=== PATIENT | female | born 1940 | race Caucasian/White ===

== ENCOUNTER 2017-06-09 13:29 | Emergency (ER) | payer MEDICARE, OTHER, SELFPAY ==
[2017-06-09 13:31] VITALS: BP 153/68; PULSE 96; RESP 22; TEMP 36.5; O2SAT 100; BMI 34.5
--- NOTE | 2017-06-09 13:45 | CT_ITS ---
STUDY: CT BRAIN WITHOUT CONTRAST REASON FOR EXAM: Female, 76 years old. Dizziness for 2 weeks RADIATION DOSAGE (If Supplied By Facility): CTDIvol = ( 44.99 ) mGy, DLP = ( 745.49 ) mGycm TECHNIQUE: Transaxial CT imaging of the brain was performed without administration of intravenous contrast material. Individualized dose optimization techniques were used for this CT. COMPARISON: None. FINDINGS: No evidence for shift of midline structures, mass effect or compression of ventricles noted. No acute intra-articular extra-axial hemorrhage is seen. No abnormal intracranial fluid collections identified The basal cisterns are patent. No discrete mass in the posterior fossa. Scattered foci of low-attenuation in the periventricular and subcortical white matter which are nonspecific in imaging appearance however likely related with chronic small vessel disease. Low-attenuation in the olivia also seen may relate to subacute infarct or beam hardening from adjacent dense petrous bones. Vascular calcifications. The calvarium is intact. 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 IMPRESSION: No evidence for acute intracranial hemorrhage, mass effect or acute large territory infarcts. Chronic small vessel disease.Low-attenuation in the olivia also seen may relate to subacute infarct or beam hardening from adjacent dense petrous bones. MRI exam provides better sensitivity for posterior fossa ischemia Electronically Signed: Viet Cheema, at 15:20 EDT Tel , Service support , CT/Brain/Head without Contrast
--- NOTE | 2017-06-09 13:46 | EKG12_ITS ---
Test Reason : DIZZINESS Blood Pressure : / mmHG Vent. Rate : 083 BPM Atrial Rate : 083 BPM P-R Int : 140 ms QRS Dur : 094 ms QT Int : 404 ms P-R-T Axes : 048 -10 058 degrees QTc Int : 474 ms Normal sinus rhythm Voltage criteria for left ventricular hypertrophy Nonspecific T wave abnormality Prolonged QT Abnormal ECG Confirmed by JAYLON SUAREZ, CECIL ([id number]), city editor ALEJANDRO MARTINES ([id number]) on 06/11/2017 2:55:44 PM Referred By: RENETTA Confirmed By:CECIL IYER MD
[2017-06-09 14:00] VITALS: BP 132/65; PULSE 80; RESP 20; O2SAT 98
--- NOTE | 2017-06-09 14:06 | RAD_ITS ---
STUDY: X-RAY CHEST REASON FOR EXAM: Female, 76 years old. Shortness of breath and dizziness TECHNIQUE: Single view of the chest was obtained COMPARISON: April 09, 2017 chest radiograph FINDINGS: Cardiac size is slightly prominent. Osseous structures demonstrate no acute abnormalities. There is likely a hiatal hernia present. No pneumothorax. IMPRESSION: Hiatal hernia suspected. Bibasilar subsegmental atelectasis. No lung consolidation Electronically Signed: Viet Cheema, at 14:31 EDT Tel , Service support , RAD/Chest 1 View (Portable)
[2017-06-09 14:08] LABS: Absolute Lymphocyte Count 0.85 X10^3/ul (0.83-4.51); Absolute Neutrophil Count 11.7 X10^3/uL (2.0-7.7); Basophil# 0.02 X10^3/uL; Basophil% 0.2 % (0-1); Eosinophil# 0.01 X10^3/uL; Eosinophils% 0.1 % (0-5); Hematocrit 34.5 % (37-47); Hemoglobin 11.3 g/dl (12.0-15.0); Lymphocyte # 0.85 X10^3/ul (4.0); Lymphocyte % 6.4 % (19-41); Mean Corp Hgb Conc 32.8 g/gl (32-36); Mean Corpuscular Hgb 31.6 pg (27.0-32.0); Mean Corpuscular Volume 96.4 fL (81-99); Mean Platelet Vol. 10.4 fl (6.2-12.0); Monocyte# 0.68 X10^3/uL; Monocyte% 5.1 % (0-10); Neutrophil # 11.73 X10^3/uL (2.7-7.7); Platelet Count 210 K/mm3 (150-450); RBC Distribution Width SD 43.5 fl (35.1-43.9); Red Blood Count 3.58 M/mm3 (4.2-5.4); White Blood Count 13.3 K/mm3 (4.4-11.0)
[2017-06-09 14:09] LABS: POSITIVE COUNT NO; POSITIVE DIFFERENTIAL NO; POSITIVE MORPHOLOGY NO
[2017-06-09 14:23] LABS: AST(SGOT) 21 U/L (15-37); Alanine Aminotransfer ALT/SGPT 20 U/L (13-56); Albumin, Serum 3.4 g/dL (3.2-5.0); Alkaline Phosphatase 66 U/L (45-117); Anion Gap 8 (5-15); BUN 24 mg/dL (7-18); BUN/Creat Ratio 19.5 RATIO (10-20); Bilirubin, Direct 0.13 mg/dL (0.00-0.30); Calcium,Total 8.5 mg/dL (8.5-10.1); Chloride 108 mmol/L (98-107); Creatinine, Serum 1.23 mg/dL (0.55-1.02); EST Glomerular Filtration Rate 45 mL/min (>60); Est Glom Filt Rate - Afr Amer 55 mL/min (>60); Estimated Creatinine Clearance 30.28 ml/min; Glucose 150 mg/dL (74-106); Lipase 124 U/L (73-393); Protein, Total 6.4 g/dL (6.4-8.2); Sodium Level 143 mmol/L (136-145)
--- NOTE | 2017-06-09 14:28 | ED.VISSUMM ---
- ER Visit Summary Date of Service: 06/09/17 Chief Complaint: [] Dizziness on and off for weeks History of Present Illness: The patient is a 76 F [] her history one year ago for TIA the cause some trouble with speech and mild dizziness she has been doing well at home but for the last few weeks she has had intermittent spells of dizziness that seem to occur when she is up walking about she indicates she spends, she has no trouble with speech no trouble with cognition no trouble with motor activities she had an episode today at restoration and she came in for evaluation. Fever no cough no chest pain no paresthesias no other complaints at this time she has had no symptoms of any kind her speech is easy to understand and clear Physical Examination: [] She is resting cupping the bed her vital signs are within normal range her HEENT exam is unremarkable there is no nystagmus to head movement or eye movement or visual acuity is intact to confrontation testing her neck is very supple her cranial nerves and speech are normal her lungs are clear the heart tones are normal the abdomen soft nontender upper lower extreme is unremarkable she did trip and fall in the shower this morning unrelated to any dizziness complains of mild pain to the right hip when she has full range of motion, she does have a large contusion involving the posterior to lateral right hip region, neurologically she is awake alert no dizziness no findings and nih 0 finger to nose cranial nerves motor negative Test Results: [] Emergency Department Course and Treatment: [] CT labs x-rays other studies are generally unremarkable CT shows nothing acute her labs, she is pending a right hip x-ray but she is up walking around the emergency department she indicates she feels fine she is not dizzy with any type of activity in the department she understands exact etiology of her dizziness is unclear this could certainly be related to lacunar infarct or TIA or some other process we can identify but she feels fine wants to go home she will follow with her family doctors her neurologist and return for change in symptoms, now she does have a contusion as described above to the right hip from the fall she will ice that continue to range of motion and again follow-up with her outpatient physicians for all of her complaints Treatment Plan: [] Disposition: [] Home stable admission Impression: [] Intermittent dizziness 4 weeks, right hip contusion prior TIA This note was generated with [employer] software. It may contain incorrect words, spelling, and punctuation that were not noted in review of the chart prior to signing ED Disposition - Plan for ED Patient: Chief Complaint: Dizziness Referrals: Prosper Christian DO [Primary Care Provider] -
[2017-06-09 14:32] VITALS: BP 122/73; BP 136/74; BP 142/71; PULSE 128; PULSE 80; PULSE 92
--- NOTE | 2017-06-09 15:09 | RAD_ITS ---
STUDY: X-RAY - PELVIS AND RIGHT HIP REASON FOR EXAM: Female, 76 years old. Dizziness and falling the top TECHNIQUE: Radiological exam, hip, unilateral, with pelvis when performed; 2 or 3 views. COMPARISON: None. FINDINGS: No definite evidence for acute femoral neck fracture seen. The bony pelvic ring appears intact. Degenerative changes in the sacroiliac joints. Overlying bowel gas limits assessment the sacrum. Ossific density along the superior aspect of the right greater trochanter noted possibly osteochondroma or myositis ossificans. Degenerative changes in the lower lumbar spine as well as the sacroiliac joints. IMPRESSION: No evidence for acute fracture seen Electronically Signed: Viet Cheema, at 16:22 EDT Tel , Service support , RAD/Hip 2-3 Views with Pelvis
[2017-06-09 15:45] VITALS: BP 147/63; PULSE 75; RESP 16; O2SAT 99
--- NOTE | 2017-06-09 15:50 | ED.RN ---
UP TO BR. DIZZINESS SIGNFICANTLY IMPROVED. WALKED DOWN MELENDREZ AND TOLERATED WELL
--- NOTE | 2017-06-09 15:52 | ED.DEP ---
ED Disposition - Plan for ED Patient: Chief Complaint: Dizziness Instructions: ED Dizziness UKO, ED Vertigo Unspecified Referrals: Prosper Christian DO [Primary Care Provider] -
--- NOTE | 2017-06-09 15:54 | ED.RN ---
UP TO BR. PT HAS LARD DEEP PURPL BRUISING/FIRM KNOT ACROSS RIGHT HIP SLIGH INTO THIGH WRAPS AROUND INTO BUTTOCKS AND LOWER ABD. PT REPORTS FALL IN TUB. STATES I SLIPPED ON RUB. I WAS NOT DIZZY AT THAT TIME. DR MURRAY AND XRAYS ORDERED. PT IN IMAGING AT THIS TIME.
[2017-06-09 15:56] LABS: Bacteria 0 SEEN /hpf (None Seen); Mucous, Urine 0 SEEN /hpf (<or=2+); Red Blood Cells-Urine 0 SEEN /hpf (0-5)
[2017-06-09 16:05] LABS: Color, Urine Yellow (Yellow); Glucose, Dipstick 250 mg/dl (Normal); Ketone-Dipstick Negative (Negative); Leukocyte Esterase-Dipstick 25 /ul (Negative); Nitrite-Dipstick Negative (Negative); Occult Blood-Urine 10 /ul (Negative); Protein-Dipstick Negative (Negative); Urine Bilirubin Dipstick Negative (Negative); Urine Clarity Clear (Clear); Urine Urobilinogen Normal (Normal)
[2017-06-09 16:14] LABS: Squamous Epithelial Cells - UA 0-5 SEEN /hpf (5-10); White Blood Cells 0-5 SEEN /hpf (0-5)
[2017-06-09 16:49] VITALS: BP 114/79; PULSE 72; RESP 20; O2SAT 97
== END 2017-06-09 16:50 | disposition home or self-care (01) ==
PROVIDERS: Emergency Provider Emergency Medicine; Family Provider Family Medicine; PCP Family Medicine
DX: R42 Dizziness and giddiness (principal); S70.01XA Contusion of right hip, initial encounter; W18.09XA Striking against other object with subsequent fall, initial encounter; W18.2XXA Fall in (into) shower or empty bathtub, initial encounter; Y93.E1 Activity, personal bathing and showering; Y92.9 Unspecified place or not applicable; Y99.9 Unspecified external cause status; Z79.899 Other long term (current) drug therapy; Z86.73 Personal history of transient ischemic attack (TIA), and cerebral infarction without residual deficits
CPT/HCPCS: 70450; 71045; 73502; 80048; 80076; 81001; 83690; 84484; 85025; 93005; 96360; 99284; J7030; J7040; A4216

== ENCOUNTER → 2017-06-25 11:04 | Outpatient (CLI) | payer MEDICARE, OTHER, SELFPAY ==
--- NOTE | 2017-06-25 11:30 | MRI_ITS ---
STUDY: MRI BRAIN WITHOUT CONTRAST REASON FOR EXAM: Female, 76 years old. Dizziness, IMBALANCE,prior stroke TECHNIQUE: Standardized multiplanar fat and water weighted pulse sequences were obtained. COMPARISON: None. FINDINGS: There is mild cerebral atrophy with widening of the extra-axial spaces and ventricular dilatation. There are a limited number of small white matter hyperintensities, distributed throughout the deep white matter tracts of the cerebral hemispheres, consistent with mild chronic white matter ischemic changes. Normal bilateral basal ganglia. Normal thalami. There is no extra-axial fluid accumulation. Normal flow voids within the major intracranial circulation suggesting patency by spin echo criteria. Normal sella turcica, pituitary gland, infundibular stalk, optic chiasm and hypothalamus. Normal tectal plate and pineal gland. There is a small old ischemic lesion on the left side of the olivia. The midbrain and medulla are otherwise normal. Multiple small old ischemic lesions are seen in the right and left cerebellar hemispheres. Normal basal cisterns. Normal bilateral temporal bones. Normal bilateral internal auditory canals. No demonstrated orbital abnormality, within the constraints of a routine brain study. Normal visualized paranasal sinuses. Normal calvarium and skull base. Normal visualized soft tissue structures. Normal visualized upper cervical spine. MRI/Brain without Contrast IMPRESSION: Involutional changes of the brain, as described above. There is a small old ischemic lesion on the left side of the olivia. Multiple small old ischemic lesions are seen in the right and left cerebellar hemispheres. Electronically Signed: Haja Bhardwaj MD at 15:44 EDT Tel , Service support ,
== END ==
PROVIDERS: Family Provider Family Medicine; PCP Family Medicine; Visit Provider Family Medicine
DX: R42 Dizziness and giddiness (principal); I67.9 Cerebrovascular disease, unspecified
CPT/HCPCS: 70551

== ENCOUNTER → 2017-10-30 08:27 | Outpatient (CLI) | payer MEDICARE, OTHER, SELFPAY ==
[2017-10-30 08:54] LABS: Absolute Lymphocyte Count 1.23 X10^3/ul (0.83-4.51); Absolute Neutrophil Count 4.8 X10^3/uL (2.0-7.7); Basophil# 0.06 X10^3/uL; Basophil% 0.9 % (0-1); Eosinophil# 0.19 X10^3/uL; Eosinophils% 2.7 % (0-5); Hematocrit 37.5 % (37-47); Hemoglobin 11.7 g/dl (12.0-15.0); Lymphocyte # 1.23 X10^3/ul (4.0); Lymphocyte % 17.6 % (19-41); Mean Corp Hgb Conc 31.2 g/gl (32-36); Mean Corpuscular Hgb 27.7 pg (27.0-32.0); Mean Corpuscular Volume 88.9 fL (81-99); Mean Platelet Vol. 10.3 fl (6.2-12.0); Monocyte# 0.72 X10^3/uL; Monocyte% 10.3 % (0-10); Neutrophil # 4.77 X10^3/uL (2.7-7.7); Neutrophil % 68.4 % (47-70); Platelet Count 222 K/mm3 (150-450); RBC Distribution Width CV 15.9 % (11.6-14.6); RBC Distribution Width SD 50.9 fl (35.1-43.9); Red Blood Count 4.22 M/mm3 (4.2-5.4)
[2017-10-30 09:00] LABS: POSITIVE COUNT NO; POSITIVE DIFFERENTIAL NO; POSITIVE MORPHOLOGY NO
[2017-10-30 09:27] LABS: ALB/GLOB Ratio 1.1 RATIO (0.9-2.4); AST(SGOT) 26 U/L (15-37); Alanine Aminotransfer ALT/SGPT 27 U/L (13-56); Albumin, Serum 3.6 g/dL (3.2-5.0); Alkaline Phosphatase 80 U/L (45-117); Anion Gap 10 (5-15); BUN 24 mg/dL (7-18); BUN/Creat Ratio 23.5 RATIO (10-20); Calcium,Total 8.7 mg/dL (8.5-10.1); Chloride 106 mmol/L (98-107); Creatinine, Serum 1.02 mg/dL (0.55-1.02); EST Glomerular Filtration Rate 56 mL/min (>60); Est Glom Filt Rate - Afr Amer 68 mL/min (>60); Ferritin 14 ng/mL (8-252); Globulin 3.4 g/dL (2.2-4.2); Glucose 88 mg/dL (74-106); Iron 79 ug/dL (50-170); Potassium 4.1 mmol/L (3.5-5.1); Sodium Level 143 mmol/L (136-145)
[2017-10-30 09:31] LABS: Vitamin B12 527 pg/mL (211-911); Vitamin D,25 Hydroxy 35.5 ng/mL (29.95-100.01)
== END ==
PROVIDERS: Family Provider Family Medicine; PCP Family Medicine; Visit Provider Family Medicine
DX: I10 Essential (primary) hypertension (principal); E78.5 Hyperlipidemia, unspecified; D64.9 Anemia, unspecified; E55.9 Vitamin D deficiency, unspecified; Z51.81 Encounter for therapeutic drug level monitoring
CPT/HCPCS: 36415; 80053; 82306; 82607; 82728; 83540; 85025

== ENCOUNTER → 2018-03-17 08:31 | Outpatient (CLI) | payer MEDICARE, OTHER, SELFPAY ==
[2018-03-11 10:44] VITALS: BMI 35.1
--- NOTE | 2018-03-17 08:33 | ECHOCS_ITS ---
Reason For Study: Murmur Procedure This was a 2D Doppler, Color Flow transthoracic echocardiogram. Exam performed in department. Left Ventricle Normal LV size. Left ventricular systolic function is normal. The estimated ejection fraction is 65 %. Stage 1 diastolic dysfunction. No regional wall motion abnormalities noted. Right Ventricle Normal RV size. Normal systolic function. Atria The left atrium is severely enlarged. Normal right atrium. Mitral Valve There is moderate to severe mitral annular calcification. Moderate (2+) mitral valve insufficiency. Tricuspid Valve Normal tricuspid valve. Mild to moderate (1-2+) tricuspid valve insufficiency. Pulmonary artery systolic pressure is 38 mmHg. Aortic Valve Trisinus/trileaflet aortic valve. Pulmonic Valve Normal pulmonic valve. Great Vessels Normal aortic root. The pulmonary artery is normal size. Normal inferior vena cava. Pericardium/Pleural No pericardial effusion. Medication 22 gauge I.V. with prn adaptor inserted into right arm. Diluted definity 3ml given slow IV push to enhance endocardial definition. MMode/2D Measurements & Calculations LVIDd: 3.7 cm IVSd: 1.4 cm LAV(MOD-bp): 105.4 ml LVIDs: 2.2 cm LVPWd: 1.6 cm RVDd: 3.2 cm FS: 39.3 % LAV(MOD-bp) Indexed: 58.6 ml/m2 LAV(MOD-sp2): 71.9 ml LAV(MOD-sp4): 119.1 ml LA A4 area: 33.1 cm2 RA A4 area: 15.9 cm2 Time Measurements MV dec time: 0.27 sec Doppler Measurements & Calculations MV E max kendall: 105.2 cm/sec Lat Peak E' Kendall: 7.2 cm/sec Med Peak E' Kendall: 4.8 cm/sec MV A max kendall: 115.4 cm/sec E/E' lat: 14.5 E/E' med: 22.0 MV E/A: 0.91 MV V2 max: 150.7 cm/sec MV P1/2t max kendall: 151.8 cm/sec Ao V2 max: 143.4 cm/sec MV max P.1 mmHg MV P1/2t: 87.1 msec Ao max P.2 mmHg MV V2 mean: 87.0 cm/sec Ao V2 mean: 97.4 cm/sec MV mean P.5 mmHg MV dec slope: 510.5 cm/sec2 Ao mean P.4 mmHg MV V2 VTI: 40.5 cm MVA(P1/2t): 2.5 cm2 Ao V2 VTI: 35.5 cm LV V1 max: 126.7 cm/sec MR max kendall: 584.3 cm/sec PA V2 max: 100.0 cm/sec LV V1 max P.4 mmHg MR max P.6 mmHg LV V1 mean P.5 mmHg MR mean kendall: 458.4 cm/sec LV V1 mean: 87.5 cm/sec MR mean P.6 mmHg LV V1 VTI: 32.5 cm MR VTI: 216.5 cm TR max kendall: 287.6 cm/sec TR max P.1 mmHg Interpretation Summary Normal LV size. Left ventricular systolic function is normal. The estimated ejection fraction is 65 %. Stage 1 diastolic dysfunction. The left atrium is severely enlarged. There is moderate to severe mitral annular calcification. Moderate (2+) mitral valve insufficiency. Contrast injection was performed. Ordering Physician: Julio Stanford Referring Physician: Julio Stanford Performed By: Tera Lacey RCS
--- OUTSIDE RECORDS SUMMARY | 2018-05-19 15:48 | XMS RPT_ITS ---
:1940 Author Organization [place] Support Name Relationship Address Phone ABY AWAD Unavailable [address] + [place] [address] R Unavailable Unavailable Unavailable MADDY BERG Unavailable [address] + [address] [place] [address] ABY AWAD Unavailable [address] + [place] [address] R Unavailable Unavailable Unavailable MADDY BERG Unavailable [address] + [address] [place] [address] ABY AWAD Unavailable [address] + [place] [address] R Unavailable Unavailable Unavailable MADDY BERG Unavailable [address] [place] [address] ABY AWAD Unavailable [address] + [place] [address] R Unavailable Unavailable Unavailable MADDY BERG Unavailable [address] + [address] [place] [address] ABY AWAD Un[address] + [place] [address] R Unavailable Unavailable Unavailable MADDY BERG Unavailable [address] [place] [address] ABY AWAD Un[address] + [place] [address] R Unavailable Unavailable Unavailable MADDY BERG Unavailable [address] + [address] [place] [address] ABY AWAD Un[address] + [place] [address] R Unavailable Unavailable Unavailable MADDY BERG Unavailable [address] [place] [address] PAK[place], ABY Unavailable [address] + [place] [address] R Unavailable Unavailable Unavailable MADDY BERG Unavailable [address] [place] [address] ABY AWAD Unavailable [address] + [place] [address] R Unavailable Unavailable Unavailable MADDY BERG Unavailable [address] [place] [address] ABY AWAD Unavailable [address] + [place] [address] R Unavailable Unavailable Unavailable MADDY BERG Unavailable [address] + [address] [place] [address] ABY AWAD Un[address] + [place] [address] R Unavailable Unavailable Unavailable MADDY BERG Unavailable [address] + [address] [place] [address] ABY AWAD Un[address] + [place] [address] R Unavailable Unavailable Unavailable MADDY BERG Unavailable [address] + [address] [place] [address] ABY AWAD Un[address] + [place] [address] R Unavailable Unavailable Unavailable MADDY BERG Unavailable [address] + [place] [address] ABY AWAD Un[address] + [place] [address] R Unavailable Unavailable Unavailable MADDY BERG Unavailable [address] + [place] [address] Care Team Providers Name Role Phone SISSY CHILDRESS (OCCUPATIONAL REHABILITATION AIDE) Referring Unavailable SISSY CHILDRESS (OCCUPATIONAL REHABILITATION AIDE) Attending Unavailable SISSY CHILDRESS (OCCUPATIONAL REHABILITATION AIDE) Referring Unavailable DR. LYNDON KEARNEY DO Attending Unavailable PHYSICIAN, NONE Primary Care Unavailable Eliane Mackey Attending Unavailable Prosper Christian Referring Unavailable Julio Stanford Attending Unavailable Prosper Christian Referring Unavailable Eliane Mackey Attending Unavailable Prosper Christian Referring Unavailable Anahi, Prosper Primary Care Unavailable Donald Berger Attending Unavailable Prosper Christian Attending Unavailable Anahi, Prosper Referring Unavailable Anahi, Prosper Primary Care Unavailable Hien, [place] Attending Unavailable Hien, Julio Referring Unavailable Anahi, Prosper Primary Care Unavailable Annalee Davis Attending Unavailable Annalee Davis Attending Unavailable Montse Mckeon Attending Unavailable Mary Kate Zavaleta Attending Unavailable Maycol Raghavendra Vo Attending Unavailable Anahi, Prosper Referring Unavailable Anahi, Prosper Primary Care Unavailable Eliane Mackey Attending Unavailable Anahi, Prosper Referring Unavailable Anahi, Prosper Primary Care Unavailable Anahi, Prosper Attending Unavailable Anahi, Prosper Referring Unavailable Anahi, Prosper Primary Care Unavailable Eliane Mackey Attending Unavailable Anahi, Prosper Referring Unavailable Anahi, Prosper Primary Care Unavailable PROBLEMS PROBLEMS DATE TYPE CONDITION / CODE ATTENDING STATUS SOURCE 03/11/2018 Unknown I36.1 - Nonrheumatic Hien, Julio Active [facility] tricuspid (valve) Community insufficiency / Hospital I36.1(ICD-10) Repository 03/11/2018 Unknown I10 - Essential Hien, [place] Active [facility] (primary) Community hypertension / Hospital I10(ICD-10) Repository 03/11/2018 Unknown I05.9 - Rheumatic Hien, [place] Active [facility] mitral valve disease, Community unspecified / Hospital I05.9(ICD-10) Repository 03/11/2018 Unknown Z95.818 - Presence of Hien, [place] Active [facility] other cardiac Community implants and grafts / Hospital Z95.818(ICD-10) Repository 03/11/2018 Unknown E78.00 - Pure Hien, Julio Active [facility] hypercholesterolemia, Community unspecified / Hospital E78.00(ICD-10) Repository 10/30/2017 Unknown E78.5 - AnahiProsper de los [place]antos Active [facility] Hyperlipidemia, Community unspecified / Hospital E78.5(ICD-10) Repository 10/30/2017 Unknown D64.9 - Anemia, AnahiProsper de los [place]ant[place] Active [facility] unspecified / Community D64.9(ICD-10) Hospital Repository 10/30/2017 Unknown E55.9 - Vitamin D AnahiProsper de los [place] Active [facility] deficiency, Community unspecified / Hospital E55.9(ICD-10) Repository 10/30/2017 Unknown Z51.81 - Encounter Prosper Christian Active [facility] for therapeutic drug Community level monitoring / Hospital Z51.81(ICD-10) Repository 06/25/2017 Unknown R42 - Dizziness and Prosper Christian Active [facility] giddiness / Community R42(ICD-10) Hospital Repository 06/25/2017 Unknown I67.9 - Prosper Christian Active [facility] Cerebrovascular Community disease, unspecified Hospital / I67.9(ICD-10) Repository 06/12/2017 Active Unknown / SISSY CHILDRESS Active [facility] UNK(Unknown) (OCCUPATIONAL REHABILITATION AIDE) [facility] [place] Repository 06/12/2017 Active Encounter for NA Active [facility] screening mammogram [facility] for malignant [place] neoplasm of breast / Repository Z12.31(ICD-10) 06/03/2017 Unknown I63.9 - Cerebral KeyEliane Active [facility] infarction, Community unspecified / Hospital I63.9(ICD-10) Repository PROCEDURES PROCEDURES No Procedure Records FoundRESULTS RESULTS ECHO, COMPLETE W/ Observed: 03/17/2018 Status: F Source: [place] CONTRAST 10:13 AM [facility] REPOSITORY [facility] Cardiovascular Services [address] [place] [address] Echo Complete W/ Contrast 03/17/18 0835 MR#: [id number] Acct: [id number] Name: GABRIELA BERG Rep #: [id number] : 1940 77 From: Julio Stanford MD Attending Dr: Julio Stanford MD Status: REG CLI Ordering Dr: Julio Stanford MD Date: 03/17/18 Location: [facility] Sex: F C Admitted: Reason For Study: Murmur Procedure This was a 2D Doppler, Color Flow transthoracic echocardiogram. Exam performed in department. Left Ventricle Normal LV size. Left ventricular systolic function is normal. The estimated ejection fraction is 65 %. Stage 1 diastolic dysfunction. No regional wall motion abnormalities noted. Right Ventricle Normal RV size. Normal systolic function. Atria The left atrium is severely enlarged. Normal right atrium. Mitral Valve There is moderate to severe mitral annular calcification. Moderate (2+) mitral valve insufficiency. Tricuspid Valve Normal tricuspid valve. Mild to moderate (1-2+) tricuspid valve insufficiency. Pulmonary artery systolic pressure is 38 mmHg. Aortic Valve Trisinus/trileaflet aortic valve. Pulmonic Valve Normal pulmonic valve. Great Vessels Normal aortic root. The pulmonary artery is normal size. Normal inferior vena cava. Pericardium/Pleural No pericardial effusion. Medication 22 gauge I.V. with prn adaptor inserted into right arm. Diluted definity 3ml given slow IV push to enhance endocardial definition. MMode/2D Measurements AND Calculations LVIDd: 3.7 cm IVSd: 1.4 cm LAV(MOD- bp): 105.4 ml LVIDs: 2.2 cm LVPWd: 1.6 cm RVDd: 3.2 cm FS: 39.3 % LAV(MOD- bp) Indexed: 58.6 ml/m2 LAV(MOD-sp2): 71.9 ml LAV(MOD-sp4): 119.1 ml LA A4 area: 33.1 cm2 RA A4 area: 15.9 cm2 Time Measurements MV dec time: 0.27 sec Doppler Measurements AND Calculations MV E max kendall: 105.2 cm/sec Lat Peak E' Kendall: 7.2 cm/sec Med Peak E' Kendall: 4.8 cm/sec MV A max kendall: 115.4 cm/sec E/E' lat: 14.5 E/E' med: 22.0 MV E/A: 0.91 MV V2 max: 150.7 cm/sec MV P1/2t max kendall: 151.8 cm/sec Ao V2 max: 143.4 cm/sec MV max P.1 mmHg MV P1/2t: 87.1 msec Ao max P.2 mmHg MV V2 mean: 87.0 cm/sec Ao V2 mean: 97.4 cm/sec MV mean P.5 mmHg MV dec slope: 510.5 cm/sec2 Ao mean P.4 mmHg MV V2 VTI: 40.5 cm MVA(P1/2t): 2.5 cm2 Ao V2 VTI: 35.5 cm LV V1 max: 126.7 cm/sec MR max kendall: 584.3 cm/sec PA V2 max: 100.0 cm/sec LV V1 max P.4 mmHg MR max P.6 mmHg LV V1 mean P.5 mmHg MR mean kendall: 458.4 cm/sec LV V1 mean: 87.5 cm/sec MR mean P.6 mmHg LV V1 VTI: 32.5 cm MR VTI: 216.5 cm TR max kendall: 287.6 cm/sec TR max P.1 mmHg Interpretation Summary Normal LV size. Left ventricular systolic function is normal. The estimated ejection fraction is 65 %. Stage 1 diastolic dysfunction. The left atrium is severely enlarged. There is moderate to severe mitral annular calcification. Moderate (2+) mitral valve insufficiency. Contrast injection was performed. Ordering Physician: Julio Stanford Referring Physician: Julio Stanford Performed By: Tera Lacey RCS 03/17/18 1012 Date Julio Stanford MD CC: Julio Stanford MD; Prosper Christian DO Date Dictated: 03/17/1835 Date Transcribed: 03/17/18 1012 Ground Source Heat Pump Technician: Signed CARDIOLOGY VISIT Observed: 03/11/2018 Status: F Source: [place] REPORT 11:08 AM [facility] REPOSITORY [facility] [address] [place] [address]. [address] [place] [address] OFFICE VISIT Date of Service: 03/11/18 MR#: [id number] Acct: [id number] Name: GABRIELA BERG Rep #: [id number] : 1940 Provider: Julio Stanford MD Age/Sex: 77/F Location: [facility] [place] Status: Signed HPI HPI Chief Complaint: Follow up Details: GABRIELA BERG, is a 77 F who presents to the office today for a cardiovascular outpatient follow-up. She has a history of hypertension, mitral annular calcification, hyperlipidemia, and CVA. Patient presents to [facility] emergency department in May 2017 with dizziness. She underwent a brain CT scan which was negative for any acute process. Her troponin was negative. Her EKG showed sinus rhythm. She was subsequently discharged home to follow-up with primary care physician and neurologist. She had follow-up with primary care physician who then ordered a brain MRI that too was negative for any acute process. As you know she has a loop recorder implanted as well. She also complains of some aches which she relates to the current dose of her statin. Pt. denies chest, arm, jaw, or neck discomfort. Her exercise tolerance is stable. Pt. denies symptoms of CHF, palpitations, lightheadedness, dizziness, near syncope, or syncopal episodes. Pt. denies edema or claudication issues. Pt. denies orthopnea, or PND. Her physical exam today demonstrates clear lung messina regular rate and rhythm is soft 2/6 systolic murmur noted left sternal border. Intake Vital Signs03/11/18 Height 5 ft 1 in 03/11/18 Weight: 186 lb 03/11/18 Body Mass Index (BMI) 35.1 03/11/18 Blood Pressure 158/84 H 03/11/18 Blood Pressure Location Lt brachial Intake Visit Reasons: 7 mo f/u Bale Coverer Required: No Accompanied by: none Is patient in pain?: No Allergies oxycodone Adverse Reaction (Verified 03/11/18 10:44) Nausea tetanus and diphtheria toxoids Adverse Reaction (Verified 03/11/18 10:44) dizziness, weakness, difficulty breathing, fast heart beat Medications Acetaminophen [Tylenol] 500 mg PO Q4H PRN PRN 04/22/14 [History Confirmed 03/11/18] Cholecalciferol (VIT D3) [Vitamin D3] 1,000 unit PO DAILY 04/22/14 [History Confirmed 03/11/18] Cyanocobalamin [Vitamin B12] 500 mcg PO DAILY@0800 04/22/14 [History Confirmed 03/11/18] Hydrochlorothiazide 1 tab PO DAILY 04/22/14 [History Confirmed 03/11/18] Loperamide [Imodium] 2 mg PO Q6H PRN PRN 04/22/14 [History Confirmed 03/11/18] Meloxicam 15 mg PO DAILY 04/22/14 [History Confirmed 03/11/18] Vitamin E 400 units PO DAILY 04/22/14 [History Confirmed 03/11/18] Clopidogrel Bisulfate [Plavix] 75 mg PO DAILY #0 tab 05/05/14 [Rx Confirmed 03/11/18] Aspirin [Aspirin, Baby] 81 mg PO DAILY@0800 #30 tab.chew 04/10/16 [Rx Confirmed 03/11/18] omega-3 fatty acids 1,000 mg capsule 1,000 mg PO QDAY 07/17/17 [History Confirmed 03/11/18] lisinopril 20 mg tablet 20 mg PO DAILY #90 tab 03/11/18 [Rx Confirmed 03/11/18] PFSH Medical History Non-rheumatic tricuspid valve insufficiency (Chronic) Hypertension (Chronic) Mitral valve disorder (Chronic) Cardiomegaly (Chronic) Encounter for long-term current use of high risk medication (Chronic) Cryptogenic stroke (Acute) CVA (cerebral vascular accident) (Acute) Essential hypertension (Chronic) Uterine carcinoma (Resolved) Hyperlipidemia (Chronic) Knee osteoarthritis (Chronic) TIA (transient ischemic attack) (Chronic) Fatigue (Acute) Hx of hysterectomy (Chronic 08/24/11) Surgical History Status post placement of implantable loop recorder (Chronic) History of esophagogastroduodenoscopy (EGD) (Chronic) History of total right knee replacement (TKR) (Chronic 05/2014) Hx of bilateral cataract extraction (Chronic) Hx of bladder repair surgery (Chronic) Hx of colonoscopy (Chronic 02/06/05) Family History Father CAD (coronary artery disease) CVA (cerebral vascular accident) Mother Colon cancer CVA (cerebral vascular accident) Brother Cancer Social History Smoking Status: Never smoker alcohol intake: current substance use type: does not use ROS Const Const: Negative for fatigue, weakness, night sweats, excessive sweating, frequent falls, headache(s) or daytime sleepiness Eyes Eyes: Negative for loss of peripheral vision, transient loss of vision, blind spots, double vision or blurry vision ENT ENT: Negative for headache(s), dizziness, balance problems, Nosebleed/epistaxis, tongue swelling or lip swelling Cardio Chest Pain: No Palpitations: No Edema: None Muscle aches with walking: None Resp Respiratory: Negative for SOB at rest, SOB orthopnea\SOB lying down, Cough, paroxysmal nocturnal dyspnea or SOB with activity GI GI: Negative nausea, vomiting, heartburn, black,tarry stools or bright, red blood in stools : Negative for hematuria Musc Musc: Negative for balance problems, muscle aches/ myalgia, muscle weakness or joint pain Skin Skin: Negative non-healing lesions, unusual bruising or rash Neuro Neuro: Negative for weakness, frequent falls, headache(s), double vision, dizziness, lightheadedness, orthostatic symptoms, blurry vision or lack of coordination Tawanda Hematologic/Lymphatic: Negative for easy bruising or easy bleeding Endo Endo: Negative for fatigue, excessive sweating, cold intolerance, heat intolerance, increased thirst/drinking or hair loss Psych Psych: Negative for anxiety or depression Allergy Allergy/Immunology: Negative for throat swelling, Negative for tongue swelling, Negative for hives, Negative for rash, Negative for lip swelling Cardiology Exam Const Appearance: cooperative, healthy appearing, well developed, well groomed and no acute distress Nutritional Appearance: well nourished and average body habitus Orientation: alert, awake and oriented x3 Head Head: normal to inspection, normocephalic and atraumatic Ears: hearing grossly normal bilaterally and external ears normal Nose: external nose normal, nasal mucous membranes and turbinates normal, nares normal, septum normal, no nasal discharge Face and Sinus: face symmetric Mouth: oral mucosae normal, tongue normal, oropharynx normal and moist mucous membranes Teeth and gingiva: dentition normal Throat: posterior oropharynx normal, tonsils normal and uvula midline Eyes General: appearance normal, both eyes and all related structures Eyelids: eyelids normal Conjunctivae: conjunctivae normal Pupils: PERRL, normal by confrontation and accommodation normal EOM: EOM intact bilaterally Neck Neck: normal visual inspection, trachea midline and no JVD JVD: +5 Carotids: normal carotid upstroke and bounding pulses Chest Chest inspection: normal inspection of the chest, symmetric chest movement and normal respiratory effort Auscultation: Bilateral: Clear to Auscultation Cardio Palpation: normal PMI Rate: regular rate Rhythm: regular rhythm Heart sounds: S1 normal and S2 normal Murmur: Grade 2/6, soft and LLSB GI GI: normal to inspection, soft, no hepatosplenomegaly and bowel sounds present Neuro General: alert, awake, oriented x3, no focal sensory deficit, gait normal and moves all extremities Skin Skin: no rashes or lesions noted Extremities Pulses: Normal: Right Femoral Pulse, Left Femoral Pulse, Right Dorsalis Pedis Pulse, Left Dorsalis Pedis Pulse, Right Posterior Tibial Pulse, Left Posterior Tibial Pulse, Right Radial Pulse, Left Radial Pulse Lower Extremity Edema: None: Bilateral Musculoskel Musculoskeletal: No joint tenderness Psych Psychological: normal affect Assessment AND Plan 1. Essential hypertension I10 Plan She does have a history of hypertension. Her blood pressure is still higher than the expected range. I will have it checked after the office visit. If it is still noted to be elevated then I may recommend that we increase her lisinopril to 20 mg a day. 2. Mitral valve disorder I05.9 Plan She does have a history of mitral valve disease. I would recommend that we repeat her echocardiogram she did have moderate mitral regurgitation at her last echocardiogram 2 years ago with an estimated ejection fraction of 70%. 3. Status post placement of implantable loop recorder Z95.818 Loop Recorder implant 04/10/[address] Stanford for cryptogenic CVA; Plan She is status post implantable loop recorder for cryptogenic CVA she is not had any recent recurrences of the above. 4. Pure hypercholesterolemia E78.00 Plan She does have a history of hyperlipidemia but on low dose statin. I recommend at this time that we discontinue the statin and repeat her lipid profile again in approximately 6 months. Plan Detail Other Orders Orders: Other Medications New: Discontinued: Follow Up 6 Months (jhr) Coding Level of Care Code Off vis,est,level 3 Diagnoses Essential hypertension I10 Mitral valve disorder I05.9 Status post placement of implantable loop recorder Z95.818 Pure hypercholesterolemia E78.00 Hyperlipidemia type: pure hypercholesterolemia Coding Level of Care Code Off vis,est,level 3 Diagnoses Essential hypertension I10 Mitral valve disorder I05.9 Status post placement of implantable loop recorder Z95.818 Pure hypercholesterolemia E78.00 Hyperlipidemia type: pure hypercholesterolemia Supplemental Info Supplemental Information Labs LDL Cholesterol 1 mg/dL (0-130) 01/08/17 HDL Cholesterol 76 mg/dL (40-) 01/08/17 Triglycerides 57 mg/dL (-199) 01/08/17 VLDL Cholesterol 11 mg/dL (5-40) 01/08/17 Diagnostics Electrocardiogram 06/09/17 Pacemaker Check 02/27/18 Chest X-Ray 06/09/17 03/11/18 1108 <Electronically signed by Julio Stanford MD> Date Julio Stanford MD Cosigner Signature: Date (if applicable) CC: Prosper Christian DO PACEMAKER CHECK Observed: 03/03/2018 Status: F Source: [place] 6:44 AM [facility] REPOSITORY [facility] [address] [place] [address]. [address] [place] [address] Pacemaker Check Date of Service: 02/27/18 0933 MR#: [id number] Acct: [id number] Name: GABRIELA BERG Rep #: [id number] : 1940 From: Eliane Mackey Age/Sex: 77/F Location: [facility] [place] Status: Signed Billing Codes ILR Device Interrogate: Yes 02/27/18 0934 <Electronically signed by Eliane Mackey > Date Eliane Mackey 03/03/18 0644<Electronically signed by Julio Stanford MD> Cosignalicia Signature: Date (if applicable) Julio Stanford MD CC: PACEMAKER CHECK Observed: 11/14/2017 Status: F Source: [place] 5:09 PM [facility] REPOSITORY [facility] [address] [place] [address]. [address] [place] [address] Pacemaker Check Date of Service: 11/13/17 1659 MR#: [id number] Acct: [id number] Name: GABRIELA BERG Rep #: [id number] : 1940 From: Eliane Mackey Age/Sex: 77/F Location: [facility] [place] Status: Signed Billing Codes ILR Device Interrogate: Yes 11/13/17 1702 <Electronically signed by Eliane Mackey > Date Eliane Mackey 11/14/17 1709<Electronically signed by Julio Stanford MD> Cosigner Signature: Date (if applicable) Julio Stanford MD CC: CBC W/DIFF, AUTOMATED Collected: 10/30/2017 Status: F Source: [place] 8:31 AM [facility] REPOSITORY TYPE CODE TESTS RESULT OUT OF RANGE REFERENCE UNITS LAB L100.1000 4.4-11.0 K/mm3 Normal WBC 7.0 LAB L100.1200 4.2-5.4 M/mm3 Normal RBC 4.22 LAB L100.1300 12.0-15.0 g/dl Low HGB 11.7 LAB L100.1400 37-47 % Normal HCT 37.5 LAB L100.1500 81-99 fL Normal MCV 88.9 LAB L100.1600 27.0-32.0 pg Normal MCH 27.7 LAB L100.1700 32-36 g/gl Low MCHC 31.2 LAB L100.1810 11.6-14.6 % High RDW CV 15.9 LAB L100.1820 35.1-43.9 fl High RDW SD 50.9 LAB L100.1900 150-450 K/mm3 Normal PLT 222 LAB L100.2000 6.2-12.0 fl Normal MPV 10.3 LAB L100.2100 47-70 % Normal NEUT% 68.4 LAB L100.2200 19-41 % Low LY% 17.6 LAB L100.2300 0-10 % High MONO% 10.3 LAB L100.2400 0-5 % Normal EO% 2.7 LAB L100.2500 0-1 % Normal BASO% 0.9 LAB L100.2550 0.0-0.9 % Normal IM GRAN % 0.100 Result Comment: IG% - Immature Granulocytes (promyelocytes, myelocytes and metamyelocytes) > 1% indicates that a LEFT SHIFT is Present. LAB L100.2620 2.0-7.7 X10 3/uL Normal Absolute Neut 4.8 LAB L100.2720 0.83-4.51 X10 3/ul Normal Absolute Lymph 1.23 Performed By: #### L100.0100 #### [facility] [address] [place], [address] COMPREHENSIVE METABOLIC Collected: 10/30/2017 Status: F Source: [place] 8:31 AM [facility] REPOSITORY Order Comment: Comments: Y TYPE CODE TESTS RESULT OUT OF RANGE REFERENCE UNITS LAB L501.0100 74-106 mg/dL Normal GLU 88 Result Comment: Please note revised GLUCOSE reference range effective 2017. LAB L501.1000 7-18 mg/dL High BUN 24 LAB L501.1100 0.55-1.02 mg/dL Normal CREAT,SERUM 1.02 Result Comment: The validity of the calculated GFR AND GFRAA in patients over 70 years has not been determined. Clinical correlation is essential. LAB L501.1110 >60 mL/min Low EST GFR 56 Result Comment: Non- GFR Calc LAB L501.1115 >60 mL/min Normal EST GFR - AA 68 Result Comment: GFR Calc LAB L501.1300 10-20 RATIO High BUN/CRE 23.5 LAB L501.1500 6.4-8.2 g/dL T Normal PROT 7.0 LAB L501.1800 3.2-5.0 g/dL Normal ALB 3.6 LAB L501.1950 2.2-4.2 g/dL Normal GLOB 3.4 LAB L501.2000 0.9-2.4 RATIO Normal A/G 1.1 LAB L501.2200 8.5-10.1 mg/dL CA Normal 8.7 LAB L501.4100 15-37 U/L Normal AST 26 LAB L501.4305 45-117 U/L Normal ALK P 80 LAB L501.4405 13-56 U/L Normal ALT 27 LAB L501.4600 0.20-1.00 mg/dL T Normal BILI 0.60 LAB L501.5300 136-145 mmol/L NA Normal 143 LAB L501.5600 3.5-5.1 mmol/L K Normal 4.1 LAB L501.5900 98-107 mmol/L CL Normal 106 LAB L501.6100 21.0-32.0 mmol/L Normal CO2 27.0 LAB L501.6200 5-15 Normal GAP 10 Performed By: #### L500.4050, L503.6150, L503.6550 #### [facility] [address], [address] IRON Collected: 10/30/2017 Status: F Source: [place] 8:31 AM [facility] REPOSITORY Order Comment: Comments: Y TYPE CODE TESTS RESULT OUT OF RANGE REFERENCE UNITS LAB L503.6150 50-170 ug/dL Normal IRON 79 Performed By: #### L500.4050, L503.6150, L503.6550 #### [facility] [address] [place], [address] FERRITIN Collected: 10/30/2017 Status: F Source: [place] 8:31 AM [facility] REPOSITORY Order Comment: Comments: Y TYPE CODE TESTS RESULT OUT OF RANGE REFERENCE UNITS LAB L503.6550 8-252 ng/mL Normal FERRITIN 14 Performed By: #### L500.4050, L503.6150, L503.6550 #### [facility] [address] [place], [address] VITAMIN B12 Collected: 10/30/2017 Status: F Source: [place] 8:31 AM [facility] REPOSITORY TYPE CODE TESTS RESULT OUT OF RANGE REFERENCE UNITS LAB L503.0105 211-911 pg/mL Normal Vitamin B12 527 Performed By: #### L503.0105, L506.1000 #### [facility] [address] [place], [address] VITAMIN D,25 HYDROXY Collected: 10/30/2017 Status: F Source: [place] 8:31 AM [facility] REPOSITORY TYPE CODE TESTS RESULT OUT OF RANGE REFERENCE UNITS LAB L506.1000 29.95-100.01 ng/mL Normal Vitamin D 35.5 25-OH Result Comment: Vitamin D 25(OH) Status Range Deficiency <20 ng/mL (50nmol/L) Insuffciency 20 - 30 ng/mL (50 - 75 nmol/L) Sufficiency 30 - 100 ng/mL (75 - 250 nmol/L) Toxicity >100 ng/mL (>250 nmol/L) Performed By: #### L503.0105, L506.1000 #### [facility] [address] [place], [address] CARDIOLOGY VISIT Observed: 08/07/2017 Status: F Source: [place] REPORT 8:20 AM [facility] REPOSITORY [facility] [facility] [address] [place] [address] OFFICE VISIT Date of Service: 07/17/17 MR#: [id number] Acct: [id number] Name: GABRIELA BERG Rep #: [id number] : 1940 Provider: BRIANDA Severino Age/Sex: 76/F Location: [facility] [place] Status: Signed HPI HPI Details: GABRIELA BERG, is a 76 F who presents to the office today for a cardiovascular outpatient follow-up. She has a history of hypertension, mitral annular calcification, hyperlipidemia, and CVA. Patient presents to [facility] emergency department in May 2017 with dizziness. She underwent a brain CT scan which was negative for any acute process. Her troponin was negative. Her EKG showed sinus rhythm. She was subsequently discharged home to follow-up with primary care physician and neurologist. She had follow-up with primary care physician who then ordered a brain MRI that too was negative for any acute process. She believes that her symptoms were related to her recent tetanus shot. Pt. denies chest, arm, jaw, or neck discomfort. Her exercise tolerance is stable. Pt. denies symptoms of CHF, palpitations, lightheadedness, dizziness, near syncope, or syncopal episodes. Pt. denies edema or claudication issues. Pt. denies orthopnea, PND, fever, chills, blood in urine, blood in stool, myalgia, or unexplainable fatigue. She states unchanged SOB when walking fast or for long distances. Intake Vital Signs07/17/17 Height 5 ft 1 in 07/17/17 Weight: 187 lb 07/17/17 Body Mass Index (BMI) 35.3 07/17/17 Blood Pressure 142/72 07/17/17 Blood Pressure Location Lt brachial Intake Visit Reasons: 6 M FU Bale Coverer Required: No Accompanied by: None Is patient in pain?: No Allergies oxycodone Adverse Reaction (Verified 07/17/17 09:15) Nausea tetanus and diphtheria toxoids Adverse Reaction (Verified 07/17/17 10:44) dizziness, weakness, difficulty breathing, fast heart beat Medications Acetaminophen [Tylenol] 500 mg PO Q4H PRN PRN 04/22/14 [History Confirmed 07/17/17] Cholecalciferol (VIT D3) [Vitamin D3] 1,000 unit PO DAILY 04/22/14 [History Confirmed 07/17/17] Cyanocobalamin [Vitamin B12] 500 mcg PO DAILY@0800 04/22/14 [History Confirmed 07/17/17] Hydrochlorothiazide 1 tab PO DAILY 04/22/14 [History Confirmed 07/17/17] Lisinopril 10 mg PO DAILY 04/22/14 [History Confirmed 07/17/17] Loperamide [Imodium] 2 mg PO Q6H PRN PRN 04/22/14 [History Confirmed 07/17/17] Meloxicam 15 mg PO DAILY 04/22/14 [History Confirmed 07/17/17] Vitamin E 400 units PO DAILY 04/22/14 [History Confirmed 07/17/17] Clopidogrel Bisulfate [Plavix] 75 mg PO DAILY #0 tab 05/05/14 [Rx Confirmed 07/17/17] Aspirin [Aspirin, Baby] 81 mg PO DAILY@0800 #30 tab.chew 04/10/16 [Rx Confirmed 07/17/17] atorvastatin 40 mg tablet 40 mg PO QDAY 07/15/17 [History Confirmed 07/17/17] omega-3 fatty acids 1,000 mg capsule 1,000 mg PO QDAY 07/17/17 [History Confirmed 07/17/17] Ejection fraction %: 65 to 70 (70% per echo 04/09/2016 at [facility]) [facility] Medical History Non-rheumatic tricuspid valve insufficiency (Chronic) Hypertension (Chronic) Mitral valve disorder (Chronic) Cardiomegaly (Chronic) Encounter for long-term current use of high risk medication (Chronic) Cryptogenic stroke (Acute) CVA (cerebral vascular accident) (Acute) Essential hypertension (Chronic) Uterine carcinoma (Resolved) Hyperlipidemia (Chronic) Knee osteoarthritis (Chronic) TIA (transient ischemic attack) (Chronic) Fatigue (Acute) Surgical History Status post placement of implantable loop recorder (Chronic) History of esophagogastroduodenoscopy (EGD) (Chronic) History of total right knee replacement (TKR) (Chronic 05/2014) Hx of bilateral cataract extraction (Chronic) Hx of bladder repair surgery (Chronic) Hx of colonoscopy (Chronic 02/06/05) Hx of hysterectomy (Chronic 08/24/11) Family History Father CAD (coronary artery disease) CVA (cerebral vascular accident) Mother Colon cancer CVA (cerebral vascular accident) Brother Cancer Social History Smoking Status: Never smoker alcohol intake: current substance use type: does not use ROS Const Const: Negative for fatigue, weakness, body ache, fever(s) or chills ENT ENT: Negative for dizziness Cardio Chest Pain: No Palpitations: No Edema: None Muscle aches with walking: None Resp Respiratory: Negative for SOB with activity, SOB at rest, SOB orthopnea\SOB lying down or paroxysmal nocturnal dyspnea GI GI: Negative nausea, black,tarry stools, bright, red blood in stools or vomiting blood/hematemesis : Negative for hematuria or frequent nighttime urination/ nocturia Musc Musc: Negative for muscle aches/ myalgia Skin Skin: Negative non-healing lesions or rash Neuro Neuro: Negative for weakness, dizziness, lightheadedness, near syncope, syncope or orthostatic symptoms Endo Endo: Negative for fatigue Allergy Allergy/Immunology: Negative for rash Cardiology Exam Const Appearance: cooperative, healthy appearing, comfortable and no acute distress Orientation: alert, awake and oriented x3 Head Head: normal to inspection Ears: hearing grossly normal bilaterally Nose: external nose normal Face and Sinus: face symmetric Mouth: oral mucosae normal Eyes General: appearance normal, both eyes and all related structures Eyelids: eyelids normal Neck Neck: no JVD and normal visual inspection Carotids: normal carotid upstroke Chest Chest inspection: normal inspection of the chest and normal respiratory effort; negative cough Auscultation: Bilateral: Clear to Auscultation Cardio Rate: regular rate Rhythm: regular rhythm Heart sounds: S1 normal and S2 normal; negative rub or gallop GI GI: normal to inspection Neuro General: alert, awake, oriented x3 and CN's II-XI intact bilaterally Skin Skin: no rashes or lesions noted Extremities Pulses: Normal: Right Posterior Tibial Pulse, Left Posterior Tibial Pulse, Right Radial Pulse, Left Radial Pulse Lower Extremity Edema: None: Bilateral Psych Psychological: normal affect Supplemental Info Echocardiogram from March 2016 showed an estimated ejection fraction of 70%, normal LV size, mildly enlarged left atrium, moderate mitral annular calcification, moderate mitral valve insufficiency, mild to moderate tricuspid valve insufficiency, RVSP of 51 mmHg, and when compared to previous study no significant changes noted. Stress echocardiogram from October 2008 showed no resting or exercise wall motion abnormalities, EKG suggestive of ischemia unchanged from a year ago, good blood pressure response to exercise, no clinical angina noted, and no evidence of ischemia on stress echo. Loop recorder check from April 2017 showed no patient activated symptoms, no tachy, no pauses, no ángel, and no AT/AF episodes since 04/17/17. Presenting rhythm shows NSR @ 75 bpm. Battery ok. Assessment AND Plan 1. Essential hypertension I10 DREW Bowman Patient's blood pressure remains on the higher end of expected range. She was asked to continue to monitor her blood pressure at home to discern if this is her average. She was instructed to contact our office if her blood pressure increases or remains elevated. At this time we will not make any medication regimen changes. 2. Mitral valve disorder I05.9 DREW Bowman Echocardiogram from March 2016 showed an ejection fraction of 70%, moderate mitral annular calcification, and moderate mitral valve insufficiency. She denies any shortness of breath or activity intolerance. She will continue current medications and we will continue to monitor this. 3. Non-rheumatic tricuspid valve insufficiency I36.1 DREW Bowman Echocardiogram from March 2016 showed mild to moderate tricuspid valve insufficiency and an RVSP of 51 mmHg. This does not appear to be causing any secondary symptoms. We will continue to monitor this through history, exam, and repeat echocardiogram. 4. Status post placement of implantable loop recorder Z95.818 Loop Recorder implant 04/10/[address] Stanford for cryptogenic CVA; DREW Bowman Loop recorder check from April 2017 showed no patient activated symptoms, no tachy, no pauses, no ángel, and no AT/AF episodes since 04/17/17. Presenting rhythm shows NSR @ 75 bpm. Battery ok. Her loop recorder will be evaluated if any dysrhythmia was noted that resulted in her recent trip to the emergency department that may be contributing to her dizziness. 5. Pure hypercholesterolemia E78.00; E78.0 DREW Bowman Patient's most recent lipid panel from December 2016 showed cholesterol: 88, HDL: 76, LDL: 1, and triglycerides: 57. She will continue current statin medication. Plan Detail Other Medications Discontinued: hydrocodone-acetaminophen 5-325 mg Discontinued Reason:1 - 2 tabs PO Q4H PRN PRN PAIN Pt no longer taking Additional Comments - DREW Canela Discussed the above patient with Dr. Stanford, he agrees with the plan of care. Thank you for allowing us to participate in the patients plan of care, if you have any questions please do not hesitate to call. This note was generated using a voice recognition system and there may be incorrect words, spelling or punctuation that were not noted when reviewing the office note prior to saving. Follow Up 7 Months (DIRECTOR OF REHABILITATIVE SERVICES) Coding Level of Care Code Off vis,est,level 3 Diagnoses Essential hypertension I10 Hypertension type: essential hypertension Mitral valve disorder I05.9 Non-rheumatic tricuspid valve insufficiency I36.1 Status post placement of implantable loop recorder Z95.818 Pure hypercholesterolemia E78.00; E78.0 Hyperlipidemia type: pure hypercholesterolemia Coding Level of Care Code Off vis,est,level 3 Diagnoses Essential hypertension I10 Hypertension type: essential hypertension Mitral valve disorder I05.9 Non-rheumatic tricuspid valve insufficiency I36.1 Status post placement of implantable loop recorder Z95.818 Pure hypercholesterolemia E78.00; E78.0 Hyperlipidemia type: pure hypercholesterolemia 07/17/17 1323 <Electronically signed by Raghavendra Severino NP-C> Date Raghavendra Severino SQE-C 08/07/17 0820<Electronically signed by Julio Stanford MD> Cosigner Signature: Date (if applicable) Julio Stanford MD CC: Prosper Christian DO BRAIN WITHOUT Observed: 06/25/2017 Status: F Source: [place] CONTRAST 11:13 AM [facility] REPOSITORY [facility] Imaging Services [address] [place] [address] Brain without Contrast MR#: [id number] Acct: [id number] Name: GABRIELA BERG Rep #: [id number] : 1940 F 76 From: Haja Bhardwaj MD PCP: Prosper Christian DO Status: REG CLI Study: Brain without Contrast Date of Exam: 06/25/17 Exam# [id number] Ordering Dr: Prosper Christian DO STUDY: MRI BRAIN WITHOUT CONTRAST REASON FOR EXAM: Female, 76 years old. Dizziness, IMBALANCE,prior stroke TECHNIQUE: Standardized multiplanar fat and water weighted pulse sequences were obtained. COMPARISON: None. FINDINGS: There is mild cerebral atrophy with widening of the extra- axial spaces and ventricular dilatation. There are a limited number of small white matter hyperintensities, distributed throughout the deep white matter tracts of the cerebral hemispheres, consistent with mild chronic white matter ischemic changes. Normal bilateral basal ganglia. Normal thalami. There is no extra-axial fluid accumulation. Normal flow voids within the major intracranial circulation suggesting patency by spin echo criteria. Normal sella turcica, pituitary gland, infundibular stalk, optic chiasm and hypothalamus. Normal tectal plate and pineal gland. There is a small old ischemic lesion on the left side of the olivia. The midbrain and medulla are otherwise normal. Multiple small old ischemic lesions are seen in the right and left cerebellar hemispheres. Normal basal cisterns. Normal bilateral temporal bones. Normal bilateral internal auditory canals. No demonstrated orbital abnormality, within the constraints of a routine brain study. Normal visualized paranasal sinuses. Normal calvarium and skull base. Normal visualized soft tissue structures. Normal visualized upper cervical spine. MRI/Brain without Contrast IMPRESSION: Involutional changes of the brain, as described above. There is a small old ischemic lesion on the left side of the olivia. Multiple small old ischemic lesions are seen in the right and left cerebellar hemispheres. Electronically Signed: Haja Bhardwaj MD at 15:44 EDT Tel , Service support , CC: Prosper Christian DO Ground Source Heat Pump Technician: Signed CNCO Observed: 06/12/2017 Status: COMPLETED Source: [place] 10:20 AM [facility] REPOSITORY HNO ID: [id number] Author: Mammography Coordinator Service: (none) Author Type: Physician Type: Letter Filed: 06/13/2017 11:32 PM Note Text: June 12, 2017 PID: [id number] Gabriela Berg [address] [place] [id number] Dear Ms. Berg, We are pleased to inform you that the results of your recent breast imaging exam on 06/12/2017 are normal. Early detection of cancer is very important. We also understand recommendations regarding breast cancer screening are controversial. Please discuss with your primary care provider which strategy is best for you and whether a mammogram is right for you. Your imaging studies and report will be kept on file at [facility] as part of your permanent medical record and are available for your continuing care. Thank you for allowing us to help in meeting your health care needs. Sincerely, Dr. Vance Interpreting Radiologist [facility] (Normal over 40[place] CNOV Observed: 06/12/2017 Status: COMPLETED Source: [place] 10:00 AM [facility] REPOSITORY Office Visit (WOOB) GABRIELA BERG ([id number]) 1940 F Date Time Provider Department 06/12/17 10:00 AM [facility] (SHAKIR) WOOUMOU During your visit today, we recorded the following information about you: Blood pressure Weight Height 110/60 85 kg 1.537 m Sissy Childress APRN.CNP 06/12/2017 10:19 AM Signed Gabriela arrived to office and had sudden bout of diarrhea. Would prefer to not have exam today. Had negative Pap 04/2016 and wants to have a Pap every 2 years due to history of endometrial cancer so will make appointment for next year as she did not realize a Pap had been done last year. No charge for visit. Referring Provider: SISSY CHILDRESS (SHAKIR) [[id number]] Allergies As of Date: 06/12/2017 (No Known Allergies) Date Reviewed: 06/12/2017 Reviewed by: Bay Uriarte - Fully Assessed Reason for Visit: Well Woman [[id number]] Primary Visit Diagnosis:Visit for screening mammogram [Z12.31] Other Visit Diagnosis:Encounter for gynecological examination (general) (routine) without abnormal findings [Z01.419] Prescriptions as of 06/12/2017 Sig: VITAMIN D-3 ORAL Take by mouth. VITAMIN E 1,000 UNIT CAPSULE Take 1,000 Units by mouth onc* ASCORBIC ACID (VITAMIN C) 100* Take 100 mg by mouth once paris* OMEGA 2-DSQ-BWQ-FISH OIL 1,00* Take 2 g by mouth twice daily. ACETAMINOPHEN 325 MG CAPSULE Take by mouth. ATORVASTATIN 40 MG TABLET Take 40 mg by mouth once mark* VITAMIN B-12 ORAL Take by mouth. MELOXICAM 15 MG TABLET Take 1 tablet by mouth once d* * PLAVIX 75 MG TABLET Take one(1) tablet daily. * HYDROCHLOROTHIAZIDE 25 MG TAB* Take one(1) tablet daily. * PRINIVIL 10 MG TABLET Take one(1) tablet daily. * ASPIRIN 81 MG TABLET Take one(1) tablet daily. VICODIN ORAL Take by mouth as needed. Tot* SIMVASTATIN 10 MG TABLET Take 10 mg by mouth. Pt takes* * MULTIVITAMIN TABLET Take one(1) tablet daily. Medication notes this encounter VICODIN ORAL >> Bay Uriarte MA 06/12/2017 9:46 AM >> BAY URIARTE MA SatJun 12, 2017 9:46 AM Not taking MULTIVITAMIN TABLET >> Bay Uriarte MA 06/12/2017 9:46 AM >> BAY URIARTE MA SatJun 12, 2017 9:46 AM Not taking Problem List As Of Date 06/12/2017 Noted Resolved History of endometrial cancer [Z85.42] INVALID FOR* Disposition: Return in 1 year (on 06/12/2018) for Annual Exam. Follow-up and Disposition History Recorded Encounter Status:Closed by [facility] CHILDRESS on 06/12/17 PROGRESS Observed: 06/12/2017 Status: COMPLETED Source: [place] 9:48 AM [facility] [place] REPOSITORY HNO ID: [id number] Author: Sissy Childress Service: (none) Author Type: Nurse Practitioner Type: Progress Notes Filed: 06/12/2017 10:19 AM Note Text: Gabriela arrived to office and had sudden bout of diarrhea. Would prefer to not have exam today. Had negative Pap 04/2016 and wants to have a Pap every 2 years due to history of endometrial cancer so will make appointment for next year as she did not realize a Pap had been done last year. No charge for visit. PROCEDURE Observed: 06/12/2017 Status: COMPLETED Source: [place] 9:39 AM [facility] REPOSITORY HNO ID: [id number] Author: Yasmin (Rt) Genesis Russell Service: (none) Author Type: Weigh Machine Operator Type: Procedures Filed: 06/12/2017 9:40 AM Note Text: Radiology Service Progress Note PATIENT NAME: Gabriela Berg DATE OF SERVICE: June 12, 2017 TIME: 9:39 AM PATIENT IDENTITY VERIFICATION COMPLETED USING TWO (2) METHODS: Patient confirmed name verbally and Date of . PATIENT GENDER DATA: Female. status: : No status: NO. PATIENT RELEVANT IMPLANT DATA REVIEWED: Not Applicable RADIOLOGY DEPARTMENT: [facility] DATA: Not applicable SIGNED BY: RT Tyler June 12, 2017 9:39 AM [facility] SCREENING Observed: 06/12/2017 Status: F Source: [place] 9:36 AM [facility] REPOSITORY * * *Final Report* * * DATE OF EXAM: Jun 12 2017 9:36AM [facility] [id number] - [facility] SCREENING / PROCEDURE REASON: Encounter for screening mammogram for malignant neoplasm of breast * * * * Physician Interpretation * * * * RESULT: #[id number] - [facility] SCREENING BILATERAL DIGITAL SCREENING MAMMOGRAM WITH CAD: 06/12/2017 HISTORY: Encounter For Screening Mammogram For Malignant Neoplasm Of Breast /priors available for comparison. RESULT: TECHNIQUE: The study was acquired using full field digital technology and interpreted from soft copy. Current study was also evaluated with a Computer Aided Detection (CAD). Comparison is made to exams dated: 06/25/2013 mammogram, 09/25/2011 mammogram, and 08/23/2008 mammogram. The tissue of both breasts is predominantly fatty. Cardiac device obscures the medial left breast. No significant masses, calcifications, or other findings are seen in either breast. There has been no significant interval change. IMPRESSION: NEGATIVE There is no mammographic evidence of malignancy.A 1 year screening mammogram is recommended. The exam was reviewed by a staff physician. Mark Bower M.D. pt,pc/caleb:06/12/2017 10:20:20 Casino Floor Walker: Yasmin MCGUIRE)(Vinicio), [facility] letter sent: Normal over 40 Mammogram BI-RADS: 1 Negative Ground Source Heat Pump Technician: Caleb Transcribe Date/Time: Jun 12 2017 9:40A Dictated by: BRYN BOWER MD This examination was interpreted and the report reviewed and electronically signed by: MARK VANCE MD on Jun 12 2017 10:20AM EST [id number] LEAD ELECTROCARDIOGRAM Observed: 06/11/2017 Status: F Source: [place] 2:56 PM [facility] REPOSITORY [facility] Cardiovascular Services [address] [place] [id number] 12 Lead EKG 06/09/17 1356 MR#: [id number] Acct: [id number] Name: GABRIELA BERG Rep #: [id number] : 1940 76 From: Rodger Iyer MD Attending Dr: Status: DEP ER Ordering Dr: Donald Berger MD Date: 06/09/17 Location: ED Sex: F C Admitted: Test Reason : DIZZINESS Blood Pressure : / mmHG Vent. Rate : 083 BPM Atrial Rate : 083 BPM P-R Int : 140 ms QRS Dur : 094 ms QT Int : 404 ms P-R-T Axes : 048 -10 058 degrees QTc Int : 474 ms Normal sinus rhythm Voltage criteria for left ventricular hypertrophy Nonspecific T wave abnormality Prolonged QT Abnormal ECG Confirmed by JAYLON SUAREZ, RODGER ([id number]), digital editor ALEJANDRO MARTINES ([id number]) on 06/11/2017 2:55:44 PM Referred By: RENETTA Confirmed By:RODGER IYER MD 06/11/17 1455 Date Rodger Iyer MD CC: MD Ian Berger; Prosper Lazaro EMERGENCY DEPARTMENT Observed: 06/09/2017 Status: F Source: [place] SUMMARY 4:33 PM [facility] Medical Records Department [address] [place] [address] Emergency Department Summary 06/09/17 1428 MR#: [id number] Acct: [id number] Name: GABRIELA BERG Rep #: [id number] : 1940 76 From: Donald Berger MD PCP: Prosper Christian DO Status: REG ER - ER Visit Summary Date of Service: 06/09/17 Chief Complaint: [] Dizziness on and off for weeks History of Present Illness: The patient is a 76 F [] her history one year ago for TIA the cause some trouble with speech and mild dizziness she has been doing well at home but for the last few weeks she has had intermittent spells of dizziness that seem to occur when she is up walking about she indicates she spends, she has no trouble with speech no trouble with cognition no trouble with motor activities she had an episode today at [facility] and she came in for evaluation. Fever no cough no chest pain no paresthesias no other complaints at this time she has had no symptoms of any kind her speech is easy to understand and clear Physical Examination: [] She is resting cupping the bed her vital signs are within normal range her HEENT exam is unremarkable there is no nystagmus to head movement or eye movement or visual acuity is intact to confrontation testing her neck is very supple her cranial nerves and speech are normal her lungs are clear the heart tones are normal the abdomen soft nontender upper lower extreme is unremarkable she did trip and fall in the shower this morning unrelated to any dizziness complains of mild pain to the right hip when she has full range of motion, she does have a large contusion involving the posterior to lateral right hip region, neurologically she is awake alert no dizziness no findings and nih 0 finger to nose cranial nerves motor negative Test Results: [] Emergency Department Course and Treatment: [] CT labs x-rays other studies are generally unremarkable CT shows nothing acute her labs, she is pending a right hip x-ray but she is up walking around the emergency department she indicates she feels fine she is not dizzy with any type of activity in the department she understands exact etiology of her dizziness is unclear this could certainly be related to lacunar infarct or TIA or some other process we can identify but she feels fine wants to go home she will follow with her family doctors her neurologist and return for change in symptoms, now she does have a contusion as described above to the right hip from the fall she will ice that continue to range of motion and again follow-up with her outpatient physicians for all of her complaints Treatment Plan: [] Disposition: [] Home stable admission Impression: [] Intermittent dizziness 4 weeks, right hip contusion prior TIA This note was generated with [employer] dictation software. It may contain incorrect words, spelling, and punctuation that were not noted in review of the chart prior to signing ED Disposition - Plan for ED Patient: Chief Complaint: Dizziness Referrals: Prosper Christian DO [Primary Care Provider] - What to do if you have Problems For any increased pain, shortness of breath, bleeding, nausea or vomiting, chest pain, or any unexpected problems, contact your Primary Care Provider. Call [facility] ([phone]) or report to the closest Emergency Room. Call 911 if necessary. 06/09/17 1633 <Electronically signed by Donald Berger MD> Date Donald Berger MD Cosigner Signature (If Indicated): Date CC: Prosper Christian DO DISCHARGE INSTRUCTION Observed: 06/09/2017 Status: F Source: [place] 3:53 PM [facility] REPOSITORY [facility] Medical Records Department [address] [place] [address] Discharge Instruction 06/09/17 1552 MR#: [id number] Acct: [id number] Name: GABRIELA BERG Alia Rep #: [id number] : 1940 76 From: Donald Berger MD PCP: Prosper Christian DO Status: REG ER ED Disposition - Plan for ED Patient: Chief Complaint: Dizziness Instructions: ED Dizziness UKO, ED Vertigo Unspecified Referrals: Anahi,Rposper, DO [Primary Care Provider] - What to do if you have Problems For any increased pain, shortness of breath, bleeding, nausea or vomiting, chest pain, or any unexpected problems, contact your Primary Care Provider. Call [facility] ([phone]) or report to the closest Emergency Room. Call 911 if necessary. 06/09/17 9261 <Electronically signed by Donald Berger MD> Date Donald Berger MD Cosigner Signature (If Indicated): Date CC: Prosper Christian DO URINALYSIS, COMPLETE Collected: 06/09/2017 Status: F Source: [place] 3:45 PM [facility] REPOSITORY Order Comment: Order Date: 06/09/17 How was Urine Obtained? CLEAN CATCH TYPE CODE TESTS RESULT OUT OF RANGE REFERENCE UNITS LAB L400.3000 Yellow COLOR Normal Yellow LAB L400.3050 Clear Normal CLARITY Clear LAB L400.3200 Normal mg/dl High GLUCOSE, UR 250 LAB L400.3300 Negative mg/dL Normal BILIRUBIN URINE Negative LAB L400.3400 Negative mg/dl Normal KETONE UR Negative LAB L400.3465 1.002-1.030 Normal SP.GR. DIPSTX 1.010 LAB L400.3550 5.0 - 8.0 pH UR Normal 6.0 LAB L400.3600 Negative mg/dl PROT Normal DIPSTX Negative LAB L400.3700 Normal mg/dl Normal UROBILI Normal LAB L400.3750 Negative Normal NITRITE UR Negative LAB L400.3780 Negative /ul High 10 OCCULT BLOOD-UR LAB L400.3800 Negative /ul High LEUK 25 ESTERASE LAB L400.4050 0-5 /hpf WBC Normal 0-5 SEEN LAB L400.4100 0-5 /hpf 0 Normal RBC-UA SEEN LAB L400.4150 5-10 /hpf SQUAM Normal EPI 0-5 SEEN LAB L400.4300 None Seen /hpf 0 Normal BACTERIA SEEN LAB L400.4350 <or=2+ /hpf 0 Normal MUCUS, URINE SEEN Performed By: #### L400.0001 #### [facility] [address] [place], [address] HIP 2-3 VIEWS WITH Observed: 06/09/2017 Status: F Source: [place] PELVIS 3:09 PM [facility] REPOSITORY [facility] Imaging Services [address] [place] [address] Hip 2-3 Views with Pelvis MR#: [id number] Acct: [id number] Name: GABRIELA BEGR Rep #: [id number] : 1940 F 76 From: Viet Cheema MD PCP: Prosper Christian DO Status: REG ER Study: Hip 2-3 Views with Pelvis Date of Exam: 06/09/17 Exam# [id number] Ordering Dr: Donald Berger MD STUDY: X-RAY - PELVIS AND RIGHT HIP REASON FOR EXAM: Female, 76 years old. Dizziness and falling the top TECHNIQUE: Radiological exam, hip, unilateral, with pelvis when performed; 2 or 3 views. COMPARISON: None. FINDINGS: No definite evidence for acute femoral neck fracture seen. The bony pelvic ring appears intact. Degenerative changes in the sacroiliac joints. Overlying bowel gas limits assessment the sacrum. Ossific density along the superior aspect of the right greater trochanter noted possibly osteochondroma or myositis ossificans. Degenerative changes in the lower lumbar spine as well as the sacroiliac joints. IMPRESSION: No evidence for acute fracture seen Electronically Signed: Viet Cheema, at 16:22 EDT Tel , Service support , RAD/Hip 2-3 Views with Pelvis CC: MD Ian Berger; Prosper Christian DO Ground Source Heat Pump Technician: Signed CBC W/DIFF, AUTOMATED Collected: 06/09/2017 Status: F Source: [place] 1:50 PM [facility] REPOSITORY TYPE CODE TESTS RESULT OUT OF RANGE REFERENCE UNITS LAB L100.1000 4.4-11.0 K/mm3 High WBC 13.3 LAB L100.1200 4.2-5.4 M/mm3 Low RBC 3.58 LAB L100.1300 12.0-15.0 g/dl Low HGB 11.3 LAB L100.1400 37-47 % Low HCT 34.5 LAB L100.1500 81-99 fL Normal MCV 96.4 LAB L100.1600 27.0-32.0 pg Normal MCH 31.6 LAB L100.1700 32-36 g/gl Normal MCHC 32.8 LAB L100.1810 11.6-14.6 % Normal RDW CV 13.0 LAB L100.1820 35.1-43.9 fl Normal RDW SD 43.5 LAB L100.1900 150-450 K/mm3 Normal PLT 210 LAB L100.2000 6.2-12.0 fl Normal MPV 10.4 LAB L100.2100 47-70 % High NEUT% 88.0 LAB L100.2200 19-41 % Low LY% 6.4 LAB L100.2300 0-10 % Normal MONO% 5.1 LAB L100.2400 0-5 % Normal EO% 0.1 LAB L100.2500 0-1 % Normal BASO% 0.2 LAB L100.2550 0.0-0.9 % Normal IM GRAN % 0.200 Result Comment: IG% - Immature Granulocytes (promyelocytes, myelocytes and metamyelocytes) > 1% indicates that a LEFT SHIFT is Present. LAB L100.2620 2.0-7.7 X10 3/uL High Absolute Neut 11.7 LAB L100.2720 0.83-4.51 X10 3/ul Normal Absolute Lymph 0.85 Performed By: #### L100.0100 #### [facility] [address] [place], [place], [address] BASIC METABOLIC Collected: 06/09/2017 Status: F Source: [place] PROFILE (BMP) 1:50 PM [facility] REPOSITORY Order Comment: 'TROP' Serial specimen #1, #2, #3, or #4: 1 TYPE CODE TESTS RESULT OUT OF RANGE REFERENCE UNITS LAB L501.0100 74-106 mg/dL High GLU 150 Result Comment: Fasting Glucose result greater than or equal to 126 mg/dL suggests DIABETES MELLITUS per A.D.A. criteria. Please note revised GLUCOSE reference range effective 2017. LAB L501.1000 7-18 mg/dL High BUN 24 LAB L501.1100 0.55-1.02 mg/dL High CREAT,SERUM 1.23 Result Comment: The validity of the calculated GFR AND GFRAA in patients over 70 years has not been determined. Clinical correlation is essential. LAB L501.1110 >60 mL/min Low EST GFR 45 Result Comment: Non- GFR Calc LAB L501.1115 >60 mL/min Low EST GFR - AA 55 Result Comment: GFR Calc LAB L501.1255 ml/min Normal Estimated CRCL 30.28 LAB L501.1300 10-20 RATIO Normal BUN/CRE 19.5 LAB L501.2200 8.5-10 mg/dL Normal .1 CA 8.5 LAB L501.5300 136-14 mmol/L Normal 5 NA 143 LAB L501.5600 3.5-5. mmol/L Normal 1 K 4.0 LAB L501.5900 98-107 mmol/L High CL 108 LAB L501.6100 21.0-3 mmol/L Normal 2.0 CO2 27.0 LAB L501.6200 5-15 Normal GAP 8 Performed By: #### L500.2500, L500.3400, L501.2450, L501.4010 #### [facility] [address] [place], [place], [id number] LIVER PROFILE Collected: 06/09/2017 Status: F Source: [place] 1:50 PM [facility] REPOSITORY Order Comment: 'TROP' Serial specimen #1, #2, #3, or #4: 1 TYPE CODE TESTS RESULT OUT OF RANGE REFERENCE UNITS LAB L501.1500 6.4-8.2 g/dL Normal T PROT 6.4 LAB L501.1800 3.2-5.0 g/dL Normal ALB 3.4 LAB L501.1950 2.2-4.2 g/dL Normal GLOB 3.0 LAB L501.4100 15-37 U/L Normal AST 21 LAB L501.4305 45-117 U/L Normal ALK P 66 LAB L501.4405 13-56 U/L Normal ALT 20 LAB L501.4600 0.20-1.00 mg/dL Normal T BILI 0.40 LAB L501.4700 0.00-0.30 mg/dL Normal D BILI 0.13 Performed By: #### L500.2500, L500.3400, L501.2450, L501.4010 #### [facility] [address] [place], [address] LIPASE Collected: 06/09/2017 Status: F Source: [place] 1:50 PM [facility] REPOSITORY Order Comment: 'TROP' Serial specimen #1, #2, #3, or #4: 1 TYPE CODE TESTS RESULT OUT OF RANGE REFERENCE UNITS LAB L501.2450 73-393 U/L Normal LIPASE 124 Performed By: #### L500.2500, L500.3400, L501.2450, L501.4010 #### [facility] [address] [place], [address] TROPONIN-I Collected: 06/09/2017 Status: F Source: [place] 1:50 PM [facility] REPOSITORY Order Comment: 'TROP' Serial specimen #1, #2, #3, or #4: 1 TYPE CODE TESTS RESULT OUT OF RANGE REFERENCE UNITS LAB L501.4010 <0.06 ng/mL Normal < 0.02 TROPONIN-I Result Comment: TROPONIN-I EXPECTED VALUES <0.05 NEGATIVE 0.06 - 0.59 AT RISK OF DE > OR = 0.60 SUGGEST DE Performed By: #### L500.2500, L500.3400, L501.2450, L501.4010 #### [facility] [address] [place], [place], [id number] CHEST 1 VIEW Observed: 06/09/2017 Status: F Source: [place] (PORTABLE) 1:47 PM [facility] REPOSITORY [facility] Imaging Services [address] [place] [address] Chest 1 View (Portable) MR#: [id number] Acct: [id number] Name: GABRIELA BERG Rep #: [id number] : 1940 F 76 From: Viet Cheema MD PCP: Prosper Christian DO Status: PRE ER Study: Chest 1 View (Portable) Date of Exam: 06/09/17 Exam# [id number] Ordering Dr: Donald Berger MD STUDY: X-RAY CHEST REASON FOR EXAM: Female, 76 years old. Shortness of breath and dizziness TECHNIQUE: Single view of the chest was obtained COMPARISON: April 09, 2017 chest radiograph FINDINGS: Cardiac size is slightly prominent. Osseous structures demonstrate no acute abnormalities. There is likely a hiatal hernia present. No pneumothorax. IMPRESSION: Hiatal hernia suspected. Bibasilar subsegmental atelectasis. No lung consolidation Electronically Signed: Viet Cheema, at 14:31 EDT Tel , Service support , RAD/Chest 1 View (Portable) CC: MD Ian Berger; Prosper Christian DO Ground Source Heat Pump Technician: Signed BRAIN/HEAD WITHOUT Observed: 06/09/2017 Status: F Source: [place] CONTRAST 1:47 PM [facility] REPOSITORY [facility] Imaging Services [address] [place] [address] Brain/Head without Contrast MR#: [id number] Acct: [id number] Name: GABRIELA BERG Rep #: [id number] : 1940 F 76 From: Viet Cheema MD PCP: Prosper Christian DO Status: PRE ER Study: Brain/Head without Contrast Date of Exam: 06/09/17 Exam# [id number] Ordering Dr: Donald Berger MD STUDY: CT BRAIN WITHOUT CONTRAST REASON FOR EXAM: Female, 76 years old. Dizziness for 2 weeks RADIATION DOSAGE (If Supplied By Facility): CTDIvol = ( 44.99 ) mGy, DLP = ( 745.49 ) mGycm TECHNIQUE: Transaxial CT imaging of the brain was performed without administration of intravenous contrast material. Individualized dose optimization techniques were used for this CT. COMPARISON: None. FINDINGS: No evidence for shift of midline structures, mass effect or compression of ventricles noted. No acute intra-articular extra-axial hemorrhage is seen. No abnormal intracranial fluid collections identified The basal cisterns are patent. No discrete mass in the posterior fossa. Scattered foci of low-attenuation in the periventricular and subcortical white matter which are nonspecific in imaging appearance however likely related with chronic small vessel disease. Low-attenuation in the olivia also seen may relate to subacute infarct or beam hardening from adjacent dense petrous bones. Vascular calcifications. The calvarium is intact. 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 IMPRESSION: No evidence for acute intracranial hemorrhage, mass effect or acute large territory infarcts. Chronic small vessel disease.Low-attenuation in the olivia also seen may relate to subacute infarct or beam hardening from adjacent dense petrous bones. MRI exam provides better sensitivity for posterior fossa ischemia Electronically Signed: Viet Anette, at 15:20 EDT Tel , Service support , CT/Brain/Head without Contrast CC: MD Ian Berger; Prosper Christian DO Ground Source Heat Pump Technician: Signed JOSE Observed: 05/30/2017 Status: COMPLETED Source: [place] 12:00 AM [facility] REPOSITORY Telephone (WHQ) GABRIELA BERG ([id number]) 1940 F Date Time Provider Department 05/30/17 SISSY CHILDRESS ([facility]) Q During your visit today, we recorded the following information about you: Sissy Roman Psr 05/30/2017 9:28 AM Signed Pt has been scheduled for Annual and Mammogram. Please enter the order for the Screening Mammogram. Thank you. Ne Hayes RN 05/30/2017 10:12 AM Signed Addended by: NE HAYES RN on: 05/30/2017 10:12 AM Modules accepted: Orders Sissy Childress APRN.OCCUPATIONAL REHABILITATION AIDE 05/30/2017 11:01 AM Signed Addended by: SISSY CHILDRESS on: 05/30/2017 11:01 AM Modules accepted: Orders Allergies As of Date: 05/30/2017 (No Known Allergies) Date Reviewed: 05/03/2016 Reviewed by: Aliyah Houston Ma - Fully Assessed Reason for Visit: Orders [681] Primary Visit Diagnosis:Encounter for screening mammogram for malignant neoplasm of breast [Z12.31] Order(s):[facility] SCREENING [3411495] Order #: [id number] FUTURE Prescriptions as of 05/30/2017 Sig: ATORVASTATIN 40 MG TABLET Take 40 mg by mouth once mark* VICODIN ORAL Take by mouth as needed. Tot* VITAMIN B-12 ORAL Take by mouth. SIMVASTATIN 10 MG TABLET Take 10 mg by mouth. Pt takes* MELOXICAM 15 MG TABLET Take 1 tablet by mouth once d* * PLAVIX 75 MG TABLET Take one(1) tablet daily. * HYDROCHLOROTHIAZIDE 25 MG TAB* Take one(1) tablet daily. * PRINIVIL 10 MG TABLET Take one(1) tablet daily. * ASPIRIN 81 MG TABLET Take one(1) tablet daily. * MULTIVITAMIN TABLET Take one(1) tablet daily. Problem List As Of Date 05/30/2017 Noted Resolved History of endometrial cancer [Z85.42] INVALID FOR* Encounter Status:Closed by SISSY PINEDA on 05/30/17 PACEMAKER CHECK Observed: 05/09/2017 Status: F Source: [place] 5:10 PM [facility] REPOSITORY [facility] [address] [place] [address]. [address] [place] [address] Pacemaker Check Date of Service: 05/09/17 1337 MR#: [id number] Acct: [id number] Name: GABRIELA BERG Rep #: [id number] : 1940 From: Eliane Mackey Age/Sex: 76/F Location: [facility] [place] Status: Signed Comments Summary Comments: Remote Implantable Loop Recorder Evaluation: Remote interrogation shows no patient activated symptoms, no tachy, no pauses, no ángel, and no AT/AF episodes sicne 04/17/17. Presenting rhythm shows NSR @ 75 bpm. Battery ok. Next f/u appt scheduled for in 3 mos. Device Device Date Interviewed: 04/29/17 Follow-up Location: remote wireless Interview Reason: routine follow up Security Professional: [employer] Name: Reveal LinQ Model: LNQ11 Serial #: [id number] Implant Date: 04/10/16 Year(s): 1 Implant Physician: Dr. Julio Stanford/[facility] Patient Characteristics Patient Substrate: Arrhythmia (cryptogenic stroke) Ejection fraction %: 65 to 70 (04/09/2016) By: Echo Device Characteristics Type: Implantable loop recorder Billing Codes ILR Device Interrogate: Yes Assessment AND Plan Problems 1. Status post placement of implantable loop recorder Z95.818 2. Cryptogenic stroke I63.9 05/09/17 1350 <Electronically signed by Eliane Mackey > Date Eliane Mackey 05/09/17 1710<Electronically signed by Julio Stanford MD> Cosigner Signature: Date (if applicable) Julio Stanford MD CC: ALLERGIES ALLERGIES DATE TYPE / CODE NAME / CODE REACTION SEVERITY SOURCE 03/11/2018 Drug oxycodone/H415674 Nausea Unknown [facility] All[facility]/416 558(RXNORM) Community 305499([facility] ED CT) Repository 03/11/2018 Drug tetanus and dizziness, Unknown [facility] Allergy/416 diphtheria weakness, Community 994367([facility] toxoids/[id number] [facility] ED CT) 4(RXNORM) breathing, fast Repository heart beat Drug NO KNOWN [facility] Class/75799 ALLERGIES Main [place] 1003(SNOMED Repository CT) ENCOUNTERS ENCOUNTERS ADMIT/DISCHARGE ACCOUNT NUMBER ADMITTING ENCOUNTER LOCATION SOURCE CLASS 03/17/2018 [id number] Ambulatory [facility] ding:[facility] Repository 03/11/2018/03/11/19 [id number] Ambulatory BMSBuilding: [place] 19 BMS.[facility] Repository 02/26/2018/02/26/19 [id number] Ambulatory BMSBuilding: [place] 19 BMS.[facility] Repository 11/13/2017/11/14/19 [id number] Ambulatory BMSBuilding: [place] 18 BMS.[facility] Repository 10/30/2017 [id number] Ambulatory [facility] ding:LAB Repository 08/05/2017/08/06/19 [id number] Ambulatory BMSBuilding: [facility] 18 BMS.[facility] Repository 07/17/2017/07/18/19 [id number] Ambulatory BMSBuilding: [place] 18 BMS.[facility] Repository 07/17/2017 [id number] Ambulatory BMSBuilding: [place] BMS.[facility] Repository 07/15/2017 [id number] Ambulatory BMS [facility] Repository 07/03/2017 [id number] Ambulatory BMSBuilding: [place] BMS.[facility] Repository 06/26/2017 [id number] Ambulatory BMSBuilding: [place] BMS.[facility] Repository 06/25/2017 [id number] Ambulatory [facility] ding:MRI Repository 06/12/2017/06/13/19 [id number] Ambulatory [address] Repository 06/12/2017/06/13/19 [id number] Ambulatory [address] Repository 06/09/2017/06/10/19 [id number] Emergency [address] ding:ED Repository 06/07/2017/06/08/19 [id number] Emergency BBuilding:ALICIA Salgado [address] [place] [address] Repository 04/30/2017/05/01/19 [id number] Ambulatory BMSBuilding: [facility] 18 BMS.[facility] Repository PAYERS PAYERS ENCOUNTER GUARANTOR PAYER SUBSCRIBER SOURCE 03/17/2018 MADDY D Primary GABRIELA A [place] [id number] Insurance:MEDICARE SHEARERDOB: Community SHELIA DRUNIT PART A [facility] [id number] Number: Repository [address]Wqc: 330 [id number] [phone] (HP) Date:2018-03-11 03/17/2018 Secondary NOT GIVENUNK [place] Insurance:SELF PAY [facility] Number: Effective Repository Date:2018-03-11 03/11/2018 GABRIELA A Primary GABRIELA A [facility] [id number] Insurance:MEDICARE SHEARERDOB: [facility] SHELIA DRLOT PART A [facility] [id number], [place] Number: Repository [address]Qaa: 330 [id number] [phone] (HP) Date:2017-07-17 03/11/2018 Secondary GABRIELA A [place] Insurance:LUBA PANDEY SHEARERDOB: Community SUPPLEMENT [id number] Number: [id number] Date:4250-95-46KUQYPS AN [facility] [address] [address], [place] [address]OA: 03/11/2018 Tertiary NOT GIVENUNK [place] Insurance:SELF PAY [facility] Number: Effective Repository Date:2018-03-10 02/26/2018 MADDY D Primary GABRIELA A [facility] [id number] Insurance:MEDICARE SHEARERDOB: [facility] SHELIA SNYDERUNIT PART A [facility] [id number], [place] Number: Repository [address]Rnh: 330 [id number] [phone] () Date:2017-11-19 02/26/2018 Secondary GABRIELA A [facility] Insurance:SALUDNA KATHERIN SHEARERDOB: [facility] SUPPLEMENT [id number] [facility] Hospital Repository Number: [id number] Date:9483-00-19DJSZXM AN [facility] [address] [address], [place] [address]LA: 02/26/2018 Tertiary NOT GIVENUNK [place] Insurance:SELF PAY [facility] Number: Effective Repository Date:2018-02-26 11/13/2017 Maddy D Primary GABRIELA A [place] [id number] Insurance:MEDICARE SHEARERDOB: Community [place] PART A [facility] [id number] [facility] [place] Number: Repository [address]Zfy: [phone] [id number] [phone] (HP) Date:2017-08-06 11/13/2017 Secondary GABRIELA A [facility] Insurance:[employer] [facility] SHEARERDOB: Community SUPPLEMENT [id number] [facility] Hospital Repository Number: [id number] Date:1270-41-73LCAHFO AN [facility] [address] [address], [place] [address]JM: 11/13/2017 Tertiary NOT GIVENUNK [facility] Insurance:SELF PAY [facility] Number: Effective Repository Date:2017-11-13 10/30/2017 Maddy D Primary GABRIELA A [facility] [id number] Insurance:MEDICARE SHEARERDOB: Community [place] PART A [facility] [id number]. [facility] [place] Number: Repository [address]Jin: 330 [id number] [phone] (HP) Date:2017-10-30 10/30/2017 Secondary GABRIELA A [facility] Insurance:LUBA PANDEY SHEARERDOB: Community SUPPLEMENT [id number] [facility] Hospital Repository Number: [id number] Date:8577-77-15DVUFQBCARTERET HEALTH CARE LIFE [address] [address], [place] [address]BB: 10/30/2017 Tertiary NOT GIVENUNK [place] Insurance:SELF PAY [facility] Number: Effective Repository Date:2017-10-30 08/05/2017 Maddy D Primary GABRIELA A [facility] [id number] Insurance:MEDICARE SHEARERDOB: Community [place] PART A [facility] [id number]. [facility] [place] Number: Repository [address]Txx: [phone] [id number] [phone] (HP) Date:2017-04-30 08/05/2017 Secondary GABRIELA A [facility] Insurance:LUBA SANDRAERDOB: Community SUPPLEMENT [id number] Stanley Hospital Repository Number: [id number] Date:6410-81-39RRIBRE AN [facility] [address] [address], [place] [address]RI: 08/05/2017 Tertiary NOT GIVENUNK [facility] Insurance:SELF PAY [facility] Number: Effective Repository Date:2017-08-14 07/17/2017 Maddy D Primary GABRIELA A [facility] [id number] Insurance:MEDICARE SHEARERDOB: Community [place] PART A [facility] [id number] Number: Repository [address]Rtk: 330 [id number] [phone] (HP) Date:2017-02-14 07/17/2017 Secondary GABRIELA A [facility] Insurance:LUBA SANDRAERDOB: Community SUPPLEMENT [id number] Stanley Hospital Repository Number: [id number] Date:3384-92-39SXFZEL AN [facility] [address] [address], [place] [address]GH: 07/17/2017 Tertiary NOT GIVENUNK [facility] Insurance:SELF PAY [facility] Number: Effective Repository Date:2017-02-14 07/17/2017 Maddy D Primary GABRIELA A [place] [id number] Insurance:MEDICARE SHEARERDOB: Community [place] PART A [facility] [id number] Number: Repository [address]Nwj: 330 [id number] [phone] (HP) Date:2017-07-17 07/17/2017 Secondary GABRIELA A [facility] Insurance:LUBA SANDRAERDOB: Community SUPPLEMENT [id number] Stanley Hospital Repository Number: [id number] Date:6304-24-14YAPFAI AN [facility] [address] [address], [place] [address]WU: 07/17/2017 Tertiary NOT GIVENUNK [facility] Insurance:SELF PAY [facility] Number: Effective Repository Date:2017-07-17 07/15/2017 Maddy D Primary GABRIELA A [facility] [id number] Insurance:MEDICARE SHEARERDOB: Community [place] PART A [facility] [id number] Center of the [place] Number: Repository [address]Vvw: [phone] [id number] [phone] (HP) Date:2017-07-15 07/15/2017 Secondary GABRIELA A [place] Insurance:[facility] SHEARERDOB: Community SUPPLEMENT [id number] Stanley Hospital Repository Number: [id number] Date:9392-03-26ADZFBH AN [facility] [address] [address], [place] [address]ZB: 07/15/2017 Tertiary NOT GIVENUNK [facility] Insurance:SELF PAY [facility] Number: Effective Repository Date:2017-07-15 07/03/2017 Maddy D Primary GABRIELA A [facility] [id number] Insurance:MEDICARE SHEARERDOB: Community [place] PART A [facility] [id number]. Mary[facility] Number: Repository [address]Bmq: 330 [id number] [phone] (HP) Date:2017-07-03 07/03/2017 Secondary GABRIELA A [place] Insurance:LUBA PANDEY SHEARERDOB: Community SUPPLEMENT [id number] Stanley Hospital Repository Number: [id number] Date:0587-96-19BNZPOB AN [facility] [address] [address], [place] [address]OY: 07/03/2017 Tertiary NOT GIVENUNK [place] Insurance:SELF PAY [facility] Number: Effective Repository Date:2017-07-03 06/26/2017 Maddy D Primary GABRIELA A Winston [id number] Insurance:MEDICARE SHEARERDOB: Community [place] PART A [facility] [id number][facility] [place] Number: Repository [address]Nzu: [phone] [id number] [phone] (HP) Date:2017-06-26 06/26/2017 Secondary GABRIELA A Mclean Insurance:LUBA SANDRAERDOB: Community SUPPLEMENT [id number] Number: [id number] Date:[id number] AN [facility] [address], [place] [address]KB: 06/26/2017 Tertiary NOT GIVENUNK Winston Insurance:SELF PAY [facility] Number: Effective Repository Date:2017-06-26 06/25/2017 Maddy D Primary GABRIELA A Mclean [id number] Insurance:MEDICARE SHEARERDOB: Community [place] PART A [facility] [id number] Number: Repository [id number]: [phone] [id number] [phone] (HP) Date:2017-06-17 06/25/2017 Secondary GABRIELA A Winston Insurance:LUBA SANDRAERDOB: Community SUPPLEMENT [id number] Repository Number: [id number] Date:[id number] AN [facility] [address] [address], [place] [address]VR: 06/25/2017 Tertiary NOT GIVENUNK Mclean Insurance:SELF PAY [facility] Number: Effective Repository Date:2017-06-17 06/09/2017 Maddy D Primary GABRIELA A Mclean [id number] Insurance:MEDICARE SHEARERDOB: Community [place] PART A [facility] [id number] Number: Repository [id number]: [phone] [id number] [phone] (HP) Date:2017-06-09 06/09/2017 Secondary GABRIELA A Mclean Insurance:LUBA SANDRAERDOB: Community SUPPLEMENT [id number] Repository Number: [id number] Date:[id number] AN [facility] [address] [address], [place] [address]AY: 06/09/2017 Tertiary NOT GIVENUNK Mclean Insurance:SELF PAY [facility] Number: Effective Repository Date:2017-06-09 06/07/2017 GABRIELA A Primary Insurance: GABRIELA Alia [facility] SHEARERDOB: [facility] SHEARERDOB: [facility] [id number] Repository [address] Number: [address] [place], [place] [id number] [address] [place] [id number]: [phone]) Date:2017-06-07 [id number]: () [id number] Name:ACTUARIAL ASSISTANT BOX ()Tel: (728) [phone], [place] [phone] () 168[address]CP: 04/30/2017 Maddy Harding Primary GABRIELA A Winston [id number] Insurance:MEDICARE SHEARERDOB: Community [place] PART A olic [id number] Number: Repository [id number]: [phone] [id number] [phone] () Date:2017-04-30 04/30/2017 Secondary GABRIELA A Winston Insurance:[employer] [facility] SHEARERDOB: Community SUPPLEMENT [id number] [facility] Hospital Repository Number: [id number] Date:[id number] AN [facility] [id number] [place] [address]QO: 04/30/2017 Tertiary NOT GIVENUNK Mclean Insurance:SELF PAY [facility] Number: Effective Repository Date:2017-04-30
== END ==
PROVIDERS: Family Provider Family Medicine; PCP Family Medicine; Referring Provider Internal Medicine Cardiovascular Disease; Visit Provider Internal Medicine Cardiovascular Disease
DX: I36.1 Nonrheumatic tricuspid (valve) insufficiency (principal)
CPT/HCPCS: 93306; Q9957; A4216; C8929

== ENCOUNTER → 2018-09-26 08:49 | Outpatient (CLI) | payer MEDICARE, OTHER, SELFPAY ==
[2018-03-11 10:44] VITALS: BMI 35.1
[2018-09-26 09:54] LABS: Absolute Lymphocyte Count 1.26 X10^3/uL (0.83-4.51); Absolute Neutrophil Count 4.6 X10^3/uL (2.0-7.7); Basophil# 0.08 X10^3/uL; Basophil% 1.2 % (0-1); Eosinophil# 0.24 X10^3/uL; Eosinophils% 3.5 % (0-5); Hematocrit 42.7 % (37-47); Hemoglobin 14.1 g/dL (12.0-15.0); Lymphocyte # 1.26 X10^3/ul (4.0); Lymphocyte % 18.4 % (19-41); Mean Corpuscular Volume 96.8 fL (81-99); Mean Platelet Vol. 10.4 fl (6.2-12.0); Monocyte# 0.61 X10^3/uL; Monocyte% 8.9 % (0-10); NRBC Flagged by Analyzer 0 % (0-5); Neutrophil # 4.62 X10^3/uL (2.7-7.7); Neutrophil % 67.6 % (47-70); Platelet Count 216 K/mm3 (150-450); RBC Distribution Width CV 12.7 % (11.6-14.6); RBC Distribution Width SD 44.9 fl (35.1-43.9); Red Blood Count 4.41 M/mm3 (4.2-5.4); White Blood Count 6.8 K/mm3 (4.4-11.0)
[2018-09-26 10:23] LABS: AST(SGOT) 20 U/L (15-37); Alanine Aminotransfer ALT/SGPT 20 U/L (13-56); Albumin, Serum 3.6 g/dL (3.2-5.0); Alkaline Phosphatase 66 U/L (45-117); Anion Gap 3 (5-15); BUN 24 mg/dL (7-18); Calcium,Total 8.8 mg/dL (8.5-10.1); Chloride 106 mmol/L (98-107); Cholesterol 109 mg/dL (200); Creatinine, Serum 1.09 mg/dL (0.55-1.02); EST Glomerular Filtration Rate 52 mL/min (>60); Est Glom Filt Rate - Afr Amer 63 mL/min (>60); Ferritin 61 ng/mL (8-252); Globulin 3.5 g/dL (2.2-4.2); Glucose 90 mg/dL (74-106); High Density Lipoprotein 62 mg/dL; Iron 133 ug/dL (50-170); Potassium 4.2 mmol/L (3.5-5.1); Protein, Total 7.1 g/dL (6.4-8.2); Sodium Level 140 mmol/L (136-145); Triglycerides 116 mg/dL; Very Low Density Lipoprotein 23 mg/dL (5-40)
== END ==
PROVIDERS: Family Provider Family Medicine; PCP Family Medicine; Referring Provider Family Medicine; Visit Provider Family Medicine
DX: I12.9 Hypertensive chronic kidney disease with stage 1 through stage 4 chronic kidney disease, or unspecified chronic kidney disease (principal); N18.3 Chronic kidney disease, stage 3 (moderate); D64.9 Anemia, unspecified; I67.9 Cerebrovascular disease, unspecified
CPT/HCPCS: 36415; 80053; 80061; 82728; 83540; 85025

== ENCOUNTER → 2018-10-03 09:31 | Outpatient (CLI) | payer MEDICARE, OTHER, SELFPAY ==
[2018-03-11 10:44] VITALS: BMI 35.1
--- NOTE | 2018-10-03 09:34 | VDLE_ITS ---
Reason For Study: LLE Edema Procedure LEFT Exam performed in department. CFV is compressible, spontaneous, phasic, Patient was scanned in reverse Trendelenburg competent, and demonstrates normal position during reflux assessment. augmentation. FV is compressible, spontaneous, phasic, competent and demonstrates normal augmentation. POP V is compressible, spontaneous, phasic, competent and demonstrates normal augmentation. T/P Trunk is compressible. PTV is compressible. LT PerV is compressible. SFJ is competent and measures 0.51 x 0.49 cm. GSV proximal thigh is INCOMPETENT for greater than 0.5 seconds and measures 0.34 x 0.36 cm. GSV at knee is INCOMPETENT for greater than 0.5 seconds and measures 0.28 x 0.26 cm. SSV proximal calf is competent and measures 0.23 x 0.23 cm. ASV prox calf is INCOMEPTENT for greater than 0.5 seconds and measures 0.24 x 0.22 cm. Interpretation Summary Deep veins of the left lower extremity are patent and compressible segmentally. There is no evidence of left lower extremity deep vein thrombosis. Valvular competence appears intact within the proximal deep venous system on the left . The left greater saphenous vein appears patent and compressible segmentally. The left sapheno-femoral junction is competent . The left great saphenous vein appears segmentally incompetent. The left small saphenous vein is patent and competent. The left accessory saphenous vein in the proximal left calf is patent and incompetent. Ordering Physician: Prosper Chrsitian Referring Physician: Prosper Christian Performed By: Ananya Choi RVT
== END ==
PROVIDERS: Family Provider Family Medicine; PCP Family Medicine; Referring Provider Family Medicine; Visit Provider Family Medicine
DX: R60.0 Localized edema (principal); I83.899 Varicose veins of unspecified lower extremity with other complications
CPT/HCPCS: 93971

== ENCOUNTER 2019-02-04 09:02 | Emergency (ER) | payer MEDICARE, OTHER, SELFPAY ==
[2018-10-23 13:45] VITALS: BMI 35.9
[2019-02-04 09:04] VITALS: BP 166/81; PULSE 81; RESP 18; TEMP 36.6; O2SAT 98; BMI 36.8
--- NOTE | 2019-02-04 09:26 | ED.VIS.GEN ---
History of Present Illness Chief Complaint: Fall Informant: Patient Onset: Today Maximum Severity: Mild Narrative: Left hip pain today after fall at home Patient decayed she was walking there was some debris on the floor from her cats causing her to basically slip she indicates she did which she describes as a split injuring her left hip, she did not hit her head she has no back pain abdominal pain chest or other extremity pain she does have a prior history for right knee replacement surgery and her only complaint is left hip pain Past Medical History - Allergies and Home Meds Allergies/Adverse Reactions: Allergies acetaminophen [From Percocet] Allergy (Verified 02/04/19 09:07) Vomiting oxycodone Adverse Reaction (Verified 02/04/19 09:07) Nausea tetanus and diphtheria toxoids Adverse Reaction (Verified 02/04/19 09:07) dizziness, weakness, difficulty breathing, fast heart beat Primary Care Physician: Prosper Christian DO [Primary Care Provider] - Past Medical History: - Surgical History: - - hysterectomy for uterine Ca R TKR Smoking Status: Never smoker - Family History Paternal Family History: Family History (Last Reviewed 10/23/18 @ 14:25 by Julio Stanford MD) Father CAD (coronary artery disease) CVA (cerebral vascular accident) Mother Colon cancer CVA (cerebral vascular accident) Brother Cancer Family History: Reports: Cancer Maternal Family History: Family History (Last Reviewed 10/23/18 @ 14:25 by Julio Stanford MD) Father CAD (coronary artery disease) CVA (cerebral vascular accident) Mother Colon cancer CVA (cerebral vascular accident) Brother Cancer Family History: Reports: No pertinent history Review of Systems ROS: - As above General: Denies: Chills, Fever, Sweats Eyes: Denies: Visual changes - bilaterally, Diplopia ENT: Denies: Rhinorrhea, Sore throat Cardiovascular: Denies: Chest pain, Palpitations Respiratory: Denies: Dyspnea, Cough, Dyspnea on exertion Gastrointestinal: Denies: Abdominal pain, Nausea, Vomiting, Diarrhea, Melena, Hematochezia Genitourinary: Denies: Dysuria, Hematuria, Frequency Musculoskeletal: Reports: Extremity Pain. Denies: Back pain Skin: Denies: Rash, Wounds Neurological: Denies: Headache, Weakness, Numbness Physical Exam Vital Signs/Narrative: Vital Signs Temp Pulse Resp BP Pulse Ox 02/04/19 09:04 97.9 F 81 18 166/81 H 98 General: Well nourished, Well developed, No Acute Distress Head: Normocephalic, Atraumatic Eyes: Perrl, EOMI ENT: Moist mucous membranes, No rhinorrhea Neck: Supple, Nontender Cardiovascular: Regular rate, Regular rhythm, No murmurs Respiratory: No distress, CTA bilaterally, Chest nontender Abdomen: Soft, Nontender, Nondistended, Normal bowel sounds Back: Nontender, Normal Inspection Extremities: No edema, Tenderness, - - She has tenderness to palpation over the posterior left hip, she has decreased range of motion related to pain the thigh knee tib-fib ankle and foot are unremarkable the back is unremarkable neurologically awake and alert moving all 4 extremities Skin: Normal color, No rash Neurological: Alert, Oriented x3, Cranial nerves II-XII grossly intact, Normal Strength, Normal Sensation Psychological: Normal affect, Normal Mood Diagnostic/Tx/Re-eval - Medical Decision Making Given all the above [place] which she is tolerated in the past x-ray X-ray of the hip shows nothing acute describes all the above of the concept of an occult injury need for follow-up, there she is comfortable discharge home she will fitted with a walker or crutches as a walking aid, [place] as a rescue medicine she will follow-up with her orthopedic surgeons outpatient providers return for change in symptoms Home stable Final impression, fall left hip injury ED Disposition - Plan for ED Patient: Diagnosis: Injury of hip Instructions: FALL, Mechanical, Fall Prevention Prescriptions: Hydrocodone/Acetaminophen [[place] 5-325 Tablet] 1 ea PO QHS #7 tab Prescription Printed Referrals: Prosper Christian DO [Primary Care Provider] -
[2019-02-04] MEDS: HYDROcodone Bitartrate/Apap 5/325 Tablet PO (09:45)
--- NOTE | 2019-02-04 10:03 | RAD_ITS ---
STUDY: X-RAY - PELVIS AND LEFT HIP REASON FOR EXAM: Female, 78 years old. Pain following a fall. TECHNIQUE: 3 views of the pelvis and hip. COMPARISON: None. FINDINGS: There is a non-specific bowel gas pattern. Findings suggestive of bilateral inguinal hernias. Calcific densities overlying the right greater trochanter suggestive of a calcific tendinitis. Normal bilateral iliac wings, sacroiliac joints and visualized sacrum. Normal bilateral superior and inferior pubic rami. Normal pubic symphysis. Normal bilateral ischial tuberosities. Normal visualized femoral head. Normal acetabulum. There is mild articular joint space narrowing of the hip. RAD/HIP, UNI W/ Pelvis 2-3 Views IMPRESSION: Degenerative changes. No fracture is seen. Electronically Signed: Live Carrasco, at 10:43 EST , Service support ,
[2019-02-04 12:18] VITALS: BP 159/80; PULSE 90; RESP 17; O2SAT 97
== END 2019-02-04 12:20 | disposition home or self-care (01) ==
PROVIDERS: Emergency Provider Emergency Medicine; Family Provider Family Medicine; PCP Family Medicine
DX: S79.912A Unspecified injury of left hip, initial encounter (principal); W01.0XXA Fall on same level from slipping, tripping and stumbling without subsequent striking against object, initial encounter; Y93.01 Activity, walking, marching and hiking; Y92.9 Unspecified place or not applicable; Y99.9 Unspecified external cause status; Z88.5 Allergy status to narcotic agent; Z96.651 Presence of right artificial knee joint; Z90.710 Acquired absence of both cervix and uterus
CPT/HCPCS: 73502; 99284

== ENCOUNTER 2019-02-12 16:00 | Outpatient (RCR) | payer MEDICARE, OTHER, SELFPAY ==
[2018-10-23 13:45] VITALS: BMI 35.9
--- NOTE | 2019-01-26 09:57 | HP.PTEVAL ---
Patient's Visit Information MELISSA KNIGHT is a 78 year old F referred to Physical Therapy by Prosper Christian DO with a diagnosis of R biceps tendonitis. Date of Evaluation: 01/26/19 Physical Therapist: Sachin Pringle, PT, ATC - Visit Plan Frequency: 1x/Week Duration: 2 Weeks Plan: Edu pt on HEP for biceps stretching, strengthening, and rotator cuff strengthening in 2 visits. - Subjective Findings: Pt reports she injured her R arm approximately 6 weeks ago. Pt reports she reached into her back seat and injured her R arm. Pt reports she has had sleep difficulty secondary to her pain. Pt reports her pain is located mostly in her R biceps region. Pt reports her pain is a constant ache, and notes it is always worse in the morning. Pt reports no prior Hx of R biceps pain prior to this episode. Pt reports she has been bushra treated by a chiropractor for this condition, but it wasnt improving, so she went to her doctor. Pt reports she had xrays which revealed no fractures. Pt reports she is unable to sweep her house secondary to pain. 2/10 pain at rest, 8/10 pain at worst. - Pain R shoulder Pain Intensity (Out of 10): 2 Pain Intensity Range: 6 - Objective Neuro: B UE sensation is WNL to light touch. B bicepital reflex= 2/3. Palpation: Pt is sore along the distribution of the biceps muscle in R UE. No obvious deformity present. ROM: L shoulder flexion: 140, abd= 115, ER= 30, IR WNL; R shoulder flex= 115, abd= 85, ER= 40, IR WNL. MMT: B shoulders are grossly 4/5 throughout. Special tests: pain with empty can test and HK impingement tests. - Goals Goal 1:: I with HEP in 2 visits Goal Time Frame: 2 Weeks - Rehabilitation Potential Physical Therapy Diagnosis: R upper arm pain, weakness, and limited ROM secondary to R biceps tendonitis Rehabilitation Potential: Good - Anticipated Interventions Patient/Client Instruction: Educate patient on: Condition, Plan of Care For the Purpose of:: To improve self management Therapeutic Exercise to Include: Strength training, Endurance training, Flexibilty training, Active ROM, Scapular Strength/Stabilization For the Purpose of:: To decrease pain, To increase ROM, To improve muscle performance and motor function Cryotherapy (ice pack, ice massage): Yes For the Purpose of:: To decrease pain Thank you for the opportunity to evaluate your patient. For Medicare and Medicare HMO plans, please review the plan of care and approve it. It will need to be FAXED BACK to us at [phone] for Medicare purposes. For Medicare only, by signing this I certify the plan of care. Please let me know if there are questions or concerns regarding this plan of care. Physician Signature: Date:
--- NOTE | 2019-02-12 16:37 | HP.PTDCSUM ---
HP - PT D/C Summary It has been my pleasure to treat MELISSA KNIGHT under orders from Prosper Christian DO, for the diagnosis of R biceps tendonitis for a total of 3 visit(s). Discharge Date: Please see the following information for a summary of their discharge status. - Subjective Subjective: I am ready for discharge - Pain R shoulder Pain Intensity (Out of 10): 2 - Objective Objective/Function: Pt is now I with HEP - Goals Goal 1:: I with HEP in 2 visits Goal Progress: Goal Met - Plan Plan: Discharge - D/C Information If there are questions or concerns regarding this patient's physical therapy, please feel free to call me at [phone]. Thank you for the referral of this patient. Sincerely, Sachin Pringle, PT, ATC
== END 2019-02-12 19:00 | disposition home or self-care (01) ==
LOC: PT 16:00
PROVIDERS: Family Provider Family Medicine; PCP Family Medicine; Referring Provider Family Medicine; Visit Provider Family Medicine
DX: M75.21 Bicipital tendinitis, right shoulder (principal)
CPT/HCPCS: 97110; 97161

== ENCOUNTER → 2019-04-27 10:13 | Outpatient (CLI) | payer MEDICARE, OTHER, SELFPAY ==
[2019-04-07 14:16] VITALS: BMI 36.8
[2019-04-27 13:04] LABS: Anion Gap 5 (5-15); BUN 30 mg/dL (7-18); BUN/Creat Ratio 23.8 RATIO (10-20); Calcium,Total 9.3 mg/dL (8.5-10.1); Chloride 107 mmol/L (98-107); Creatinine, Serum 1.26 mg/dL (0.55-1.02); EST Glomerular Filtration Rate 44 mL/min (>60); Est Glom Filt Rate - Afr Amer 53 mL/min (>60); Glucose 97 mg/dL (74-106); Sodium Level 141 mmol/L (136-145)
== END ==
PROVIDERS: PCP Family Medicine; Visit Provider Family Medicine
DX: N18.3 Chronic kidney disease, stage 3 (moderate) (principal)
CPT/HCPCS: 36415; 80048

== ENCOUNTER 2019-08-28 12:18 | Emergency (ER) | payer MEDICARE, OTHER, SELFPAY ==
[2019-06-23 15:00] VITALS: BMI 34.9
--- NOTE | 2019-08-28 12:20 | NURSING ---
STROKE ALERT CALLED 1213, PRIOR TO ARRIVAL
--- NOTE | 2019-08-28 12:22 | EKG12_ITS ---
Test Reason : STROKE Blood Pressure : / mmHG Vent. Rate : 088 BPM Atrial Rate : 088 BPM P-R Int : 156 ms QRS Dur : 104 ms QT Int : 410 ms P-R-T Axes : 054 -12 076 degrees QTc Int : 496 ms Sinus rhythm with Premature atrial complexes Left ventricular hypertrophy with repolarization abnormality Prolonged QT Abnormal ECG Confirmed by BARBARA DE ([id number]), acquisition editor BAY ANTHONY ([id number]) on 08/31/2019 2:14:09 PM Referred By: JOSE ROBERTO Confirmed By:BARBARA DE
--- NOTE | 2019-08-28 12:22 | CT_ITS ---
STUDY: CT BRAIN WITHOUT CONTRAST REASON FOR EXAM: Female, 78 years old. STROKE, LEFT SIDE WEAKNESS, RT SIDE HEADACHE RADIATION DOSAGE (If Supplied By Facility): CTDIvol = ( 60.81 ) mGy, DLP = ( 1021.47 ) mGycm TECHNIQUE: Transaxial CT imaging of the brain was performed without administration of intravenous contrast material. Individualized dose optimization techniques were used for this CT. COMPARISON: CT head 06/09/2017 FINDINGS: Normal soft tissue structures. Normal calvarium. There is suspected loss of dasilva-white matter differentiation in the high right frontal lobe vertex. There is mild cerebral atrophy with widening of the extra-axial spaces and ventricular dilatation. There are areas of decreased attenuation within the white matter tracts of the supratentorial brain, consistent with microvascular disease changes. Multiple bilateral chronic lacunar infarcts of the basal ganglia. Normal brainstem. Normal cerebellum. There is no intracranial hemorrhage. There are no findings of an acute ischemic infarction. Normal visualized paranasal sinuses. CT/Brain/Head without Contrast IMPRESSION: Suspected loss of dasilva-white matter differentiation in the high right frontal lobe vertex is in keeping with acute infarct in the proper clinical setting. No intracranial hemorrhage. Chronic findings are described above. N.B. : The above information has been verbally conveyed by Leslie Watt to Jose Luis Ruano MD, on 08/28/2019 12:53:32 (ET). Electronically Signed: Leslie Watt, at 12:55 EDT Tel , Service support ,
[2019-08-28 12:28] VITALS: BMI 37.1
[2019-08-28 12:31] LABS: Absolute Lymphocyte Count 2.03 X10^3/uL (0.83-4.51); Absolute Neutrophil Count 5.9 X10^3/uL (2.0-7.7); Basophil# 0.09 X10^3/uL; Eosinophil# 0.14 X10^3/uL; Eosinophils% 1.5 % (0-5); Hematocrit 42.4 % (37-47); Lymphocyte # 2.03 X10^3/ul (4.0); Lymphocyte % 22.3 % (19-41); Mean Corpuscular Hgb 31.3 pg (27.0-32.0); Mean Corpuscular Volume 94.9 fL (81-99); Mean Platelet Vol. 10.7 fl (6.2-12.0); Monocyte# 0.89 X10^3/uL; Monocyte% 9.8 % (0-10); NRBC Flagged by Analyzer 0 % (0-5); Neutrophil # 5.94 X10^3/uL (2.7-7.7); Neutrophil % 65.1 % (47-70); Platelet Count 221 K/mm3 (150-450); RBC Distribution Width CV 12.6 % (11.6-14.6); RBC Distribution Width SD 43.7 fl (35.1-43.9); Red Blood Count 4.47 M/mm3 (4.2-5.4); White Blood Count 9.1 K/mm3 (4.4-11.0)
[2019-08-28 12:39] LABS: International Normalized Ratio 0.9; Prothrombin Time (Protime)PT. 12.1 SECONDS (11.7-14.9)
[2019-08-28 12:40] VITALS: BP 218/102; PULSE 89; RESP 20; O2SAT 98
[2019-08-28 12:40] LABS: Partial Thromboplast Time 27.5 Seconds (24.1-36.2)
--- NOTE | 2019-08-28 12:40 | CM.ED ---
SOCIAL WORK Responded to Stroke Alert. Provided support and education to daughter's and . All questions answered. Will remain available for needs. Jessika Adams, SKEIN BANDER, CONCRETE TILE MACHINE OPERATOR
[2019-08-28 12:47] VITALS: RESP 20
[2019-08-28 12:50] VITALS: BP 182/87; PULSE 92; RESP 18; O2SAT 95
--- NOTE | 2019-08-28 12:50 | NURSING ---
CALLED [facility] ABOUT TRANSFER
--- NOTE | 2019-08-28 12:52 | ED.DCSUM_ITS ---
History of Present Illness Chief Complaint: Neuro S/Sx Informant: Patient, Family, Trust Manager Assistant Onset: Today Narrative: Patient presents secondary to concern for stroke. Patient called her daughter at 11:14 AM stating that she did not feel right and thought she was having a stroke. EMS noted left arm weakness. They did note her blood pressure was quite elevated. Patient does have history of prior stroke but no residual deficits. She is on aspirin and Plavix chronically. is now at bedside and states he last saw her at 6 AM this morning. She was her normal self at that time. - Past Medical History (1) Cryptogenic stroke Status: Chronic (2) Essential hypertension Status: Chronic (3) Hyperlipidemia Status: Chronic (4) Nonrheumatic mitral (valve) insufficiency Status: Chronic (5) Uterine carcinoma Status: Resolved Past Medical History - Allergies and Home Meds Allergies/Adverse Reactions: Allergies acetaminophen [From Percocet] Allergy (Verified 08/28/19 12:33) Vomiting oxycodone Adverse Reaction (Verified 08/28/19 12:33) Nausea tetanus and diphtheria toxoids Adverse Reaction (Verified 08/28/19 12:33) dizziness, weakness, difficulty breathing, fast heart beat Primary Care Physician: Prosper Christian DO [Primary Care Provider] - Prior records reviewed: Yes Surgical History: - Lives: Spouse/ Significant Other Smoking Status: Never smoker - Family History Paternal Family History: Family History (Last Reviewed 06/23/19 @ 15:[address] Julio Stanford MD) Father CAD (coronary artery disease) CVA (cerebral vascular accident) Mother Colon cancer CVA (cerebral vascular accident) Brother Cancer Family History: Reports: Cancer Maternal Family History: Family History (Last Reviewed 06/23/19 @ 15:[address] Julio Stanford MD) Father CAD (coronary artery disease) CVA (cerebral vascular accident) Mother Colon cancer CVA (cerebral vascular accident) Brother Cancer Family History: Reports: No pertinent history Review of Systems General: Denies: Chills, Fever Eyes: Denies: Visual changes - bilaterally ENT: Denies: Bilateral ear pain Cardiovascular: Reports: Heart racing. Denies: Chest pain Respiratory: Denies: Dyspnea Gastrointestinal: Denies: Abdominal pain, Nausea, Vomiting Neurological: Reports: Headache, Weakness Hematologic: Denies: Easy bruising, Easy bleeding Allergy: Denies: Uticaria Physical Exam Vital Signs/Narrative: Vital Signs Pulse Resp BP Pulse Ox 08/28/19 12:47 20 H 08/28/19 12:40 89 20 H 218/102 H 98 Inital Vital Signs reviewed: Yes General: Well nourished, Well developed ENT: Moist mucous membranes Neck: Supple Cardiovascular: Regular rate, Regular rhythm Respiratory: No distress, CTA bilaterally Abdomen: Soft, Nontender Back: Nontender Extremities: Nontender Neurological: Alert, Oriented x3, - - NIH equals 11. See nursing notes for detail. Patient has eye deviation toward the right. She has weakness of the left arm and left facial droop. Mild weakness of the left leg is noted. She does have vision deficit. Psychological: Normal affect Diagnostic/Tx/Re-eval 08/28/19 12:22 Brain/Head without Contrast [CT] Stat Laboratory Results 08/28/19 08/28/19 12:10 12:10 WBC 9.1 RBC 4.47 Hgb 14.0 Hct 42.4 MCV 94.9 MCH 31.3 MCHC 33.0 RDW Std Deviation 43.7 RDW Coeff of Brayan 12.6 Plt Count 221 MPV 10.7 Immature Gran % (Auto) 0.300 Neut % (Auto) 65.1 Lymph % (Auto) 22.3 [place] % (Auto) 9.8 Eos % (Auto) 1.5 Baso % (Auto) 1.0 Absolute Neuts (auto) 5.9 Absolute Lymphs (auto) 2.03 Nucleated RBC % 0 PT 12.1 INR 0.9 APTT 27.5 - EKG Initial EKG Interpretation: Sinus Rhythm - Sinus at 88. No acute ischemic change. - Medical Decision Making Stroke team was initiated prehospital. Patient was quickly examined on the EMS cot and sent directly to CT. patient was examined by stroke neurologist from [facility]. Because she was last seen by another individual at 6 AM he does not feel she should be given TPA at this time. Patient was given 20 mg of labetalol for blood pressure control. She was started on a Cardene drip for a short time but this is now been turned off. Systolic pressure is currently 189. Stroke neurologist does have concern for LVO. At this time he recommended flying her to [facility] immediately where they could do the scans and clot retrieval. While awaiting transport I was called back to the patient's room. She states she felt something was wrong. She had rhythmic movements to her head and right arm. This was consistent with a partial seizure. This did stop on its own but she was given 0.5 mg of Ativan to help prevent another seizure. A new daughter is now at bedside and states that family saw her at 1030 this morning and she did not have any symptoms of stroke at that time. I spoke with the stroke staff member in the ER at [facility] and updated her on the patient's current condition and these new findings. No changes recommended. I updated [facility] crew on arrival to the emergency room. - Critical Care Time Critical care time (excluding procedures): 30-74 minutes ED Disposition - Plan for ED Patient: Disposition: [facility] Diagnosis: CVA (cerebral vascular accident) Referrals: Prosper Christian DO [Primary Care Provider] -
[2019-08-28] MEDS: LORazepam 2 MG/ML Syringe 0.5 MG IV (13:00)
[2019-08-28 13:02] LABS: Anion Gap 10 (5-15); BUN 24 mg/dL (7-18); BUN/Creat Ratio 18.9 RATIO (10-20); Calcium,Total 9.7 mg/dL (8.5-10.1); Chloride 104 mmol/L (98-107); Creatinine, Serum 1.27 mg/dL (0.55-1.02); EST Glomerular Filtration Rate 43 mL/min (>60); Est Glom Filt Rate - Afr Amer 53 mL/min (>60); Estimated Creatinine Clearance 28.44 ml/min; Glucose 123 mg/dL (74-106); Potassium 3.4 mmol/L (3.5-5.1); Sodium Level 138 mmol/L (136-145)
--- NOTE | 2019-08-28 13:04 | NURSING ---
1250 CALLED [facility], ETA IS 20 MIN
[2019-08-28 13:12] VITALS: TEMP 36.9; BMI 37.1
[2019-08-28 13:20] VITALS: BP 174/87; PULSE 83; RESP 20; TEMP 36.7; O2SAT 96
[2019-08-28] MEDS: Aspirin 300 MG Suppository RECTAL (13:25)
[2019-08-28 13:30] VITALS: BP 182/77; PULSE 85; TEMP 36.7
--- NOTE | 2019-08-28 13:42 | ED.RN ---
1329 [facility] here. report given by RN and Dr. Choudhury. 1258 pt having movement on L side of chest and arm with rhythmic movement. pt stating my heart monitor showing SR 93. Dr. Choudhury called to room concern for partial seizure. verbal order for 0.5 mg Ativan. Family at bedside. shaking resolved spontaneously.
--- NOTE | 2019-08-28 15:32 | CHAPLAIN ---
Type of Pastoral Visit ___ Initial Visit ___ Follow-up Visit ___ On-call Visit ___ General Patient Visit ___ Spiritual Assessment ___ Family Conference ___ Bereavement _x__ Rapid Response ___ Code Blue ___ Other (describe below) Pastoral Care Referral From ___ Patient ___ Family ___ Nurse ___ Physician ___ Meringuer ___ Jackhammer Operator _x__ Other (describe below) Sacrament/Intervention ___ Active listening ___ Anointing ___ Worship ___ Bereavement ___ Communion ___ Angela exploration ___ ___ Life review ___ Prayer ___ Reconciliation ___ Sacrament of Sick _x__ Supportive presence ___ Wedding ___ Other (describe below) Pastoral Comments came to ED for stroke alert and found daughter waiting at doorway of room; introduced self to daughter and offered support; met with a second daughter that came to ED, offered her support and had her wait due to limited visitation; staff was available and assisting with same patient so did not stay with patient or family
== END 2019-08-28 13:45 | disposition short-term general hospital (02) ==
PROVIDERS: Emergency Provider Emergency Medicine; PCP Family Medicine
DX: I63.9 Cerebral infarction, unspecified (principal); G81.94 Hemiplegia, unspecified affecting left nondominant side; R29.810 Facial weakness; R56.9 Unspecified convulsions; I34.0 Nonrheumatic mitral (valve) insufficiency; I10 Essential (primary) hypertension; E78.5 Hyperlipidemia, unspecified; Z79.82 Long term (current) use of aspirin; Z79.02 Long term (current) use of antithrombotics/antiplatelets; Z79.899 Other long term (current) drug therapy; Z86.73 Personal history of transient ischemic attack (TIA), and cerebral infarction without residual deficits; Z85.42 Personal history of malignant neoplasm of other parts of uterus
CPT/HCPCS: 51702; 70450; 80048; 84484; 85025; 85610; 85730; 93005; 96374; 96375; 99285; J7030; J7050; A4216

== ENCOUNTER 2019-09-06 15:55 | Inpatient (IN) | payer MEDICARE, OTHER, SELFPAY ==
[2019-09-06 16:23] VITALS: BP 117/78; PULSE 91; RESP 17; TEMP 36.5; O2SAT 96; BMI 32.8
--- NOTE | 2019-09-06 17:10 | NURSING ---
This nurse verified allergies, medication review, and call hagen to alert staff of needs and patient verbalized understanding.
[2019-09-06 19:15] VITALS: O2SAT 95
[2019-09-06 19:16] VITALS: BP 116/65; PULSE 91; RESP 18; TEMP 36.4; O2SAT 95
--- NOTE | 2019-09-06 19:55 | NURSING ---
pt assisted x1 into the shower this evening. pt tolerated well. pt a max assist in the shower to wash due to LUE weakness. pt denies pain.
[2019-09-06] MEDS: Latanoprost 0.005% 1 Bottle 1 DRP EACH EYE (20:01)
[2019-09-06] MEDS: Famotidine 20 MG Tablet PO (20:01)
[2019-09-06] MEDS: Atorvastatin Calcium 20 MG Tablet PO (20:01)
[2019-09-06] MEDS: Capsaicin 0.025% 1 APPLIC Tube TOPICAL (20:02)
[2019-09-06 23:31] VITALS: BMI 32.8
[2019-09-07] MEDS: Capsaicin 0.025% 1 APPLIC Tube TOPICAL ×3 (04:51→20:32)
[2019-09-07] MEDS: Enoxaparin 40 MG/0.4 ML Syringe SC (04:51)
[2019-09-07 05:38] LABS: Hematocrit 40.1 % (37-47); Hemoglobin 12.9 g/dL (12.0-15.0); Mean Corp Hgb Conc 32.2 g/dL (32-36); Mean Corpuscular Hgb 31.4 pg (27.0-32.0); Mean Corpuscular Volume 97.6 fL (81-99); Mean Platelet Vol. 9.8 fl (6.2-12.0); Platelet Count 241 K/mm3 (150-450); RBC Distribution Width CV 12.9 % (11.6-14.6); Red Blood Count 4.11 M/mm3 (4.2-5.4); White Blood Count 7.9 K/mm3 (4.4-11.0)
[2019-09-07 05:56] LABS: ALB/GLOB Ratio 0.9 RATIO (0.9-2.4); AST(SGOT) 20 U/L (15-37); Alanine Aminotransfer ALT/SGPT 21 U/L (13-56); Albumin, Serum 3.1 g/dL (3.2-5.0); Alkaline Phosphatase 54 U/L (45-117); Anion Gap 7 (5-15); BUN 45 mg/dL (7-18); BUN/Creat Ratio 35.4 RATIO (10-20); Calcium,Total 8.9 mg/dL (8.5-10.1); Chloride 106 mmol/L (98-107); Creatinine, Serum 1.27 mg/dL (0.55-1.02); EST Glomerular Filtration Rate 43 mL/min (>60); Est Glom Filt Rate - Afr Amer 53 mL/min (>60); Estimated Creatinine Clearance 29.81 ml/min; Globulin 3.4 g/dL (2.2-4.2); Glucose 98 mg/dL (74-106); Magnesium 1.5 mg/dL (1.6-2.6); Potassium 3.8 mmol/L (3.5-5.1); Protein, Total 6.5 g/dL (6.4-8.2); Sodium Level 139 mmol/L (136-145)
[2019-09-07 06:48] VITALS: O2SAT 94
[2019-09-07] MEDS: Senna/Docusate Sodium 1 Tablet 2 TABLET PO (06:49)
[2019-09-07 07:47] VITALS: BP 137/74; PULSE 80; RESP 16; TEMP 36.5; O2SAT 97
[2019-09-07] MEDS: Clopidogrel Bisulfate 75 MG Tablet PO (07:53)
[2019-09-07] MEDS: Aspirin 81 MG TAB.CHEW PO (07:53)
[2019-09-07] MEDS: Lisinopril 40 MG Tablet PO (07:53)
[2019-09-07] MEDS: Famotidine 20 MG Tablet PO ×2 (07:53→20:34)
[2019-09-07] MEDS: hydroCHLOROthiazide 25 MG Tablet PO (07:53)
[2019-09-07] MEDS: Furosemide 20 MG Tablet PO (07:53)
--- NOTE | 2019-09-07 09:03 | CASEMGMT ---
Social Work Completed PHQ-9. Pt scored 03/23 - provided stroke support group information. Pt stable. Reports no depression or anxiety. The goal is for pt to return home with and granddaughter. Pt confirmed wishes are full code. Radha Florian, A R COLLECTIONS REP MANUFACTURING INTERN
[2019-09-07 09:47] VITALS: BMI 32.8
[2019-09-07 18:41] VITALS: BP 139/69; PULSE 79; RESP 17; TEMP 36.9; O2SAT 98
[2019-09-07] MEDS: Latanoprost 0.005% 1 Bottle 1 DRP EACH EYE (20:32)
[2019-09-07] MEDS: Atorvastatin Calcium 20 MG Tablet PO (20:33)
[2019-09-07] MEDS: Acetaminophen 325 MG Tablet 650 MG PO (20:33)
[2019-09-07 20:39] VITALS: BMI 32.8
--- NOTE | 2019-09-07 21:20 | HP.PCM_ITS ---
Problem List (1) Debility Status: Acute (2) Stroke Status: Acute (3) Severe mitral regurgitation Status: Chronic (4) TIA (transient ischemic attack) Status: Chronic (5) Hypertension Status: Chronic (6) Mitral valve insufficiency Status: Chronic (7) Uterine cancer Status: Chronic (8) Body mass index (bmi) 32.0-32.9, adult Status: Chronic (9) Hyperlipidemia Status: Chronic Qualifiers: (10) Left hemiparesis Status: Acute (11) Glaucoma Status: Chronic History of Present Illness Date of Admission: 09/07/19 Chief Complaint: Here for rehabilitation, strengthening, 3 hours daily, prior to discharge home with . 08/28/2019 The patient is a 78 year old Female with below past medical history presented to [facility] Emergency Department with signs and symptoms of stroke. 08/28/2019 EKG showed sinus rhythm with premature atrial contractions, left ventricular hypertrophy with repolarization abnormality, prolonged QT. 08/28/2019 CT brain showed acute infarct, high right frontal lobe vertex. Daughter concerned with stroke, left arm weakness. Blood pressure elevated. Stroke team called, not candidate for TPA due to time. Labetalol, Cardene drip for blood pressure control. Stroke neurologist concerned with large vessel occlusion. Recommend flying to [facility]. Partial seizure treated with Ativan 0.5MG. Transfer to [facility] by helicopter. 08/28/2019 Admit to [facility]. Right gaze deviation, left sided weakness, facial droop. MRI brain showed bilateral strokes. Elevated Troponin, Mitral calcification, severe mitral regurgitation. Cardiothoracic surgery consulted, recommended further testing, possible surgical intervention in future. Neurology recommended surgery 1-2 weeks post stroke to lower risk of bleeding. Patient would like Mitral valve repair at [facility]. Follow up with Dr. Stanford, her primary loan underwriter. Stroke workup included: CT brain: No hemorrhage or large stroke. 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 CT perfusion: No significant regions of perfusion abnormality. MRI brain: Bilateral ischemic strokes. Transthoracic echo: EF 70%, severe left atrial enlargement. Transesophageal echo: No thrombus, EF > 70%, very severe left atrial enlargement, moderate-severe mitral regurgitation, mild mitral stenosis, there is a mobile 0.5 x 0.5CM calcified echodensity on the posterior mitral annulus which may represent mobile calcification given presence of mitral annulus calcification, appearance less consistent with fibroelastoma or vegetation, No shunting. Nuclear stress test: negative for remote or stress induced ischemia, EF 50%, no dysrhythmias. Loop recorder interrogation: no atrial fibrillation. Bilateral carotid duplex: < 50% bilateral internal carotid artery stenosis. CT chest: Normal heart size with no pericardial effusion. Dense mitral valve calcification, Normal caliber aorta with mild atherosclerotic disease noted in the aortic arch. Mild calcified coronary artery disease. Moderately sized hiatal hernia. Hepatic steatosis. Panorex teeth: no caries or abscesses, cleared for OR from a dental standpoint. LDL 35, A1c 5.4, Troponin 0.6 to 1.00. 09/06/2019 Admit to [facility] for 3 hours of therapy daily, goal of discharging home with . Past Medical History Past Medical History (Chronic Problems): Chronic Problems (Last Reviewed 06/23/19 @ 15:[address] Julio Stanford MD) Severe mitral regurgitation (Chronic) TIA (transient ischemic attack) (Chronic) Hypertension (Chronic) Mitral valve insufficiency (Chronic) Uterine cancer (Chronic) Body mass index (bmi) 32.0-32.9, adult (Chronic) Glaucoma (Chronic) Cryptogenic stroke (Chronic) History of loop recorder (Chronic 04/10/16) Loop Recorder implant 04/10/[address] Stanford for cryptogenic CVA; Nonrheumatic mitral (valve) insufficiency (Chronic) Mitral valve annular calcification (Chronic) Essential hypertension (Chronic) Hyperlipidemia (Chronic) Medical History: Medical History (Last Reviewed 06/23/19 @ 15:[address] Julio Stanford MD) Cryptogenic stroke (Chronic) I63.9 Nonrheumatic mitral (valve) insufficiency (Chronic) I34.0 Mitral valve annular calcification (Chronic) I05.9 Essential hypertension (Chronic) I10 Hyperlipidemia (Chronic) E78.5 Uterine carcinoma (Resolved) C55 Fatigue R53.83 Knee osteoarthritis M17.9 TIA (transient ischemic attack) Non-rheumatic tricuspid valve insufficiency (Inactive) I36.1 Allergies acetaminophen [From Percocet] Allergy (Verified 08/28/19 12:33) Vomiting oxycodone Adverse Reaction (Verified 08/28/19 12:33) Nausea tetanus and diphtheria toxoids Adverse Reaction (Verified 08/28/19 12:33) dizziness, weakness, difficulty breathing, fast heart beat Home Medications: Ambulatory Orders Medication Instructions Recorded Hydrochlorothiazide 1 tab PO DAILY 04/22/14 Aspirin [Aspirin, Baby] 81 mg PO DAILY@0800 09/06/19 Atorvastatin Calcium [Lipitor] 20 mg PO QHS 09/06/19 Clopidogrel Bisulfate [Plavix] 75 mg PO DAILY 09/06/19 Furosemide [Lasix] 20 mg PO DAILY 09/06/19 Latanoprost 0.005% [Xalatan 1 drp EACH EYE QHS 09/06/19 Opthalmic] Lisinopril [Zestril] 40 mg PO DAILY 09/06/19 Surgical History: Surgical History (Last Reviewed 06/23/19 @ 15:[address] Julio Stanford MD) History of loop recorder (Chronic) Onset Date: 04/10/16 Z98.890 Loop Recorder implant 04/10/[address] Stanford for cryptogenic CVA; History of esophagogastroduodenoscopy (EGD) Z98.890 with biopsy 12/22/2001 History of total right knee replacement (TKR) Onset Date: ~05/2014 Z96.651 Hx of bilateral cataract extraction Z98.41, Z98.42 Hx of bladder repair surgery Z98.890 Hx of colonoscopy Onset Date: ~02/06/05 Z98.890 Hx of hysterectomy Onset Date: ~08/24/11 Z90.710 Surgical History: cataract - Bilateral., hysterectomy, total knee arthroplasty - Right., - - Bladder repair, Loop recorder. 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 Julio Stanford MD) Father CAD (coronary artery disease) CVA (cerebral vascular accident) Mother Colon cancer CVA (cerebral vascular accident) Brother Cancer History Items: Cancer Maternal Family History: Family History (Last Reviewed 06/23/19 @ 15:[address] Julio Stanford MD) Father CAD (coronary artery disease) CVA (cerebral vascular accident) Mother Colon cancer CVA (cerebral vascular accident) Brother Cancer History Items: No pertinent history Review of Systems Constitutional: Denies: Chills, Fever, Weight Change HEENT: Denies: Head Aches, Sinus Congestion, Sinus Drainage Cardiovascular: Denies: Chest Pain, Palpitations Respiratory: Denies: Cough, Shortness of breath at rest, Sputum production Gastrointestinal: Denies: Abdominal Pain, Nausea, Vomiting Genitourinary: Denies: Dysuria Musculoskeletal: Denies: Joint Pain, Joint Tenderness Skin: Denies: Rash, Wounds Neurological: Denies: Numbness, Tingling, Focal weakness Psychiatric: Denies: Anxiety, Depression, Homicidal Ideations, Suicidal Ideations Hematologic/ Lymphatic: Denies: Easy Bruising, Easy Bleeding VTE Information - Inpt Only VTE Present on Admission: No VTE Mechan Device Prophylaxis: Knee High QUOC Hose VTE Pharm Prophylaxis ordered?: Yes Patient Problems: Active and Suspected Problems (Last Reviewed 06/23/19 @ 15:[address] Julio Stanford MD) Debility (Acute) Stroke (Acute) Left hemiparesis (Acute) - Physical Exam Vitals/I&O's: Vital Signs Temp Pulse Resp BP Pulse Ox 98.4 F 79 17 139/69 H 98 09/07/19 18:41 09/07/19 18:41 09/07/19 18:41 09/07/19 18:41 09/07/19 18:41 Oxygen Delivery Method Room Air Weight: 81.3 kg Body Mass Index (BMI) 32.8 Finger Stick Blood Glucose 130 Intake and Output for Last 24 Hours 09/05/19 09/06/19 09/07/19 23:59 23:59 23:59 Intake Total 300 / 300 1440 / 1440 Output Total 300 / 300 300 / 300 Balance 0 / 0 1140 / 1140 General: Alert, Oriented x3, Cooperative HEENT: Atraumatic, PERRLA, EOMI, Normocephalic Neck: Supple, No JVD, Negative Carotid Bruits Lungs: Clear to auscultation, Normal air movement Cardiovascular: Regular rate, Murmur - 3/6 Holosystolic murmur apex. Abdomen: Bowel Sounds Present, Soft, Non Tender Extremities: No edema, Capillary Refill Less than 3 Seconds Skin: No rashes, No breakdown Musculoskeletal: No Tenderness to Palpation of Joints or Extremities Neurological: Cranial nerves II-XII grossly intact, - - Mild left hemiparesis. Psych/Mental Status: Normal Affect, Appropriate Laboratory Results 09/07/19 05:32: WBC 7.9, RBC 4.11 L, Hgb 12.9, Hct 40.1, MCV 97.6, MCH 31.4, MCHC 32.2, RDW Std Deviation 46.0 H, RDW Coeff of Brayan 12.9, Plt Count 241, MPV 9.8 09/07/19 05:32: Sodium 139, Potassium 3.8, Chloride 106, Carbon Dioxide 26.0, Anion Gap 7, BUN 45 H, Creatinine 1.27 H, Estim Creat Clear Calc 29.81, Est GFR (MDRD) Af Amer 53 L, Est GFR (MDRD) Non-Af 43 L, BUN/Creatinine Ratio 35.4 H, Glucose 98, Calcium 8.9, Magnesium 1.5 L, Total Bilirubin 0.50, AST 20, ALT 21, Alkaline Phosphatase 54, Total Protein 6.5, Albumin 3.1 L, Globulin 3.4, Albumin/Globulin Ratio 0.9 Current Medications Acetaminophen (Tylenol) 650 mg PO Q6H PRN PRN PRN Reason: Pain Score 1-10/10 Last Admin: 09/07/19 20:33 Dose: 650 mg Documented by: Aspirin (Aspirin, Baby) 81 mg PO DAILY@0800 [facility] Last Admin: 09/07/19 07:53 Dose: 81 mg Documented by: Atorvastatin Calcium (Lipitor) 20 mg PO QHS [facility] Last Admin: 09/07/19 20:33 Dose: 20 mg Documented by: Bisacodyl (Dulcolax) 10 mg RECTAL .PRN X 1 PRN PRN Reason: Constipation Capsaicin (Zostrix) 1 applic TOPICAL TID [facility]; Protocol Last Admin: 09/07/19 20:32 Dose: 1 applicatio Documented by: Clopidogrel Bisulfate (Plavix) 75 mg PO DAILY [facility] Last Admin: 09/07/19 07:53 Dose: 75 mg Documented by: Enoxaparin Sodium (Lovenox) 30 mg SC DAILY@0600 [facility] Famotidine (Pepcid) 20 mg PO BID [facility] Last Admin: 09/07/19 20:34 Dose: 20 mg Documented by: Furosemide (Lasix) 20 mg PO DAILY [facility] Last Admin: 09/07/19 07:53 Dose: 20 mg Documented by: Hydrochlorothiazide (Hctz) 25 mg PO DAILY [facility] Last Admin: 09/07/19 07:53 Dose: 25 mg Documented by: Latanoprost (Xalatan Opthalmic) 1 drop EACH EYE QHS [facility] Last Admin: 09/07/19 20:32 Dose: 1 drop Documented by: Lisinopril (Zestril) 40 mg PO DAILY [facility] Last Admin: 09/07/19 07:53 Dose: 40 mg Documented by: Magnesium Hydroxide (Milk Of Magnesia) 30 ml PO .PRN X 1 PRN PRN Reason: Constipation Senna/Docusate Sodium (Senokot-S, Alice-Colace) 2 tablet PO BID PRN PRN Reason: CONSTIPATION Last Admin: 09/07/19 06:49 Dose: 2 tablet Documented by: Assessment/Plan All Active Problems (Last Reviewed 06/23/19 @ 15:[address] Julio Stanford MD) Debility (Acute) Stroke (Acute) Left hemiparesis (Acute) Uterine carcinoma (Resolved) 78 year old female with below past medical history hospitalized for bilateral strokes, complicated by severe mitral regurgitation, admitted to with debility, here for 3 hours daily rehabilitation, strengthening, prior to discharge home with . * Debility - PT/OT. * Cognition/stroke - ST. * Pain - Tylenol 1000MG Q6H PRN pain (1-10), Zostrix topical TID left shoulder, bilateral shoulder. * Bowel - Senna/colace 2 tablets twice daily PRN, Dulcolax 10MG IA daily PRN. * DVT prophylaxis - Lovenox 30MG SC daily. * Stroke - Aspirin 81MG daily, Plavix 75MG daily. * Hyperlipidemia - Atorvastatin 20MG QHS. * GERD - Famotidine 20MG twice daily. * Edema - Lasix 20MG daily. * Hypertension - Lisinopril 40MG daily, HCTZ 25MG daily. * Glaucoma - Xalatan 1GTT OU QHS. * Severe mitral regurgitation - Follow up with Dr. Stanford, patient requests surgery at [facility].
--- NOTE | 2019-09-07 21:50 | PCM.RU.PYE ---
Admission Information Primary Diagnosis:: Bilateral stroke, left hemiparesis, severe mitral regurgitation. Status Changes from Prescreening?: No changes Identified Actual Problem List:: Mobility Impaired, BP, Hypertension Potential Problem List:: Bleeding, Falls, Depression Risk of Complications DVT: LMWH, QUOC Hose, Sequential Compression Device Bleeding: Monitor Lab Values, Nursing to Teach Precautions for anti-coagulation therapy., Stroke patients assessed for lethargy or change in status. Infection: Clinical Staff to Monitor for S/S of infection:, S/S of infection include fever, redness, warmth, etc. Urinary Tract Infection: Monitor for frequency, burning, discomfort, or incontinence., Nursing will obtain urine sample for urinalysis and C&S when ordered. Aspiration: Clinical staff will monitor for coughing, drooling, congestion., Speech will evaluate swallowing and dsyphasia., Nursing will monitor patient swallowing during meals. Falls: Patient will be evaluated for Fall Precautions, Patient will be placed on Fall Precautions as indicated per protocol. Skin Breakdown: Nursing will assess skin daily using assessment tool., Nursing will place on Skin Breakdown Precautions as indicated. Pain: Clinical staff will assess patient's pain level per protocol., Medications will be given, if needed, and the pain level reassessed., Other methods: Massage, distraction, decrease stimulus, etc. used PRN. Plan of Care Patient requires physician specializing in physical medicine and rehab oversight to provide close medical supervision of rehab issues including: Pain Management, Sleep Problems, Bowel and Bladder, Medical and co-morbidity Management, DVT prophylaxis, Rehabilitation Leadership, Coordination of treatment team Patient needs Physical Therapy: For a minimum of 1 hour, At least 5 out of 7 days Patient needs Physical Therapy to improve:: Mobility, Mobility, Mobility, Strengthening, Transfers, Stretching, ROM, Endurance, Stairs, Gait, Balance Patient needs Occupational Therapy: For a minimum of 1 hour, At least 5 out of 7 days Patient needs Occupational Therapy to improve ADL's incl.: Eating, Grooming, Bathing, Dressing, Toileting, Toilet transfers, Community Reintegration, Higher functioning activities, Household tasks, Adaptive Equipment, Splinting, Other activities as determined Patient requires speech therapy: For a minimum of 1 hour, At least 5 out of 7 days Patient requires speech therapy for: Swallowing, Cognition, Language Skills, Compensatory Strategies Patient requires 24/ Rehabilitation Nursing for: Pain Issues, Identifying and preventing risk factors, Monitoring and reporting current medical conditions, Assisting with ambulation, transfer, and all ADL's, Teaching patients about disease process and medications, Family teaching, Providing safe environment, Bowel and Bladder Issues, Skin integrity, Medication Management Patient needs Scientific Database Curator/ Case Management for: Discharge Planning, Arranging Home Equipment or Services, Family Interventions Patient needs Dietary and Nutrition Services for: Adequate Nutrition, Nutritional Supplements, Nutritional Education Goals Patient will remain: free from falls, or injury at time of discharge. Patient will perform bed mobility at: Standby Assist. Patient will complete transfers from bed to chair at: Standby Assist. Patient will ambulate: 100 feet, with standby assist, with LRD Patient will complete upper body dressing at: MOD I level of assist. Patient will complete lower body dressing at: MOD I level of assist. Patient will complete toileting at: MOD I level of assist. Patient will perform bathing at: MOD I level of assist. Patient will complete grooming at: MOD I level of assist. Patient will complete home management skills at: MOD I level of assist. Patient will achieve: 12 stairs, at MOD I assist Patient will have pain level of: of 3 or less Patient's skin will: remain intact, free from infection. Patient will receive: adequate nutrition. Discharge Planning Pt Prognosis for Sig. Practical Improv. w/in Reasonable Time: Good Anticipated D/C Destination: Home with Home Health Was Preadmission Assessment Accurate?: Yes
[2019-09-08] MEDS: Enoxaparin 30 MG/0.3 ML Syringe SC (05:44)
[2019-09-08] MEDS: Capsaicin 0.025% 1 APPLIC Tube TOPICAL ×3 (05:44→20:49)
[2019-09-08 06:59] VITALS: O2SAT 94
[2019-09-08 08:53] VITALS: BP 124/70; PULSE 76; RESP 16; TEMP 36.6; O2SAT 96
[2019-09-08] MEDS: hydroCHLOROthiazide 25 MG Tablet PO (08:56)
[2019-09-08] MEDS: Aspirin 81 MG TAB.CHEW PO (08:56)
[2019-09-08] MEDS: Famotidine 20 MG Tablet PO ×2 (08:56→20:49)
[2019-09-08] MEDS: Lisinopril 40 MG Tablet PO (08:57)
[2019-09-08] MEDS: Clopidogrel Bisulfate 75 MG Tablet PO (08:57)
[2019-09-08] MEDS: Furosemide 20 MG Tablet PO (08:57)
[2019-09-08 14:44] VITALS: BMI 32.8
[2019-09-08] MEDS: Senna/Docusate Sodium 1 Tablet 2 TABLET PO (16:04)
[2019-09-08 18:39] VITALS: BP 124/60; PULSE 75; RESP 18; TEMP 36.5; O2SAT 96
[2019-09-08 20:36] VITALS: BMI 32.8
[2019-09-08] MEDS: Atorvastatin Calcium 20 MG Tablet PO (20:48)
[2019-09-08] MEDS: Latanoprost 0.005% 1 Bottle 1 DRP EACH EYE (20:49)
[2019-09-08] MEDS: Acetaminophen 500 MG Tablet 1000 MG PO (20:52)
[2019-09-09] MEDS: Capsaicin 0.025% 1 APPLIC Tube TOPICAL ×3 (06:03→21:54)
[2019-09-09] MEDS: Enoxaparin 30 MG/0.3 ML Syringe SC (06:03)
[2019-09-09] MEDS: hydroCHLOROthiazide 25 MG Tablet PO (07:42)
[2019-09-09] MEDS: Famotidine 20 MG Tablet PO ×2 (07:42→21:53)
[2019-09-09] MEDS: Clopidogrel Bisulfate 75 MG Tablet PO (07:42)
[2019-09-09] MEDS: Aspirin 81 MG TAB.CHEW PO (07:42)
[2019-09-09] MEDS: Lisinopril 40 MG Tablet PO (07:42)
[2019-09-09] MEDS: Furosemide 20 MG Tablet PO (07:42)
--- NOTE | 2019-09-09 08:43 | PN_ITS ---
Patient Problems: Active and Suspected Problems (Last Reviewed 06/23/19 @ 15:[address] Julio Stanford MD) Debility (Acute) Stroke (Acute) Left hemiparesis (Acute) Subjective: Patient seen today, sitting in recliner. She is progressing in therapy. Her left hand is moving better. We talked about her mitral valve stenosis, She will follow up with Dr. Stanford on discharge from , planning mitral valve repair at [facility]. She is otherwise doing well, no new problems, complaints. - Physical Exam Vitals/I&O's: Vital Signs Temp Pulse Resp BP Pulse Ox 97.7 F L 75 18 124/60 H 96 09/08/19 18:39 09/08/19 18:39 09/08/19 18:39 09/08/19 18:39 09/08/19 18:39 Oxygen Delivery Method Room Air Weight: 81.3 kg Body Mass Index (BMI) 32.8 Finger Stick Blood Glucose 130 Intake and Output for Last 24 Hours 09/07/19 09/08/19 09/09/19 23:59 23:59 23:59 Intake Total 1440 / 1440 1240 / 1240 Output Total 300 / 300 Balance 1140 / 1140 1240 / 1240 General: Alert, Oriented x3, Cooperative HEENT: Atraumatic, PERRLA, EOMI, Normocephalic Neck: Supple, No JVD, Negative Carotid Bruits Lungs: Clear to auscultation, Normal air movement Cardiovascular: Regular rate, Murmur - 3/6 Holosystolic murmur apex. Abdomen: Bowel Sounds Present, Soft, Non Tender Extremities: No edema, Capillary Refill Less than 3 Seconds Skin: No rashes, No breakdown Musculoskeletal: No Tenderness to Palpation of Joints or Extremities Neurological: Cranial nerves II-XII grossly intact Psych/Mental Status: Normal Affect, Appropriate Current Medications Acetaminophen (Tylenol) 1,000 mg PO Q6H PRN PRN PRN Reason: Pain Score 1-10/10 Last Admin: 09/08/19 20:52 Dose: 1,000 mg Documented by: Aspirin (Aspirin, Baby) 81 mg PO DAILY@0800 [facility] Last Admin: 09/09/19 07:42 Dose: 81 mg Documented by: Atorvastatin Calcium (Lipitor) 20 mg PO QHS [facility] Last Admin: 09/08/19 20:48 Dose: 20 mg Documented by: Bisacodyl (Dulcolax) 10 mg RECTAL .PRN X 1 PRN PRN Reason: Constipation Capsaicin (Zostrix) 1 applic TOPICAL TID [facility]; Protocol Last Admin: 09/09/19 06:03 Dose: 1 applicatio Documented by: Clopidogrel Bisulfate (Plavix) 75 mg PO DAILY [facility] Last Admin: 09/09/19 07:42 Dose: 75 mg Documented by: Enoxaparin Sodium (Lovenox) 30 mg SC DAILY@0600 [facility] Last Admin: 09/09/19 06:03 Dose: 30 mg Documented by: Famotidine (Pepcid) 20 mg PO BID [facility] Last Admin: 09/09/19 07:42 Dose: 20 mg Documented by: Furosemide (Lasix) 20 mg PO DAILY [facility] Last Admin: 09/09/19 07:42 Dose: 20 mg Documented by: Hydrochlorothiazide (Hctz) 25 mg PO DAILY [facility] Last Admin: 09/09/19 07:42 Dose: 25 mg Documented by: Latanoprost (Xalatan Opthalmic) 1 drop EACH EYE QHS [facility] Last Admin: 09/08/19 20:49 Dose: 1 drop Documented by: Lisinopril (Zestril) 40 mg PO DAILY [facility] Last Admin: 09/09/19 07:42 Dose: 40 mg Documented by: Senna/Docusate Sodium (Senokot-S, Alice-Colace) 2 tablet PO BID PRN PRN Reason: CONSTIPATION Last Admin: 09/08/19 16:04 Dose: 1 tablet Documented by: Capacity - Capacity Assessment Tool Can the patient make a choice & communicate that choice?: Yes Can the patient understand benefits, risks and alternatives?: Yes Can the patient make a logical, rational choice?: Yes Is the choice the patient makes consistent w/ their values?: Yes Is there an impending, emergent risk to the patient?: No Does the patient have an Advance Directive?: No Is there a Surrogate Available?: Yes i.e. HCPOA: Yes i.e. close relative (spouse, child, parent, sibling)?: Yes Medical Necessity - Tobacco Use Smoking Status: Never smoker Tobacco Use: Non-smoker Assessment/Plan All Active Problems (Last Reviewed 06/23/19 @ 15:[address] Julio Stanford MD) Debility (Acute) Stroke (Acute) Left hemiparesis (Acute) Uterine carcinoma (Resolved) 78 year old female with below past medical history hospitalized for bilateral strokes, complicated by severe mitral regurgitation, admitted to with debility, here for 3 hours daily rehabilitation, strengthening, prior to discharge home with . * Debility - PT/OT. * Cognition/stroke - ST. * Pain - Tylenol 1000MG Q6H PRN pain (1-10), Zostrix topical TID left shoulder, bilateral shoulder. * Bowel - Senna/colace 2 tablets twice daily PRN, Dulcolax 10MG RI daily PRN. * DVT prophylaxis - Lovenox 30MG SC daily. * Stroke - Aspirin 81MG daily, Plavix 75MG daily. * Hyperlipidemia - Atorvastatin 20MG QHS. * GERD - Famotidine 20MG twice daily. * Edema - Lasix 20MG daily. * Hypertension - Lisinopril 40MG daily, HCTZ 25MG daily. * Glaucoma - Xalatan 1GTT OU QHS. * Severe mitral regurgitation - Follow up with Dr. Stanford, planning surgery at [facility].
[2019-09-09 10:00] VITALS: BP 142/65; PULSE 72; RESP 16; TEMP 36.6; O2SAT 96
[2019-09-09 15:35] VITALS: BMI 32.8
[2019-09-09 19:44] VITALS: BP 155/74; PULSE 74; RESP 16; TEMP 36.9; O2SAT 97
[2019-09-09 21:47] VITALS: BMI 32.8
[2019-09-09 21:50] VITALS: PULSE 74; RESP 16; O2SAT 97
[2019-09-09] MEDS: Atorvastatin Calcium 20 MG Tablet PO (21:53)
[2019-09-09] MEDS: Latanoprost 0.005% 1 Bottle 1 DRP EACH EYE (21:54)
--- NOTE | 2019-09-10 02:24 | NURSING ---
Reviewed and agree with FLAMER AFTER LASTING documentation and charting.
[2019-09-10] MEDS: Acetaminophen 500 MG Tablet 1000 MG PO ×2 (04:40→20:51)
[2019-09-10] MEDS: Enoxaparin 30 MG/0.3 ML Syringe SC (04:55)
[2019-09-10] MEDS: Capsaicin 0.025% 1 APPLIC Tube TOPICAL ×3 (04:56→20:48)
[2019-09-10 08:29] VITALS: BP 110/65; PULSE 70; RESP 16; TEMP 36.7; O2SAT 94
[2019-09-10] MEDS: Aspirin 81 MG TAB.CHEW PO (08:41)
[2019-09-10] MEDS: Clopidogrel Bisulfate 75 MG Tablet PO (08:41)
[2019-09-10] MEDS: Famotidine 20 MG Tablet PO ×2 (08:41→20:47)
[2019-09-10] MEDS: hydroCHLOROthiazide 25 MG Tablet PO (08:41)
[2019-09-10] MEDS: Lisinopril 40 MG Tablet PO (08:41)
[2019-09-10] MEDS: Furosemide 20 MG Tablet PO (08:41)
[2019-09-10 09:41] VITALS: BMI 32.8
--- NOTE | 2019-09-10 09:48 | CASEMGMT ---
Social Work IDT met with patient and via conference call for Team Meeting. Discussed patient's progress in therapy. Pt is ambulating over 100 ft with no device SBA, SBA for transfers and bed mobility, set up fro grooming, min for bathing, set up for UE dressing, max assist for bra. Pt continues to have difficulty with hand dexterity and fine motor skills. Pt is min for LE dressing, CGA for shower transfers. Explained Medicare benefit with 15 days, EDC 09/20. Will ReTeam next week. Will continue to follow. ROBERT Tony WAITSTAFF
--- NOTE | 2019-09-10 10:42 | CASEMGMT ---
Social Work Advanced Directives completed with patient. Pat named Benigno Berg as HCPOA. Copies placed on chart. ROBERT TonyW
--- NOTE | 2019-09-10 18:14 | PCM.PROGNOTE ---
Patient Problems: Active and Suspected Problems (Last Reviewed 06/23/19 @ 15:[address] Julio Stanford MD) Debility (Acute) Stroke (Acute) Left hemiparesis (Acute) Subjective: Patient seen in room, sitting in recliner, eating breakfast. Her left hand dexterity is improving. She has no new complaints, problems, issues. Medically stable. - Physical Exam Vitals/I&O's: Vital Signs Temp Pulse Resp BP Pulse Ox 98.0 F 70 16 110/65 94 09/10/19 08:29 09/10/19 08:29 09/10/19 08:29 09/10/19 08:29 09/10/19 08:29 Oxygen Delivery Method Room Air Weight: 81.3 kg Body Mass Index (BMI) 32.8 Finger Stick Blood Glucose 130 Intake and Output for Last 24 Hours 09/08/19 09/09/19 09/10/19 23:59 23:59 23:59 Intake Total 1240 / 1240 1350 / 1350 300 / 300 Balance 1240 / 1240 1350 / 1350 300 / 300 General: Alert, Oriented x3, Cooperative HEENT: Atraumatic, PERRLA, EOMI, Normocephalic Neck: Supple, No JVD, Negative Carotid Bruits Lungs: Clear to auscultation, Normal air movement Cardiovascular: Regular rate, No murmurs Abdomen: Bowel Sounds Present, Soft, Non Tender Extremities: No edema, Capillary Refill Less than 3 Seconds Skin: No rashes, No breakdown Musculoskeletal: No Tenderness to Palpation of Joints or Extremities Neurological: Cranial nerves II-XII grossly intact, - - Mild left hemiparesis. Psych/Mental Status: Normal Affect, Appropriate Current Medications Acetaminophen (Tylenol) 1,000 mg PO Q6H PRN PRN PRN Reason: Pain Score 1-10/10 Last Admin: 09/10/19 04:40 Dose: 1,000 mg Documented by: Aspirin (Aspirin, Baby) 81 mg PO DAILY@0800 [facility] Last Admin: 09/10/19 08:41 Dose: 81 mg Documented by: Atorvastatin Calcium (Lipitor) 20 mg PO QHS [facility] Last Admin: 09/09/19 21:53 Dose: 20 mg Documented by: Bisacodyl (Dulcolax) 10 mg RECTAL .PRN X 1 PRN PRN Reason: Constipation Capsaicin (Zostrix) 1 applic TOPICAL TID [facility]; Protocol Last Admin: 09/10/19 14:30 Dose: 1 applicatio Documented by: Clopidogrel Bisulfate (Plavix) 75 mg PO DAILY [facility] Last Admin: 09/10/19 08:41 Dose: 75 mg Documented by: Enoxaparin Sodium (Lovenox) 30 mg SC DAILY@0600 [facility] Last Admin: 09/10/19 04:55 Dose: 30 mg Documented by: Famotidine (Pepcid) 20 mg PO BID [facility] Last Admin: 09/10/19 08:41 Dose: 20 mg Documented by: Furosemide (Lasix) 20 mg PO DAILY [facility] Last Admin: 09/10/19 08:41 Dose: 20 mg Documented by: Hydrochlorothiazide (Hctz) 25 mg PO DAILY [facility] Last Admin: 09/10/19 08:41 Dose: 25 mg Documented by: Latanoprost (Xalatan Opthalmic) 1 drop EACH EYE QHS [facility] Last Admin: 09/09/19 21:54 Dose: 1 drop Documented by: Lisinopril (Zestril) 40 mg PO DAILY [facility] Last Admin: 09/10/19 08:41 Dose: 40 mg Documented by: Senna/Docusate Sodium (Senokot-S, Alice-Colace) 2 tablet PO BID PRN PRN Reason: CONSTIPATION Last Admin: 09/08/19 16:04 Dose: 1 tablet Documented by: Capacity - Capacity Assessment Tool Can the patient make a choice & communicate that choice?: Yes Can the patient understand benefits, risks and alternatives?: Yes Can the patient make a logical, rational choice?: Yes Is the choice the patient makes consistent w/ their values?: Yes Is there an impending, emergent risk to the patient?: No Does the patient have an Advance Directive?: No Is there a Surrogate Available?: Yes i.e. HCPOA: Yes i.e. close relative (spouse, child, parent, sibling)?: Yes Medical Necessity - Tobacco Use Smoking Status: Never smoker Tobacco Use: Non-smoker Assessment/Plan All Active Problems (Last Reviewed 06/23/19 @ 15:[address] Julio Stanford MD) Debility (Acute) Stroke (Acute) Left hemiparesis (Acute) Uterine carcinoma (Resolved) 78 year old female with below past medical history hospitalized for bilateral strokes, complicated by severe mitral regurgitation, admitted to with debility, here for 3 hours daily rehabilitation, strengthening, prior to discharge home with . Debility - PT/OT. Cognition/stroke - ST. Pain - Tylenol 1000MG Q6H PRN pain (1-10), Zostrix topical TID left shoulder, bilateral shoulder. Bowel - Senna/colace 2 tablets twice daily PRN, Dulcolax 10MG DC daily PRN. DVT prophylaxis - Lovenox 30MG SC daily. Stroke - Aspirin 81MG daily, Plavix 75MG daily. Hyperlipidemia - Atorvastatin 20MG QHS. GERD - Famotidine 20MG twice daily. Edema - Lasix 20MG daily. Hypertension - Lisinopril 40MG daily, HCTZ 25MG daily. Glaucoma - Xalatan 1GTT OU QHS. Severe mitral regurgitation - Follow up with Dr. Stanford, planning surgery at [facility].
[2019-09-10 19:24] VITALS: BP 138/71; PULSE 73; RESP 18; TEMP 36.4; O2SAT 98
[2019-09-10] MEDS: Atorvastatin Calcium 20 MG Tablet PO (20:47)
[2019-09-10] MEDS: Latanoprost 0.005% 1 Bottle 1 DRP EACH EYE (20:48)
[2019-09-10] MEDS: Senna/Docusate Sodium 1 Tablet 2 TABLET PO (20:53)
[2019-09-10 22:38] VITALS: BMI 32.8
[2019-09-11] MEDS: Enoxaparin 30 MG/0.3 ML Syringe SC (06:15)
[2019-09-11] MEDS: Capsaicin 0.025% 1 APPLIC Tube TOPICAL ×3 (06:15→21:57)
[2019-09-11] MEDS: Famotidine 20 MG Tablet PO ×2 (07:32→21:57)
[2019-09-11] MEDS: Clopidogrel Bisulfate 75 MG Tablet PO (07:32)
[2019-09-11] MEDS: Furosemide 20 MG Tablet PO (07:32)
[2019-09-11] MEDS: Lisinopril 40 MG Tablet PO (07:32)
[2019-09-11] MEDS: hydroCHLOROthiazide 25 MG Tablet PO (07:33)
[2019-09-11] MEDS: Aspirin 81 MG TAB.CHEW PO (07:33)
[2019-09-11] MEDS: Acetaminophen 500 MG Tablet 1000 MG PO ×2 (08:03→18:32)
[2019-09-11 08:10] VITALS: BP 132/84; PULSE 79; RESP 16; TEMP 36.6; O2SAT 96
[2019-09-11 08:40] VITALS: BMI 32.8
[2019-09-11] MEDS: Loperamide 2 MG Capsule PO (19:16)
[2019-09-11 20:49] VITALS: BP 122/57; PULSE 69; RESP 16; TEMP 36.4; O2SAT 98
[2019-09-11] MEDS: Latanoprost 0.005% 1 Bottle 1 DRP EACH EYE (21:56)
[2019-09-11] MEDS: Atorvastatin Calcium 20 MG Tablet PO (21:57)
[2019-09-12 03:56] VITALS: BMI 32.8
[2019-09-12] MEDS: Enoxaparin 30 MG/0.3 ML Syringe SC (05:15)
[2019-09-12] MEDS: hydroCHLOROthiazide 25 MG Tablet PO (07:39)
[2019-09-12] MEDS: Furosemide 20 MG Tablet PO (07:39)
[2019-09-12] MEDS: Lisinopril 40 MG Tablet PO (07:39)
[2019-09-12] MEDS: Clopidogrel Bisulfate 75 MG Tablet PO (07:39)
[2019-09-12] MEDS: Famotidine 20 MG Tablet PO ×2 (07:39→20:11)
[2019-09-12] MEDS: Aspirin 81 MG TAB.CHEW PO (07:39)
[2019-09-12 08:00] VITALS: BP 116/67; PULSE 71; RESP 16; TEMP 36.5; O2SAT 97
[2019-09-12 13:28] VITALS: BMI 32.8
[2019-09-12] MEDS: Capsaicin 0.025% 1 APPLIC Tube TOPICAL ×2 (13:40→20:10)
[2019-09-12 19:26] VITALS: BP 138/72; PULSE 71; RESP 17; TEMP 36.5; O2SAT 98
[2019-09-12] MEDS: Latanoprost 0.005% 1 Bottle 1 DRP EACH EYE (20:11)
[2019-09-12] MEDS: Atorvastatin Calcium 20 MG Tablet PO (20:11)
[2019-09-13] MEDS: Capsaicin 0.025% 1 APPLIC Tube TOPICAL ×3 (06:00→20:18)
[2019-09-13] MEDS: Enoxaparin 30 MG/0.3 ML Syringe SC (06:01)
[2019-09-13] MEDS: Furosemide 20 MG Tablet PO (07:24)
[2019-09-13] MEDS: Famotidine 20 MG Tablet PO ×2 (07:24→20:19)
[2019-09-13] MEDS: hydroCHLOROthiazide 25 MG Tablet PO (07:24)
[2019-09-13] MEDS: Clopidogrel Bisulfate 75 MG Tablet PO (07:24)
[2019-09-13] MEDS: Aspirin 81 MG TAB.CHEW PO (07:24)
[2019-09-13] MEDS: Lisinopril 40 MG Tablet PO (07:24)
[2019-09-13 07:30] VITALS: BP 131/67; PULSE 79; RESP 18; TEMP 36.5; O2SAT 95
[2019-09-13 12:56] VITALS: BMI 32.8
[2019-09-13 19:01] VITALS: BP 104/55; PULSE 73; RESP 16; TEMP 36.8; O2SAT 96
[2019-09-13] MEDS: Latanoprost 0.005% 1 Bottle 1 DRP EACH EYE (20:19)
[2019-09-13] MEDS: Atorvastatin Calcium 20 MG Tablet PO (20:20)
[2019-09-14 05:00] VITALS: BMI 32.8
[2019-09-14] MEDS: Enoxaparin 30 MG/0.3 ML Syringe SC (06:52)
[2019-09-14] MEDS: Capsaicin 0.025% 1 APPLIC Tube TOPICAL ×2 (06:52→13:43)
[2019-09-14 07:40] VITALS: BP 108/54; PULSE 64; RESP 16; TEMP 36.5; O2SAT 96
[2019-09-14] MEDS: Furosemide 20 MG Tablet PO (08:08)
[2019-09-14] MEDS: Aspirin 81 MG TAB.CHEW PO (08:08)
[2019-09-14] MEDS: hydroCHLOROthiazide 25 MG Tablet PO (08:08)
[2019-09-14] MEDS: Lisinopril 40 MG Tablet PO (08:09)
[2019-09-14] MEDS: Clopidogrel Bisulfate 75 MG Tablet PO (08:09)
[2019-09-14] MEDS: Famotidine 20 MG Tablet PO ×2 (08:09→21:46)
[2019-09-14 08:52] VITALS: BMI 32.8
[2019-09-14 19:33] VITALS: BP 150/75; PULSE 78; RESP 18; TEMP 36.5; O2SAT 96
[2019-09-14] MEDS: Latanoprost 0.005% 1 Bottle 1 DRP EACH EYE (21:46)
[2019-09-14] MEDS: Atorvastatin Calcium 20 MG Tablet PO (21:47)
[2019-09-14 21:50] VITALS: PULSE 78; RESP 18; O2SAT 96; BMI 32.8
[2019-09-15] MEDS: Capsaicin 0.025% 1 APPLIC Tube TOPICAL ×2 (05:41→13:21)
[2019-09-15] MEDS: Enoxaparin 30 MG/0.3 ML Syringe SC (05:41)
[2019-09-15 07:39] VITALS: BP 112/63; PULSE 77; RESP 16; TEMP 36.7; O2SAT 96
[2019-09-15] MEDS: Furosemide 20 MG Tablet PO (08:00)
[2019-09-15] MEDS: hydroCHLOROthiazide 25 MG Tablet PO (08:00)
[2019-09-15] MEDS: Aspirin 81 MG TAB.CHEW PO (08:00)
[2019-09-15] MEDS: Famotidine 20 MG Tablet PO ×2 (08:00→21:41)
[2019-09-15] MEDS: Clopidogrel Bisulfate 75 MG Tablet PO (08:00)
[2019-09-15] MEDS: Lisinopril 40 MG Tablet PO (08:00)
[2019-09-15 09:10] VITALS: BMI 32.8
--- NOTE | 2019-09-15 12:55 | CASEMGMT ---
Addendum entered by Radha Florian 09/17/19 11:46: Added ST Original Note: Social Work Spoke with patient about DC plans. Pt requesting to DC 09/18. IDT agreeable. Discussed outpatient vs HHC - pt preferred C. Referral made to [facility] PT.OT. Pt requesting [facility]. Plan: DC home with 09/18 with [facility] PT/OT, quad cane Radha Florian, ROBERT TORRESW
--- NOTE | 2019-09-15 17:57 | PCM.PN.BLA ---
Progress Note Gabriela is looking forward to going home. She asked me why she was not given TPA. I reviewed Dr. Barakat note from 08/28/2019. It stated her last known well from her was at 6 AM that morning and the patient made a call to her daughter that she felt she was having a stroke at 11:[address] scan of the brain showed expected loss of dasilva-white matter differentiation in the high right frontal lobe vertex in keeping with acute infarct. There was no intracranial hemorrhage. The [facility] stroke neurologist did not recommend TPA because the last known well was unclear. While in the emergency room she had a partial seizure which resolved with Ativan. Another daughter showed up and stated that she had seen her mother at 10:30 AM that morning and she had no stroke symptoms at that time. Dr. Nolen spoke to [facility] with this new information and they continued to recommend transfer to [facility] to rule out LVO. She was told at [facility] that she had a piece of calcium break off a valve and this is what caused the CVA. There apparently was no LVO so no thrombectomy. She had a loop recorder implanted in 2017 but, apparently this is no longer functional. To her knowledge she has never had AF. She is currently on enoxaparin for DVT prophylaxis but she is not on an anticoagulant possible A. fib. Magnesium at presentation to the rehab unit was low at 1.5. AF VSS maintaining appropriate oxygen saturation on RA poor oral intake reviewed therapy notes and the H&P no problems with nursing alert, pleasant, oriented X 3 Lungs - good air exchange and CTA H - RRR with ectopics, systolic MM at the apex and into the l axilla. There is also a systolic MM at the LVOT but, no MM at the LLSB or the second RICS? Abdomen-soft, nontender, nondistended, bowel sounds present, no abdominal bruits, no guarding with palpation No peripheral edema No calf tenderness 4/5 strength in the left upper extremity with poor fine motor coordination No rashes and no skin breakdown Impressions 1. Debility secondary to recent ischemic CVA with cognitive dysfunction and left upper extremity weakness 2. Right cerebral ischemic CVA 3. Hypertension 4. Calcified mitral annulus with 2+ mitral regurgitation 5. Mild pulmonary hypertension 6. Left atrial enlargement 7. Hypomagnesemia Replace magnesium Consider discontinuing hydrochlorothiazide and continue Lasix 20 mg daily to minimize potassium, sodium and magnesium repletion Since her loop recorder is no longer functional consider 30-day event monitor at discharge. I suspect the stroke is more likely embolic due to paroxysmal atrial fibrillation since she has hypomagnesemia and left atrial enlargement rather than to a calcium embolus. Continue therapy Inpatient E&M: 68402 Subs Hosp L2
[2019-09-15 19:24] VITALS: BP 105/62; PULSE 69; RESP 18; TEMP 36.7; O2SAT 96
[2019-09-15] MEDS: Atorvastatin Calcium 20 MG Tablet PO (21:41)
[2019-09-15] MEDS: Latanoprost 0.005% 1 Bottle 1 DRP EACH EYE (21:41)
[2019-09-15 21:45] VITALS: PULSE 69; RESP 18; O2SAT 96; BMI 32.8
--- NOTE | 2019-09-16 04:21 | NURSING ---
Reviewed and agree with MEDICAL SUPPORT SPECIALIST documentation and charting.
[2019-09-16] MEDS: Capsaicin 0.025% 1 APPLIC Tube TOPICAL ×2 (06:08→14:31)
[2019-09-16] MEDS: Enoxaparin 30 MG/0.3 ML Syringe SC (06:08)
[2019-09-16] MEDS: Aspirin 81 MG TAB.CHEW PO (08:09)
[2019-09-16] MEDS: Famotidine 20 MG Tablet PO ×2 (08:09→20:34)
[2019-09-16] MEDS: Furosemide 20 MG Tablet PO (08:09)
[2019-09-16] MEDS: Clopidogrel Bisulfate 75 MG Tablet PO (08:09)
[2019-09-16] MEDS: hydroCHLOROthiazide 25 MG Tablet PO (08:13)
[2019-09-16] MEDS: Lisinopril 40 MG Tablet PO (08:13)
[2019-09-16 10:00] VITALS: BP 140/52; PULSE 76; RESP 16; TEMP 36.4; O2SAT 95
[2019-09-16 15:21] VITALS: BMI 32.8
--- NOTE | 2019-09-16 18:47 | PN_ITS ---
Progress Note Afebrile Blood pressure is well controlled. She denies any dizziness or lightheadedness. She is maintaining appropriate oxygen saturation on room air and is not tachypneic. Oral intake is less than desirable. It has ranged from 840cc to 1100 cc daily since admission. She knows she should drink more. She is maintaining appropriate oxygen saturation on room air. no problems with nursing All therapy notes were reviewed. she is c/o leg cramps at night. It is not restless leg. she is on HCTZ. Mag was low earlier in the admission. she was taking a CA/MAG supplement at home that helps with the cramps........they decreased but she still had them occasionally. she has a MM or a bruit at the LVOT - will check the BP in both arms to make sure she does not have subclavian stenosis. alert and oriented X 3 Mucous membranes are very dry. Sitting in the recliner at the bedside in no apparent distress. Not tachypneic. Lungs-clear to auscultation throughout with excellent air exchange Heart-regular rate and rhythm, no change in murmur, no gallop Abdomen-soft, nontender No peripheral edema No calf tenderness No change in neuro exam Impressions 1. Post stroke debility 2. Dehydration 3. Hypomagnesemia 4. Severe mitral regurgitation 5. Glaucoma 6. Pulmonary hypertension 7. Dyslipidemia 8. Remote history of uterine cancer 9. Leg cramps at night with no symptoms of restless leg. Suspect secondary to electrolyte imbalance. 9. Bruit at the left second right intercostal space possibly secondary to left subclavian stenosis I explained to Gabriela after reviewing all the ER documentation why she did not receive TPA. I answered her questions about TPA. She was also concerned that the calcium supplement she takes for the leg cramps did not cause the calcium on the valve. There was moderate to severe calcium build up on the MV on an ECHO in Feb. She also had moderate to severe LAE, grade 1 diastolic dy sfunction and Mild pulmonary HTN. Supplement the MAG Recheck lab in the AM check a folic acid level DC the HCTZ.......she has poor oral intake and MM are very dry. Will need to adjust antihypertensives if her blood pressure increases off hydrochlorothiazide. continue the Lasisx now due to pulmonary HTN and severe MR Check orthostatic vital signs in the a.m. Check the BP in both arms simultaneously - to R/O subclavian stenosis Inpatient E&M: 83097 Subs Hosp L2
[2019-09-16 20:15] VITALS: BP 110/62; PULSE 80; RESP 16; TEMP 36.3; O2SAT 98
[2019-09-16 20:30] VITALS: BP 104/53; BP 106/56; PULSE 80; RESP 16; O2SAT 98; BMI 32.8
[2019-09-16] MEDS: Latanoprost 0.005% 1 Bottle 1 DRP EACH EYE (20:34)
[2019-09-16] MEDS: Atorvastatin Calcium 20 MG Tablet PO (20:35)
[2019-09-16] MEDS: Magnesium Oxide 400 MG Tablet PO (20:35)
--- NOTE | 2019-09-17 04:06 | NURSING ---
REVIEWED AND AGREE WITH BEHAVIORAL SERVICES TECH'S FUNCTIONAL ASSESSMENT AND HANDOFF CHARTING.
[2019-09-17 04:58] VITALS: BP 117/64; BP 124/72; BP 125/70; PULSE 72; PULSE 80; PULSE 87
[2019-09-17] MEDS: Enoxaparin 30 MG/0.3 ML Syringe SC (05:00)
[2019-09-17] MEDS: Capsaicin 0.025% 1 APPLIC Tube TOPICAL ×3 (05:01→21:17)
[2019-09-17 07:01] LABS: Hematocrit 39.8 % (37-47); Hemoglobin 13.2 g/dL (12.0-15.0)
[2019-09-17 07:37] LABS: Anion Gap 5 (5-15); BUN 50 mg/dL (7-18); BUN/Creat Ratio 32.3 RATIO (10-20); Calcium,Total 9.4 mg/dL (8.5-10.1); Chloride 108 mmol/L (98-107); Creatinine, Serum 1.55 mg/dL (0.55-1.02); EST Glomerular Filtration Rate 35 mL/min (>60); Est Glom Filt Rate - Afr Amer 42 mL/min (>60); Estimated Creatinine Clearance 24.42 ml/min; Glucose 99 mg/dL (74-106); Magnesium 1.5 mg/dL (1.6-2.6); Potassium 4.5 mmol/L (3.5-5.1); Sodium Level 140 mmol/L (136-145)
[2019-09-17 07:50] VITALS: BP 125/70; PULSE 72; RESP 16; TEMP 36.7; O2SAT 95
[2019-09-17] MEDS: Magnesium Oxide 400 MG Tablet PO ×2 (07:57→17:54)
[2019-09-17] MEDS: Furosemide 20 MG Tablet PO (07:57)
[2019-09-17] MEDS: Aspirin 81 MG TAB.CHEW PO (07:57)
[2019-09-17] MEDS: Famotidine 20 MG Tablet PO ×2 (07:58→21:17)
[2019-09-17] MEDS: Clopidogrel Bisulfate 75 MG Tablet PO (07:58)
[2019-09-17] MEDS: Lisinopril 40 MG Tablet PO (07:58)
[2019-09-17 09:49] VITALS: BMI 32.8
--- NOTE | 2019-09-17 12:08 | PCM.PN.BLA ---
Progress Note Gabriela was seen on team rounds today. Her Benigno was present for rounds. She continues to be afebrile Blood pressure is well controlled. Orthostatic vital signs today were mildly positive. The blood pressure went from 117/64-120 4/72 when going from lying to sitting but the heart rate increased from 72-87 which is a 15 beat increase. She knows that she is to increase her water intake and has a large cup of water on her bedside table. Blood pressure is worse checked in both arms last night and the blood pressure in the left arm was 110/62 and the blood pressure in the right arm was 104/53. She is maintaining appropriate oxygen saturation on room air. All lab was personally reviewed today. The hemoglobin is 13.2, up from 12.9 at admission. BUN is 50 today with a creatinine of 1.55 which is up from 1.27 at admission. Magnesium is still low at 1.5 and the patient was started on a magnesium supplement orally on 09/16/2019. Hydrochlorothiazide has been discontinued. Lungs-clear to auscultation with no rales, wheezes or rhonchi. Not tachypneic, no conversational dyspnea Heart-regular rate and rhythm with occasional ectopic beat Mucous membranes are still very dry No peripheral edema No calf tenderness Impressions 1. Post stroke debility due to left upper extremity weakness and incoordination with fine motor movements and cognitive dysfunction 2. Severe mitral regurgitation 3. Hypomagnesemia 4. Left atrial enlargement with hypomagnesemia-suspect she has been having PAF 5. Orthostatic hypotension 6. Increased creatinine secondary to dehydration IV NS X 2 L Mag sulfate 4 GM IV today recheck a BMP and a Mag on Saturday. Will be discharging home on Saturday and will ave home PT/OT/ST 30 day event monitor at DC Follow up with Dr. Stanford post DC - regarding need for a MV replacement Inpatient E&M: 11692 Subs Hosp L2
--- NOTE | 2019-09-17 13:35 | CASEMGMT ---
Social Work IDT met with patient and for Team meeting. Discussed patient's progress in therapy. Pt is modified independence in preparation for DC 09/18. Pt is ambulating on multiple surfaces, has good activity tolerance, completed 10 steps with CGA, has supervision to shower, can stand [address] working on higher level functioning and recommending daughter assistance with finances and meds, and continue ST at DC. Pt DC 09/18. Radha Florian, ENCAPSULATOR INTERNAL GRINDER
[2019-09-17] MEDS: Magnesium Sulfate 4gm/100mL 4 GM/100 ML IV.SOLN. IV (14:31)
[2019-09-17] MEDS: 0.9% Normal Saline 1,000 ML 100 ML IV (18:04)
[2019-09-17] MEDS: Atorvastatin Calcium 20 MG Tablet PO (21:17)
[2019-09-17] MEDS: Latanoprost 0.005% 1 Bottle 1 DRP EACH EYE (21:17)
[2019-09-17 22:00] VITALS: BP 111/60; PULSE 73; RESP 18; TEMP 36.5; O2SAT 94
[2019-09-17 23:51] VITALS: BMI 32.8
[2019-09-18] MEDS: 0.9% Normal Saline 1,000 ML 100 ML IV (04:43)
[2019-09-18] MEDS: Capsaicin 0.025% 1 APPLIC Tube TOPICAL ×3 (04:56→20:49)
[2019-09-18] MEDS: Enoxaparin 30 MG/0.3 ML Syringe SC (04:57)
[2019-09-18 05:05] VITALS: BP 117/68; BP 117/69; BP 122/67; PULSE 78; PULSE 83; PULSE 99
[2019-09-18 08:00] VITALS: BP 135/75; PULSE 66; RESP 18; TEMP 36.6; O2SAT 96
[2019-09-18] MEDS: Lisinopril 40 MG Tablet PO (10:42)
[2019-09-18] MEDS: Furosemide 20 MG Tablet PO (10:43)
[2019-09-18] MEDS: Clopidogrel Bisulfate 75 MG Tablet PO (10:43)
[2019-09-18] MEDS: Famotidine 20 MG Tablet PO ×2 (10:43→20:48)
[2019-09-18] MEDS: Magnesium Oxide 400 MG Tablet PO ×2 (10:43→17:42)
[2019-09-18] MEDS: Aspirin 81 MG TAB.CHEW PO (10:44)
[2019-09-18 13:57] VITALS: BMI 32.8
[2019-09-18] MEDS: Loperamide 2 MG Capsule PO (17:44)
--- NOTE | 2019-09-18 19:39 | PCM.DC ---
- Discharge Diagnoses Current Active Problems: Current Active and Chronic Problems (Last Reviewed 06/23/19 @ 15:[address] Julio Stanford MD) Debility (Acute) Stroke (Acute) Severe mitral regurgitation (Chronic) TIA (transient ischemic attack) (Chronic) Hypertension (Chronic) Mitral valve insufficiency (Chronic) Uterine cancer (Chronic) Body mass index (bmi) 32.0-32.9, adult (Chronic) Left hemiparesis (Acute) Glaucoma (Chronic) You will use the following diet at home:: Cardiac - low fat and low salt, Other - make sure to drink enough fluid a day to keep your urine a pale yellow Your food should be the consistency of: Regular Your liquids should be the consistency of: Regular/Thin Discharge Activity: May Not Drive - until released by the neurologist, - - do the exercises given to you by the therapists twice a day Weight Bearing Status: Full weight bearing Keep extremity elevated above heart level: Legs Call your doctor if you observe: Fever of 101 or Higher, Numbness or Tingling, Shortness of breath, Dizziness, Fainting spells, Swelling in the ankles, Chest pain, Increased palpitations (irregular heartbeat), Calf discomfort Instructions: Electrophysiology Study (EPS), What Is Atrial Flutter/Atrial Fibrillation?, Hypomagnesemia Additional Instructions: 1. Get yourself ready for an upcoming mitral valve repair. Get 8 hours of sleep a night, eat healthy, try and get your weight down a little and exercise at least 6 days a week. Take the incentive spirometer home with you and use it regularly to keep your lungs healthy prior to the surgery. 2. We are sending you home with a prescription for a 30 day heart monitor. They will mail you the monitor and instructions. This is to see if you are having any atrial fibrillation which a problem with the heart rhythm that increases your risk of stroke. 3. It was a pleasure to meet you. I hope if you need rehab in the future you will consider coming back to us. If you have any questions following DC please do not hesitate to call me at [phone] (office) or [phone] (cell). You could also call the rehab unit at [phone]. Take care juan! Pending Tests on Discharge: none Allergies/Adverse Reactions: Allergies acetaminophen [From Percocet] Allergy (Verified 08/28/19 12:33) Vomiting oxycodone Adverse Reaction (Verified 08/28/19 12:33) Nausea tetanus and diphtheria toxoids Adverse Reaction (Verified 08/28/19 12:33) dizziness, weakness, difficulty breathing, fast heart beat Medications to take at Discharge Aspirin [Aspirin, Baby] 81 mg PO DAILY@0800 09/06/19 Atorvastatin Calcium [Lipitor] 20 mg PO QHS 09/06/19 Clopidogrel Bisulfate [Plavix] 75 mg PO DAILY 09/06/19 Furosemide [Lasix] 20 mg PO DAILY 09/06/19 Latanoprost 0.005% [Xalatan Opthalmic] 1 drp EACH EYE QHS 09/06/19 Lisinopril [Zestril] 40 mg PO DAILY 09/06/19 Loperamide [Imodium] 2 mg PO Q6H PRN PRN capsule 09/18/19 Magnesium Chloride [Slow-Mag] 71.5 mg PO BID #60 tablet. 09/18/19 Senna/Docusate Sodium [Senokot-S] 2 tab PO BID PRN #56 tab 09/18/19 The following prescriptions were given: Senna/Docusate Sodium [Senokot-S] 2 tab PO BID PRN #56 tab PRN Reason: CONSTIPATION Transmission Status: Pending to [id number] Magnesium Chloride [Slow-Mag] 71.5 mg PO BID #60 tablet.dr Transmission Status: Pending to [facility]/pharmacy #[id number] Primary Care Physician: Prosper Christian, [Primary Care Provider] - Test Results: Test results from this visit will be discussed in further detail at your follow-up appointment, if applicable. Please Follow Up With: Dr. Stanford-Cardiology Please Follow Up With: Dr Dhaliwal-Neurology Please Follow Up With: Dr. Prosper Vigil-PCP When: Please Follow Up With: Heart Monitor
[2019-09-18 19:46] VITALS: BP 114/55; PULSE 66; RESP 16; TEMP 36.7; O2SAT 98
--- NOTE | 2019-09-18 19:59 | DS.PCM_ITS ---
Discharge Date and Diagnosis Date of Admission: 09/07/19 Date of Discharge: 09/19/19 - Primary Discharge Diagnosis Acute Problems: Active Problems (Last Reviewed 06/23/19 @ 15:[address] 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 Julio Stanford MD) Left atrial enlargement (Chronic)- moderate to severe Pulmonary HTN (Chronic)- mild Severe mitral regurgitation (Chronic) Hypertension (Chronic) Body mass index (bmi) 32.0-32.9, adult (Chronic)- obesity Glaucoma (Chronic) History of loop recorder (Chronic 04/10/16) Loop Recorder implant 04/10/[address] Stanford for cryptogenic CVA; this is no longer functional Mitral valve annular calcification (Chronic) Hyperlipidemia (Chronic) Hx of uterine CA Stage III CRF Hospital Course and Treatment Imaging Results: Laboratory Last Values WBC 7.9 K/mm3 (4.4-11.0) 09/07/19 05:32 RBC 4.11 M/mm3 (4.2-5.4) L 09/07/19 05:32 Hgb 13.2 g/dL (12.0-15.0) 09/17/19 06:50 Hct 39.8 % (37-47) 09/17/19 06:50 MCV 97.6 fL (81-99) 09/07/19 05:32 MCH 31.4 pg (27.0-32.0) 09/07/19 05:32 MCHC 32.2 g/dL (32-36) 09/07/19 05:32 RDW Std Deviation 46.0 fl (35.1-43.9) H 09/07/19 05:32 RDW Coeff of Brayan 12.9 % (11.6-14.6) 09/07/19 05:32 Plt Count 241 K/mm3 (150-450) 09/07/19 05:32 MPV 9.8 fl (6.2-12.0) 09/07/19 05:32 Sodium 138 mmol/L (136-145) 09/19/19 06:50 Potassium 4.7 mmol/L (3.5-5.1) 09/19/19 06:50 Chloride 108 mmol/L (98-107) H 09/19/19 06:50 Carbon Dioxide 27.0 mmol/L (21.0-32.0) 09/19/19 06:50 Anion Gap 3 (5-15) L 09/19/19 06:50 BUN 30 mg/dL (7-18) H 09/19/19 06:50 Creatinine 1.30 mg/dL (0.55-1.02) H 09/19/19 06:50 Estim Creat Clear Calc 29.12 ml/min 09/19/19 06:50 Est GFR (MDRD) Af Amer 51 mL/min (>60) L 09/19/19 06:50 Est GFR (MDRD) Non-Af 42 mL/min (>60) L 09/19/19 06:50 BUN/Creatinine Ratio 23.1 RATIO (10-20) H 09/19/19 06:50 Glucose 95 mg/dL (74-106) 09/19/19 06:50 Calcium 9.1 mg/dL (8.5-10.1) 09/19/19 06:50 Magnesium 2.0 mg/dL (1.6-2.6) 09/19/19 06:50 Total Bilirubin 0.50 mg/dL (0.20-1.00) 09/07/19 05:32 AST 20 U/L (15-37) 09/07/19 05:32 ALT 21 U/L (13-56) 09/07/19 05:32 Alkaline Phosphatase 54 U/L (45-117) 09/07/19 05:32 Total Protein 6.5 g/dL (6.4-8.2) 09/07/19 05:32 Albumin 3.1 g/dL (3.2-5.0) L 09/07/19 05:32 Globulin 3.4 g/dL (2.2-4.2) 09/07/19 05:32 Albumin/Globulin Ratio 0.9 RATIO (0.9-2.4) 09/07/19 05:32 Folate 19.40 ng/mL (3.1-55.4) 09/17/19 06:50 none Operations: None Procedures: None Summary of Care Provided: The patient is a 78 year old F with a past medical history of glaucoma, pulmonary hypertension, dyslipidemia, remote history of uterine cancer, leg cramps, obesity, severe non-rheumatic mitral regurgitation and a loop recorder in the past that is no longer functional who presented to the ED at [facility] on 08/28/19 with left arm weakness of unknown onset. CTA of the brain showed an acute infarct. [facility] tele-neurology was consulted and did not recommend TPA. They recommended transfer to [facility] for suspected large vessel occlusion. While in the emergency department at [facility] she had a partial seizure and was given Ativan. At the time of admission to [facility] she had right gaze deviation, left side weakness and a facial droop. MRI of the brain showed bilateral ischemic infarcts. CTA showed no large vessel occlusion. Transesophageal echocardiogram showed a 70% ejection fraction with severe mitral regurgitation, mild mitral stenosis and a possible mobile calcification on the posterior mitral annulus. Cardiothoracic surgery was consulted and recommended valve surgery. Neurology felt she should wait 1 to 2 weeks to decrease the risk of cerebral hemorrhage due to bilateral ischemic CVAs. Nuclear stress test was negative and bilateral carotid ultrasound showed less than 50% stenosis bilaterally. She was transferred to the inpatient rehab unit at [facility] on 09/07/2019 for greater than 3 hours of therapy daily to restore her at or near her prior level of function. Prior to DC she had ambulated 300 ft on various surfaces with a straight cane at [facility] . She ascended and descended [address] cane and a handr ail. She was able to 16 sit to stands in 30 sec. She was discharged home on 09/18/2019 in good condition. She will follow-up with Dr. Prosper Christian her PCP, Dr. Stanford from cardiology and Dr. Dhaliwal for neurology. Prescription was written for a 30-day event monitor at discharge. Dr. Stanford and Dr. Dhaliwal will determine when she is ready for mitral valve surgery. [] alert, pleasant, oriented X 3, seated in the recliner at the bedside Lungs - good air exchange and CTA H - RRR with ectopics, systolic MM at the apex and into the left axilla. There is also a systolic MM at the LVOT but, no MM at the LLSB or the second RICS, BL simultaneous BP's in the UE's are the same Abdomen-soft, nontender, nondistended, bowel sounds present, no abdominal bruits, no guarding with palpation No peripheral edema No calf tenderness 4/5 strength in the left upper extremity with decreased fine motor coordination......improving with therapy No rashes and no skin breakdown This note was generated with [employer] software. It may contain incorrect words, spelling, and punctuation that were not noted in checking the note before signing. - Physical Exam Vitals/I&O's: Vital Signs Temp Pulse Resp BP Pulse Ox 98.0 F 66 16 114/55 L 98 09/18/19 19:46 09/18/19 19:46 09/18/19 19:46 09/18/19 19:46 09/18/19 19:46 Oxygen Delivery Method Room Air Weight: 176 lb 12.972 oz Body Mass Index (BMI) 32.8 Finger Stick Blood Glucose 130 Orthostatic Vital Signs Start: 09/17/19 04:58 Freq: 0600 Status: Active Protocol: Activity Type Activity Date Activity User E-Sign Co-Sign Detail Recorded Client Recorded Date Recorded By Document 09/18/19 05:05 CDA [id number] 09/18/19 05:10 CDA 09/18/19 05:05 Orthostatic Vitals Standing -Blood Pressure (90/60-120/80 mm Hg) 117/68 -Extremity Use Left Arm -Pulse Rate (60-100 beats/min) 99 Sitting -Blood Pressure (90/60-120/80 mm Hg) 117/69 -Extremity Use Left Arm -Pulse Rate (60-100 beats/min) 78 Lying -Blood Pressure (90/60-120/80 mm Hg) 122/67 H -Extremity Use Left Arm -Pulse Rate (60-100 beats/min) 83 Intake and Output for Last 24 Hours 09/16/19 09/17/19 09/18/19 23:59 23:59 23:59 Intake Total 960 / 960 1880.00 / 1880.00 2480 / 2480 Output Total 200 / 200 Balance 960 / 960 1680.00 / 1680.00 2480 / 2480 Current Medications Acetaminophen (Tylenol) 1,000 mg PO Q6H PRN PRN PRN Reason: Pain Score 1-10/10 Last Admin: 09/11/19 18:32 Dose: 1,000 mg Documented by: Aspirin (Aspirin, Baby) 81 mg PO DAILY@0800 [facility] Last Admin: 09/18/19 10:44 Dose: 81 mg Documented by: Atorvastatin Calcium (Lipitor) 20 mg PO QHS [facility] Last Admin: 09/17/19 21:17 Dose: 20 mg Documented by: Bisacodyl (Dulcolax) 10 mg RECTAL .PRN X 1 PRN PRN Reason: Constipation Capsaicin (Zostrix) 1 applic TOPICAL TID [facility]; Protocol Last Admin: 09/18/19 13:23 Dose: 1 applicatio Documented by: Clopidogrel Bisulfate (Plavix) 75 mg PO DAILY [facility] Last Admin: 09/18/19 10:43 Dose: 75 mg Documented by: Enoxaparin Sodium (Lovenox) 30 mg SC DAILY@0600 [facility] Last Admin: 09/18/19 04:57 Dose: 30 mg Documented by: Famotidine (Pepcid) 20 mg PO BID [facility] Last Admin: 09/18/19 10:43 Dose: 20 mg Documented by: Furosemide (Lasix) 20 mg PO DAILY [facility] Last Admin: 09/18/19 10:43 Dose: 20 mg Documented by: Sodium Chloride () 250 mls @ 15 mls/hr IV .[id number] PRN PRN Reason: Saline Flush Sodium Chloride () 250 mls @ 15 mls/hr IV .[id number] PRN PRN Reason: Additional IVPB Infusion Latanoprost (Xalatan Opthalmic) 1 drop EACH EYE QHS [facility] Last Admin: 09/17/19 21:17 Dose: 1 drop Documented by: Lisinopril (Zestril) 40 mg PO DAILY [facility] Last Admin: 09/18/19 10:42 Dose: 40 mg Documented by: Loperamide HCl (Imodium) 2 mg PO Q6H PRN PRN PRN Reason: Diarrhea Last Admin: 09/18/19 17:44 Dose: 2 mg Documented by: [facility] 400) [facility] Last Admin: 09/18/19 17:42 Dose: 400 mg Documented by: Senna/Docusate Sodium (Senokot-S, Alice-Colace) 2 tablet PO BID PRN PRN Reason: CONSTIPATION Last Admin: 09/10/19 20:53 Dose: 2 tablet Documented by: Sodium Chloride () 10 - 40 ml IV UD PRN PRN Reason: SALINE FLUSH Discharge Activity: May Not Drive - until released by the neurologist, - - do the exercises given to you by the therapists twice a day Weight Bearing Status: Full weight bearing Keep extremity elevated above heart level: Legs Call your doctor if you observe: Fever of 101 or Higher, Numbness or Tingling, Shortness of breath, Dizziness, Fainting spells, Swelling in the ankles, Chest pain, Increased palpitations (irregular heartbeat), Calf discomfort Home Medications: Medications to take at Discharge Aspirin [Aspirin, Baby] 81 mg PO DAILY@0800 09/06/19 Furosemide [Lasix] 20 mg PO DAILY 09/06/19 Latanoprost 0.005% [Xalatan Opthalmic] 1 drp EACH EYE QHS 09/06/19 Loperamide [Imodium] 2 mg PO Q6H PRN PRN cap 09/18/19 Magnesium Chloride [Slow-Mag] 71.5 mg PO BID #60 tablet. 09/18/19 Senna/Docusate Sodium [Senokot-S] 2 tab PO BID PRN #56 tab 09/18/19 atorvastatin 40 mg tablet 40 mg PO QHS #90 tab 09/23/19 clopidogrel 75 mg tablet 75 mg PO DAILY #90 tab 09/23/19 lisinopril 20 mg tablet 20 mg PO DAILY #90 tab 09/23/19 Following Prescriptions Were Given to Patient: Senna/Docusate Sodium [Senokot-S] 2 tab PO BID PRN #56 tab PRN Reason: CONSTIPATION Transmission Status: Received by [facility][id number] Magnesium Chloride [Slow-Mag] 71.5 mg PO BID #60 tablet. Transmission Status: Received by [id number] Primary Care Physician: Prosper Christian, [Primary Care Provider] - Please Follow Up With: Dr. Stanford-Cardiology Please Follow Up With: Dr Dhaliwal-Neurology Please Follow Up With: Dr. Prosper Vigil-PCP When: Please Follow Up With: Heart Monitor Patient Instructions: Electrophysiology Study (EPS), What Is Atrial Flutter/Atrial Fibrillation?, Hypomagnesemia Minutes spent on discharge:: 35 Patient Condition:: Good Medical Necessity - Tobacco Use Smoking Status: Never smoker Tobacco Use: Non-smoker Meaningful Use Info Meaningful Use Diagnoses (Choose all that apply): Ischemic CVA - CVA Therapy Assessed for PT,OT and/or ST?: Yes - Ischemic Stroke Antithrombotic order at d/c?: Yes Dx of Atrial fib/flutter?: No Anticoagulant at discharge?: No Reason anticoagulant not ordered: Treatment not Indicated Statins at discharge?: Yes Primary Dx Acute Ischemic CVA?: Yes IV tPA ordered during stay?: No Reason IV t-PA not ordered: Treatment not Indicated Inpatient E&M: [id number] Disch Hosp
[2019-09-18] MEDS: 0.9% Saline Lock 10 ML Syringe IV (20:48)
[2019-09-18] MEDS: Atorvastatin Calcium 20 MG Tablet PO (20:48)
[2019-09-18] MEDS: Latanoprost 0.005% 1 Bottle 1 DRP EACH EYE (20:48)
[2019-09-19 01:31] VITALS: BMI 32.8
[2019-09-19] MEDS: Enoxaparin 30 MG/0.3 ML Syringe SC (06:09)
[2019-09-19] MEDS: Capsaicin 0.025% 1 APPLIC Tube TOPICAL (06:10)
[2019-09-19 07:16] VITALS: BP 130/71; PULSE 73; RESP 18; TEMP 36.4; O2SAT 95
[2019-09-19] MEDS: Clopidogrel Bisulfate 75 MG Tablet PO (07:20)
[2019-09-19] MEDS: Famotidine 20 MG Tablet PO (07:20)
[2019-09-19] MEDS: Furosemide 20 MG Tablet PO (07:20)
[2019-09-19] MEDS: Magnesium Oxide 400 MG Tablet PO (07:20)
[2019-09-19] MEDS: Lisinopril 40 MG Tablet PO (07:20)
[2019-09-19] MEDS: Aspirin 81 MG TAB.CHEW PO (07:20)
[2019-09-19 07:37] LABS: Anion Gap 3 (5-15); BUN 30 mg/dL (7-18); BUN/Creat Ratio 23.1 RATIO (10-20); Calcium,Total 9.1 mg/dL (8.5-10.1); Chloride 108 mmol/L (98-107); EST Glomerular Filtration Rate 42 mL/min (>60); Est Glom Filt Rate - Afr Amer 51 mL/min (>60); Estimated Creatinine Clearance 29.12 ml/min; Glucose 95 mg/dL (74-106); Potassium 4.7 mmol/L (3.5-5.1); Sodium Level 138 mmol/L (136-145)
[2019-09-19 07:47] VITALS: BMI 32.8
[2019-09-19 10:00] VITALS: BP 130/71; PULSE 73; RESP 18; TEMP 36.4; O2SAT 95
--- NOTE | 2019-09-19 10:00 | NURSING ---
Discharge instructions given and patient verbalized understanding. Dr. Coulter aware of labs ordered for today.
== END 2019-09-19 10:00 | disposition home health service (06) | DRG 57 ==
PROVIDERS: Admitting Provider Internal Medicine; PCP Family Medicine; Visit Provider Internal Medicine
DX: I69.354 Hemiplegia and hemiparesis following cerebral infarction affecting left non-dominant side (principal); I69.392 Facial weakness following cerebral infarction; I69.319 Unspecified symptoms and signs involving cognitive functions following cerebral infarction; I69.398 Other sequelae of cerebral infarction; I10 Essential (primary) hypertension; H40.9 Unspecified glaucoma; I34.0 Nonrheumatic mitral (valve) insufficiency; E78.5 Hyperlipidemia, unspecified; K21.9 Gastro-esophageal reflux disease without esophagitis; I27.20 Pulmonary hypertension, unspecified; E83.42 Hypomagnesemia; I48.0 Paroxysmal atrial fibrillation; H51.8 Other specified disorders of binocular movement
CPT/HCPCS: 36415; 80048; 80053; 82746; 83735; 85014; 85018; 85027; 92507; 92523; 92526; 92610; 97110; 97112; 97116; 97162; 97166; 97530; 97535; 97802; 99251; J7030; A4216; G0463

== ENCOUNTER → 2019-12-18 07:17 | Outpatient (CLI) | payer MEDICARE, OTHER, SELFPAY ==
[2019-11-27 14:03] VITALS: BMI 34.0
--- NOTE | 2019-12-18 07:18 | ECHOD_ITS ---
Reason For Study: CAD Procedure This was a 2D Doppler, Color Flow transthoracic echocardiogram. Exam performed in department. Left Ventricle Normal LV size. Left ventricular systolic function is normal. The estimated ejection fraction is 65 %. Stage 2 diastolic dysfunction. No regional wall motion abnormalities noted. Right Ventricle Normal RV size. Normal systolic function. Atria The left atrium is mildly enlarged. Normal right atrium. Mitral Valve There is moderate to severe mitral annular calcification. Moderate (2+) eccentric mitral valve insufficiency. Tricuspid Valve Normal tricuspid valve. Mild to moderate (1-2+) tricuspid valve insufficiency. Pulmonary artery systolic pressure is 51 mmHg. Moderate pulmonary hypertension. Aortic Valve Trisinus/trileaflet aortic valve. Mild focal aortic valve calcification. Mild aortic stenosis. Great Vessels Normal aortic root. The pulmonary artery is normal size. Normal inferior vena cava. Pericardium/Pleural No pericardial effusion. Medication Previously negative bubble study. MMode/2D Measurements & Calculations LVIDd: 3.9 cm IVSd: 0.98 cm LVOT diam: 1.8 cm LVIDs: 2.3 cm LVPWd: 1.2 cm LVOT area: 2.5 cm2 RVDd: 3.2 cm FS: 40.5 % Ao root diam: 3.0 cm LAV(MOD-bp): 98.0 ml EDV(MOD-sp4): 91.6 ml LAV(MOD-bp) Indexed: 54.3 ml/m2 ESV(MOD-sp4): 30.0 ml LAV(MOD-sp2): 126.1 ml EF(MOD-sp4): 67.3 % LAV(MOD-sp4): 63.6 ml SV(MOD-sp4): 61.6 ml LA dimension(2D): 3.9 cm LA A4 area: 20.2 cm2 RA A4 area: 10.4 cm2 Time Measurements MV dec time: 0.22 sec Doppler Measurements & Calculations MV E max kendall: 143.5 cm/sec Lat Peak E' Kendall: 5.6 cm/sec Med Peak E' Kendall: 5.0 cm/sec MV A max kendall: 102.6 cm/sec E/E' lat: 25.9 E/E' med: 28.5 MV E/A: 1.4 MV V2 max: 196.4 cm/sec Ao V2 max: 161.6 cm/sec LV V1 max: 113.7 cm/sec MV max P.4 mmHg Ao max P.5 mmHg LV V1 max P.2 mmHg MV V2 mean: 90.4 cm/sec Ao V2 mean: 113.7 cm/sec LV V1 mean P.1 mmHg MV mean P.2 mmHg Ao mean P.7 mmHg LV V1 mean: 84.4 cm/sec MV V2 VTI: 47.5 cm Ao V2 VTI: 41.2 cm LV V1 VTI: 30.8 cm MVA(VTI): 1.6 cm2 PRETTY(I,D): 1.9 cm2 PRETTY(V,D): 1.8 cm2 SV(LVOT): 77.5 ml PA V2 max: 127.1 cm/sec TR max kendall: 347.0 cm/sec TR max P.2 mmHg MV P1/2t-pr_phl: 67.3 msec Interpretation Summary Normal LV size. Left ventricular systolic function is normal. The estimated ejection fraction is 65 %. Stage 2 diastolic dysfunction. There is moderate to severe mitral annular calcification. Moderate (2+) eccentric mitral valve insufficiency. Pulmonary artery systolic pressure is 51 mmHg. Moderate pulmonary hypertension. Ordering Physician: Julio Stanford Referring Physician: SARAHI ALFARO Performed By: Nini Pacheco, RUSSCS, RVT
== END ==
PROVIDERS: PCP Family Medicine; Referring Provider Internal Medicine Cardiovascular Disease; Visit Provider Internal Medicine Cardiovascular Disease
DX: I25.10 Atherosclerotic heart disease of native coronary artery without angina pectoris (principal); Z86.73 Personal history of transient ischemic attack (TIA), and cerebral infarction without residual deficits
CPT/HCPCS: 93306

== ENCOUNTER 2019-12-28 07:48 | Day surgery (SDC) | payer MEDICARE, OTHER, SELFPAY ==
[2019-11-27 14:03] VITALS: BMI 34.0
--- NOTE | 2019-12-24 10:17 | RAD_ITS ---
HISTORY: DYSPNEA EXAM: XR Chest 2 Views: COMPARISON: June 09, 2017 FINDINGS: # of images incl. paperwork: 2 Implanted cardiac monitoring device remains Calcification from the left hilum extending down into the left lower lung region is unchanged. An air-fluid level within the mediastinum is likely related to a hiatal hernia which was present on December 24, 2011 CT scan. The size of the hernia on today's chest x-ray is smaller than that of the June 09, 2017 previous chest x-ray. Calcific plaque within the aortic arch persists Heart is not enlarged. No acute osseous pathology perceived. Pulmonary vascularity is distinct. No effusions. RAD/Chest PA and Lateral IMPRESSION: Small hiatal hernia, smaller than the previous study. No acute cardiopulmonary disease. at 0536 Reported and signed by: Jed Sanon MD Electronically Signed: Jed Sanon MD at 5:35 EDT Tel , Service support ,
[2019-12-24 10:50] LABS: Absolute Lymphocyte Count 1.23 X10^3/uL (0.83-4.51); Absolute Neutrophil Count 4.7 X10^3/uL (2.0-7.7); Basophil# 0.05 X10^3/uL; Basophil% 0.7 % (0-1); Eosinophil# 0.12 X10^3/uL; Eosinophils% 1.8 % (0-5); Hematocrit 39.5 % (37-47); Hemoglobin 12.8 g/dL (12.0-15.0); Lymphocyte # 1.23 X10^3/ul (4.0); Lymphocyte % 18.4 % (19-41); Mean Corp Hgb Conc 32.4 g/dL (32-36); Mean Corpuscular Hgb 32.2 pg (27.0-32.0); Mean Corpuscular Volume 99.2 fL (81-99); Mean Platelet Vol. 10.7 fl (6.2-12.0); Monocyte# 0.55 X10^3/uL; Monocyte% 8.2 % (0-10); NRBC Flagged by Analyzer 0 % (0-5); Neutrophil # 4.73 X10^3/uL (2.7-7.7); Neutrophil % 70.8 % (47-70); Platelet Count 244 K/mm3 (150-450); RBC Distribution Width CV 12.6 % (11.6-14.6); RBC Distribution Width SD 45.9 fl (35.1-43.9); Red Blood Count 3.98 M/mm3 (4.2-5.4); White Blood Count 6.7 K/mm3 (4.4-11.0)
[2019-12-24 11:17] LABS: Anion Gap 6 (5-15); BUN 26 mg/dL (7-18); BUN/Creat Ratio 20.3 RATIO (10-20); Calcium,Total 9.3 mg/dL (8.5-10.1); Chloride 105 mmol/L (98-107); Creatinine, Serum 1.28 mg/dL (0.55-1.02); EST Glomerular Filtration Rate 43 mL/min (>60); Est Glom Filt Rate - Afr Amer 52 mL/min (>60); Glucose 100 mg/dL (74-106); Sodium Level 140 mmol/L (136-145)
[2019-12-25 09:04] VITALS: BMI 34.0
--- NOTE | 2019-12-28 09:00 | HP_ITS ---
[facility] History of Present Illness Details: MELISSA KNIGHT, is a 79 F who presents to the office today. She has a history of hypertension, mitral annular calcification, hyperlipidemia, and CVA. You will remember that she presented to [facility] emergency department in May 2017 with dizziness. She underwent a brain CT scan which was negative for any acute process. Her troponin was negative. Her EKG showed sinus rhythm. She was subsequently discharged home to follow-up with primary care physician and neurologist. She had follow-up with primary care physician who then ordered a brain MRI that too was negative for any acute process. As you know she has a loop recorder implanted as well. She had previously sustained a cerebrovascular accident in 2014 without any deficits. She presented to the hospital again in August of this year with right gaze deviation, left-sided weakness and facial droop. She was noted to be outside the TPA window on the MRI demonstrated evidence of bilateral strokes. She was transferred to [facility]. As part of her evaluation she had a troponin done which was abnormal. She had a transthoracic echocardiogram performed which demonstrated preserved left ventricular function with no wall motion abnormalities noted. She had a nuclear stress test which demonstrated no evidence of ischemia. It was felt that this was likely secondary to demand ischemia in the setting of a cerebrovascular accident. Her echocardiogram demonstrated mitral regurgitation which was moderately to moderate to severe, severe left atrial enlargement, mitral annular calcification with a mobile 0.5 x 0.5 cm calcification on the mitral valve. Cardiac surgery was consulted for further consideration she was well compensated with an ejection fraction of 70%. It was felt that due to her recent cerebrovascular accident this should be deferred by a few weeks. Her loop recorder was interrogated it was noted that there have been no atrial fibrillation episodes noted. It was implanted in March 2016 and had reached recommended replacement time in August. She transferred back here to inpatient rehabilitation where she is done well she has been on aspirin, clopidogrel, atorvastatin, and lisinopril for blood pressure control. She presents here today for a follow-up evaluation as well as recommendation regarding surgery. At this particular time she is not particularly keen on surgery though if she needs to have it done she would prefer to have it done in [place]. She has had no dizziness or diaphoresis no near syncope of some. Her physical exam today demonstrates clear lung messina regular rate and rhythm a harsh 3/6 systolic murmur noted left sternal border and no pedal edema. Her blood pressure is under excellent control. Intake Vital Signs 11/27/19 Height 5 ft 1 in 11/27/19 Weight: 180 lb 11/27/19 BMI 34.0 11/27/19 BP 120/75 11/27/19 Respiration 16 11/27/19 Pulse 72 11/27/19 Pulse Oximetry (%) 95 Intake Visit Reasons: 2 M FU, Irma 1:30 Allergies acetaminophen [From Percocet] Allergy (Verified 11/27/19 14:04) Vomiting oxycodone Adverse Reaction (Verified 11/27/19 14:04) Nausea tetanus and diphtheria toxoids Adverse Reaction (Verified 11/27/19 14:04) dizziness, weakness, difficulty breathing, fast heart beat Medications Aspirin [Aspirin, Baby] 81 mg PO DAILY@0800 09/06/19 [History Confirmed 11/27/19] Latanoprost 0.005% [Xalatan Opthalmic] 1 drp EACH EYE QHS 09/06/19 [History Confirmed 11/27/19] Loperamide [Imodium] 2 mg PO Q6H PRN PRN cap 09/18/19 [Rx Confirmed 11/27/19] Magnesium Chloride [Slow-Mag] 71.5 mg PO BID #60 tablet.dr 09/18/19 [Rx Confirmed 11/27/19] Senna/Docusate Sodium [Senokot-S] 2 tab PO BID PRN #56 tab 09/18/19 [Rx Confirmed 11/27/19] atorvastatin 40 mg tablet 40 mg PO QHS #90 tab 09/23/19 [Rx Confirmed 11/27/19] clopidogrel 75 mg tablet 75 mg PO DAILY #90 tab 09/23/19 [Rx Confirmed 11/27/19] lisinopril 20 mg tablet 20 mg PO DAILY #90 tab 09/23/19 [Rx Confirmed 11/27/19] furosemide 20 mg tablet 20 mg PO DAILY #90 tab 11/27/19 [Rx Confirmed 11/27/19] [facility] Medical History History of CVA (cerebrovascular accident) (Chronic 08/28/19) Cryptogenic stroke (Resolved 2016) Elevated troponin (Resolved 08/28/19) Mitral valve annular calcification (Chronic) 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) Essential hypertension (Chronic) Hyperlipidemia (Chronic) Uterine carcinoma (Resolved) Body mass index (bmi) 32.0-32.9, adult (Chronic) 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) Debility (Chronic) Glaucoma (Chronic) Knee osteoarthritis (Chronic) Left atrial enlargement (Chronic) Left hemiparesis (Chronic) TIA (transient ischemic attack) (Chronic) Fatigue (Resolved) Hypomagnesemia (Resolved) Orthostatic hypotension (Resolved) PAF (paroxysmal atrial fibrillation) (Ruled-out) Non-rheumatic tricuspid valve insufficiency (Inactive) Secondary pulmonary arterial hypertension (Inactive) Surgical History History of loop recorder (Chronic 04/10/16) History of esophagogastroduodenoscopy (EGD) (Resolved) History of total right knee replacement (TKR) (Resolved 05/2014) Hx of bilateral cataract extraction (Resolved) Hx of bladder repair surgery (Resolved) Hx of colonoscopy (Resolved 02/06/05) Hx of hysterectomy (Resolved 08/24/11) Family History Father CAD (coronary artery disease) CVA (cerebral vascular accident) Mother Colon cancer CVA (cerebral vascular accident) Brother Cancer Social History (Updated 11/27/19 @ 14:[address] Julio Stanford MD) Smoking Status: Never smoker alcohol intake: current substance use type: does not use ROS Const Const: Negative for fatigue, weakness, headache(s), frequent falls, difficulty sleeping or excessive sweating Eyes Eyes: Negative for loss of peripheral vision, transient loss of vision, blurry vision, double vision or tunnel vision ENT ENT: Negative for headache(s), dizziness, Nosebleed/epistaxis or balance problems Cardio Chest Pain: No Palpitations: No Edema: None Muscle aches with walking: None Resp Respiratory: Negative for SOB with activity, SOB at rest, SOB orthopnea\SOB lying down, Cough or paroxysmal nocturnal dyspnea GI GI: Negative nausea, vomiting, heartburn or black,tarry stools : Negative for hematuria Musc Musc: Negative for muscle aches/ myalgia, muscle weakness, joint pain or balance problems Skin Skin: Negative non-healing lesions, rash or unusual bruising Neuro Neuro: Positive for other (LUE/hand weakness); negative for dizziness, lightheadedness, near syncope, syncope, orthostatic symptoms, frequent falls, headache(s), weakness, blurry vision, double vision or lack of coordination [place] Hematologic/Lymphatic: Negative for easy bleeding or easy bruising Endo Endo: Negative for fatigue, excessive sweating or increased thirst/drinking Psych Psych: Negative for anxiety or depression Allergy Allergy/Immunology: Negative for hives, Negative for rash Cardiology Exam Const Appearance: cooperative, healthy appearing, no acute distress, well developed and well groomed Nutritional Appearance: average body habitus and well nourished Orientation: alert, awake and oriented x3 Head Head: normal to inspection, normocephalic and atraumatic Ears: hearing grossly normal bilaterally and external ears normal Nose: external nose normal, nares normal, nasal mucous membranes and turbinates normal, septum normal, no nasal discharge Face and Sinus: face symmetric Mouth: oral mucosae normal, tongue normal, oropharynx normal and moist mucous membranes Teeth and gingiva: dentition normal Throat: posterior oropharynx normal, tonsils normal and uvula midline Eyes General: appearance normal, both eyes and all related structures Eyelids: eyelids normal Conjunctivae: conjunctivae normal Pupils: PERRL, normal by confrontation and accommodation normal EOM: EOM intact bilaterally Neck Neck: normal visual inspection, trachea midline and no JVD JVD: +5 Carotids: normal carotid upstroke and bounding pulses Chest Chest inspection: normal inspection of the chest, symmetric chest movement and normal respiratory effort Auscultation: Bilateral: Clear to Auscultation Cardio Palpation: normal PMI Rate: regular rate Rhythm: regular rhythm Heart sounds: S1 normal, S2 normal and normal, physiologic split S2; negative rub, gallop or murmur GI GI: normal to inspection, soft, no hepatosplenomegaly and bowel sounds present Neuro General: alert, awake, oriented x3, gait normal, moves all extremities and no focal sensory deficit Skin Skin: no rashes or lesions noted Extremities Pulses: Normal: Right Femoral Pulse, Left Femoral Pulse, Right Dorsalis Pedis Pulse, Left Dorsalis Pedis Pulse, Right Posterior Tibial Pulse, Left Posterior Tibial Pulse, Right Radial Pulse, Left Radial Pulse Lower Extremity Edema: None: Bilateral Musculoskel Musculoskeletal: No joint tenderness Psych Psychological: normal affect Assessment & Plan 1. Nonrheumatic mitral valve stenosis with insufficiency I34.2; I34.0 Plan She does have evidence of mitral valve disease. She has mitral calcification and mitral regurgitation. It was felt that she may need valve surgery. I would recommend that we repeat her echocardiogram for a more updated echo and then we consider a left heart catheterization. We will discuss the surgery after that. As noted above she may prefer to have this done up in [place]. Orders Orders: 12 Lead EKG performed by BMS 2 Weeks Basic Metabolic Profile (BMP) 2 Weeks 2. Essential hypertension I10 Plan Her blood pressure is under good control at this time and I will not recommend that we make any other changes. 3. History of loop recorder Z98.890 Loop Recorder implant 04/10/[address] Stanford for cryptogenic CVA; Plan She does have an implantable loop recorder. We may consider removing this at the time of the left heart catheterization. It reached end of service on 09/16/2019. 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
--- NOTE | 2019-12-28 09:42 | CL.D_ITS ---
Patient Name: MELISSA KNIGHT Study Date: 12/28/2019 Performing: Julio Stanford MD Ht: 61.02 inches 155 cm : 1940 Wt: 180.78 lbs 82 kg Age: 79 Gender: female BSA: 1.81 PROCEDURE(S) PERFORMED ZG91-XBC/COR/LV CLINICAL PROFILE AND INDICATIONS Indications: Valvular Disease Heart Failure: None Stress/Imaging Stress/Image Study Performed: No CAD Presentations: No Sxs, no angina. CONCLUSIONS Normal coronary arteries Mitral Valve Calcification- Severe RECOMMENDATIONS Surgery consult for coronary revascularization Hyperdynamic ventricle DESCRIPTION OF PROCEDURE The patient arrived to the procedure lab. The risks and benefits of the procedure as well as a full d escription of our services here and current unavailability of surgical backup were fully explained to the patient and/or their significant other prior to the catheterization. The Timeout was completed, verifying the correct patient and procedure. The patient's procedural site was prepped and draped in the usual fashion. Local anesthetic was given subcutaneously to right radial region with Lidocaine 2% . Using a modified Seldinger technique, arterial access was obtained via the right radial artery, a 6 Fr sheath was inserted. Left Coronary Artery selective angiography was performed in multiple views u sing a 5 Fr. 4.0 Zapata catheter. Right Coronary Artery selective angiography was then performed in mu ltiple views using a 5 Fr. 4.0 Zapata catheter. Left Ventriculography was performed in OCASIO projection using a 5 Fr. Pigtail catheter. LV to AO pullback pressures were then recorded.The arterial sheath was pulled and a TR Band was applied for hemostasis CORONARY ANGIOGRAPHY DOMINANCE: Left Dominant LEFT HEART ASSESSMENT Left Ventricular Ejection Fraction: by LV Gram 80 % Normal LV wall motion Normal Left Ventricular systolic function Normal Left Ventricular systolic function LEFT MAIN: Angiographically normal LEFT ANTERIOR DESCENDING ARTERY: Angiographically normal CIRCUMFLEX ARTERY: Angiographically normal RIGHT CORONARY ARTERY: Angiographically normal VALVE FINDINGS: Mitral Valve Calcification Severe Mitral Valve Insufficiency - Grade 3 COMPLICATIONS No Complications PROCEDURE MEDICATIONS Versed 100 mg IV Fentanyl 50 mcg IV Versed 1 mg IV Oxygen: 2 L/min via nasal cannula SUMMARY OF HEMODYNAMIC DATA Time AIR REST ECG 08:09:31 AO 117/57 (82) SA 09:14:30 LV 115/7, 23 09:18:49 LV 118/4, 16 09:18:55 LV 101/11, 30 09:20:40 LV 115/9, 12 09:20:47 LVp 119/9, 15 09:20:55 AOp 116/55 (82) 09:21:00 RM AIR REST 09:42:19 Signed By Julio Stanford MD On 12/28/2019 9:45:10 AM Signed By Julio Stanford MD On 12/28/2019 9:41:56 AM Julio Stanford MD
== END 2019-12-28 12:15 | disposition home or self-care (01) ==
LOC: CLSP 07:48
PROVIDERS: PCP Family Medicine; Referring Provider Internal Medicine Cardiovascular Disease; Visit Provider Internal Medicine Cardiovascular Disease
DX: I34.0 Nonrheumatic mitral (valve) insufficiency (principal); I34.2 Nonrheumatic mitral (valve) stenosis; I11.9 Hypertensive heart disease without heart failure; E78.5 Hyperlipidemia, unspecified; I25.10 Atherosclerotic heart disease of native coronary artery without angina pectoris; Z79.02 Long term (current) use of antithrombotics/antiplatelets; Z79.82 Long term (current) use of aspirin; Z86.73 Personal history of transient ischemic attack (TIA), and cerebral infarction without residual deficits; Z88.5 Allergy status to narcotic agent
CPT/HCPCS: 36415; 71046; 80048; 85025; 93458; 99152; 99153; J7040; Q9967; C1769; C1894

== ENCOUNTER → 2020-04-28 09:40 | Outpatient (CLI) | payer MEDICARE, OTHER, SELFPAY ==
[2020-04-28 12:03] LABS: Absolute Lymphocyte Count 1.04 X10^3/uL (0.83-4.51); Absolute Neutrophil Count 4.6 X10^3/uL (2.0-7.7); Basophil# 0.07 X10^3/uL; Basophil% 1.1 % (0-1); Eosinophil# 0.16 X10^3/uL; Eosinophils% 2.5 % (0-5); Hematocrit 39.7 % (37-47); Hemoglobin 12.3 g/dL (12.0-15.0); Lymphocyte # 1.04 X10^3/ul (4.0); Lymphocyte % 15.9 % (19-41); Mean Corpuscular Hgb 30.7 pg (27.0-32.0); Mean Platelet Vol. 10.8 fl (6.2-12.0); Monocyte# 0.65 X10^3/uL; NRBC Flagged by Analyzer 0 % (0-5); Neutrophil % 70.3 % (47-70); Platelet Count 181 K/mm3 (150-450); RBC Distribution Width CV 12.9 % (11.6-14.6); RBC Distribution Width SD 47.3 fl (35.1-43.9); Red Blood Count 4.01 M/mm3 (4.2-5.4); White Blood Count 6.5 K/mm3 (4.4-11.0)
[2020-04-28 12:22] LABS: AST(SGOT) 23 U/L (15-37); Alanine Aminotransfer ALT/SGPT 28 U/L (13-56); Albumin, Serum 3.6 g/dL (3.2-5.0); Alkaline Phosphatase 102 U/L (45-117); Anion Gap 6 (5-15); BUN 19 mg/dL (7-18); Calcium,Total 9.1 mg/dL (8.5-10.1); Chloride 108 mmol/L (98-107); Creatinine, Serum 1.19 mg/dL (0.55-1.02); EST Glomerular Filtration Rate 47 mL/min (>60); Est Glom Filt Rate - Afr Amer 57 mL/min (>60); Globulin 3.5 g/dL (2.2-4.2); Glucose 102 mg/dL (74-106); Potassium 4.2 mmol/L (3.5-5.1); Protein, Total 7.1 g/dL (6.4-8.2); Sodium Level 141 mmol/L (136-145)
== END ==
PROVIDERS: PCP Family Medicine; Visit Provider Family Medicine
DX: I12.9 Hypertensive chronic kidney disease with stage 1 through stage 4 chronic kidney disease, or unspecified chronic kidney disease (principal); N18.30 Chronic kidney disease, stage 3 unspecified; Z51.81 Encounter for therapeutic drug level monitoring
CPT/HCPCS: 36415; 80053; 85025

== ENCOUNTER 2021-08-02 09:12 | Emergency (ER) | payer MEDICARE, OTHER, SELFPAY ==
[2021-08-02 09:12] VITALS: BP 155/71; PULSE 78; RESP 16; TEMP 36.6; O2SAT 99; BMI 34.7
--- NOTE | 2021-08-02 09:33 | CT_ITS ---
STUDY: CT BRAIN WITHOUT CONTRAST REASON FOR EXAM: Female, 80 years old. Headache RADIATION DOSAGE (If Supplied By Facility): CTDIvol = ( 44.99 ) mGy, DLP = ( 745.49 ) mGycm TECHNIQUE: Transaxial CT imaging of the brain was performed without administration of intravenous contrast material. Individualized dose optimization techniques were used for this CT. COMPARISON: Comparison is made with prior study dated 08/28/2019. FINDINGS: Normal soft tissue structures. Normal calvarium. There is mild cerebral atrophy with widening of the extra-axial spaces and ventricular dilatation. Since prior study, there is evidence of focal encephalomalacia in the posterior aspect of the right temporal lobe. There are areas of decreased attenuation within the white matter tracts of the supratentorial brain, consistent with microvascular disease changes. Normal basal ganglia and thalami. Normal brainstem. Normal cerebellum. There is no intracranial hemorrhage. There are no findings of an acute ischemic infarction. Atherosclerotic calcification of the vertebral arteries and cavernous portions of the internal carotid arteries bilaterally. Normal visualized paranasal sinuses. CT/Brain/Head without Contrast IMPRESSION: Chronic involutional changes of the brain. Electronically Signed: Live Carrasco MD at 10:05 EDT ,
--- NOTE | 2021-08-02 09:40 | EDS_ITS ---
HPI <DREW Shen - Last Filed: 08/02/21 10:28> History of Present Illness Chief Complaint: Headache Narrative Narrative: 80-year-old female with history of CVA, hypertension on Plavix, aspirin presents the emergency department for a headache behind the right eye. Patient states that at 740 this morning, she had a dull ache behind her right eye, secondary to her stroke in 2019, she became nervous, took 162 mg of aspirin her daily medications, the pain went away, however she is here for evaluation. Patient denies any weakness to any extremities, denies any vision change, altered mental status, patient is ambulatory, gait is normal. Patient is just here to ensure she is not having a stroke. 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 09/18/19 [Rx Last Taken Unknown] clopidogrel 75 mg tablet 75 mg PO DAILY #90 tab 09/26/20 [Rx Last Taken Unknown] lisinopril 10 mg tablet 10 mg PO DAILY #90 tab 12/09/20 [Rx Last Taken Unknown] metoprolol succinate 50 mg tablet,extended release 24 hr 50 mg PO DAILY #90 tab 12/09/20 [Rx Last Taken Unknown] amoxicillin 875 mg-potassium clavulanate 125 mg tablet 1 tab PO BID #20 tab 05/20/21 [Rx Last Taken Unknown] azithromycin 250 mg tablet 250 mg PO QDAY #6 tab 05/20/21 [Rx Last Taken Unknown] buspirone 5 mg tablet 5 mg PO BID 05/20/21 [History Last Taken Unknown] fluoxetine 40 mg capsule 40 mg PO DAILY 05/20/21 [History Last Taken Unknown] glimepiride 4 mg tablet 4 mg PO DAILY 05/20/21 [History Last Taken Unknown] metformin 1,000 mg tablet 1,000 mg PO DAILY 05/20/21 [History Last Taken Unknown] atorvastatin 40 mg tablet 40 mg PO QHS #90 tab 06/19/21 [Rx Last Taken Unknown] hydrochlorothiazide 25 mg tablet 25 mg PO DAILY #90 tablet 06/27/21 [Rx Last Taken Unknown] dorzolamide 2 % eye drops 1 drp OPHTHALMIC (EYE) BID ml 06/29/21 [History Last Taken Unknown] latanoprost 0.005 % eye drops 1 drp OPHTHALMIC (EYE) DAILY ml 06/29/21 [History Last Taken Unknown] Allergy/AdvReac Type Severity Reaction Status Date / Time acetaminophen [From Percocet] Allergy Vomiting Verified 08/02/21 09:15 oxycodone AdvReac Nausea Verified 08/02/21 09:15 tetanus and diphtheria AdvReac dizziness, Verified 08/02/21 09:15 toxoids weakness, difficulty breathing, fast heart beat Family History Father CAD (coronary artery disease) CVA (cerebral vascular accident) Mother Colon cancer CVA (cerebral vascular accident) Brother Cancer Surgical History History of esophagogastroduodenoscopy (EGD) History of left heart catheterization (12/28/19) History of loop recorder (04/10/16) History of total right knee replacement (TKR) (05/2014) Hx of bilateral cataract extraction Hx of bladder repair surgery Hx of colonoscopy (02/06/05) Hx of hysterectomy (08/24/11) Social History Smoking Status: Never smoker alcohol intake: current substance use type: does not use ROS <DREW Shen - Last Filed: 08/02/21 10:28> ROS ED ROS Narrative Constitutional: Negative for fever, chills, weight loss, weakness Eyes: Negative for vision loss, vision change, double vision ENT: Negative for any sore throat, ear pain, congestion Cardiovascular: Negative for any chest pain, tightness, palpitations Respiratory: Negative for any cough, sputum production, hemoptysis, dyspnea, dyspnea on exertion, orthopnea Gastrointestinal: Negative for any abdominal pain, nausea, vomiting, diarrhea, constipation, blood in stool, blood in vomit : Negative for any urinary frequency, dysuria, retention, blood in urine Muscle skeletal: Negative for any muscle joint pain, stiffness, myalgias, arthralgias, neck pain, back pain Neurological: Negative for any syncope, numbness or tingling, dizziness. Positive for headache Skin: Negative for any rashes, lumps, itching, abrasions, lacerations Psychiatric: Negative for any depression, anxiety, stress, suicidal ideation, homicidal ideation Hematologic: Negative for any easy bruising, excessive bruising, easy bleeding Allergies: Negative for any eczema, hives, rash EXAM <Rodger ErinBRIANDA starks-C - Last Filed: 08/02/21 10:28> Physical Exam Narrative Exam Narrative: Vital signs reviewed. Patient appears alert and orient x4, GCS 15. HEET: Head normocephalic atraumatic, TMs clear bilaterally. Posterior pharynx is clear, moist mucous membranes. Nares clear bilaterally. Pupils equal round reactive to light. Neck: Supple with no lymphadenopathy or tenderness. No signs of meningismus, negative jolt sign. Cardiac: Regular rate and rhythm no murmurs gallops or rubs, equal peripheral pulses bilaterally. Respiratory: Lungs clear to auscultation bilaterally. No chest tenderness. Abdomen: Soft, nontender, nondistended. No abdominal bruit or pulsatile masses. No hepatosplenomegaly Extremities: No peripheral edema, no signs of gross trauma or deformity. Active full range of motion of all extremities. Neuro: Cranial nerves II through XII intact, no focal neurological deficits. NIH score 0. Denies any headache at this time. Denies any vision change. Skin: Clean dry and intact with no rash, purpura, petechiae, vesicles or pustules. Backs/flank: No CVA tenderness, no midline spinal tenderness, no deformity. Psych: Normal mood and affect. No SI, HI or acute psychosis. Const Vital Signs: 08/02/21 09:12 Temperature 97.9 F Temperature Source Temporal Pulse Rate 78 Respiratory Rate 16 Blood Pressure 155/71 H Blood Pressure Mean 99 Pulse Ox 99 Oxygen Delivery Method Room Air Positive well nourished and well developed General Appearance ED: well developed <Dr. Darien Chung MD - Last Filed: 08/02/21 09:59> Physical Exam Const Vital Signs: 08/02/21 09:12 Temperature 97.9 F Temperature Source Temporal Pulse Rate 78 Respiratory Rate 16 Blood Pressure 155/71 H Blood Pressure Mean 99 Pulse Ox 99 Oxygen Delivery Method Room Air MDM <DREW Shen - Last Filed: 08/02/21 10:28> [facility] Narrative Medical decision making narrative: Patient appears well, patient appears nontoxic, vital signs are stable. Patient presents to the emergency department with concern of headache behind her right eye. Patient has history of stroke, was concerned she had a stroke. Patient's physical examination shows no evidence of stroke. Patient's NIH score was 0. Patient did receive a CT scan of brain without contrast, this showed no acute process. At this time, the p atjose cruz has had a minor headache which was relieved with basic NSAIDs. Patient will continue to follow-up with her neurologist, and instructed to monitor self for any signs or symptoms. Patient is happy with the plan of care, and she is stable for discharge. She is instructed return for any worsening signs or symptoms. Radiography Diagnostic Testing: Clinical Impression(s) from Imaging Studies Brain CT 08/02/21 09:33 IMPRESSION: Chronic involutional changes of the brain. Electronically Signed: Live Carrasco MD at 10:05 EDT , <Dr. Darien Chung MD - Last Filed: 08/02/21 09:59> [facility] Narrative Medical decision making narrative: I have personally performed a face to face assessment of the patient and have reviewed the [place] Note. I performed a substantive portion of the visit including all aspects of the following. My rick findings include: History is [80-year-old female evaluated with our nurse practitioner. Patient complaining of a mild headache that began around her right eye this morning. She took 2 baby aspirin at home pain is resolving. She was just concerned because she has a history of a prior stroke and is on aspirin and Plavix daily. Denies any falls or head trauma. Denies any visual change. Denies any weakness or numbness to her upper or lower extremities that is new.] Exam is [well-appearing 80-year-old female. Vital signs are stable afebrile. Blood pressure 155/71. H EENT exam unremarkable. Pupils round reactive light extra motions are intact. No facial droop. Normal speech. Lungs are clear. Heart regular rhythm no murmur. Abdomen soft nontender. Moving all 4 extremities. Normal supervisor word processing strength bilaterally. Dorsi plantarflexion intact. No acute signs of any new strokes.] Medical Decision Making [80-year-old with a headache that appears to be mild and resolving. Due to her history of being on Plavix and a prior stroke we are obtaining a plain CT of her brain. Exam is benign.] Other additions or changes: [None] Radiography Diagnostic Testing: Clinical Impression(s) from Imaging Studies Brain CT 08/02/21 09:33 IMPRESSION: Chronic involutional changes of the brain. Electronically Signed: Live Carrasco MD at 10:05 EDT , Discharge Plan Triage Chief Complaint: Headache ED Midlevel Provider: Rodger Tim ED Provider: Darien Chung Dx/Rx/DC Orders Clinical Impression: Headache Instructions: Self-Care for Headaches Prescriptions: No Action latanoprost 0.005 % drops 1 drp ophthalmic (eye) DAILY RF: 0 dorzolamide 2 % drops 1 drp ophthalmic (eye) BID RF: 0 fluoxetine 40 mg capsule 40 mg PO DAILY RF: 0 metformin 1,000 mg tablet 1,000 mg PO DAILY RF: 0 glimepiride 4 mg tablet 4 mg PO DAILY RF: 0 buspirone 5 mg tablet 5 mg PO BID RF: 0 amoxicillin-pot clavulanate 875-125 mg tablet 1 tab PO BID Qty: 20 RF: 0 azithromycin 250 mg tablet 250 mg PO QDAY Qty: 6 RF: 0 aspirin 81 MG tablet,chewable 81 mg PO DAILY@0800 RF: 0 loperamide 2 MG capsule 2 mg PO Q6H PRN PRN (Reason: Diarrhea) RF: 0 magnesium chloride 71.5 MG tablet,delayed release (DR/EC) 71.5 mg PO BID Qty: 60 RF: 0 clopidogrel 75 mg tablet 75 mg PO DAILY Qty: 90 RF: 3 metoprolol succinate 50 mg tablet extended release 24 hr 50 mg PO DAILY Qty: 90 RF: 3 lisinopril 10 mg tablet 10 mg PO DAILY Qty: 90 RF: 3 atorvastatin 40 mg tablet 40 mg PO QHS Qty: 90 RF: 3 hydrochlorothiazide 25 mg tablet 25 mg PO DAILY Qty: 90 RF: 3 Primary Care Provider: Prosper Christian Referrals: Prosper Christian DO [Primary Care Provider] - Print Language: [place] Disposition Disposition: Home, Self Care
[2021-08-02 10:36] VITALS: BP 136/65; PULSE 84; RESP 18
== END 2021-08-02 10:38 | disposition home or self-care (01) ==
PROVIDERS: Emergency Provider Emergency Medicine; PCP Family Medicine; Visit Provider Emergency Medicine
DX: R51.9 Headache, unspecified (principal); I69.354 Hemiplegia and hemiparesis following cerebral infarction affecting left non-dominant side; I27.21 Secondary pulmonary arterial hypertension; I48.0 Paroxysmal atrial fibrillation; I10 Essential (primary) hypertension; E78.5 Hyperlipidemia, unspecified; E66.9 Obesity, unspecified; Z79.84 Long term (current) use of oral hypoglycemic drugs; Z79.82 Long term (current) use of aspirin; Z79.02 Long term (current) use of antithrombotics/antiplatelets; Z79.899 Other long term (current) drug therapy; Z86.73 Personal history of transient ischemic attack (TIA), and cerebral infarction without residual deficits
CPT/HCPCS: 70450; 99282

== ENCOUNTER → 2021-08-14 | Outpatient (CLI) | payer MEDICARE, OTHER, SELFPAY ==
[2021-08-14 12:52] LABS: Erythrocyte Sedimentation Rate 10 mm/hr (0-30)
[2021-08-14 12:54] LABS: Absolute Lymphocyte Count 0.94 X10^3/uL (0.83-4.51); Absolute Neutrophil Count 4.9 X10^3/uL (2.0-7.7); Basophil# 0.07 X10^3/uL; Basophil% 1.1 % (0-1); Eosinophil# 0.11 X10^3/uL; Eosinophils% 1.7 % (0-5); Hematocrit 38.1 % (37-47); Hemoglobin 12.3 g/dL (12.0-15.0); Lymphocyte # 0.94 X10^3/ul (0.83-4.51); Lymphocyte % 14.3 % (19-41); Mean Corp Hgb Conc 32.3 g/dL (32-36); Mean Corpuscular Hgb 31.5 pg (27.0-32.0); Mean Corpuscular Volume 97.7 fL (81-99); Mean Platelet Vol. 11.1 fl (6.2-12.0); Monocyte# 0.53 X10^3/uL; Monocyte% 8.1 % (0-10); NRBC Flagged by Analyzer 0 % (0-5); Neutrophil # 4.89 X10^3/uL (2.7-7.7); Neutrophil % 74.5 % (47-70); Platelet Count 245 K/mm3 (150-450); RBC Distribution Width CV 13.2 % (11.6-14.6); White Blood Count 6.6 K/mm3 (4.4-11.0)
[2021-08-14 13:44] LABS: CRP 3.06 mg/L (0.0-3.0)
[2021-08-14 13:54] LABS: AST(SGOT) 17 U/L (15-37); Alanine Aminotransfer ALT/SGPT 15 U/L (13-56); Albumin, Serum 3.4 g/dL (3.2-5.0); Alkaline Phosphatase 85 U/L (45-117); Bilirubin, Direct 0.24 mg/dL (0.00-0.30); Cholesterol 87 mg/dL (200); Globulin 3.6 g/dL (2.2-4.2); High Density Lipoprotein 65 mg/dL; Triglycerides 66 mg/dL; Very Low Density Lipoprotein 13 mg/dL (5-40)
== END | disposition home or self-care (01) ==
LOC: BIMLAB 10:14
PROVIDERS: Internal Medicine Cardiovascular Disease; PCP Family Medicine; Referring Provider Ophthalmology; Visit Provider Ophthalmology
DX: H35.61 Retinal hemorrhage, right eye (principal); H34.231 Retinal artery branch occlusion, right eye
CPT/HCPCS: 36415; 80061; 80076; 85025; 85652; 86140

== ENCOUNTER → 2021-08-16 | Outpatient (CLI) | payer MEDICARE, OTHER, SELFPAY ==
--- NOTE | 2021-08-16 08:07 | MRI_ITS ---
STUDY: MRI BRAIN WITHOUT CONTRAST REASON FOR EXAM: Female, 80 years old. RETINAL HEMORAGE TECHNIQUE: Standardized multiplanar fat and water weighted pulse sequences were obtained. COMPARISON: 06/25/2017 MRI brain FINDINGS: There is moderate cerebral atrophy with widening of the extra-axial spaces and ventricular dilatation. There are multiple confluent white matter hyperintensities, distributed throughout the deep white matter tracts of the cerebral hemispheres, consistent with severe chronic white matter ischemic changes. There is a right occipital previous infarct with encephalomalacia present. There is no evidence for recent intracranial ischemia or other cause of cytotoxic edema on diffusion weighted imaging (DWI). Normal bilateral basal ganglia. Normal thalami. There is no extra-axial fluid accumulation. Normal flow voids within the major intracranial circulation suggesting patency by spin echo criteria. Normal sella turcica, pituitary gland, infundibular stalk, optic chiasm and hypothalamus. Normal tectal plate and pineal gland. There are chronic white matter ischemic changes of the olivia. The midbrain and medulla are otherwise normal. Central pontine old lacunar infarct is present. There is mild prominence of the vermian folia, consistent with atrophy of the vermis. The cerebellar hemispheres are normal. Normal basal cisterns. Normal bilateral temporal bones. Normal bilateral internal auditory canals. No demonstrated orbital abnormality, within the constraints of a routine brain study. Normal visualized paranasal sinuses. Normal calvarium and skull base. Normal visualized soft tissue structures. Normal visualized upper cervical spine. MRI/Brain without Contrast IMPRESSION: 1. Compared to the previous exam in 2018 there is worsening extensive periventricular microvascular ischemic changes, clinically correlate for underlying hypertension, hyperlipidemia and diabetes. There is new encephalomalacia within the right occipital lobe consistent with previous infarct. 1. No evidence of definitive orbital abnormality. Consider MRI orbits with contrast and thin slice imaging given history of retinal hemorrhage. Electronically Signed: Robin Castano DO at 11:28 EDT ,
== END | disposition home or self-care (01) ==
LOC: MRI 07:57
PROVIDERS: PCP Family Medicine; Visit Provider Ophthalmology
DX: H35.60 Retinal hemorrhage, unspecified eye (principal)
CPT/HCPCS: 70551

== ENCOUNTER → 2021-09-12 | Outpatient (CLI) | payer MEDICARE, OTHER, SELFPAY ==
--- NOTE | 2021-09-12 09:53 | CDU_ITS ---
Reason For Study: retinal hemorrhage Rt. Velocities/BP Lt. Velocities/BP Prox CCA 64.3/9.5 cm/sec. Prox CCA 58.5/16.8 cm/sec. Mid CCA 55.2/9.5 cm/sec. Mid CCA 55.2/14.6 cm/sec. Dist CCA 43.4/8.2 cm/sec. Dist CCA 41.0/11.3 cm/sec. Prox ICA 33.3/10.2 cm/sec. Prox ICA 48.7/14.6 cm/sec. Mid ICA 52.0/12.4 cm/sec. Mid ICA 60.7/20.1 cm/sec. Dist ICA 89.4/23.4 cm/sec. Dist ICA 95.9/30.0 cm/sec. Rt. ICA/CCA = 1.6. Lt. ICA/CCA = 1.7. Prox ECA 57.8/9.5 cm/sec. Prox ECA 54.1/5.8 cm/sec. Rt. Vert. 41.0/5.8 cm/sec. Lt. Vert. 46.5/10.2 cm/sec. Right Extracranial There is intimal thickening but no significant atherosclerotic plaque noted in the right common carotid artery. There is heterogeneous, irregular atherosclerotic plaque noted in the right internal carotid artery. There is intimal thickening but no significant atherosclerotic plaque noted in the right external carotid artery. Antegrade flow is noted in the right vertebral artery. Left Extracranial There is intimal thickening but no significant atherosclerotic plaque noted in the left common carotid artery. There is heterogeneous, irregular atherosclerotic plaque noted in the left internal carotid artery. There is heterogeneous, irregular atherosclerotic plaque noted in the left external carotid artery. Antegrade flow is noted in the left vertebral artery. Procedure Carotid Duplex 21233. This is a Carotid Duplex examination using B-mode, color flow and specral Doppler. The exam was diagnostic. Exam performed in department. VL/Carotid Duplex Ultrasound Interpretation Summary Mild (<50%) stenosis right extracranial internal carotid. Mild (<50%) stenosis left extracranial internal carotid. Flow within the vertebral arteries is antegrade bilaterally. Ordering Physician: Derick Melvin Performed By: Eren Pfeiffer RVT
== END | disposition home or self-care (01) ==
LOC: CVS 09:52
PROVIDERS: PCP Family Medicine; Referring Provider Ophthalmology; Visit Provider Ophthalmology
DX: I65.23 Occlusion and stenosis of bilateral carotid arteries (principal); H35.60 Retinal hemorrhage, unspecified eye
CPT/HCPCS: 93880

== ENCOUNTER → 2022-02-27 | Outpatient (CLI) | payer MEDICARE, SELFPAY ==
--- NOTE | 2022-02-27 13:06 | ECHOD_ITS ---
Reason For Study: MURMUR Procedure This was a 2D Doppler, Color Flow transthoracic echocardiogram. Exam performed in department. Left Ventricle Normal LV size. Left ventricular systolic function is normal. The estimated ejection fraction is 68 %. Stage 3 diastolic dysfunction. No regional wall motion abnormalities noted. Right Ventricle Normal RV size. Normal systolic function. Atria The left atrium is severely enlarged. Normal right atrium. Mitral Valve There is severe mitral annular calcification. Moderate (2+) eccentric mitral valve insufficiency. Tricuspid Valve Normal tricuspid valve. Moderate (2+) tricuspid valve insufficiency. Pulmonary artery systolic pressure is 78 mmHg. Severe pulmonary hypertension. Aortic Valve Trisinus/trileaflet aortic valve. Mild focal aortic valve calcification. Pulmonic Valve Normal pulmonic valve. Great Vessels Normal aortic root. The pulmonary artery is normal size. Normal inferior vena cava. Pericardium/Pleural No pericardial effusion. MMode/2D Measurements & Calculations RVDd: 2.7 cm Ao root diam: 2.8 cm LAV(MOD-sp4): 152.6 ml LVAd ap4: 24.8 cm2 SV(MOD-sp4): 46.4 ml SV(sp4-el): 54.6 ml LVLd ap4: 6.9 cm EDV(MOD-sp4): 68.7 ml EDV(sp4-el): 75.9 ml LVAs ap4: 12.1 cm2 LVLs ap4: 5.8 cm ESV(MOD-sp4): 22.3 ml ESV(sp4-el): 21.3 ml EF(MOD-sp4): 67.5 % EF(sp4-el): 72.0 % LA A4 area: 38.0 cm2 LA dimension(2D): 3.4 cm RA A4 area: 16.6 cm2 Time Measurements MV dec time: 0.18 sec Doppler Measurements & Calculations MV E max kendall: 168.4 cm/sec Lat Peak E' Kendall: 6.5 cm/sec Med Peak E' Kendall: 5.6 cm/sec MV A max kendall: 51.5 cm/sec E/E' lat: 26.0 E/E' med: 29.8 MV E/A: 3.3 MV V2 max: 225.1 cm/sec Ao V2 max: 168.1 cm/sec MV max P.3 mmHg MV dec slope: 1001 cm/sec2 Ao max P.3 mmHg MV V2 mean: 92.3 cm/sec Ao V2 mean: 118.2 cm/sec MV mean P.1 mmHg Ao mean P.3 mmHg MV V2 VTI: 55.6 cm Ao V2 VTI: 45.1 cm AV (velocity ratio): 0.63 LV V1 max: 110.8 cm/sec MR max kendall: 656.5 cm/sec PA V2 max: 115.4 cm/sec LV V1 max P.9 mmHg MR max P.4 mmHg PA V2 mean: 73.5 cm/sec LV V1 mean P.0 mmHg LV V1 mean: 82.0 cm/sec LV V1 VTI: 28.6 cm TR max kendall: 426.2 cm/sec TR max P.7 mmHg ECHO/Echo Complete Interpretation Summary Normal LV size. Left ventricular systolic function is normal. The estimated ejection fraction is 68 %. The left atrium is severely enlarged. Moderate (2+) tricuspid valve insufficiency. Pulmonary artery systolic pressure is 78 mmHg. Stage 3 diastolic dysfunction. Mild focal aortic valve calcification. Severe pulmonary hypertension. Moderate (2+) eccentric mitral valve insufficiency. Compared to the previous echocardiogram the pulmonary hypertension is worse and the diastolic dysfunction is 1 grade higher. Ordering Physician: Julio Stanford Referring Physician: Julio Stanford Performed By: Elsie Anderson RCS
== END | disposition home or self-care (01) ==
PROVIDERS: PCP Family Medicine; Referring Provider Internal Medicine Cardiovascular Disease; Visit Provider Internal Medicine Cardiovascular Disease
DX: R01.1 Cardiac murmur, unspecified (principal); I51.7 Cardiomegaly
CPT/HCPCS: 93306

== ENCOUNTER → 2022-04-02 | Outpatient (CLI) | payer MEDICARE, SELFPAY ==
[2022-04-02 12:13] LABS: Absolute Lymphocyte Count 1.21 X10^3/uL (0.83-4.51); Absolute Neutrophil Count 6.1 X10^3/uL (2.0-7.7); Basophil# 0.05 X10^3/uL; Basophil% 0.6 % (0-1); Eosinophil# 0.13 X10^3/uL; Eosinophils% 1.6 % (0-5); Hematocrit 37.8 % (37-47); Hemoglobin 12.1 g/dL (12.0-15.0); Lymphocyte # 1.21 X10^3/ul (0.83-4.51); Lymphocyte % 14.5 % (19-41); Mean Corpuscular Hgb 30.6 pg (27.0-32.0); Mean Corpuscular Volume 95.7 fL (81-99); Monocyte# 0.82 X10^3/uL; Monocyte% 9.8 % (0-10); NRBC Flagged by Analyzer 0 % (0-5); Neutrophil # 6.12 X10^3/uL (2.7-7.7); Neutrophil % 73.3 % (47-70); Platelet Count 196 K/mm3 (150-450); RBC Distribution Width CV 13.2 % (11.6-14.6); RBC Distribution Width SD 46.8 fl (35.1-43.9); Red Blood Count 3.95 M/mm3 (4.2-5.4); White Blood Count 8.4 K/mm3 (4.4-11.0)
[2022-04-02 12:40] LABS: AST(SGOT) 17 U/L (15-37); Alanine Aminotransfer ALT/SGPT 15 U/L (13-56); Albumin, Serum 3.5 g/dL (3.2-5.0); Alkaline Phosphatase 75 U/L (45-117); Anion Gap 6 (5-15); BUN 23 mg/dL (7-18); BUN/Creat Ratio 19.2 RATIO (10-20); Calcium,Total 9.6 mg/dL (8.5-10.1); Chloride 107 mmol/L (98-107); Cholesterol 94 mg/dL (200); EST Glomerular Filtration Rate 46 mL/min (>60); Est Glom Filt Rate - Afr Amer 56 mL/min (>60); Globulin 3.5 g/dL (2.2-4.2); Glucose 100 mg/dL (74-106); High Density Lipoprotein 73 mg/dL; Potassium 4.3 mmol/L (3.5-5.1); Sodium Level 139 mmol/L (136-145); Triglycerides 54 mg/dL; Very Low Density Lipoprotein 11 mg/dL (5-40)
[2022-04-02 12:42] LABS: Vitamin D,25 Hydroxy 50.4 ng/mL
== END | disposition home or self-care (01) ==
LOC: BFHLAB 11:06
PROVIDERS: PCP Family Medicine; Visit Provider Family Medicine
DX: I12.9 Hypertensive chronic kidney disease with stage 1 through stage 4 chronic kidney disease, or unspecified chronic kidney disease (principal); N18.31 Chronic kidney disease, stage 3a; E78.5 Hyperlipidemia, unspecified; E55.9 Vitamin D deficiency, unspecified
CPT/HCPCS: 36415; 80053; 80061; 82306; 85025

== ENCOUNTER → 2022-04-12 | Outpatient (CLI) | payer MEDICARE, SELFPAY ==
--- NOTE | 2022-04-12 09:26 | BD_ITS ---
STUDY: DUAL ENERGY X-RAY ABSORPTIOMETRY / DXA REASON FOR EXAM: Female, 81 years old. M810 TECHNIQUE: Bone Mineral Density (BMD) measurements of lumbar spine and bilateral hips were obtained. COMPARISON: None. FINDINGS: Lumbar Spine (L1-L4): g/cm2 (1.527) / T-score (3.9) / Z-score (6.7) Findings are suggestive of normal bone density with a low fracture risk. Left Femur Total: g/cm2 (1.008) / T-score (0.5) / Z-score (2.6) Left Femoral Neck: g/cm2 (0.698) / T-score (-1.4) / Z-score (0.9) Right Femur Total: g/cm2 (0.904) / T-score (-0.3) / Z-score (1.7) Right Femoral Neck: g/cm2 (0.626) / T-score (-2.0) / Z-score (0.3) BD/Dexa Bone Density Study IMPRESSION: The patient is considered osteopenic as outlined below according to World Nils Organization (WHO) criteria with a moderate fracture risk Reference Information: The T-score is the number of standard deviations above or below the standard which is normal for young adults at their peak bone mineral density. The World Health Organization (WHO) interprets the T-scores as follows: Above -1 Normal bone density Between -1 and -2.5 Osteopenia Equal to / or below -2.5 Osteoporosis As a practical clinical guideline, osteopenia may be graded as follows: Mild -1 through -1.5 Moderate -1.6 through -2.0 Severe -2.1 through -2.4 The Z-score is the number of standard deviations above or below age-matched controls. A Z-score of less than -1.5 would be considered abnormal. References: 1. NIH Osteoporosis and Related Bone Diseases www osteo.org 2. International Society for Clinical Densitometry www iscd.org 3. National Osteoporosis Foundation www nof.org Electronically Signed: Live Carrasco MD at 17:17 EST ,
== END | disposition home or self-care (01) ==
LOC: OPBD 09:15
PROVIDERS: PCP Family Medicine; Referring Provider Family Medicine; Visit Provider Family Medicine
DX: M81.0 Age-related osteoporosis without current pathological fracture (principal)
CPT/HCPCS: 77080

== ENCOUNTER 2022-12-16 15:11 | Outpatient (CLI) | payer MEDICARE, SELFPAY | END 2022-12-16 23:59 | disposition home or self-care (01) | LOC: LABSPEC 15:12 | PROVIDERS: PCP Family Medicine; Visit Provider Nurse Practitioner Family | DX: J06.9 Acute upper respiratory infection, unspecified (principal) | CPT/HCPCS: 87635 ==

== ENCOUNTER → 2023-04-22 | Outpatient (CLI) | payer MEDICARE, SELFPAY ==
[2023-04-22 12:28] LABS: Absolute Lymphocyte Count 1.26 X10^3/uL (0.83-4.51); Absolute Neutrophil Count 5.1 X10^3/uL (2.0-7.7); Basophil# 0.07 X10^3/uL; Eosinophil# 0.19 X10^3/uL; Eosinophils% 2.6 % (0-5); Hematocrit 39.8 % (37-47); Hemoglobin 12.5 g/dL (12.0-15.0); Lymphocyte # 1.26 X10^3/ul (0.83-4.51); Lymphocyte % 17.3 % (19-41); Mean Corp Hgb Conc 31.4 g/dL (32-36); Mean Corpuscular Hgb 30.6 pg (27.0-32.0); Mean Corpuscular Volume 97.3 fL (81-99); Mean Platelet Vol. 11.5 fl (6.2-12.0); Monocyte# 0.64 X10^3/uL; Monocyte% 8.8 % (0-10); NRBC Flagged by Analyzer 0 % (0-5); Neutrophil # 5.11 X10^3/uL (2.7-7.7); Platelet Count 186 K/mm3 (150-450); RBC Distribution Width SD 46.4 fl (35.1-43.9); Red Blood Count 4.09 M/mm3 (4.2-5.4); White Blood Count 7.3 K/mm3 (4.4-11.0)
[2023-04-22 13:03] LABS: AST(SGOT) 17 U/L (15-37); Alanine Aminotransfer ALT/SGPT 13 U/L (13-56); Albumin, Serum 3.6 g/dL (3.2-5.0); Alkaline Phosphatase 71 U/L (45-117); Anion Gap 4 (5-15); BUN 21 mg/dL (7-18); BUN/Creat Ratio 17.6 RATIO (10-20); Bilirubin, Direct 0.26 mg/dL (0.00-0.30); Calcium,Total 9.4 mg/dL (8.5-10.1); Chloride 112 mmol/L (98-107); Cholesterol 90 mg/dL (200); Creatinine, Serum 1.19 mg/dL (0.55-1.02); EST Glomerular Filtration Rate 46 mL/min (>60); Est Glom Filt Rate - Afr Amer 56 mL/min (>60); Globulin 3.3 g/dL (2.2-4.2); Glucose 93 mg/dL (74-106); High Density Lipoprotein 62 mg/dL; Protein, Total 6.9 g/dL (6.4-8.2); Sodium Level 141 mmol/L (136-145); Triglycerides 73 mg/dL; Very Low Density Lipoprotein 15 mg/dL (5-40)
[2023-04-22 13:18] LABS: PTHIN 100.9 pg/mL (18.4-80.1)
[2023-04-22 13:24] LABS: Vitamin D,25 Hydroxy 49.2 ng/mL
== END | disposition home or self-care (01) ==
LOC: BFHLAB 10:43
PROVIDERS: Nurse Practitioner Gerontology; PCP Family Medicine; Visit Provider Family Medicine
DX: I12.9 Hypertensive chronic kidney disease with stage 1 through stage 4 chronic kidney disease, or unspecified chronic kidney disease (principal); N18.31 Chronic kidney disease, stage 3a; E78.5 Hyperlipidemia, unspecified
CPT/HCPCS: 80048; 80061; 80076; 82306; 83970; 85025

== ENCOUNTER → 2023-05-15 | Outpatient (CLI) | payer MEDICARE, SELFPAY ==
--- NOTE | 2023-05-15 08:00 | ECHOD_ITS ---
Version 2 Reason For Study: MITRAL STENOSIS Procedure This was a 2D Doppler, Color Flow transthoracic echocardiogram. Exam performed in department. Left Ventricle Normal LV size. Moderate assymetric septal hypertrophy. Left ventricular systolic function is normal. The left ventricular ejection fraction is 70 %. No regional wall motion abnormalities noted. Right Ventricle Normal RV size. Normal systolic function. Atria The left atrium is moderately enlarged. The right atrium is mildly enlarged. Mitral Valve There is severe mitral annular calcification. Mean transmitral valve gradient 4 mmHg. Moderate (2+) eccentric mitral valve insufficiency. Tricuspid Valve Normal tricuspid valve. Moderately severe (3+) tricuspid valve insufficiency. Pulmonary artery systolic pressure is 93 mmHg. Severe pulmonary hypertension. Aortic Valve Trisinus/trileaflet aortic valve. Mild focal aortic valve calcification. Pulmonic Valve Normal pulmonic valve. Mild (1+) pulmonic valve insufficiency. Great Vessels Normal aortic root. The pulmonary artery is normal size. Inferior vena cava collapse with respiration. Pericardium/Pleural No pericardial effusion. MMode/2D Measurements & Calculations LVIDd: 3.3 cm IVSd: 1.7 cm LVOT diam: 1.8 cm LVIDs: 2.4 cm LVPWd: 1.3 cm LVOT area: 2.5 cm2 RVDd: 3.5 cm FS: 25.6 % Ao root diam: 3.1 cm LAV(MOD-bp): 105.7 ml LVAd ap4: 24.1 cm2 LAV(MOD-bp) Indexed: 59.5 ml/m2 LVLd ap4: 7.0 cm LAV(MOD-sp2): 97.2 ml EDV(MOD-sp4): 65.5 ml LAV(MOD-sp4): 107.7 ml EDV(sp4-el): 69.9 ml LVAs ap4: 10.1 cm2 LVLs ap4: 5.9 cm ESV(MOD-sp4): 14.0 ml ESV(sp4-el): 14.9 ml EF(MOD-sp4): 78.6 % EF(sp4-el): 78.7 % LVAd ap2: 25.9 cm2 SV(MOD-sp4): 51.5 ml SV(MOD-sp2): 52.6 ml LVLd ap2: 7.4 cm EDV(MOD-sp2): 71.3 ml EDV(sp2-el): 76.9 ml LVAs ap2: 12.2 cm2 LVLs ap2: 6.3 cm ESV(MOD-sp2): 18.7 ml ESV(sp2-el): 20.1 ml EF(MOD-sp2): 73.7 % SV(sp4-el): 55.0 ml LA dimension(2D): 4.0 cm LA A4 area: 28.7 cm2 RA A4 area: 11.5 cm2 TAPSE: 2.4 cm Time Measurements MV dec time: 0.21 sec Doppler Measurements & Calculations MV E max kendall: 155.3 cm/sec Lat Peak E' Kendall: 7.4 cm/sec Med Peak E' Kendall: 5.1 cm/sec MV A max kendall: 106.2 cm/sec E/E' lat: 21.0 E/E' med: 30.6 MV E/A: 1.5 MV V2 max: 179.1 cm/sec Ao V2 max: 177.6 cm/sec MV max P.8 mmHg MV dec slope: 745.6 cm/sec2 Ao max P.6 mmHg MV V2 mean: 92.9 cm/sec Ao V2 mean: 125.8 cm/sec MV mean P.4 mmHg Ao mean P.0 mmHg MV V2 VTI: 56.8 cm Ao V2 VTI: 46.0 cm AV (velocity ratio): 0.69 MVA(VTI): 1.4 cm2 PRETTY(I,D): 1.7 cm2 PRETTY(V,D): 1.8 cm2 LV V1 max: 130.8 cm/sec SV(LVOT): 78.8 ml PA V2 max: 116.2 cm/sec LV V1 max P.8 mmHg PA max PG (full): 2.8 mmHg LV V1 mean P.5 mmHg LV V1 mean: 85.9 cm/sec LV V1 VTI: 31.9 cm TR max kendall: 458.3 cm/sec TR max P.0 mmHg RVSP(TR): 87.0 mmHg ECHO/Echo Complete Interpretation Summary Normal LV size. Moderate assymetric septal hypertrophy. Left ventricular systolic function is normal. The left atrium is moderately enlarged. The left ventricular ejection fraction is 70 %. Moderate (2+) eccentric mitral valve insufficiency. Severe pulmonary hypertension. Compared to the previous the extent of the mitral calcification is similar but the pulmonary pressures are higher. The global longitudinal strain is normal. The global long itudinal strain = - 22.2 % (normal). Ordering Physician: Brianna Yeboah Referring Physician: Prosper Christian Performed By: Radha Martell RDCS
== END | disposition home or self-care (01) ==
PROVIDERS: PCP Family Medicine; Referring Provider Nurse Practitioner Gerontology; Visit Provider Nurse Practitioner Gerontology
DX: I34.2 Nonrheumatic mitral (valve) stenosis (principal); I34.0 Nonrheumatic mitral (valve) insufficiency
CPT/HCPCS: 93306

== ENCOUNTER → 2023-05-22 | Outpatient (CLI) | payer MEDICARE, SELFPAY ==
[2023-05-22 11:36] LABS: Anion Gap 6 (5-15); BUN 22 mg/dL (7-18); BUN/Creat Ratio 17.1 RATIO (10-20); Calcium,Total 9.7 mg/dL (8.5-10.1); Chloride 109 mmol/L (98-107); Creatinine, Serum 1.29 mg/dL (0.55-1.02); EST Glomerular Filtration Rate 42 mL/min (>60); Est Glom Filt Rate - Afr Amer 51 mL/min (>60); Glucose 94 mg/dL (74-106); Sodium Level 141 mmol/L (136-145)
== END | disposition home or self-care (01) ==
LOC: LAB 11:02
PROVIDERS: PCP Family Medicine; Referring Provider Nurse Practitioner Gerontology; Visit Provider Nurse Practitioner Gerontology
DX: I07.1 Rheumatic tricuspid insufficiency (principal)
CPT/HCPCS: 36415; 80048

== ENCOUNTER → 2023-05-30 | Outpatient (CLI) | payer MEDICARE, SELFPAY ==
[2023-05-30 11:52] LABS: Anion Gap 6 (5-15); BUN 47 mg/dL (7-18); Calcium,Total 10.4 mg/dL (8.5-10.1); Chloride 104 mmol/L (98-107); Creatinine, Serum 1.81 mg/dL (0.55-1.02); EST Glomerular Filtration Rate 29 mL/min (>60); Est Glom Filt Rate - Afr Amer 35 mL/min (>60); Glucose 106 mg/dL (74-106); Potassium 3.8 mmol/L (3.5-5.1); Sodium Level 137 mmol/L (136-145)
== END | disposition home or self-care (01) ==
LOC: LAB 10:22
PROVIDERS: PCP Family Medicine; Referring Provider Nurse Practitioner Gerontology; Visit Provider Nurse Practitioner Gerontology
DX: I05.9 Rheumatic mitral valve disease, unspecified (principal)
CPT/HCPCS: 36415; 80048

== ENCOUNTER → 2023-06-13 | Outpatient (CLI) | payer MEDICARE, SELFPAY ==
[2023-06-13 12:03] LABS: Anion Gap 6 (5-15); BUN 38 mg/dL (7-18); BUN/Creat Ratio 24.2 RATIO (10-20); Calcium,Total 9.7 mg/dL (8.5-10.1); Chloride 108 mmol/L (98-107); Creatinine, Serum 1.57 mg/dL (0.55-1.02); EST Glomerular Filtration Rate 34 mL/min (>60); Est Glom Filt Rate - Afr Amer 41 mL/min (>60); Glucose 103 mg/dL (74-106); Potassium 4.1 mmol/L (3.5-5.1); Sodium Level 139 mmol/L (136-145)
== END | disposition home or self-care (01) ==
LOC: LAB 10:36
PROVIDERS: PCP Family Medicine; Referring Provider Nurse Practitioner Gerontology; Visit Provider Nurse Practitioner Gerontology
DX: I10 Essential (primary) hypertension (principal)
CPT/HCPCS: 36415; 80048

== ENCOUNTER → 2023-12-09 | Outpatient (CLI) | payer MEDICARE, SELFPAY ==
[2023-12-09 13:41] LABS: Anion Gap 9 (5-15); BUN 33 mg/dL (7-18); BUN/Creat Ratio 19.3 RATIO (10-20); Calcium,Total 9.7 mg/dL (8.5-10.1); Chloride 106 mmol/L (98-107); Creatinine, Serum 1.71 mg/dL (0.55-1.02); EST Glomerular Filtration Rate 30 mL/min (>60); Est Glom Filt Rate - Afr Amer 37 mL/min (>60); Glucose 108 mg/dL (74-106); Potassium 4.1 mmol/L (3.5-5.1); Sodium Level 138 mmol/L (136-145)
== END | disposition home or self-care (01) ==
LOC: LAB 11:33
PROVIDERS: PCP Family Medicine; Referring Provider Nurse Practitioner Gerontology; Visit Provider Nurse Practitioner Gerontology
DX: I10 Essential (primary) hypertension (principal); I05.9 Rheumatic mitral valve disease, unspecified
CPT/HCPCS: 36415; 80048

== ENCOUNTER → 2024-01-20 | Outpatient (CLI) | payer MEDICARE, SELFPAY | END | disposition home or self-care (01) | PROVIDERS: PCP Family Medicine; Referring Provider Family Medicine; Visit Provider Family Medicine | DX: K59.00 Constipation, unspecified (principal) | CPT/HCPCS: 74018 ==

== ENCOUNTER → 2024-06-15 | Outpatient (CLI) | payer MEDICARE, SELFPAY ==
--- NOTE | 2024-06-15 13:59 | ECHOD_ITS ---
Reason For Study Reason For Study: Murmur Procedure This was a 2D Doppler, Color Flow transthoracic echocardiogram. Exam performed in department. Left Ventricle Normal LV size. Sigmoid septum. The left ventricular ejection fraction is 70 %. No regional wall motion abnormalities noted. Right Ventricle Normal RV size. Normal systolic function. Atria The left atrium is severely enlarged. Normal right atrium. Mitral Valve There is Severe focal posterior mitral annular calcification. Mean transmitral valve gradient 13 mmHg. Moderate mitral valve stenosis. Severe (4+) mitral valve insufficiency. Tricuspid Valve Normal tricuspid valve. Moderately severe (3+) tricuspid valve insufficiency. Pulmonary artery systolic pressure is 100 mmHg. Severe pulmonary hypertension. Aortic Valve Trisinus/trileaflet aortic valve. Mild focal aortic valve thickening. Mild aortic stenosis. Pulmonic Valve Normal pulmonic valve. Mild (1+) pulmonic valve insufficiency. Great Vessels Moderately calcified aortic root. Mild pulmonary artery dilation. Inferior vena cava collapse with respiration. Pericardium/Pleural No pericardial effusion. MMode/2D Measurements & Calculations LVIDd: 3.3 cm IVSd: 0.91 cm LVOT diam: 1.8 cm LVIDs: 1.8 cm LVPWd: 1.1 cm LVOT area: 2.5 cm2 RVDd: 4.0 cm FS: 45.3 % Ao root diam: 2.8 cm LAV(MOD-bp): 114.7 ml LVAd ap4: 18.1 cm2 LAV(MOD-bp) Indexed: 63.8 ml/m2 LVLd ap4: 5.8 cm LAV(MOD-sp2): 98.7 ml EDV(MOD-sp4): 44.2 ml LAV(MOD-sp4): 112.3 ml EDV(sp4-el): 47.5 ml LVAs ap4: 7.9 cm2 LVLs ap4: 4.5 cm ESV(MOD-sp4): 11.6 ml ESV(sp4-el): 11.9 ml EF(MOD-sp4): 73.9 % EF(sp4-el): 75.1 % SV(MOD-sp4): 32.7 ml SV(sp4-el): 35.7 ml LA A4 area: 31.7 cm2 SI(MOD-sp4): 18.2 ml/m2 LA dimension(2D): 4.7 cm RA A4 area: 14.5 cm2 TAPSE: 2.1 cm Time Measurements MV dec time: 0.22 sec Doppler Measurements & Calculations MV E max kendall: 184.2 cm/sec Lat Peak E' Kendall: 3.2 cm/sec Med Peak E' Kendall: 3.1 cm/sec MV A max kendall: 129.6 cm/sec E/E' lat: 58.2 E/E' med: 59.8 MV E/A: 1.4 MV V2 max: 293.0 cm/sec Ao V2 max: 175.2 cm/sec MV max P.4 mmHg MV dec slope: 853.3 cm/sec2 Ao max P.3 mmHg MV V2 mean: 164.4 cm/sec Ao V2 mean: 118.4 cm/sec MV mean P.7 mmHg Ao mean P.6 mmHg MV V2 VTI: 68.3 cm Ao V2 VTI: 38.0 cm AV (velocity ratio): 0.76 MVA(VTI): 1.1 cm2 PRETTY(I,D): 1.9 cm2 PRETTY(V,D): 1.9 cm2 LV V1 max: 132.6 cm/sec SV(LVOT): 72.2 ml PA V2 max: 140.4 cm/sec LV V1 max P.0 mmHg PA V2 mean: 100.4 cm/sec LV V1 mean P.4 mmHg LV V1 mean: 101.2 cm/sec LV V1 VTI: 28.8 cm TR max kendall: 488.1 cm/sec TR max P.3 mmHg ECHO/Echo Complete Interpretation Summary Normal LV size. The left ventricular ejection fraction is 70 %. The left atrium is severely enlarged. Pulmonary artery systolic pressure is 100 mmHg. Severe pulmonary hypertension. Severe (4+) mitral valve insufficiency. Moderate mitral valve stenosis. Prior to the previous the extent of the mitral calcification appears to be some what worse causing a functional worsening of the mitral stenosis and mitral regurgitation. Ordering Physician: Estrella Martinez Referring Physician: Prosper Christian Performed By: Meera Severino RDCS, RVT
== END | disposition home or self-care (01) ==
LOC: CVS 13:58
PROVIDERS: PCP Family Medicine; Referring Provider Physician Assistant Medical; Visit Provider Physician Assistant Medical
DX: I42.2 Other hypertrophic cardiomyopathy (principal); I34.2 Nonrheumatic mitral (valve) stenosis; I34.0 Nonrheumatic mitral (valve) insufficiency
CPT/HCPCS: 93306

== ENCOUNTER → 2024-08-04 | Outpatient (CLI) | payer MEDICARE, SELFPAY ==
[2024-08-04 12:19] LABS: Absolute Lymphocyte Count 1.31 X10^3/uL (0.83-4.51); Basophil# 0.07 X10^3/uL; Eosinophil# 0.13 X10^3/uL; Eosinophils% 1.8 % (0-5); Hematocrit 37.3 % (37-47); Hemoglobin 11.9 g/dL (12.0-15.0); Lymphocyte # 1.31 X10^3/ul (0.83-4.51); Lymphocyte % 18.5 % (19-41); Mean Corp Hgb Conc 31.9 g/dL (32-36); Mean Corpuscular Hgb 30.7 pg (27.0-32.0); Mean Corpuscular Volume 96.4 fL (81-99); Mean Platelet Vol. 11.3 fl (6.2-12.0); Monocyte# 0.59 X10^3/uL; Monocyte% 8.3 % (0-10); NRBC Flagged by Analyzer 0 % (0-5); Neutrophil # 4.97 X10^3/uL (2.7-7.7); Neutrophil % 70.1 % (47-70); Platelet Count 207 K/mm3 (150-450); RBC Distribution Width CV 13.5 % (11.6-14.6); RBC Distribution Width SD 47.8 fl (35.1-43.9); Red Blood Count 3.87 M/mm3 (4.2-5.4); White Blood Count 7.1 K/mm3 (4.4-11.0)
[2024-08-04 13:01] LABS: PTHIN 73 pg/mL (11-61)
[2024-08-04 13:08] LABS: ALB/GLOB Ratio 1.5 RATIO (0.9-2.4); AST(SGOT) 19 U/L (<=31); Alanine Aminotransfer ALT/SGPT 7 U/L (<=34); Albumin, Serum 4.2 g/dL (3.4-4.8); Alkaline Phosphatase 72 U/L (35-104); Anion Gap 11 (5-15); BUN 25 mg/dL (4-19); BUN/Creat Ratio 19.4 RATIO (10-20); Calcium,Total 9.8 mg/dL (7.6-11.0); Carbon Dioxide 23.8 mmol/L (21.0-32.0); Chloride 106 mmol/L (98-108); Cholesterol 89 mg/dL (<=200); Creatinine, Serum 1.28 mg/dL (0.70-1.20); EST Glomerular Filtration Rate 42 (>60); Globulin 2.8 g/dL (2.2-4.2); Glucose 97 mg/dL (70-99); High Density Lipoprotein 56 mg/dL; Low Density Lipoprotein Calc. 20 mg/dL; Potassium 4.3 mmol/L (3.3-5.1); Sodium Level 141 mmol/L (133-145); Total Bilirubin 0.47 mg/dL (0.00-1.30); Triglycerides 68 mg/dL; Very Low Density Lipoprotein 14 mg/dL (5-40); Vitamin D,25 Hydroxy 39.5 ng/mL (30-100)
--- OUTSIDE RECORDS SUMMARY | 2024-08-04 22:52 | XMS RPT_ITS | CCD ---
Author Organization [facility]ini[facility] Care Team Providers Care [place] [facility] Name Role Phone TYSON Mackey, Irma Mooney Unavailable Unavailable Archer, Mily Y Unavailable ArcherAmaliaMily Y Unavailable Archer, Mily Y Unavailable Chelle MEHTA, Mecca Rojo Unavailable Unavailable LYNDON KEARNEY Unavailable Unavailable PHYSICIAN, NONE Unavailable Unavailable PROVIDER, UNKNOWN Admitting Unavailable PROVIDER, UNKNOWN Attending Unavailable Dr. Sarahi Christian Primary Care Provider [phone] Dr. Sarahi Christian Referring Provider [phone] Malcolm DE LA O, JAYLYN Mooney Attending Provider Dr. Julio Stanford Attending Provider [phone] Sarahi Christian Primary Care Provider [phone] Dr. Sarahi Christian Referring Provider [phone] Dr. Sarahi Christian Primary Care Provider [phone] Dr. Sarahi Christian Referring Provider [phone] Dr. Julio Stanford Attending Provider [phone] Maycol MILL WASHER, BRIANDA-Rocky Vo Attending Provider [phone] Dr. Sarahi Christian Primary Care Provider [phone] Dr. Sarahi Christian Referring Provider [phone] Maycol MILL WASHER, BRIANDA-Rocky Vo Attending Provider [phone] Sarahi Christian DO Primary Care Provider Julio Stanford MD Unavailable DELMY GAFFNEY Referring Unavailable DELMY GAFFNEY Attending Unavailable DOMINIC, SARAHI A Primary Care Unavailable Dr. Sarahi Christian Primary Care Provider [phone] Dr. Sarahi Christian Referring Provider [phone] Obinna LAMAR, DREW Reed Attending Provider Dr. Sarahi Christian Primary Care Provider [phone] Dr. Sarahi Christian Referring Provider DREW Yeboah NP Attending Provider Dr. Julio Stanford Attending Provider [phone] Dr. Sarahi Christian DO Primary Care Provider Dr. Sarahi Christian DO Referring Provider [phone] Estrella Ramirez Attending Provider [phone] Estrella Ramirez Referring Provider [phone] Dr. Julio Stanford MD Attending Provider [phone] Obinna LAMAR, Brianna Attending Unavailable Sarahi Christian Referring Unavailable Sarahi Christian Primary Care Unavailable Estrella Ramirez Attending Unavail able Estrella Ramirez Referring Unavail able Sarahi Christian Primary Care Unavailable Sarahi Christian Primary Care Unavailable Sarahi Christian Attending Unavailable Sarahi Christian Referring Unavailable Obinna LAMAR, Brianna Attending Unavailable Obinna LAMAR, Brianna Referring Unavailable Estrella Ramirez Consulting Unavail able Sarahi Christian Primary Care Unavailable Julio Stanford Attending Unavailable Sarahi Christian Primary Care Unavailable Estrella Ramirez Attending Unavail able Sarahi Christian Primary Care Unavailable Sarahi Christian Referring Unavailable Allergies Allergy Classification Reported Allergen(s) Allergy Type Date of Onset Reaction(s) Facility (5 sources) acetaminophen / oxyCODONE Drug Allergy makes her sick [facility] Work Phone: [phone] (10 sources) NKDA drug allergy 3 [facility] Work Phone: [phone] (11 sources) Acetaminophen Drug Allergy 2 [facility] (14 sources) oxyCODONE; Translations: [OXYCODONE] Drug Allergy 9 [facility] (12 sources) tetanus and diphtheria toxoids; Translations: [tetanus and diphtheria toxoids] Propensity to adverse reactions 2 dizziness, weakness, difficulty breathing, fast heart beat [facility] (1 source) Acetaminophen Drug Allergy 5 [facility] (1 source) oxyCODONE Drug Allergy 5 [facility] Medications Current Medications Medication Drug Class(es) Dates Sig (Normalized) Sig (Original) acetaminophen 500 mg oral capsule (18 sources) Start: 04-10-2023 take 1 capsule by mouth every six hours as needed Acetaminophen 500 mg capsule Active 500 mg PO EVERY 6 HOURS as needed April 10, 2023 1:00am Start: 01-11-2015 TYLENOL EXTRA STRENGTH 500 MG TABS as needed ACETAMINOPHEN [id number] Claudia Rodriguez LPN acetaminophen (T YLENOL) 325 mg cap Take by mouth. 0 Active Comment on above: Take by mouth. aspirin 81 mg chewable tablet (20 sources) Nonsteroidal Anti-inflammatory Drug Start: 04-10-2016 End: 09-06-2019 take 1 tablet by mouth once daily Aspirin 81 MG tablet,chewable Active 81 mg PO DAILY@0800 September 06, 2019 4:57pm Start: 07-07-2010 End: 05-05-2014 take 1 tablet by mouth once daily Aspirin 81 MG tablet Discontinued 81 mg PO DAILY@0800 April 22, 2014 1:00am May 05, 2014 10:31am Start: 08-23-2008 ASPIRIN 81 MG TAB Take one(1) tablet daily. 0 08/23/2008 Active Comment on above: Take one(1) tablet d aily. atorvastatin 40 mg oral tablet (20 sources) HMG-CoA Reductase Inhibitor Start: 0 End: 5 take 1 tablet by mouth at bedtime Atorvastatin 40 mg tablet Active 40 mg PO AT BEDTIME March 19, 2024 10:45am Start: 09-06-2019 End: 09-23-2019 take 1 tablet by mouth at bedtime Atorvastatin 20 MG tablet Discontinued 20 mg PO AT BEDTIME September 06, 2019 12:00am September 23, 2019 2:40pm Start: 06-24-2014 End: 03-11-2018 take 1 tablet by mouth once daily Atorvastatin 40 mg tablet Discontinued 40 mg PO daily July 15, 2017 12:00am March 11, 2018 11:46am Comment on above: Take 40 mg by mouth once daily. clopidogrel 75 mg oral tablet (20 sources) P2Y12 Platelet Inhibitor Start: 08-23-2008 End: 06-03-2024 take 1 tablet by mouth once daily Clopidogrel 75 mg tablet Active 75 mg PO DAILY June 03, 2024 8:40am Comment on above: Take one(1) tablet d aily. dorzolamide 20 mg/ml ophthalmic solution (12 sources) Carbonic Anhydrase Inhibitor Start: 05-19-2024 Dorzolamide 2 % drops Active 1 NMA OPHTHALMIC TWICE A DAY May 19, 2024 12:00am Start: 06-29-2021 End: 01-09-2022 Dorzolamide 2 % drops Discon tinued 1 NMA OPHTHALMIC TWICE A DAY June 29, 2021 12:00am January 09, 2022 3:11pm Start: 06-29-2021 End: 01-09-2022 Dorzolamide Discontinued 1 D RP OPHTHALMIC TWICE A DAY June 29, 2021 12:00am January 09, 2022 3:11pm furosemide 40 mg oral tablet (20 sources) Loop Diuretic Start: 11-19-2023 End: 05-19-2024 Furosemide (Lasix) 40 mg tablet Active 0 PO every other day May 19, 2024 9:19am orally every other day; 40mg MWFSun, 20mg TTHSat Start: 05-21-2023 End: 11-19-2023 take 1 tablet by mouth once daily Furosemide (Lasix) 40 mg tablet Discontinued 40 mg PO DAILY May 21, 2023 12:00am November 19, 2023 9:37am Start: 10-23-2018 End: 06-01-2020 take 1 tablet by mouth once daily Furosemide 20 MG tablet Discontinued 20 mg PO DAILY September 06, 2019 4:57pm November 27, 2019 2:05pm latanoprost 0.05 mg/ml ophthalmic solution (20 sources) Prostaglandin Analog Start: 05-19-[address] 0.005 % drops Active 1 NMA OPHTHALMIC AT BEDTIME May 19, 2024 12:00am Start: 06-29-2021 End: 01-09-2022 Latanoprost 0.005 % drops Di scontinued 1 NMA OPHTHALMIC DAILY June 29, 2021 12:00am January 09, 2022 3:10pm Start: 09-06-2019 End: 05-20-2021 Latanoprost 1 DROP bottle Di scontinued 1 NMA EACH EYE AT BEDTIME September 06, 2019 12:00am May 20, 2021 8:49am lisinopril 10 mg oral tablet (20 sources) Angiotensin Converting Enzyme Inhibitor Start: 09-23-2019 End: 12-28-2019 take 1 tablet by mouth once daily Lisinopril 20 mg tablet Discontinued 20 mg PO DAILY 90 September 23, 2019 2:42pm December 28, 2019 10:37am Start: 09-23-2019 End: 09-23-2019 Lisinopril 20 mg tablet Disc ontinued PO September 23, 2019 12:00am September 23, 2019 2:42pm Start: 09-06-2019 End: 09-23-2019 take 1 tablet by mouth once daily Lisinopril 40 MG tablet Discontinued 40 mg PO DAILY September 06, 2019 12:00am September 23, 2019 2:40pm Start: 03-11-2018 End: 05-29-2019 take 1 tablet by mouth once daily Lisinopril 20 mg tablet Discontinued 20 mg PO DAILY March 11, 2018 5:24pm May 29, 2019 2:02pm Start: 08-23-2008 End: 08-20-2023 take 1 tablet by mouth once daily Lisinopril 10 mg tablet Active 10 mg PO DAILY 90 August 20, 2023 9:17am Comment on above: Take one(1) tablet d aily. magnesium chloride 598 mg delayed release oral tablet (13 sources) Start: 09-18-2019 take 1 tablet by mouth twice daily Magnesium Chloride 71.5 MG tablet,delayed release (DR/EC) Active 71.5 mg PO TWICE A DAY 60 September 18, 2019 12:00am Comment on above: Take 71.5 mg by mout h. 24 hr metoprolol succinate 50 mg extended release oral tablet (20 sources) beta-Adrenergic Brianne Start: 12-09-2022 take 1 tablet by mouth every hour metoprolol succinate ER (TOPROL XL) 50 mg 24 hr tablet Take 1 tablet by mouth every afternoon. 0 12/09/2022 Active Start: 12-28-2019 End: 07-31-2024 take 1 tablet by mouth once daily Metoprolol Succinate 50 mg tablet extended release 24 hr Active 50 mg PO DAILY September 25, 2023 3:42pm Comment on above: Take 1 tablet by ava th every afternoon. Completed/Discontinued Medications Medication Drug Class(es) Dates Sig (Normalized) Sig (Original) acetaminophen 325 mg / HYDROcodone bitartrate 5 mg oral tablet (20 sources) Opioid Agonist Start: 01-11-2015 End: 06-28-2015 NORCO 5-325 MG TABS as needed ,uses rarely HYDROCODONE-ACETAMI NOPHEN [id number] Claudia Rodriguez LPN Start: 05-05-2014 End: 07-17-2017 take 1-2 tablets by mouth every four hours as needed NORCO 5-325 MG TABS 1-2 tablets by mouth every 4 hours as needed HYDROCODONE-ACETAMINOPHEN [id number] Mecca Corbett RN Start: 05-05-2014 End: 07-17-2017 take 1 tablet by mouth every four hours as needed Hydrocodone-Acetaminophen Discontinued 1 - 2 TABLET PO EVERY 4 HOURS NEEDED May 05, 2014 12:00am July 17, 2017 10:57am Start: 04-22-2014 End: 05-05-2014 take 1 tablet by mouth every six hours as needed Hydrocodone-Acetaminophen Discontinued 1 - 2 TABLET PO EVERY 6 HOURS NEEDED April 22, 2014 1:00am May 05, 2014 10:30am Start: 11-07-2011 End: 06-28-2015 Hydrocodone-Acetaminophen 1 EACH tablet Discontinued 1 - 2 {tbl} PO EVERY 6 HOURS NEEDED as needed for Pain April 22, 2014 1:00am May 05, 2014 10:30am Start: 11-07-2011 VICODIN 5-500 MG TABS as needed uses rarely HYDROCODONE-ACETAMINOPHEN [id number] Julio Stanford MD amoxicillin 875 mg / clavulanate 125 mg oral tablet (11 sources) Penicillin-class Antibacterial Start: 05-20-2021 End: 01-09-2022 Amoxicillin-Pot Clavulanate 875-125 mg tablet Discontinued 1 {tbl} PO TWICE A DAY May 20, 2021 12:00am January 09, 2022 3:11pm Start: 05-20-2021 End: 01-09-2022 take 1 tablet by mouth twice daily Amoxicillin-Pot Clavulanate Discontinued 1 TABLET PO TWICE A DAY May 20, 2021 12:00am January 09, 2022 3:11pm ascorbic acid 500 mg oral tablet (5 sources) Start: 11-07-2011 take 1 tablet by mouth once daily VITAMIN C 500 MG TABS One tablet by mouth daily ASCORBIC ACID [id number] Julio Stanford MD azithromycin 250 mg oral tablet (18 sources) Macrolide Antimicrobial Start: 12-16-2022 End: 04-10-2023 Azithromycin (Zithromax Z-Jay) 250 mg tablet Discontinued 0 PO .COMPLEX December 16, 2022 12:00am April 10, 2023 12:23pm For 250 mg dose pack: take 500 mg today (day 1), then 250 mg for 4 days (days 2-5) PO Start: 05-20-2021 End: 01-09-2022 Azithromycin 250 mg tablet D iscontinued 250 mg PO daily May 20, 2021 12:00am January 09, 2022 3:11pm 2 tablets today, then 1 tablet daily on days 2 through 5 busPIRone hydrochloride 5 mg oral tablet (11 sources) Start: 05-20-2021 End: 01-09-2022 take 1 tablet by mouth twice daily Buspirone 5 mg tablet Discontinued 5 mg PO TWICE A DAY May 20, 2021 12:00am January 09, 2022 3:11pm calcium carbonate 1250 mg / cholecalciferol 1000 unt / vitamin k 0.4 mg chewable tablet (9 sources) Vitamin D Start: 01-09-2022 End: 04-10-2023 Calcium-Vitamin D3-Vitamin K 500 mg-1,000 unit-40 mcg tablet,chewable Discontinued {tbl} PO January 09, 2022 1:00am April 10, 2023 12:23pm Start: 01-09-2022 End: 04-10-2023 Calcium-Vitamin D3-Vitamin K Discontinued TABLET PO January 09, 2022 1:00am April 10, 2023 12:23pm Calcium Carbonate / vitamin D3 (2 sources) calcium carbonat e/vitamin D3 (VITAMIN D-3 ORAL) Take by mouth. 0 Active Comment on above: Take by mouth. cholecalciferol 2000 unt oral tablet (10 sources) Vitamin D Start: 11-07-19 12 take 1 tablet by mouth once daily VITAMIN D 2000 UNIT TABS One tablet by mouth daily CHOLECALCIFEROL [id number] Claudia Rodriguez CREW CALLER GLUCOSAMINE-CHONDROITIN CAPS (10 sources) Start: 07-08-19 11 take 1 tablet by mouth once daily GLUCOSAMINE-CHONDROITIN CAPS One tablet by mouth daily GLUCOSAMINE-CHONDROITIN CAPS [id number] Montse Mckeon Start: 07-07-2010 End: 01-06-2013 take 1 tablet by mouth once daily GLUCOSAMINE-CHONDROITIN CAPS One tablet by mouth daily GLUCOSAMINE-CHONDROITIN CAPS [id number] Julio Stanford MD docusate sodium 50 mg / sennosides, long term 8.6 mg oral tablet (11 sources) Start: 09-18-2019 End: 06-01-2020 Sennosides-Docusate Sodium 1 TABLET tablet Discontinued 2 {tbl} PO TWICE A DAY as needed for CONSTIPATION September 18, 2019 12:00am June 01, 2020 1:12pm Start: 09-18-2019 End: 06-01-2020 take 2 tablets by mouth twice daily Sennosides-Docusate Sodium Discontinued 2 TABLET PO TWICE A DAY September 18, 2019 12:00am June 01, 2020 1:12pm FLUoxetine 40 mg oral capsule (11 sources) Serotonin Reuptake Inhibitor Start: 05-20-2021 End: 01-09-2022 take 1 capsule by mouth once daily Fluoxetine 40 mg capsule Discontinued 40 mg PO DAILY May 20, 2021 12:00am January 09, 2022 3:11pm fluticasone propionate 0.05 mg/actuat metered dose nasal spray (5 sources) Corticosteroid Start: 06-28-2015 take 2 spray(s) nasal route once daily for congestion FLUTICASONE PROPIONATE 50 MCG/ACT SUSP use 2 sprays in each nostril daily for nasal congestion FLUTICASONE PROPIONATE [id number] Emmy Pham DO glimepiride 4 mg oral tablet (11 sources) Sulfonylurea Start: 05-20-2021 End: 01-09-2022 take 1 tablet by mouth once daily Glimepiride 4 mg tablet Discontinued 4 mg PO DAILY May 20, 2021 12:00am January 09, 2022 3:10pm hydroCHLOROthiazide 25 mg oral tablet (20 sources) Thiazide Diuretic Start: 04-22-2014 End: 09-18-2019 Hydrochlorothiazide 25 MG tablet Discontinued 1 {tbl} PO DAILY April 22, 2014 1:00am September 18, 2019 7:21pm Start: 08-23-2008 End: 05-30-2023 take 1 tablet by mouth once daily Hydrochlorothiazide 25 mg tablet Discontinued 0 .ROUTE .COMPLEX 90 March 26, 2023 2:04pm May 30, 2023 4:56pm TAKE 1 TABLET BY MOUTH EVERY DAY Comment on above: Take one(1) tablet d aily. loperamide hydrochloride 2 mg oral capsule (20 sources) Opioid Agonist Start: End: take 1 capsule by mouth every six hours as needed for diarrhea Loperamide 2 MG capsule Discontinued 2 mg PO EVERY 6 HOURS NEEDED as needed for Diarrhea September 18, 2019 12:00am January 09, 2022 3:09pm Start: 01-11-2015 End: 06-28-2015 IMODIUM A-D 2 MG TABS PRN 20 09/01/17 LOPERAMIDE HCL [id number] Julio Stanford MD meloxicam 15 mg oral tablet (10 sources) Nonsteroidal Anti-inflammatory Drug Start: 07-07-2010 take 1 tablet by mouth once daily MOBIC 15 MG TABS One tablet by mouth daily MELOXICAM [id number] Emmy Pham DO metFORMIN hydrochloride 1000 mg oral tablet (11 sources) Biguanide Start: 05-20-2021 End: 01-09-2022 take 1 tablet by mouth once daily Metformin 1,000 mg tablet Discontinued 1000 mg PO DAILY May 20, 2021 12:00am January 09, 2022 3:10pm MULTIPLE VITAMIN (10 sources) Start: 07-07-2010 take 1 tablet by mouth once daily MULTIVITAMINS TABS One tablet by mouth daily MULTIPLE VITAMIN [id number] Montse Mckeon Start: 07-07-2010 End: 11-07-2011 take 1 tablet by mouth once daily MULTIVITAMINS TABS One tablet by mouth daily MULTIPLE VITAMIN [id number] Julio Stanford MD OMEGA-3 FATTY ACIDS CPDR (10 sources) Start: 07-07-2010 take 1 tablet by mouth once daily OMEGA 3 CPDR One tablet by mouth daily OMEGA-3 FATTY ACIDS CPDR [id number] Montse Mckeon Start: 07-07-2010 End: 11-07-2011 take 1 tablet by mouth once daily OMEGA 3 CPDR One tablet by mouth daily OMEGA-3 FATTY ACIDS CPDR [id number] Julio Stanford MD Kmemi-7-PQM-EPA-Fish Oil (FISH OIL) 1,000 mg (120 mg-180 mg) cap (2 sources) take 1 capsule by mouth twice daily Ulvlf-0-CUL-EPA-Fish Oil (FISH OIL) 1,000 mg (120 mg-180 mg) cap Take 2 g by mouth twice daily. 0 Active Comment on above: Take 2 g by mouth tw ice daily. simvastatin 10 mg oral tablet (20 sources) HMG-CoA Reductase Inhibitor Start: 2018 End: 2018 take 1 tablet by mouth at bedtime Simvastatin 10 mg tablet Discontinued 10 mg PO AT BEDTIME March 11, 2018 1:00am March 11, 2018 12:03pm Start: 06-09-2017 End: 07-17-2017 take 1 tablet by mouth at bedtime Simvastatin 10 MG tablet Discontinued 10 mg PO AT BEDTIME June 09, 2017 12:00am July 17, 2017 10:57am Start: 04-22-2014 End: 04-10-2016 Simvastatin 10 MG tablet Discontinued 10 mg PO DIRECTED April 22, 2014 1:00am April 10, 2016 2:32pm Start: 07-07-2010 End: 01-07-2014 take 1 tablet by mouth at bedtime ZOCOR 10 MG TABS One tablet by mouth at bedtime. SIMVASTATIN [id number] Julio Stanford MD traMADol hydrochloride 50 mg oral tablet (10 sources) Opioid Agonist Start: 01-11-2015 take 1-2 tablets by mouth every six hours as needed TRAMADOL HCL 50 MG TABS One to two tablets by mouth every 6 hour as needed TRAMADOL HCL [id number] Emmy Pham, vitamin b 12 0.5 mg oral tablet (5 sources) Vitamin B12 Start: 07-07-2010 take 1 tablet by mouth once daily VITAMIN B-12 500 MCG TABS One tablet by mouth daily CYANOCOBALAMIN [id number] Montse Mckeon Vitamin B Complex (B Complex-Vitamin B12) tablet (9 sources) Start: 01-09-2022 End: 04-10-2023 Vitamin B Complex (B Complex-Vitamin B12) tablet Discontinued 1 {tbl} PO DAILY January 09, 2022 1:00am April 10, 2023 12:24pm Start: 01-09-2022 End: 04-10-2023 take 1 tablet by mouth once daily Vitamin B Complex (B Complex-Vitamin B12) tablet Discontinued 1 TABLET PO DAILY January 09, 2022 1:00am April 10, 2023 12:24pm Start: 01-09-2022 End: 04-10-2023 take 1 tablet by mouth once daily Vitamin B Complex (B Complex-Vitamin B12) tablet Discontinued 1 TABLET PO DAILY January 09, 2022 12:00am April 10, 2023 11:24am Start: 01-09-2022 take 1 tablet by ava th once daily Vitamin B Complex (B Complex-Vitamin B12) tablet Active 1 TABLET PO DAILY January 09, 2022 1:00am Start: 01-09-2022 take 1 tablet by ava th once daily Vitamin B Complex (B Complex-Vitamin B12) tablet Active 1 TABLET PO DAILY January 09, 2022 12:00am vitamin e 400 unt oral capsule (5 sources) Start: 01-11-2015 take 1 tablet by mouth once daily VITAMIN E 400 UNIT CAPS One tablet by mouth daily VITAMIN E [id number] Julio tSanford MD Problems Active Problems Problem Classification Problem Date Documented Date Episodic/Chronic Acquired foot deformities (1 source) Talipes planus; Translations: [Flat foot [pes planus] (acquired), right foot] 01-29-2023 Episodic Acute bronchitis (12 sources) Acute bronchitis; Translations: [Acute bronchitis, unspecified] Episodic Acute cerebrovascular disease (16 sources) Cerebrovascular accident; Translations: [Cerebral infarction, unspecified] Onset: 06-24-2014 06-24-2014 Chronic Cancer of uterus (20 sources) Carcinoma of uterus; Translations: [Malignant neoplasm of uterus, part unspecified] 02-04-2019 Chronic Disorders of lipid metabolism (20 sources) Hyperlipidemia; Translations: [Hyperlipidemia, unspecified] Onset: 07-07-2010 07-07-2010 Chronic Essential hypertension (20 sources) Hypertensive disorder; Translations: [Essential hypertension] Onset: 07-07-2010 07-07-2010 Chronic Headache; including migraine (11 sources) Headache; Translations: [Headache] 08-10-2021 Episodic Heart valve disorders (20 sources) Mitral valve disorder; Translations: [Mitral stenosis with insufficiency] Onset: 07-07-2010 07-07-2010 Chronic Osteoarthritis (5 sources) Osteoarthritis; Translations: [Unspecified osteoarthritis, unspecified site] Onset: 06-24-2014 06-24-2014 Chronic Other and ill-defined heart disease (5 sources) Cardiomegaly; Translations: [Cardiomegaly] Onset: 07-07-2010 07-07-2010 Chronic Other and ill-defined heart disease (11 sources) Left atrial enlargement; Translations: [Cardiomegaly] 05-31-2020 Chronic Other circulatory disease (5 sources) Presence of other cardiac implants and grafts; Translations: [Presence of other cardiac implants and grafts] Onset: 05-03-2016 05-04-2016 Chronic Other congenital anomalies (1 source) Porokeratosis; Translations: [Other specified congenital malformations of skin] 01-29-2023 Chronic Other injuries and conditions due to external causes (11 sources) Injury of hip region; Translations: [Unspecified injury of unspecified hip, initial encounter] 02-05-2019 Episodic Other upper respiratory infections (8 sources) Upper respiratory infection; Translations: [Acute upper respiratory infection, unspecified] 12-16-2022 Episodic Paralysis (2 sources) Left hemiparesis; Translations: [Hemiplegia, unspecified affecting left nondominant side] Onset: 01-29-2023 01-29-2023 Chronic Alice-; endo-; and myocarditis; cardiomyopathy (except that caused by tuberculosis or sexually transmitted disease) (13 sources) Primary hypertrophic cardiomyopathy; Translations: [Other hypertrophic cardiomyopathy] Onset: 06-19-2024 05-31-2020 Chronic Pulmonary heart disease (11 sources) Pulmonary arterial hypertension; Translations: [Secondary pulmonary arterial hypertension] 09-22-2019 Chronic Retinal detachments; defects; vascular occlusion; and retinopathy (5 sources) Central retinal artery occlusion; Translations: [Central retinal artery occlusion, unspecified eye] Onset: 07-07-2010 07-07-2010 Chronic Transient cerebral ischemia (11 sources) Transient cerebral ischemia; Translations: [Transient cerebral ischemic attack, unspecified] 09-18-2019 Chronic Unclassified (10 sources) Body mass index (BMI) 33.0-33.9, adult; Translations: [Body mass index (BMI) 32.0-32.9, adult] Onset: 01-06-2013 01-06-2013 Chronic Unclassified (5 sources) Long-term drug therapy; Translations: [Other jail (current) drug therapy] Onset: 07-07-2010 07-07-2010 Past or Other Problems Problem Classification Problem Date Documented Da te Episodic/Chronic Abdominal hernia (5 sources) Incisional hernia; Translations: [Incisional hernia without obstruction or gangrene] 01-14-2012 Episodic Cancer of uterus (2 sources) History of malignant neoplasm of endometrium; Translations: [Personal history of malignant neoplasm of other parts of uterus] Onset: 05-28-2013 05-28-2013 Episodic Malaise and fatigue (5 sources) Fatigue; Translations: [Other fatigue] Onset: 06-24-2014 07-05-2014 Episodic Nonspecific chest pain (10 sources) Chest pain, unspecified; Translations: [Chest pain, unspecified] Onset: 07-07-2010 Resolved: 01-11-2015 01-11-2015 Episodic Other circulatory disease (11 sources) History of cerebrovascular accident; Translations: [Personal history of transient ischemic attack (TIA), and cerebral infarction without residual deficits] Onset: 08-28-2019 09-22-2019 Episodic Other gastrointestinal disorders (1 source) Constipation, unspecified; Translations: [Constipation, unspecified] Onset: 01-29-2024 Episodic Other lower respiratory disease (10 sources) Dyspnea; Translations: [Shortness of breath] Onset: 07-07-2010 Resolved: 01-11-2015 01-11-2015 Episodic Unclassified (5 sources) Family history of stroke; Translations: [Family history of stroke] 01-07-2014 Episodic Results Test Name Value Interpretation Reference Range Facility [facility] 06-15-2024 [facility] [address] [place] [address] Echo Complete 06/15/24 1405 MR#: [id number] Acct: [id number] Name: GABRIELA BERG Rep #: [id number] : 1940 83 From: Julio Stanford MD Attending Dr: JAYLYN Olea Status: REG CLI Ordering Dr: Estrella Martinez PA Date: 05/27 03/21 Location: [facility] Sex: F C Admitted: Reason For Study Reason For Study: Murmur Procedure This was a 2D Doppler, Color Flow transthoracic echocardiogram. Exam performed in department. Left Ventricle Normal LV size. Sigmoid septum. The left ventricular ejection fraction is 70 %. No regional wall motion abnormalities noted. Right Ventricle Normal RV size. Normal systolic function. Atria The left atrium is severely enlarged. Normal right atrium. Mitral Valve There is Severe focal posterior mitral annular calcification. Mean transmitral valve gradient 13 mmHg. Moderate mitral valve stenosis. Severe (4+) mitral valve insufficiency. Tricuspid Valve Normal tricuspid valve. Moderately severe (3+) tricuspid valve insufficiency. Pulmonary artery systolic pressure is 100 mmHg. Severe pulmonary hypertension. Aortic Valve Trisinus/trileafle t aortic valve. Mild focal aortic valve thickening. Mild aortic stenosis. Pulmonic Valve Normal pulmonic valve. Mild (1+) pulmonic valve insufficiency. Great Vessels Moderately calcified aortic root. Mild pulmonary artery dilation. Inferior vena cava collapse with respiration. Pericardium/Pleura l No pericardial effusion. MMode/2D Measurements Calculations LVIDd: 3.3 cm IVSd: 0.91 cm LVOT diam: 1.8 cm LVIDs: 1.8 cm LVPWd: 1.1 cm LVOT area: 2.5 cm2 RVDd: 4.0 cm FS: 45.3 % Ao root diam: 2.8 cm LAV(MOD-bp): 114.7 ml LVAd ap4: 18.1 cm2 LAV(MOD-bp) Indexed: 63.8 ml/m2 LVLd ap4: 5.8 cm LAV(MOD-sp2): 98.7 ml EDV(MOD-sp4): 44.2 ml LAV(MOD-sp4): 112.3 ml EDV(sp4-el): 47.5 ml LVAs ap4: 7.9 cm2 LVLs ap4: 4.5 cm ESV(MOD-sp4): 11.6 ml ESV(sp4-el): 11.9 ml EF(MOD-sp4): 73.9 % EF(sp4-el): 75.1 % SV(MOD-sp4): 32.7 ml SV(sp4-el): 35.7 ml LA A4 area: 31.7 cm2 SI(MOD-sp4): 18.2 ml/m2 LA dimension(2D): 4.7 cm RA A4 area: 14.5 cm2 TAPSE: 2.1 cm Time Measurements MV dec time: 0.22 sec Doppler Measurements Calculations MV E max kendall: 184.2 cm/sec Lat Peak E' Kendall: 3.2 cm/sec Med Peak E' Kendall: 3.1 cm/sec MV A max kendall: 129.6 cm/sec E/E' lat: 58.2 E/E' med: 59.8 MV E/A: 1.4 MV V2 max: 293.0 cm/sec Ao V2 max: 175.2 cm/sec MV max P.4 mmHg MV dec slope: 853.3 cm/sec2 Ao max P.3 mmHg MV V2 mean: 164.4 cm/sec Ao V2 mean: 118.4 cm/sec MV mean P.7 mmHg Ao mean P.6 mmHg MV V2 VTI: 68.3 cm Ao V2 VTI: 38.0 cm AV (velocity ratio): 0.76 MVA(VTI): 1.1 cm2 PRETTY(I,D): 1.9 cm2 PRETTY(V,D): 1.9 cm2 LV V1 max: 132.6 cm/sec SV(LVOT): 72.2 ml PA V2 max: 140.4 cm/sec LV V1 max P.0 mmHg PA V2 mean: 100.4 cm/sec LV V1 mean P.4 mmHg LV V1 mean: 101.2 cm/sec LV V1 VTI: 28.8 cm TR max kendall: 488.1 cm/sec TR max P.3 mmHg ECHO/Echo Complete Interpretation Summary Normal LV size. The left ventricular ejection fraction is 70 %. The left atrium is severely enlarged. Pulmonary artery systolic pressure is 100 mmHg. Severe pulmonary hypertension. Severe (4+) mitral valve insufficiency. Moderate mitral valve stenosis. Prior to the previous the extent of the mitral calcification appears to be somewhat worse causing a functional worsening of the mitral stenosis and mitral regurgitation. Ordering Physician: Estrella Martinez Referring Physician: Sarahi Christian Performed By: Meera Severino, CARO, RVT 06/15/24 1526 Date Julio Stanford MD CC: Dr. Sarahi Christian, DO; JAYLYN Olea Date Dictated: 06/15/241404 Date Transcribed: 06/15/24 152 Briquette Machine Operator: Signed [facility] Echocardiogram study reportO rdered By: Julio Stanford on 06-15-2024 Study report [facility] [address] [place] [address] Echo Complete 06/15/241404 MR#: [id number] Acct: [id number] Name: GABRIELA BERG Rep #:[id number] : 1940 83 From: Julio Harding Attending Dr: JAYLYN Olea Status: REG CLI Ordering Dr: Estrella Martinez Date: 06/15/24 Location: [facility] Sex: F C Admitted: Reason For Study Reason For Study: Murmur Procedure This was a 2D Doppler, Color Flow transthoracic echocardiogram. Exam performed in department. Left Ventricle Normal LV size. Sigmoid septum. The left ventricular ejection fraction is 70 %. No regional wall motion abnormalities noted. Right Ventricle Normal RV size. Normal systolic function. Atria The left atrium is severely enlarged. Normal right atrium. Mitral Valve There is Severe focal posterior mitral annular calcification. Mean transmitral valve gradient 13 mmHg. Moderate mitral valve stenosis. Severe (4+) mitral valve insufficiency. Tricuspid Valve Normal tricuspid valve. Moderately severe (3+) tricuspid valve insufficiency. Pulmonary artery systolic pressure is 100 mmHg. Severe pulmonary hypertension. Aortic Valve Trisinus/trileafle t aortic valve. Mild focal aortic valve thickening. Mild aortic stenosis. Pulmonic Valve Normal pulmonic valve. Mild (1+) pulmonic valve insufficiency. Great Vessels Moderately calcified aortic root. Mild pulmonary artery dilation. Inferior vena cava collapse with respiration. Pericardium/Pleura l No pericardial effusion. MMode/2D Measurements & Calculations LVIDd: 3.3 cm IVSd: 0.91 cm LVOT diam: 1.8 cm LVIDs: 1.8 cm LVPWd: 1.1 cm LVOT area: 2.5 cm2 RVDd: 4.0 cm FS: 45.3 % Ao root diam: 2.8 cm LAV(MOD-bp): 114.7 ml LVAd ap4: 18.1 cm2 LAV(MOD-bp) Indexed: 63.8 ml/m2 LVLd ap4: 5.8 cm LAV(MOD-sp2): 98.7 ml EDV(MOD-sp4): 44.2 ml LAV(MOD-sp4): 112.3 ml EDV(sp4-el): 47.5 ml LVAs ap4: 7.9 cm2 LVLs ap4: 4.5 cm ESV(MOD-sp4): 11.6 ml ESV(sp4-el): 11.9 ml EF(MOD-sp4): 73.9 % EF(sp4-el): 75.1 % SV(MOD-sp4): 32.7 ml SV(sp4-el): 35.7 ml LA A4 area: 31.7 cm2 SI(MOD-sp4): 18.2 ml/m2 LA dimension(2D): 4.7 cm RA A4 area: 14.5 cm2 TAPSE: 2.1 cm Time Measurements MV dec time: 0.22 sec Doppler Measurements & Calculations MV E max kendall: 184.2 cm/sec Lat Peak E' Kendall: 3.2 cm/sec Med Peak E' Kendall: 3.1 cm/sec MV A max kendall: 129.6 cm/sec E/E' lat: 58.2 E/E' med: 59.8 MV E/A: 1.4 MV V2 max: 293.0 cm/sec Ao V2 max: 175.2 cm/sec MV max P.4 mmHg MV dec slope: 853.3 cm/sec2 Ao max P.3 mmHg MV V2 mean: 164.4 cm/sec Ao V2 mean: 118.4 cm/sec MV mean P.7 mmHg Ao mean P.6 mmHg MV V2 VTI: 68.3 cm Ao V2 VTI: 38.0 cm AV (velocity ratio): 0.76 MVA(VTI): 1.1 cm2 PRETTY(I,D): 1.9 cm2 PRETTY(V,D): 1.9 cm2 LV V1 max: 132.6 cm/sec SV(LVOT): 72.2 ml PA V2 max: 140.4 cm/sec LV V1 max P.0 mmHg PA V2 mean: 100.4 cm/sec LV V1 mean P.4 mmHg LV V1 mean: 101.2 cm/sec LV V1 VTI: 28.8 cm TR max kendall: 488.1 cm/sec TR max P.3 mmHg ECHO/Echo Complete Interpretation Summary Normal LV size. The left ventricular ejection fraction is 70 %. The left atrium is severely enlarged. Pulmonary artery systolic pressure is 100 mmHg. Severe pulmonary hypertension. Severe (4+) mitral valve insufficiency. Moderate mitral valve stenosis. Prior to the previous the extent of the mitral calcification appears to be somewhat worse causing a functional worsening of the mitral stenosis and mitral regurgitation. Ordering Physician: Estrella Martinez Referring Physician: Sarahi Christian Performed By: Meera Severino, CARO, RVT 06/15/24 1526 Date _ Julio Stanford MD CC: Dr. Sarahi Christian, DO; JAYLYN Olea ~ Date Dictated: 06/15/24 1405 Date Transcribed: 06/15/24 1526 Briquette Machine Operator: Signed [facility] Work Phone: Cardiology Visit Reporton Cardiology Visit Report [facility] [address] [place] [address]. [address] [place] [address] OFFICE VISIT Date of Service: 05/19/24 MR#: [id number] Acct: [id number] Name: GABRIELA BERG Rep #: [id number] : 1940 Provider: JAYLYN Hernandes Age/Sex: 83/F Location[place] [facility] Status: Signed HPI HPI History of Present Illness Details: GABRIELA BERG, is a 83F who presents to the office today. She has a history of hypertension, mitral annular calcification, hyperlipidemia, and CVA. You will remember that she presented to [facility] emergency department in May 2017 with [...] a loop recorder implanted as well. She had previously sustained a cerebrovascular accident in 2014 without any deficits. She presented to the hospital again in August of 2019 with right gaze deviation, left-sided weakness and facial droop. She was noted to be outside the TPA window on the MRI demonstrated evidence of bilateral strokes. She was transferred to [facility]. As part of her evaluation she had a troponin done which was abnormal. She had a transthoracic echocardiogram performed which demonstrated preserved left ventricular function with no wall motion abnormalities noted. She had a nuclear stress test which demonstrated no evidence of ischemia. It was felt that this was likely secondary to demand ischemia in the setting of a cerebrovascular accident. Her echocardiogram demonstrated mitral regurgitation which was moderately to moderate to severe, severe left atrial enlargement, mitral annular calcification with a mobile 0.5 x 0.5 cm calcification on the mitral valve. Cardiac surgery was consulted for further consideration she was well compensated with an ejection fraction of 70%. It was felt that due to her recent cerebrovascular accident this should be deferred by a few weeks. Her loop recorder was interrogated it was noted that there have been no atrial fibrillation episodes noted. It was implanted in March 2016 and had reached recommended replacement time in August. She underwent a cardiac catheterization in December 2019 and it demonstrated normal coronary arteries and severe mitral annular calcification. She did have some mitral regurgitation. Her echocardiogram in November 2019 demonstrated mitral calcification and 2+ mitral regurgitation. I did send her to the [facility] where she was evaluated. It was determined after that that we should pursue medical therapy for now. She has been doing well since. She also had a repeat echocardiogram in February of 2022 demonstrating an estimated ejection fraction of 68% severely dilated left atrium pulmonary artery systolic pressure of 78 mmHg and stage III diastolic dysfunction and 2+ eccentric mitral regurgitation. Her echocardiogram on 05/15/2023 demonstrated ejection fraction of 70%, severe mitral annular calcification, and moderate mitral valve insufficiency, moderately severe tricuspid valve insufficiency, with pulmonary artery systolic pressure of 93 mmHg. She was started on Lasix 40 mg daily at that time. From a cardiac standpoint, patient is doing well. She does not have any chest discomfort/heavine ss/tightness. She does not have any worsening symptoms of shortness of breath. She does not have any orthopnea. She denies PND. She does not have any symptoms of congestive heart failure. She does not have any palpitations that she is aware of. She does not have any lightheadedness or dizziness. She does not have any near-syncope or syncope. She does not have any lower extremity edema. She does not have any symptoms of claudication. She ambulates with a walker/ cane. Intake Vital Signs 11/19/23 09:34 05/19/24 07:17 Height 5 ft 5 ft Weight: 173 lb BMI 33.7 BP 120/77 Blood Pressure Location Lt brachial Position Sitting Respiration 20 H Pulse 63 Pulse Source Monitor Pulse Oximetry (%) 97 Intake Visit Reasons: 6 m fu Fire Inspector Required: No Is patient in pain?: No Allergies acetaminophen (From Percocet) Allergy (Verified 05/19/24 08:58) Vomiting oxycodone Adverse Reaction (Verified 05/19/24 08:58) Nausea tetanus and diphtheria toxoids Adverse Reaction (Verified 05/19/24 08:58) dizziness, weakness, difficulty breathing, fast heart beat Medications ???Medication ???Instructions ???Recorded ???Confirmed ???Type aspirin 81 mg chewable tablet 81 mg PO DAILY@0800 heart 09/06/19 05/19/24 History magnesium chloride 7 (more content not included)... Normal [facility] Abdomen Single Viewon 2023 Abdomen Single View [facility] Imaging Services [address] [place] [address] Abdomen Single View MR#: [id number] Acct: [id number] Name: GABRIELA BERG Rep #: [id number] : 1940 F 83 From: Ghulam mays DO PCP: Dr. Sarahi Christian, DO Status: REG CLI Study: Abdomen Single View Date of Exam: 01/20/24 Exam# [id number] Ordering Dr: Sarahi Christian DO [id number] EXAM: XR ABDOMEN, 1 VIEW CLINICAL INDICATION: CONSTIPATION TECHNIQUE: Frontal supine view of the abdomen/pelvis. COMPARISON: No relevant prior studies available. FINDINGS: GASTROINTESTINAL TRACT: No significant abnormality. Non-obstructive. No bowel or stomach distention. ORGANS: Normal as visualized. No organomegaly. No abnormal calcifications. BONES/JOINTS: Degenerative changes in the spine, pelvis, and hips. SOFT TISSUES: No acute pathology. RAD/Abdomen Single View IMPRESSION: No acute findings. Electronically Signed: Ghulam Santiago DO at 23:47 EST , CC: Dr. Sarahi Christian, Briquette Machine Operator: Signed [facility] Basic Metabolic Profile (BMP )on 12-09-2023 BUN/CRE 19.3 RATIO Normal 12-14 [facility] Comment on above: Performed By: #### L 500.2500 #### [facility] [address] [place], [address] CA,Total 9.7 mg/dL Normal 8.5-10.1 [facility] Comment on above: Performed By: #### L 500.2500 #### [facility] [address] [place], [address] Chloride [Moles/Vol] 106 mmol/L Normal 98-107 [facility] Comment on above: Performed By: #### L 500.2500 #### [facility] [address] [place], [address] CO2 [Moles/Vol] 23.0 mmol/L Normal 21.0-32.0 [facility] Comment on above: Performed By: #### L 500.2500 #### [facility] [address] [place], [address] Creatinine [Mass/Vol] 1.71 mg/dL High 0.55-1.02 [facility] Comment on above: Result Comment: The validity of the calculated GFR GFRAA in patients over 70 years has not been determined. Clinical correlation is essential. Performed By: #### L 500.2500 #### [facility] [address] [place], [address] EST GFR - AA 37 mL/min Low >60 [facility] Comment on above: Result Comment: Afri can [place] GFR Calc Performed By: #### L 500.2500 #### [facility] [address] [place], [address] GAP 9 Normal 5-15 [facility] Comment on above: Performed By: #### L 500.2500 #### [facility] [address] [place], [address] GFR/1.73 sq M.predicted among non-blacks MDRD (S/P/Bld) [Vol rate/Area] 30 mL/min/{1.73_m2} Low >60 [facility] Comment on above: Result Comment: Non- GFR Calc Performed By: #### L 500.2500 #### [facility] [address] [place], [address] Glucose [Mass/Vol] 108 mg/dL High 74-106 [facility] Comment on above: Result Comment: Fast ing Glucose result from 100 to 125 mg/dL suggests IMPAIRED HOMEOSTASIS per A.D.A. criteria. Performed By: #### L 500.2500 #### [facility] [address] [place], [address] Potassium [Moles/Vol] 4.1 mmol/L Normal 3.5-5.1 [facility] Comment on above: Performed By: #### L 500.2500 #### [facility] [address] [place], [address] Sodium [Moles/Vol] 138 mmol/L Normal 136-145 [facility] Comment on above: Performed By: #### L 500.2500 #### [facility] [address] [place], [address] Urea nitrogen [Mass/Vol] 33 mg/dL High 7-18 [facility] Comment on above: Performed By: #### L 500.2500 #### [facility] [address] [place], [address] Cardiology Visit Reporton Cardiology Visit Report [facility] [address] [place] [address] OFFICE VISIT Date of Service: 11/19/23 MR#: [id number] Acct: [id number] Name: GABRIELA BERG Rep #: [id number] : 1940 Provider: DREW phillips Age/Sex: 83/F Location[place] [facility] [place] Status: Signed [facility] History of Present Illness Details: GABRIELA BERG, is a 83F who presents to the office today. She has a history of hypertension, mitral annular calcification, hyperlipidemia, and CVA. You will remember that she presented to [facility] emergency department in May 2017 with [...] a loop recorder implanted as well. She had previously sustained a cerebrovascular accident in 2014 without any deficits. She presented to the hospital again in August of 2019 with right gaze deviation, left-sided weakness and facial droop. She was noted to be outside the TPA window on the MRI demonstrated evidence of bilateral strokes. She was transferred to [facility]. As part of her evaluation she had a troponin done which was abnormal. She had a transthoracic echocardiogram performed which demonstrated preserved left ventricular function with no wall motion abnormalities noted. She had a nuclear stress test which demonstrated no evidence of ischemia. It was felt that this was likely secondary to demand ischemia in the setting of a cerebrovascular accident. Her echocardiogram demonstrated mitral regurgitation which was moderately to moderate to severe, severe left atrial enlargement, mitral annular calcification with a mobile 0.5 x 0.5 cm calcification on the mitral valve. Cardiac surgery was consulted for further consideration she was well compensated with an ejection fraction of 70%. It was felt that due to her recent cerebrovascular accident this should be deferred by a few weeks. Her loop recorder was interrogated it was noted that there have been no atrial fibrillation episodes noted. It was implanted in March 2016 and had reached recommended replacement time in August. She underwent a cardiac catheterization in December 2019 and it demonstrated normal coronary arteries and severe mitral annular calcification. She did have some mitral regurgitation. Her echocardiogram in November 2019 demonstrated mitral calcification and 2+ mitral regurgitation. I did send her to the [facility] where she was evaluated. It was determined after that that we should pursue medical therapy for now. She has been doing well since. She also had a repeat echocardiogram in February of 2022 demonstrating an estimated ejection fraction of 68% severely dilated left atrium pulmonary artery systolic pressure of 78 mmHg and stage III diastolic dysfunction and 2+ eccentric mitral regurgitation. Her echocardiogram on 05/15/2023 demonstrated ejection fraction of 70%, severe mitral annular calcification, and moderate mitral valve insufficiency, moderately severe tricuspid valve insufficiency, with pulmonary artery systolic pressure of 93 mmHg. She was started on Lasix 40 mg daily at that time. From a cardiac standpoint, the patient is doing well. She does use a rollator to help with ambulation. She denies any palpitations, chest pain, pressure or heaviness. She denies SOB, Orthopnea, and PND. She does not have bleeding issues; no blood in urine, stool or nosebleeds. She denies any decrease in energy level, myalgias, or claudication. She does not have edema, or sudden weight gain. She denies dizziness, lightheadedness, syncopal or near syncopal episodes, and headaches. Intake Vital Signs 04/10/23 11:25 11/19/23 09:33 11/19/23 09:34 Height 5 ft 5 ft 5 ft Weight: 174 lb BMI 34.0 BP 119/69 Blood Pressure Location Lt brachial Position Sitting Respiration 18 Pulse 68 Pulse Source Monitor Pulse Oximetry (%) 99 Intake Visit Reasons: 6-9 M FU Fire Inspector Required: No Is patient in pain?: No Allergies acetaminophen (From Percocet) Allergy (Verified 11/19/23 09:41) Vomiting oxycodone Adverse Reaction (Verified 11/19/23 09:41) Nausea tetanus and diphtheria toxoids Adverse Reaction (Verified 11/19/23 09:41) dizziness, weakness, difficulty breathing, fast heart beat Medications ???Medication ???Instructions ???Recorded ???Confirmed ???Type aspirin 81 mg chewable tablet 81 mg PO DAILY@0800 heart 09/06/19 11/19/23 History magnesium chloride 71.5 mg 71.5 mg PO BID ##60 09/18/19 11/19/23 Rx (magnesium chloride) (more content not included)... Normal [facility] Basophil percentageOrdered B y: Brianna Yeboah on 06-13-2023 Chloride [Moles/Vol] 108 mmol/L 98-107 [facility] Glucose [Mass/Vol] 103 mg/dL 74-106 [facility] Comment on above: Fasting Glucose resu lt from 100 to 125 mg/dL suggests IMPAIRED HOMEOSTASIS per A.D.A. criteria. Potassium [Moles/Vol] 4.1 mmol/L 3.5-5.1 [facility] Sodium [Moles/Vol] 139 mmol/L 136-145 [facility] - Chemistry and C hemistry - challengeOrdered By: Brianna Yeboah on 06-13-2023 CO2 [Moles/Vol] 25.0 mmol/L 21.0-32.0 [facility] Urea nitrogen/Creatinine [Mass ratio] 24.2 mg/mg 10-20 [facility] No Panel InformationOrdered By: Brianna Yeboah on 06-13-2023 Estimated GFR (MDRD) Amer 41 mL/min >60 [facility] Comment on above: GFR Calc Estimated GFR (MDRD) Non-Af Amer 34 mL/min >60 [facility] Comment on above: Non- GFR Calc Serum or plasma calcium noah urement (mass/volume)Ordered By: Brianna Yeboah on 06-13-2023 Calcium [Mass/Vol] 9.7 mg/dL 8.5-10.1 [facility] Serum or plasma creatinine m easurement (mass/volume)Ordered By: Brianna Yeboah on 06-13-2023 Creatinine [Mass/Vol] 1.57 mg/dL 0.55-1.02 [facility] Comment on above: The validity of the calculated GFR & GFRAA in patients over 70 years has not been determined. Clinical correlation is essential. Serum or plasma urea nitroge n measurement (mass/volume)Ordered By: Brianna Yeboah on 06-13-2023 Urea nitrogen [Mass/Vol] 38 mg/dL 09-11 [facility] Thin prep Papanicolaou smear with manual screeningOrdered By: Brianna Yeboah on 06-13-2023 Thin prep Papanicolaou smear with manual screening 6 5-15 [facility] Basophil percentageOrdered B y: Brianna Yeboah on 05-30-2023 Chloride [Moles/Vol] 104 mmol/L 98-107 [facility] Glucose [Mass/Vol] 106 mg/dL 74-106 [facility] Comment on above: Fasting Glucose resu lt from 100 to 125 mg/dL suggests IMPAIRED HOMEOSTASIS per A.D.A. criteria. Potassium [Moles/Vol] 3.8 mmol/L 3.5-5.1 [facility] Sodium [Moles/Vol] 137 mmol/L 136-145 [facility] - Chemistry and C hemistry - challengeOrdered By: Brianna Yeboah on 05-30-2023 CO2 [Moles/Vol] 27.0 mmol/L 21.0-32.0 [facility] Urea nitrogen/Creatinine [Mass ratio] 26.0 mg/mg 10- [facility] No Panel InformationOrdered By: Brianna Yeboah on 05-30-2023 Estimated GFR (MDRD) Amer 35 mL/min >60 [facility] Comment on above: GFR Calc Estimated GFR (MDRD) Non-Af Amer 29 mL/min >60 [facility] Comment on above: Non- GFR Calc Serum or plasma calcium noah urement (mass/volume)Ordered By: Brianna Yeboah on 05-30-2023 Calcium [Mass/Vol] 10.4 mg/dL 8.5-10.1 [facility] Serum or plasma creatinine m easurement (mass/volume)Ordered By: Brianna Yeboah on 05-30-2023 Creatinine [Mass/Vol] 1.81 mg/dL 0.55-1.02 [facility] Comment on above: The validity of the calculated GFR & GFRAA in patients over 70 years has not been determined. Clinical correlation is essential. Serum or plasma urea nitroge n measurement (mass/volume)Ordered By: Brianna Yeboah on 05-30-2023 Urea nitrogen [Mass/Vol] 47 mg/dL 09-11 [facility] Thin prep Papanicolaou smear with manual screeningOrdered By: Brianna Yeboah on 05-30-2023 Thin prep Papanicolaou smear with manual screening 6 07-09 [facility] Basophil percentageOrdered B y: Brianna Yeboah on 05-22-2023 Chloride [Moles/Vol] 109 mmol/L 98-107 [facility] Glucose [Mass/Vol] 94 mg/dL 74-106 [facility] Potassium [Moles/Vol] 4.0 mmol/L 3.5-5.1 [facility] Sodium [Moles/Vol] 141 mmol/L 136-145 [facility] - Chemistry and C hemistry - challengeOrdered By: Brianna Yeboah on 05-22-2023 CO2 [Moles/Vol] 26.0 mmol/L 21.0-32.0 [facility] Urea nitrogen/Creatinine [Mass ratio] 17.1 mg/mg 10-20 [facility] No Panel InformationOrdered By: Brianna Yeboah on 05-22-2023 Estimated GFR (MDRD) Amer 51 mL/min >60 [facility] Comment on above: GFR Calc Estimated GFR (MDRD) Non-Af Amer 42 mL/min >60 [facility] Comment on above: Non- GFR Calc Serum or plasma calcium noah urement (mass/volume)Ordered By: Brianna Yeboah on 05-22-2023 Calcium [Mass/Vol] 9.7 mg/dL 8.5-10.1 [facility] Serum or plasma creatinine m easurement (mass/volume)Ordered By: Brianna Yeboah on 05-22-2023 Creatinine [Mass/Vol] 1.29 mg/dL 0.55-1.02 [facility] Comment on above: The validity of the calculated GFR & GFRAA in patients over 70 years has not been determined. Clinical correlation is essential. Serum or plasma urea nitroge n measurement (mass/volume)Ordered By: Brianna Yeboah on 05-22-2023 Urea nitrogen [Mass/Vol] 22 mg/dL 09-11 [facility] Thin prep Papanicolaou smear with manual screeningOrdered By: Brianna Yeboah on 05-22-2023 Thin prep Papanicolaou smear with manual screening 6 07-09 [facility] Absolute lymphocyte countOrd ered By: Brianna Yeboah on 04-22-2023 Lymphocytes Auto (Unsp spec) [#/Vol] 1.26 10*3/uL 0.83-4.51 [facility] Automated lymphocyte count a s percentage of total leukocytesOrdered By: Brianna Yeboah on 04-22-2023 Lymphocytes/100 WBC Auto (Unsp spec) 17.3 % 19-41 [facility] Basophil percentageOrdered B y: Brianna Yeboah on 04-22-2023 Basophils/100 WBC (Bld) 1.0 % 0-1 [facility] Bilirubin [Mass/Vol] 0.80 mg/dL 0.20-1.00 [facility] Comment on above: For patients on eltr ombopag therapy, use of Dimension Marilla TBIL is not recommended. Chloride [Moles/Vol] 112 mmol/L 98-107 [facility] Cholesterol [Mass/Vol] 90 mg/dL <200 [facility] Comment on above: <200 mg/dL Desirable 200-240 mg/dL Borderline >240 mg/dL High Risk Eosinophils/100 WBC (Bld) 2.6 % 0-5 [facility] Glucose [Mass/Vol] 93 mg/dL 74-106 [facility] Hemoglobin (Bld) [Mass/Vol] 12.5 g/dL 12.0-15.0 [facility] Monocytes/100 WBC (Bld) 8.8 % 0-10 [facility] Neutrophils (Bld) [#/Vol] 5.1 10*3/uL 2.0-7.7 [facility] Neutrophils/100 WBC (Bld) 70.0 % 47-70 [facility] Potassium [Moles/Vol] 4.0 mmol/L 3.5-5.1 [facility] Protein [Mass/Vol] 6.9 g/dL 6.4-8.2 [facility] Sodium [Moles/Vol] 141 mmol/L 136-145 [facility] Triglyceride [Mass/Vol] 73 mg/dL <199 [facility] Comment on above: The drugs N-Acetylcy steine and Metamizole may falsely depress this assay.Serum Triglycerides Reference Interval Normal <150 mg/dL Borderline high 150 - 199 mg/dL High 200 - 499 mg/dL Very High > or = 500 mg/dL WBC (Bld) [#/Vol] 7.3 10*3/uL 4.4-11.0 [facility] Determination of erythrocyte mean corpuscular volume (MCV)Ordered By: Brianna Yeboah on 04-22-2023 MCV (RBC) [Entitic vol] 97.3 fL 81-99 [facility] Direct bilirubinOrdered By: Brianna Yeboah on 04-22-2023 Bilirubin.direct [Mass/Vol] 0.26 mg/dL 0.00-0.30 [facility] Erythrocyte distribution wid th ratioOrdered By: Brianna Yeboah on 04-22-2023 Erythrocyte distribution width (RBC) [Ratio] 13.0 % 11.6-14.6 [facility] Erythrocyte distribution wid th standard deviationOrdered By: Brianna Yeboah on 04-22-2023 Erythrocyte distribution width (RBC) [Entitic vol] 46.4 fL 35.1-43.9 [facility] Hematocrit Auto (Bld) [Volum e fraction]Ordered By: Brianna Yeboah on 04-22-2023 Hematocrit (Bld) [Volume fraction] 39.8 % 37-47 [facility] Immature granulocytes/100 WB C Auto (Bld)Ordered By: Brianna Yeboah on 04-22-2023 Immature granulocytes/100 WBC (Bld) 0.300 % 0.0-0.9 [facility] Comment on above: IG% - Immature Granu locytes (promyelocytes, myelocytes and metamyelocytes) > 1% indicates that a LEFT SHIFT is Present. Laboratory - Chemistry and C hemistry - challengeOrdered By: Brianna Yeboah on 04-22-2023 ALP [Catalytic activity/Vol] 71 U/L 45-117 [facility] ALT [Catalytic activity/Vol] 13 U/L 13-56 [facility] Cholesterol in HDL [Mass/Vol] 62 mg/dL >40 [facility] Comment on above: The drugs N-Acetylcy steine and Metamizole may falsely depress this assay. Reference Range HDL <40 mg/dL Low HDL Cholesterol HDL >or= 60 mg/dL High HDL Cholesterol Cholesterol in LDL [Mass/Vol] 13 mg/dL 0-130 [facility] CO2 [Moles/Vol] 25.0 mmol/L 21.0-32.0 [facility] Globulin (S) [Mass/Vol] 3.3 g/dL 2.2-4.2 [facility] Urea nitrogen/Creatinine [Mass ratio] 17.6 mg/mg 10-20 [facility] Laboratory - Hematology and Cell countsOrdered By: Brianna Yeboah on 04-22-2023 MCH (RBC) [Entitic mass] 30.6 pg 27.0-32.0 [facility] MCHC (RBC) [Mass/Vol] 31.4 g/dL 32-36 [facility] Nucleated RBC/100 WBC (Bld) [Ratio] 0 % 0-5 [facility] Platelet mean volume (Bld) [Entitic vol] 11.5 fL 6.2-12.0 [facility] Platelets (Bld) [#/Vol] 186 10*3/uL 150-450 [facility] No Panel InformationOrdered By: Brianna Yeboah on 04-22-2023 Estimated GFR (MDRD) Amer 56 mL/min >60 [facility] Comment on above: GFR Calc Estimated GFR (MDRD) Non-Af Amer 46 mL/min >60 [facility] Comment on above: Non- GFR Calc Parathyroid Hormone (Intact) 100.9 pg/mL 18.4-80.1 [facility] Vitamin D 25-Hydroxy 49.2 ng/mL [facility] Comment on above: Vitamin D 25(OH) Sta tus Range Deficiency <20 ng/mL (50nmol/L) Insufficiency 20 - 30 ng/mL (50 - 75 nmol/L) Sufficiency 30 - 100 ng/mL (75 - 250 nmol/L) Toxicity >100 ng/mL (>250 nmol/L) VLDL Cholesterol 15 mg/dL 5-40 [facility] RBC Auto (Bld) [#/Vol]Ordere d By: Brianna Yeboah on 04-22-2023 RBC (Bld) [#/Vol] 4.09 10*6/uL 4.2-5.4 [facility] Serum or plasma calcium noah urement (mass/volume)Ordered By: Brianna Yeboah on 04-22-2023 Calcium [Mass/Vol] 9.4 mg/dL 8.5-10.1 [facility] Serum or plasma creatinine m easurement (mass/volume)Ordered By: Brianna Yeboah on 04-22-2023 Creatinine [Mass/Vol] 1.19 mg/dL 0.55-1.02 [facility] Comment on above: The validity of the calculated GFR & GFRAA in patients over 70 years has not been determined. Clinical correlation is essential. Serum or plasma urea nitroge n measurement (mass/volume)Ordered By: Brianna Yeboah on 04-22-2023 Urea nitrogen [Mass/Vol] 21 mg/dL 7-18 [facility] Thin prep Papanicolaou smear with manual screeningOrdered By: Brianna Yeboah on 04-22-2023 Thin prep Papanicolaou smear with manual screening 3.6 g/dL 3.2-5.0 [facility] Thin prep Papanicolaou smear with manual screening 17 U/L 15-37 [facility] Thin prep Papanicolaou smear with manual screening 4 5-15 [facility] CNOVon 01-29-2023 CNOV Office Visit (PODIWS) -------- GABRIELA BERG ([id number]) 1940 F Date Time Provider Department 01/29/23 1:30 PM DELMY GAFFNEY PODIWS During your visit today, we recorded the following information about you: Deja Archer LPN 01/29/2023 1:48 PM Signed AMB ROOMING INTAKE FLOWSHEET DATA Patient presents with: Left Foot - New, Wart Patient present to office with wart to left foot. Patient was placing OTC medication to wart when she got medication on health skin causing cellulitis. Patient was prescribed keflex to treat cellulitis. KUSH Payton Matthew 01/29/2023 1:48 PM Signed Initial Podiatric Office Visit: Chief Complaint: This 82 year old female who presents with chief complaint:wart of left foot HPI Patient presents to clinic for evaluation of left foot. Apparently has a wart that she treated back in November with over the counter liquid wart removal. She treated the wart with the medication and she states she developed cellulitis as a result of the medication. She went to urgent care and had to be on 3 rounds of keflex to treat the infection to left foot. The infection did improve. She believes the medication did help with the wart to some degree. Patient is here today as she feels there is still some pressure to the left foot and she wants to discuss treatment options. PAIN EVALUATION No data found in the last 1 encounters. 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 calcium carbonate/vitamin D3 (VITAMIN D-3 ORAL) Take by mouth. Ansxn-2-EMQ-[id number]-Fi sh Oil (FISH OIL) 1,000 mg (120 mg-180 mg) cap Take 2 g by mouth twice daily. acetaminophen (TYLENOL) 325 mg cap Take by mouth. atorvastatin (LIPITOR) 40 mg tablet Take 40 mg by mouth once daily. clopidogrel bisulfate(PLAVIX 75 MG TAB) Take one(1) tablet daily. lisinopril(PRINIVI L 10 MG TAB) Take one(1) tablet daily. ASPIRIN 81 MG TAB Take one(1) tablet daily. metoprolol succinate ER (TOPROL XL) 50 mg 24 hr tablet Take 1 tablet by mouth every afternoon. No current facility-administe red medications for this visit. ALLERGIES Allergen Reactions Oxycodone Vomiting PAST SURGICAL HISTORY Procedure Laterality Date ARTHRP KNE CONDYLEANDPLATU MEDIALANDLAT COMPARTMENTS 04/2014 R knee; Dr. Cueva OOPHORECTOMY PARTIAL/TOTAL UNI/BI prior to 2011 Oophorectomy, right PAST SURGICAL HISTORY OF 08/2012 Repair Bladder Prolapse TOTAL ABDOMINAL HYSTERECT W/WO RMVL TUBE OVARY 08/24/2011 Hysterectomy, JONAH, left ovary FAMILY HISTORY Problem Relation Age of Onset Colon Cancer Mother Stroke Mother other (TIA) Mother Ischemic Heart Disease Father Coronary Artery Disease Father Stroke Father other (TIA) Father Cancer Brother other (Brain Aneurysm) Son Social History Tobacco Use Smoking status: Never Smokeless tobacco: Never Substance Use Topics Alcohol use: No Drug use: No REVIEW OF SYSTEMS GENERAL: Negative for Malaise, significant weight loss, fever RESPIRATORY: Negative for cough, wheezing and shortness of breath CARDIOVASCULAR: Negative for chest pain, leg swelling and palpitations GI: Negative for abdominal discomfort, blood in stools or black stools and change in bowel habits : Negative for dysuria, frequency and incontinence MUSCULOSKELETAL: Negative for joint pain or swelling, back pain, and muscle pain. SKIN: Negative for lesions, rash, and itching. HEMATOLOGY/LYMPHOL OGY Negative for prolonged bleeding, bruising easily, and swollen nodes. ENDOCRINE: Negative for cold or heat intolerance, polyuria, polydipsia and goiter. NEURO: negative Physical Exam: Constitutional: Pt is a well developed 82 year old female who is alert, oriented and cooperative Eyes: Following during examination. No redness or drainage. Respiratory: RR normal and nonlabored. Even breathing. No evidence of distress or shortness of breath. Psychology: Patient is engaged during conversation. Normal affect and mood. Does not appear depressed or anxious during encounter. Vascular: Dorsalis pedis and posterior tibial pulses faintly palpable b/l Capillary Fill time < 5 seconds to digits 1-5 b/l Skin temperature warm to cool proximal to distal b/l Hair growth present to digits Neurological: intact light touch/epicritic sensation b/l intact pr (more content not included)... Normal [facility] Laboratory - Microbiology an d Antimicrobial susceptibilityOrdered By: Raghavendra Severino on 12-16-2022 SARS-CoV-2 (COVID-19) RNA NEAL+probe Ql (Unsp spec) [facility] Absolute lymphocyte countOrd ered By: Dr. Christian on 04-02-2022 Lymphocytes Auto (Unsp spec) [#/Vol] 1.21 10*3/uL 0.83-4.51 [facility] Basophil percentageOrdered B y: Dr. Christian on 04-02-2022 Basophils/100 WBC (Bld) 0.6 % 0-1 [facility] Bilirubin [Mass/Vol] 1.20 mg/dL 0.20-1.[address] [facility] Comment on above: For patients on eltr ombopag therapy, use of Dimension Marilla TBIL is not recommended. Chloride [Moles/Vol] 107 mmol/L 98-107 [facility] Cholesterol [Mass/Vol] 94 mg/dL <200 [facility] Comment on above: <200 mg/dL Desirable 200-240 mg/dL Borderline >240 mg/dL High Risk Eosinophils/100 WBC (Bld) 1.6 % 0-5 [facility] Glucose [Mass/Vol] 100 mg/dL 74-106 [facility] Comment on above: Fasting Glucose resu lt from 100 to 125 mg/dL suggests IMPAIRED HOMEOSTASIS per A.D.A. criteria. Neutrophils (Bld) [#/Vol] 6.1 10*3/uL 2.0-7.7 [facility] Neutrophils/100 WBC (Bld) 73.3 % 47-70 [facility] Potassium [Moles/Vol] 4.3 mmol/L 3.5-5.1 [facility] Protein [Mass/Vol] 7.0 g/dL 6.4-8.2 [facility] Sodium [Moles/Vol] 139 mmol/L 136-145 [facility] Triglyceride [Mass/Vol] 54 mg/dL <199 [facility] Comment on above: The drugs N-Acetylcy steine and Metamizole may falsely depress this assay.Serum Triglycerides Reference Interval Normal <150 mg/dL Borderline high 150 - 199 mg/dL High 200 - 499 mg/dL Very High > or = 500 mg/dL WBC (Bld) [#/Vol] 8.4 10*3/uL 4.4-11.0 [facility] Blood erythrocytes count (nu mber/volume)Ordered By: Dr. Christian on 04-02-2022 RBC (Bld) [#/Vol] 3.95 10*6/uL 4.2-5.4 [facility] Blood hemoglobin measurement (mass/volume)Ordered By: Dr. Christian on 04-02-2022 Hemoglobin (Bld) [Mass/Vol] 12.1 g/dL 12.0-15.0 [facility] Blood lymphocytes/100 leukoc ytesOrdered By: Dr. Christian on 02-06-2023 Lymphocytes/100 WBC (Bld) 14.5 % 19-41 [facility] Blood monocytes/100 leukocyt esOrdered By: Dr. Christian on 04-02-2022 Monocytes/100 WBC (Bld) 9.8 % 0-10 [facility] Blood platelet mean volumeOr dered By: Dr. Christian on 04-02-2022 Platelet mean volume (Bld) [Entitic vol] 11.0 fL 6.2-12.0 [facility] Determination of erythrocyte mean corpuscular volume (MCV)Ordered By: Dr. Christian on 04-02-2022 MCV (RBC) [Entitic vol] 95.7 fL 81-99 [facility] Hematocrit Auto (Bld) [Volum e fraction]Ordered By: Dr. Christian on 04-02-2022 Hematocrit (Bld) [Volume fraction] 37.8 % 37-47 [facility] Laboratory - Chemistry and C hemistry - challengeOrdered By: Dr. Christian on 04-02-2022 ALP [Catalytic activity/Vol] 75 U/L 45-117 [facility] ALT [Catalytic activity/Vol] 15 U/L 13-56 [facility] CO2 [Moles/Vol] 26.0 mmol/L 21.0-32.0 [facility] Globulin (S) [Mass/Vol] 3.5 g/dL 2.2-4.2 [facility] Urea nitrogen/Creatinine [Mass ratio] 19.2 mg/mg 10-20 [facility] Laboratory - Hematology and Cell countsOrdered By: Dr. Christian on 04-02-2022 Erythrocyte distribution width (RBC) [Entitic vol] 46.8 fL 35.1-43.9 [facility] Erythrocyte distribution width (RBC) [Ratio] 13.2 % 11.6-14.6 [facility] Immature granulocytes/100 WBC (Bld) 0.200 % 0.0-0.9 [facility] Comment on above: IG% - Immature Granu locytes (promyelocytes, myelocytes and metamyelocytes) > 1% indicates that a LEFT SHIFT is Present. MCH (RBC) [Entitic mass] 30.6 pg 27.0-32.0 [facility] Nucleated RBC/100 WBC (Bld) [Ratio] 0 % 0-5 [facility] Auto (RBC) [Mass/Vol]Or dered By: Dr. Christian on 04-02-2022 MCHC (RBC) [Mass/Vol] 32.0 g/dL 32-36 [facility] No Panel InformationOrdered By: Dr. Christian on 04-02-2022 Estimated GFR (MDRD) Amer 56 mL/min >60 [facility] Comment on above: GFR Calc Estimated GFR (MDRD) Non-Af Amer 46 mL/min >60 [facility] Comment on above: Non- GFR Calc Vitamin D 25-Hydroxy 50.4 ng/mL [facility] Comment on above: Vitamin D 25(OH) Sta tus Range Deficiency <20 ng/mL (50nmol/L) Insufficiency 20 - 30 ng/mL (50 - 75 nmol/L) Sufficiency 30 - 100 ng/mL (75 - 250 nmol/L) Toxicity >100 ng/mL (>250 nmol/L) Platelets bldOrdered By: Dr. Christian on 04-02-2022 Platelets (Bld) [#/Vol] 196 10*3/uL 150-450 [facility] Serum or plasma albumin noah urement (mass/volume)Ordered By: Dr. Christian on 04-02-2022 Albumin [Mass/Vol] 3.5 g/dL 3.2-5.0 [facility] Serum or plasma albumin/glob ulin mass ratioOrdered By: Dr. Christian on 04-02-2022 Albumin/Globulin [Mass ratio] 1.0 {ratio} 0.9-2.4 [facility] Serum or plasma calcium noah urement (mass/volume)Ordered By: Dr. Christian on 04-02-2022 Calcium [Mass/Vol] 9.6 mg/dL 8.5-10.1 [facility] Serum or plasma cholesterol in HDL measurement (mass/volume)Ordered By: Dr. Christian on 04-02-2022 Cholesterol in HDL [Mass/Vol] 73 mg/dL >40 [facility] Comment on above: The drugs N-Acetylcy steine and Metamizole may falsely depress this assay. Reference Range HDL <40 mg/dL Low HDL Cholesterol HDL >or= 60 mg/dL High HDL Cholesterol Serum or plasma cholesterol in VLDL measurement (mass/volume)Ordered By: Dr. Christian on 04-02-2022 Cholesterol in VLDL [Mass/Vol] 11 mg/dL 5-40 [facility] Serum or plasma creatinine m easurement (mass/volume)Ordered By: Dr. Christian on 04-02-2022 Creatinine [Mass/Vol] 1.20 mg/dL 0.55-1.02 [facility] Comment on above: The validity of the calculated GFR & GFRAA in patients over 70 years has not been determined. Clinical correlation is essential. Serum or plasma low density lipoprotein (LDL) cholesterol measurement (mass/volume)Ordered By: Dr. Christian on 04-02-2022 Cholesterol in LDL [Mass/Vol] 10 mg/dL 0-130 [facility] Serum or plasma urea nitroge n measurement (mass/volume)Ordered By: Dr. Christian on 04-02-2022 Urea nitrogen [Mass/Vol] 23 mg/dL 7-18 [facility] Thin prep Papanicolaou smear with manual screeningOrdered By: Dr. Christian on 04-02-2022 Thin prep Papanicolaou smear with manual screening 17 U/L 15-37 [facility] Thin prep Papanicolaou smear with manual screening 6 5-15 [facility] Absolute lymphocyte counton 08-14-2021 Lymphocytes Auto (Unsp spec) [#/Vol] 0.94 10*3/uL 0.83-4.51 [facility] Work Phone: Basophil percentageon 2021 Basophils/100 WBC (Bld) 1.1 % 0-1 [facility] Work Phone: Eosinophils/100 WBC (Bld) 1.7 % 0-5 [facility] Work Phone: Neutrophils (Bld) [#/Vol] 4.9 10*3/uL 2.0-7.7 [facility] Work Phone: Neutrophils/100 WBC (Bld) 74.5 % 47-70 [facility] Work Phone: WBC (Bld) [#/Vol] 6.6 10*3/uL 4.4-11.0 [facility] Work Phone: Bilirubin [Mass/Vol] 0.60 mg/dL 0.20-1.00 [facility] Work [facility]: Comment on above: For patients on eltr ombopag therapy, use of Dimension Marilla TBIL is not recommended. Cholesterol [Mass/Vol] 87 mg/dL <200 [facility] Work Phone: Comment on above: <200 mg/dL Desirable 200-240 mg/dL Borderline >240 mg/dL High Risk Protein [Mass/Vol] 7.0 g/dL 6.4-8.2 [facility] Work Phone: Triglyceride [Mass/Vol] 66 mg/dL <199 [facility] Work Phone: Comment on above: The drugs N-Acetylcy steine and Metamizole may falsely depress this assay.Serum Triglycerides Reference Interval Normal <150 mg/dL Borderline high 150 - 199 mg/dL High 200 - 499 mg/dL Very High > or = 500 mg/dL Blood erythrocytes count (nu mber/volume)on 08-14-2021 RBC (Bld) [#/Vol] 3.90 10*6/uL 4.2-5.4 [facility] Work Phone: Blood hemoglobin measurement (mass/volume)on 08-14-2021 Hemoglobin (Bld) [Mass/Vol] 12.3 g/dL 12.0-15.0 [facility] Work Phone: Blood lymphocytes/100 leukoc yteson 08-14-2021 Lymphocytes/100 WBC (Bld) 14.3 % 19-41 [facility] Work Phone: Blood monocytes/100 leukocyt eson 08-14-2021 Monocytes/100 WBC (Bld) 8.1 % 0-10 [facility] Work Phone: Blood platelet mean volumeon 08-14-2021 Platelet mean volume (Bld) [Entitic vol] 11.1 fL 6.2-12.0 [facility] Work Phone: Determination of erythrocyte mean corpuscular volume (MCV)on 08-14-2021 MCV (RBC) [Entitic vol] 97.7 fL 81-99 [facility] Work Phone: Direct bilirubinon 2 Bilirubin.direct [Mass/Vol] 0.24 mg/dL 0.00-0.30 [facility] Work Phone: Erythrocyte sedimentation ra tejal 08-14-2021 ESR (Bld) [Velocity] 10 mm/h 0-30 [facility] Work Phone: Hematocrit Auto (Bld) [Volum e fraction]on 08-14-2021 Hematocrit (Bld) [Volume fraction] 38.1 % 37-47 [facility] Work Phone: Laboratory - Chemistry and C hemistry - challengeon 08-14-2021 ALP [Catalytic activity/Vol] 85 U/L 45-117 [facility] Work Phone: ALT [Catalytic activity/Vol] 15 U/L 13-56 [facility] Work Phone: Globulin (S) [Mass/Vol] 3.6 g/dL 2.2-4.2 [facility] Work Phone: Laboratory - Hematology and Cell countson 08-14-2021 Erythrocyte distribution width (RBC) [Entitic vol] 47.0 fL 35.1-43.9 [facility] Work Phone: Erythrocyte distribution width (RBC) [Ratio] 13.2 % 11.6-14.6 [facility] Work Phone: Immature granulocytes/100 WBC (Bld) 0.300 % 0.0-0.9 [facility] Work Phone: Comment on above: IG% - Immature Granu locytes (promyelocytes, myelocytes and metamyelocytes) > 1% indicates that a LEFT SHIFT is Present. MCH (RBC) [Entitic mass] 31.5 pg 27.0-32.0 [facility] Work Phone: Nucleated RBC/100 WBC (Bld) [Ratio] 0 % 0-5 [facility] Work Phone: MCHC Auto (RBC) [Mass/Vol]on 08-14-2021 MCHC (RBC) [Mass/Vol] 32.3 g/dL 32-36 [facility] Work Phone: Platelets bldon 08-14-2021 Platelets (Bld) [#/Vol] 245 10*3/uL 150-450 [facility] Work Phone: Serum or plasma C reactive p rotein measurement (mass/volume)on 08-14-2021 CRP [Mass/Vol] 3.06 mg/L 0.0-3.0 [facility] Work Phone: Comment on above: C-Reactive Protein ( CRP) provides useful information for thediagnosis, therapy and monitoring of inflammatory processesand associated diseases. For the evaluation of Relative Riskfor Cardiovascular Disease, a High Sensitivity CRP (HSCRP)should be ordered. Serum or plasma albumin noah urement (mass/volume)on 08-14-2021 Albumin [Mass/Vol] 3.4 g/dL 3.2-5.0 [facility] Work Phone: Serum or plasma cholesterol in HDL measurement (mass/volume)on 08-14-2021 Cholesterol in HDL [Mass/Vol] 65 mg/dL >40 [facility] Work Phone: Comment on above: The drugs N-Acetylcy steine and Metamizole may falsely depress this assay. Reference Range HDL <40 mg/dL Low HDL Cholesterol HDL >or= 60 mg/dL High HDL Cholesterol Serum or plasma cholesterol in VLDL measurement (mass/volume)on 08-14-2021 Cholesterol in VLDL [Mass/Vol] 13 mg/dL 5-40 [facility] Work Phone: Serum or plasma low density lipoprotein (LDL) cholesterol measurement (mass/volume)on 08-14-2021 Cholesterol in LDL [Mass/Vol] 9 mg/dL 0-130 [facility] Work Phone: Thin prep Papanicolaou smear with manual screeningon 08-14-2021 Thin prep Papanicolaou smear with manual screening 17 U/L 15-37 [facility] Work Phone: [facility] Note on 06-07-2017 [facility] Note Normal [facility] [place] Pat Eduon 06-07-2017 Pat Edu Normal [facility] [place] Patient Summary Documentson 06-07-2017 Patient Summary Documents Normal [facility] [place] Lab Report: Lipid Profileon 01-08-2017 Cholesterol 88 mg/dL Invalid Interpretation Code 200 [employer] Work Phone: [phone] HDL Cholesterol 76 mg/dL Invalid Interpretation Code [employer] Work Phone: [phone] LDL Cholesterol 1 mg/dL Invalid Interpretation Code 0-130 [employer] Work Phone: [phone] Triglyceride 57 mg/dL Invalid Interpretation Code [employer] Work Phone: [phone] very low density lipoproteins 11 mg/dL Invalid Interpretation Code 5-40 [employer] Work Phone: [phone] Lab Report: Liver Profileon 01-08-2017 Alanine aminotransferase (ALT) 19 U/L Invalid Interpretation Code 12-78 [employer] Work Phone: [phone] Albumin 3.7 g/dL Invalid Interpretation Code 3.4-5.0 [employer] Work Phone: [phone] Alkaline phosphatase (ALP) 74 U/L Invalid Interpretation Code 45-117 [employer] Work Phone: [phone] Aspartate aminotransferase (AST) 22 U/L Invalid Interpretation Code 15-37 [employer] Work Phone: [phone] Bilirubin (direct) 0.15 mg/dL Invalid Interpretation Code 0.00-0.30 [employer] Work Phone: [phone] Bilirubin (total) 0.60 mg/dL Invalid Interpretation Code 0.20-1.00 [employer] Work Phone: [phone] Globulin 3.5 g/dL Invalid Interpretation Code 2.2-4.2 [employer] Work Phone: [phone] Protein 7.2 g/dL Invalid Interpretation Code 6.4-8.2 [facility] [employer] Phone: [phone] Office Visiton 01-08-2017 Documentation of current medications (procedure) Done Invalid Interpretation Code [facility] [employer] Phone: [phone] Fall risk assessment No Invalid Interpretation Code [employer] Work Phone: [phone] 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 Left ventricular Ejection fraction 70 % Invalid Interpretation Code [employer] Work Phone: [phone] Office Visit: [facility] 01-10-20 16 Documentation of current medications (procedure) Done Invalid Interpretation Code [employer] Work Phone: [phone] Tobacco use CPHS Never smoker Invalid Interpretation Code [employer] Work Phone: [phone] Lab Report: CBC W/Diff, Auto matedon 01-03-2016 Absolute Neut 3.8 X10 3/UL Invalid Interpretation Code 2.0-7.7 [facility] [employer] Phone: [phone] Basophils/100 WBC Auto (Bld) 0.9 % Invalid Interpretation Code 0-1 [facility] [employer] Phone: [phone] Eosinophils/100 leukocytes 3.5 % Invalid Interpretation Code 0-5 [facility] [employer] Network Phone: [phone] Erythrocyte distribution width Auto Ratio (RBC) 13.2 % Invalid Interpretation Code 11.6-14.6 PT [employer] Phone: [phone] Erythrocytes (RBC) 4.30 10*6/uL Invalid Interpretation Code 4.2-5.4 [employer] Work Phone: [phone] Hematocrit (HCT) 41.0 % Invalid Interpretation Code 37-47 PT [employer] Phone: [phone] Hemoglobin mass conc (Bld) 13.2 g/dL Invalid Interpretation Code 12.0-15.0 PT [employer] Phone: [phone] Immature granulocytes/100 WBC (Bld) 0.000 % Invalid Interpretation Code 0.0-0.9 PT [employer] Phone: [phone] Lymphocytes 1.13 X10 3/UL Invalid Interpretation Code 0.83-4.51 [employer] Work Phone: [phone] Lymphocytes/100 leukocytes 19.8 % Invalid Interpretation Code 19-41 [employer] Work Phone: [phone] MCH 30.7 pg Invalid Interpretation Code 27.0-32.0 [employer] Work Phone: [phone] MCHC mass conc (RBC) 32.2 G/GL Invalid Interpretation Code 32-36 [employer] Work Phone: [phone] MCV 95.3 fL Invalid Interpretation Code 81-99 [employer] Work Phone: [phone] Monocytes/100 leukocytes 9.5 % Invalid Interpretation Code 0-10 [employer] Work Phone: [phone] Neutrophils/100 WBC Auto (Bld) 66.3 % Invalid Interpretation Code 47-70 [employer] Work Phone: [phone] Platelets 212 10*3/mm3 Invalid Interpretation Code 150-450 [employer] Work Phone: [phone] PMV by Faby 10.4 fL Invalid Interpretation Code 6.2-12.0 [employer] Work Phone: [phone] RDW SD 45.5 fL High 35.1-43.9 [employer] Work Phone: [phone] WBC (Leukocytes) 5.7 10*3/uL Invalid Interpretation Code 4.4-11.0 [employer] Work Phone: [phone] Lab Report: Comprehensive [facility] Profilon 01-03-2016 Alanine aminotransferase (ALT) 18 U/L Invalid Interpretation Code 12-78 [employer] Work Phone: [phone] Albumin 3.7 g/dL Invalid Interpretation Code 3.4-5.0 [employer] Work Phone: [phone] Albumin/Globulin Ratio 1.1 {ratio} Invalid Interpretation Code 0.9-2.4 [employer] Work Phone: [phone] Alkaline phosphatase (ALP) 66 U/L Invalid Interpretation Code 45-117 [employer] Work Phone: [phone] Anion gap 8 mmol/L Invalid Interpretation Code 5-15 [employer] Work Phone: [phone] Aspartate aminotransferase (AST) 18 U/L Invalid Interpretation Code 15-37 [facility] Work Phone: [phone] Bilirubin (total) 0.50 mg/dL Invalid Interpretation Code 0.20-1.00 [facility] Work Phone: [phone] BUN/Creatinine Ratio 26.7 RATIO High 10-20 [facility] Work Phone: [phone] Calcium 9.3 mg/dL Invalid Interpretation Code 8.5-10.1 [facility] Work Phone: [phone] Chloride 104 mmol/L Invalid Interpretation Code 98-107 [facility] Work Phone: [phone] CO2 30.0 mmol/L Invalid Interpretation Code 21.0-32.0 [facility] Work Phone: [phone] Creatinine 0.94 mg/dL Invalid Interpretation Code 0.55-1.02 [facility] Work Phone: [phone] eGFR (non-black) 62 mL/min/{1.73_m2} Invalid Interpretation Code >60 [facility] Work Phone: [phone] eGFR (non-black) 75 mL/min/{1.73_m2} Invalid Interpretation Code >60 [facility] Work Phone: [phone] Globulin 3.4 g/dL Invalid Interpretation Code 2.3-3.5 [facility] Work Phone: [phone] Glucose mass conc 87 mg/dL Invalid Interpretation Code 70-110 [facility] Work Phone: [phone] Potassium molar conc 4.2 mmol/L Invalid Interpretation Code 3.5-5.1 [facility] Work Phone: [phone] Protein 7.1 g/dL Invalid Interpretation Code 6.4-8.2 [facility] Work Phone: [phone] Sodium 142 mmol/L Invalid Interpretation Code 136-145 [facility] Work Phone: [phone] Urea nitrogen 25 mg/dL High 7-18 [facility] Work Phone: [phone] Lab Report: Lipid Profileon 01-03-2016 Cholesterol 93 mg/dL Invalid Interpretation Code 200 [facility] Work Phone: [phone] HDL Cholesterol 63 mg/dL Invalid Interpretation Code [employer] Work Phone: [phone] LDL Cholesterol 16 mg/dL Invalid Interpretation Code 0-130 [employer] Work Phone: [phone] Triglyceride 68 mg/dL Invalid Interpretation Code [employer] Work Phone: [phone] very low density lipoproteins 14 mg/dL Invalid Interpretation Code 5-40 [employer] Work Phone: [phone] Office Visit: F/u HTN & Lipi dson 06-28-2015 Dietary management education, guidance, and counseling (procedure) yes Invalid Interpretation Code [employer] Work Phone: [phone] Lab Report: Liver Profileon 01-12-2015 Bilirubin (direct) 0.17 mg/dL Invalid Interpretation Code 0.00-0.30 [employer] Work Phone: [phone] 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 Albumin/Globulin Ratio 1.2 {ratio} Invalid Interpretation Code [employer] Work Phone: [phone] basophils as percent of blood leukocytes, manual count 0.8 % Invalid Interpretation Code [employer] Work Phone: [phone] eosinophils as percent of blood leukocytes, manual count 2.7 % Invalid Interpretation Code [employer] Work Phone: [phone] Globulin 3.0 g/dL Invalid Interpretation Code PT [employer] Phone: [phone] neutrophils, band form as percent of blood leukocytes, manual count 68.1 % Invalid Interpretation Code [employer] Work Phone: [phone] Lab Report: CMPon 12-30-2012 CO2 6 mmol/L Normal 5-15 [employer] Work Phone: [phone] Lab Report: METHYL - copyon 07-31-2012 METHYL 192 nmol/L Normal 73-376 [employer] Work Phone: [phone] Lab Report: TSHon 07-24-2012 Thyroid stimulating hormone (TSH) 3.14 u[iU]/mL Normal 0.358-3.74 [employer] Work Phone: [phone] Vital Signs Date Time Vital Sign Value Performing Clinician Faci lity 05-19-2024 07:17-0400 Body mass index (BMI) [Ratio] 33.7 kg/m2 Dr. Sarahi Christian DO Work Phone: [facility] 05-19-2024 07:17-0400 Body weight 78.[address] Sarahi Christian DO Work Phone: [facility] 05-19-2024 07:17-0400 Diastolic blood pressure 77 mm[Hg] Dr. Saarhi Christian DO Work Phone: [facility] 05-19-2024 07:17-0400 Heart rate 63 /min Dr. Sarahi Christian DO Work Phone: [facility] 05-19-2024 07:17-0400 Respiratory rate 20 /min Dr. Sarahi Christian DO Work Phone: [facility] 05-19-2024 07:17-0400 SaO2% (BldA) [Mass fraction] 97 % Dr. Sarahi Christian DO Work Phone: [facility] 05-19-2024 07:17-0400 Systolic blood pressure 120 mm[Hg] Dr. Sarahi Christian DO Work Phone: [facility] 04-10-2023 11:25-0500 Body height 152.[address] Sarahi Christian Work Phone: [facility] 04-10-2023 11:21-0500 Body mass index (BMI) [Ratio] 34.5 kg/m2 Dr. Sarahi Christian Work Phone: [facility] 04-10-2023 11:21-0500 Body weight 80.[address] Sarahi Christian Work Phone: [facility] 04-10-2023 11:21-0500 Diastolic blood pressure 72 mm[Hg] Dr. Sarahi Christian Work Phone: [facility] 04-10-2023 11:21-0500 Heart rate 67 /min Dr. Sarahi Christian Work Phone: [facility] 04-10-2023 11:21-0500 Respiratory rate 18 /min Dr. Sarahi Christian Work Phone: [facility] 04-10-2023 11:21-0500 SaO2% (BldA) [Mass fraction] 98 % Dr. Sarahi Christian Work Phone: [facility] 04-10-2023 11:21-0500 Systolic blood pressure 103 mm[Hg] Dr. Sarahi Christian Work Phone: [facility] 12-16-2022 11:06-0400 Body height 152.[address] Sarahi Christian Work Phone: [facility] 12-16-2022 11:06-0400 Body mass index (BMI) [Ratio] 34.5 kg/m2 Dr. Sarahi Christian Work Phone: [facility] 12-16-2022 11:06-0400 Body temperature 97.4 [degF] Dr. Sarahi Christian Work Phone: [facility] 12-16-2022 11:06-0400 Body weight 80.[address] Sarahi Christian Work Phone: [facility] 12-16-2022 11:06-0400 Diastolic blood pressure 76 mm[Hg] Dr. Sarahi Christian Work Phone: [facility] 12-16-2022 11:06-0400 Heart rate 75 /min Dr. Sarahi Christian Work Phone: [facility] 12-16-2022 11:06-0400 Respiratory rate 18 /min Dr. Sarahi Christian Work Phone: [facility] 12-16-2022 11:06-0400 SaO2% (BldA) [Mass fraction] 95 % Dr. Sarahi Christian Work Phone: [facility] 12-16-2022 11:06-0400 Systolic blood pressure 138 mm[Hg] Dr. Sarahi Christian Work Phone: [facility] 01-09-2022 14:02-0500 Body height 152.[address] Sarahi Christian Work Phone: [facility] 01-09-2022 14:02-0500 Body mass index (BMI) [Ratio] 33.2 kg/m2 Dr. Sarahi Christian Work Phone: [facility] 01-09-2022 14:02-0500 Body weight 77.[address] Sarahi Christian Work Phone: [facility] 01-09-2022 14:02-0500 Diastolic blood pressure 77 mm[Hg] Dr. Sarahi Christian Work Phone: [facility] 01-09-2022 14:02-0500 Heart rate 60 /min Dr. Sarahi Christian Work Phone: [facility] 01-09-2022 14:02-0500 Respiratory rate 16 /min Dr. Sarahi Christian Work Phone: [facility] 01-09-2022 14:02-0500 SaO2% (BldA) [Mass fraction] 98 % Dr. Sarahi Christian Work Phone: [facility] 01-09-2022 14:02-0500 Systolic blood pressure 154 mm[Hg] Dr. Sarahi Christian Work Phone: [facility] 08-02-2021 10:36-0400 Diastolic blood pressure 65 mm[Hg] Dr. Sarahi Christian Work Phone: [facility] Work Phone: 08-02-2021 10:36-0400 Heart rate 84 /min Dr. Sarahi Christian Work Phone: [facility] Work Phone: 08-02-2021 10:36-0400 Respiratory rate 18 /min Dr. Sarahi Christian Work Phone: [facility] Work Phone: 08-02-2021 10:36-0400 Systolic blood pressure 136 mm[Hg] Dr. Sarahi Christian Work Phone: [facility] Work Phone: 08-02-2021 09:12-0400 Body height 152.[address] Sarahi Christian Work Phone: [facility] Work Phone: 08-02-2021 09:12-0400 Body mass index (BMI) [Ratio] 34.7 kg/m2 Dr. Sarahi Christian Work Phone: [facility] Work Phone: 08-02-2021 09:12-0400 Body temperature 97.9 [degF] Dr. Sarahi Christian Work Phone: [facility] Work Phone: 08-02-2021 09:12-0400 Body weight 80.[address] Sarahi Christian Work Phone: [facility] Work Phone: 08-02-2021 09:12-0400 SaO2% (BldA) [Mass fraction] 99 % Dr. Sarahi Christian Work Phone: [facility] Work Phone: 06-29-2021 08:01-0400 Body mass index (BMI) [Ratio] 34.9 kg/m2 Dr. Sarahi Christian Work Phone: [facility] Work Phone: 06-29-2021 08:01-0400 Body weight 81.[address] Sarahi Christian Work Phone: [facility] Work Phone: 06-29-2021 08:01-0400 Diastolic blood pressure 62 mm[Hg] Dr. Sarahi Christian Work Phone: [facility] Work Phone: 06-29-2021 08:01-0400 Heart rate 88 /min Dr. Sarahi Christian Work Phone: [facility] Work Phone: 06-29-2021 08:01-0400 Respiratory rate 18 /min Dr. Sarahi Christian Work Phone: [facility] Work Phone: 06-29-2021 08:01-0400 SaO2% (BldA) [Mass fraction] 97 % Dr. Sarahi Christian Work Phone: [facility] Work Phone: 06-29-2021 08:01-0400 Systolic blood pressure 106 mm[Hg] Dr. Sarahi Christian Work Phone: [facility] Work Phone: 05-20-2021 08:50-0400 Body mass index (BMI) [Ratio] 34.3 kg/m2 Dr. Sarahi Christian Work Phone: [facility] Work Phone: 05-20-2021 08:50-0400 Body temperature 98.5 [degF] Dr. Sarahi Christian Work Phone: [facility] Work Phone: 05-20-2021 08:50-0400 Body weight 79.[address] Sarahi Christian Work Phone: [facility] Work Phone: 05-20-2021 08:50-0400 Diastolic blood pressure 78 mm[Hg] Dr. Sarahi Christian Work Phone: [facility] Work Phone: 05-20-2021 08:50-0400 Heart rate 79 /min Dr. Sarahi Christian Work Phone: [facility] Work Phone: 05-20-2021 08:50-0400 Respiratory rate 16 /min Dr. Sarahi Christian Work Phone: [facility] Work Phone: 05-20-2021 08:50-0400 SaO2% (BldA) [Mass fraction] 96 % Dr. Sarahi Christian Work Phone: [facility] Work Phone: 05-20-2021 08:50-0400 Systolic blood pressure 158 mm[Hg] Dr. Sarahi Christian Work Phone: [facility] Work Phone: 01-08-2017 10:01-0500 BMI (Body Mass Index) 33.47 kg/m2 [facility] Work Phone: 01-08-2017 10:01-0500 BP Diastolic 70 mm[Hg] Mily Archer [facility] Work Phone: 01-08-2017 10:01-0500 BP Systolic 140 mm[Hg] Mily Archer [facility] Work Phone: 01-08-2017 10:01-0500 Height 157.48 cm Mily Archer [facility] Work Phone: 01-08-2017 10:01-0500 Pulse (Heart Rate) 84 /min Mily Archer [facility] Work Phone: 01-08-2017 10:01-0500 Respiratory Rate 18 /min Mily Archer [facility] Work Phone: 01-08-2017 10:01-0500 Weight 83.01 kg [facility] Work Phone: 01-10-2016 09:28-0500 BMI (Body Mass Index) 32.75 kg/m2 Mecca Corbett RN [facility] Work Phone: 01-10-2016 09:28-0500 BP Diastolic 86 mm[Hg] Mecca Corbett RN [facility] Work Phone: 01-10-2016 09:28-0500 BP Systolic 126 mm[Hg] Mecca Corbett RN [facility] Work Phone: 01-10-2016 09:28-0500 BSA (Body Surface Area) 1.83 m2 Mecca Corbett RN [facility] Work Phone: 01-10-2016 09:28-0500 Pulse (Heart Rate) 66 /min Mecca Corbett RN [facility] Work Phone: 01-10-2016 09:28-0500 Pulse Oximetry 96 % Mecca Corbett RN [facility] Work Phone: 01-10-2016 09:28-0500 Weight 81.24 kg Mecca Corbett RN [facility] Work Phone: 06-28-2015 15:09-0400 Body Temperature 97.9 [degF] Mecca Corbett RN [facility] Work Phone: 06-28-2015 15:09-0400 Respiratory Rate 14 /min Mecca Corbett RN [facility] Work Phone: 11-07-2011 09:20-0400 Height 157.48 cm Mecca Corbett RN [facility] Work Phone: Encounters Encounter Date Encounter Type Care Provider Facility Start: 06-15-2024 Non-patient / Non-visit [facility] Elizabeth [facility] Start: 06-15-2024 End: 06-15-[address] Sarahi Christian DO Work Phone: [facility] Work Phone: Start: 06-15-2024 End: 06-15-2024 Patient encounter procedure Estrella DE LA O -[facility] Work Phone: Start: 06-15-2024 End: 06-15-2024 ambulatory Estrella DE LA O Facility:[facility] Start: 05-19-2024 End: 05-19-2024 Patient encounter procedure Estrella DE LA O -[facility] Work Phone: Start: 05-19-2024 End: 05-19-2024 ambulatory Estrella DE LA O Facility:[facility] Start: 01-20-2024 End: 01-20-2024 ambulatory Sarahi Christian Facility:[facility] Start: 12-09-2023 End: 12-09-2023 ambulatory Brianna Yeboah MILL WASHER Facility:[facility] Start: 11-19-2023 End: 11-19-2023 ambulatory Brianna Yeboah MILL WASHER Facility:[facility] Start: 06-13-2023 End: 06-13-[address] Sarahi Christian Work Phone: [facility] Work Phone: Start: 06-13-2023 End: 06-13-[address] Sarahi Christian Work Phone: [facility] Work Phone: Start: 05-30-2023 End: 05-30-[address] Sarahi Christian Work Phone: [facility] Work Phone: Start: 05-30-2023 End: 05-30-[address] Sarahi Christian Work Phone: [facility] Work Phone: Start: 05-22-2023 End: 05-22-[address] Sarahi Christian Work Phone: [facility] Work Phone: Start: 05-22-2023 End: 05-22-[address] Sarahi Christian Work Phone: [facility] Work Phone: Start: 05-17-2023 Non-patient / Non-visit Dr. Jennifer Christian Work Phone: [facility] Work Phone: Start: 05-15-2023 Non-patient / Non-visit Dr. Jennifer Christian Work Phone: [facility] Start: 05-15-2023 End: 05-15-[address] Sarahi Christian Work Phone: [facility] Work Phone: Start: 05-15-2023 End: 05-15-[address] Sarahi Christian Work Phone: [facility] Work Phone: Start: 04-23-2023 End: 04-23-2023 Subsequent hospital visit by physician Screen Mammo [facility] Start: 04-22-2023 End: 04-22-[address] Sarahi Christian Work Phone: [facility] Work Phone: Start: 04-22-2023 End: 04-22-[address] Sarah[facility] Christian [facility] [place] [facility] Start: 04-10-2023 End: 04-10-[address] Sarahi Christian Work Phone: [facility] Work Phone: Start: 01-29-2023 End: 01-29-2023 ambulatory DELMY GAFFNEY Facility:[facility] Start: 01-29-2023 End: 01-29-2023 Patient encounter procedure Delmy Gaffney Work Phone: Podiatry Comment on above: Porokeratosis (Prima ry Dx); Pes planus of both feet Start: 12-16-2022 End: 12-16-[address] Sarahi Christian Work Phone: [facility] Work Phone: Start: 12-16-2022 End: 12-16-[address] Sarahi Christian [facility] Work Phone: Start: 12-16-2022 End: 12-16-[address] Sarahi Crhistian Work Phone: [facility] Work Phone: Start: 04-12-2022 End: 04-12-[address] Sarahi Christian Work Phone: [facility] Work Phone: Start: 04-12-2022 End: 04-12-[address] Sarahi Christian Work Phone: [facility]Outpatient [facility] Start: 04-02-2022 End: 04-02-[address] Sarahi Christian Work Phone: [facility] Work Phone: Start: 04-02-2022 End: 04-02-[address] Sarahi Christian Work Phone: [facility] Start: 03-07-2022 Non-patient / Non-visit Dr. Jennifer Christian Work Phone: [facility] Start: 02-27-2022 Non-patient / Non-visit Dr. Jennifer Christian Work Phone: [facility] Start: 02-27-2022 End: 02-27-[address] Sarahi Christian [facility] Start: 01-09-2022 End: 01-09-[address] Sarahi Christian Work Phone: [facility] Start: 09-12-2021 End: 09-12-[address] Sarahi Christian [facility] Start: 08-16-2021 End: 08-16-[address] [facility] Start: 08-14-2021 End: 08-14-[address] Sarahi Christian Work Phone: [facility], [facility] Start: 08-02-2021 End: 08-02-2021 Emergency department patient visit Dr. Sarahi Christian Work Phone: [facility]Emergency Department Start: 06-29-2021 End: 06-29-[address] Sarahi Christian Work Phone: [facility] Start: 05-20-2021 End: 05-20-[address] Sarahi Christian Work Phone: [facility] Start: 08-28-2019 End: 08-28-2019 Patient encounter procedure UNKNOWN PROVIDER Facility:[facility] Start: 06-07-2017 End: 06-07-2017 Emergency department patient visit LYNDON KEARNEY Facility:[facility] Procedures Date Procedure Procedure Detail Performing Clinician Start: 12-16-2022 Coronavirus COVID-[address] Sarahi Christian Work Phone: Start: 04-12-2022 Dual energy X-ray absorptiometry Dr. Sarahi Christian Work Phone: Start: 08-16-2021 MRI of brain without contrast Dr. Sarahi Christian Work Phone: Start: 08-02-2021 CT of head without contrast Dr. 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 Chary Barragan MILL WASHER Work Phone: Start: 01-10-2016 End: 01-10-2016 Follow Up Appt 1 year Chary Daily P Work Phone: Start: 07-13-2015 End: 01-03-2016 *Hepatic Function Panel Vinicio Portillo Start: 07-13-2015 End: 01-03-2016 Lipid 1996 panel - Serum or Plasma Julio Stanford MD Start: 01-11-2015 End: 01-12-2015 *BMP Julio Stanford MD Start: 01-11-2015 End: 01-12-2015 *Hepatic Function Panel Vinicio Portillo Start: 01-11-2015 End: 01-11-2015 Follow Up Appt 1 year Julio Stanford MD Start: 01-11-2015 End: 01-12-2015 Lipid 1996 panel - Serum or Plasma Julio Stanford MD Start: 01-11-2015 End: 01-11-2015 MMM Julio Stanford MD Start: 06-24-2014 End: 01-03-2016 *CBC with Differential Emmy Pham, DO Work Phone: Start: 06-24-2014 End: 01-03-2016 *CMP Complete Metabolic Panel Emmy josue, DO Work Phone: Start: 06-24-2014 End: 01-03-2016 Lipid 1996 panel - Serum or Plasma Emmy Pham DO Work Phone: Start: 06-24-2014 End: 01-03-2016 Thyrotropin [Units/volume] in Serum or Plasma Emmy Pham DO Work Phone: Start: 01-07-2014 End: 01-07-2014 DMITRI Stanford MD Start: 01-07-2014 End: 01-07-2014 Follow Up Appt 1 year Julio Stanford MD Start: 01-06-2013 End: 01-06-2013 DMITRI Stanford MD Start: 01-06-2013 End: 01-06-2013 Follow Up Appt 1 year Julio Stanford MD Start: 12-26-2012 End: 12-30-2012 *Hepatic Function Panel Vinicio Portillo Start: 12-26-2012 End: 12-30-2012 Lipid 1996 panel - Serum or Plasma Julio Stanford MD Start: 05-26-2012 End: 07-23-2012 *Hepatic Function Panel Vinicio Portillo Start: 05-26-2012 End: 07-23-2012 Lipid 1996 panel - Serum or Plasma Julio Stanford MD Start: 11-16-2011 End: 12-25-2011 *Hepatic Function Panel Vinicio Portillo Start: 11-16-2011 End: 12-25-2011 Lipid 1996 panel - Serum or Plasma Julio Stanford MD Start: 11-07-2011 End: 11-14-2011 Echocardiography Julio Stanford MD Start: 11-07-2011 End: 11-07-2011 Follow Up Appt 1 year Julio Stanford MD Plan of Treatment Date Care Activity Detail Author Start: 02-25-2023 Advance Directive Discussion Advance Directive Discussion [facility] Start: 02-25-2023 Depression Assessment Depression Assessment [facility] Start: 10-26-2022 Covid-19 Vaccine () Covid-19 Vaccine () [facility] Start: 09-03-2022 Diabetes Screening Diabetes Screening [facility] Start: 02-25-2022 Advance Directive Discussion Advance Directive Discussion [facility] Start: 02-25-2022 Depression Assessment Depression Assessment [facility] Start: 07-09-2017 End: 07-09-2017 Appointment Appointment [facility] Work Phone: Start: 04-19-2017 End: 04-19-2017 Appointment Appointment [facility] Work Phone: Start: 01-14-2017 End: 01-23-2017 Follow Up Appt 3 months Follow Up Appt 3 months [facility] Work Phone: Start: 01-14-2017 End: 01-23-2017 Pacer [facility] Work Phone: Start: 01-08-2017 End: 01-08-2017 Follow Up Appt 6 months Follow Up Appt 6 months [facility] Work Phone: Start: 01-08-2017 End: 01-08-2017 J[facility] R [facility] Work Phone: Start: 01-08-2017 End: 01-08-2017 Appointment Appointment [facility] Work Phone: Start: 12-26-2016 End: 01-15-2017 *Hepatic Function Panel *Hepatic Function Panel [facility] Work Phone: Start: 12-26-2016 End: 01-15-2017 Lipid panel [AGGREGATE] *Lipid Profile CC PCP [facility] Work Phone: Start: 08-17-2016 End: 08-20-2016 Follow Up Appt 3 months Follow Up Appt 3 months [facility] Work Phone: Start: 08-17-2016 End: 08-20-2016 Pacer Clinic [facility] Work Phone: Start: 05-03-2016 End: 05-04-2016 Follow Up Appt 3 months Follow Up Appt 3 months [facility] Work Phone: Start: 05-03-2016 End: 05-04-2016 Pacer Clinic [facility] Work Phone: Start: 01-10-2016 End: 01-10-2016 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 [facility] Work Phone: Start: 01-10-2016 End: 01-10-2016 Follow Up Appt 1 year Follow Up Appt 1 year [facility] Work Phone: Start: 07-13-2015 End: 01-03-2016 *Hepatic Function Panel *Hepatic Function Panel [facility] Work Phone: Start: 07-13-2015 End: 01-03-2016 Lipid panel [AGGREGATE] *Lipid Profile CC PCP [facility] Work Phone: Start: 01-11-2015 End: 01-12-2015 *BMP *BMP [facility] Work Phone: Start: 01-11-2015 End: 01-12-2015 *Hepatic Function Panel *Hepatic Function Panel [facility] Work Phone: Start: 01-11-2015 End: 01-11-2015 Follow Up Appt 1 year Follow Up Appt 1 year [facility] Work Phone: Start: 01-11-2015 End: 01-12-2015 Lipid panel [AGGREGATE] *Lipid Profile CC PCP [facility] Work Phone: Start: 01-11-2015 End: 01-11-2015 MMM MMM [facility] Work Phone: Start: 06-24-2014 End: 01-03-2016 *CBC with Differential *CBC with Differential [facility] Work Phone: Start: 06-24-2014 End: 01-03-2016 *CMP Complete Metabolic Panel *CMP Complete Metabolic Panel [facility] Work Phone: Start: 06-24-2014 End: 01-03-2016 Lipid panel [AGGREGATE] *Lipid Profile [facility] Work Phone: Start: 06-24-2014 End: 01-03-2016 Thyroid stimulating hormone (TSH) *TSH [facility] Work Phone: Start: 01-07-2014 End: 01-07-2014 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 [facility] Work Phone: Start: 01-07-2014 End: 01-07-2014 Follow Up Appt 1 year Follow Up Appt 1 year [facility] Work Phone: Start: 01-06-2013 End: 01-06-2013 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 [facility] Work Phone: Start: 01-06-2013 End: 01-06-2013 Follow Up Appt 1 year Follow Up Appt 1 year [facility] Work Phone: Start: 12-26-2012 End: 12-30-2012 *Hepatic Function Panel *Hepatic Function Panel [facility] Work Phone: Start: 12-26-2012 End: 12-30-2012 Lipid panel [AGGREGATE] *Lipid Profile CC PCP [facility] Work Phone: Start: 05-26-2012 End: 07-23-2012 *Hepatic Function Panel *Hepatic Function Panel [facility] Work Phone: Start: 05-26-2012 End: 07-23-2012 Lipid panel [AGGREGATE] *Lipid Profile [facility] Work Phone: Start: 11-16-2011 End: 12-25-2011 *Hepatic Function Panel *Hepatic Function Panel [facility] Work Phone: Start: 11-16-2011 End: 12-25-2011 Lipid panel [AGGREGATE] *Lipid Profile [facility] Work Phone: Start: 11-07-2011 End: 11-07-2011 Echocardiography Echocardiogram (complete) [facility] Work Phone: Start: 11-07-2011 End: 11-07-2011 Follow Up Appt 1 year Follow Up Appt 1 year [facility] Work Phone: Start: 11-04-2007 Bone Density Screening Bone Density Screening [facility] Start: 11-04-2007 Pneumococcal Vaccine: 65+ (1 - PCV) Pneumococcal Vaccine: 65+ (1 - PCV) [facility] Start: 11-04-2007 Pneumococcal Vaccine: 65+ (1 of 1 - PCV) Pneumococcal Vaccine: 65+ (1 of 1 - PCV) [facility] Start: 11-04-2007 Screening for osteoporosis Bone Density Screening [facility] Start: 2002 RSV Vaccine (1 - 1-dose 60+ series) RSV Vaccine (1 - 1-dose 60+ series) [facility] Start: 1992 Shingrix Vaccine (1 of 2) Shingrix Vaccine (1 of 2) [facility] Start: 1961 Urine microalbumin profile DTaP,Tdap,Td Vaccine (1 - Tdap) [facility] Hepatic function panel [facility] Lipid 1996 panel - S scott or Plasma [facility] Patient Education [facility] Work Phone: Patient referral [facility] Work Phone: [facility] Immunizations Immunization Date Immunization Notes Care Provider Fa jim 01-10-[address] Sarahi Christian Work Phone: [facility] 01-18-[address] Sarahi Christian Work Phone: [facility] Payers Date Payer Category Payer Self-pay [id number] [address] [facility] AARP MEDICAR E [facility] AARP MEDICARE PPO [id number] 2022-Present [phone] [address] [address] [place] [address] PPO [id number] 2022 Unknown [id number] 2017 Unknown [id number] 2007 Medicare [id number] 1940 Unknown [id number] Private Health Insurance [id number] Unknown [id number] Unknown [id number] Unknown [id number] Unknown [id number] Unknown [id number] Unknown [id number] Social History Date Type Detail Facility Start: 08-02-2021 End: 04-10-2023 Tobacco smoking status ARIS Unknown if ever smoked [facility] Start: 09-07-2019 None [facility] Start: 09-07-2019 Spouse/ Signif icant Other [facility] Start: 09-19-2019 Non-smoker [facility] Start: 1940 Sex Assigned At Female W [facility] Start: 05-28-2013 End: 04-10-2023 Tobacco smoking status NHIS Never smoked tobacco [facility] Work Phone: Start: 05-28-2013 Tobacco use and exposure Smoke less tobacco non-user [facility] Work Phone: Start: 01-29-2023 Alcohol intake 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 non-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 alcohol (finding) [facility] Start: 01-07-2023 End: 01-29-2023 History of Social function [facility] Start: 01-07-2023 End: 01-29-2023 Tobacco use panel [facility] National Score (1-10 0), lower number is lower risk 99 [facility] Start: 04-24-2020 Gender identity Identifies as female gender (finding) [facility] Start: 04-24-2020 Sexual orientation Choose not to dis close [facility] Start: 06-19-2024 Sex Female (finding) [facility] Medical Equipment Procedure Code Equipment Code Equipment Origin al Text Equipment Identifier Dates MEDTONIC REVEAL LINQ LOOP RECORDER FDA Start: 04-10-2016 MEDTONIC REVEAL LINQ LOOP RECORDER FDA Start: 04-10-2016 MEDTONIC REVEAL LINQ LOOP RECORDER FDA Start: 04-10-2016 MEDTONIC REVEAL LINQ LOOP RECORDER FDA Start: 04-10-2016 MEDTONIC REVEAL LINQ LOOP RECORDER FDA Start: 04-10-2016 MEDTONIC REVEAL LINQ LOOP RECORDER FDA Start: 04-10-2016 MEDTONIC REVEAL LINQ LOOP RECORDER FDA Start: 04-10-2016 MEDTONIC REVEAL LINQ LOOP RECORDER FDA Start: 04-10-2016 MEDTONIC REVEAL LINQ LOOP RECORDER FDA Start: 04-10-2016 MEDTONIC REVEAL LINQ LOOP RECORDER FDA Start: 04-10-2016 MEDTONIC REVEAL LINQ LOOP RECORDER FDA Start: 04-10-2016 Mental Status Date Assessment Result Facility 08-02-2021 Cognitive function Level Of Cons ciousness Awake;Alert;Appropriate [facility] Work Phone: Clinical Notes 01-29-2023 to 05-19-2024 Note Date & Type Note Facility 05-19-2024 Evaluation note Diagnosis Onset Date Resolution Asymmetric septal hypertrophy chronic May 19, 2024 8:55am Essential hypertension chronic [facility] 2024 8:55am Hyperlipidemia chronic April 8:55am 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 FALL SCREENING: Has the patient had 2 falls in the last year or 1 fall with injury or currently using an Ambulatory Assistive Device (Walker, Cane, Wheelchair, Crutches, etc.)? No PATIENT GENDER DATA: Female. status: : No status: NO. 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 Author Type: Registered Nurse Type: Progress Notes Filed: 01/29/2023 1:55 PM Note Text: Per Dr. Gaffney, Gabriela was provided with Gel Powerstep Inserts, size 7-8.5 Womens, and instructed/educated in its application, wear, and care. All questions were answered, and patient was able to demonstrate competence with the necessary skills to utilize the above equipment. [facility]23 NoteHNO ID: [id number] Author: Delmy Gaffney Service: ? Author Type: Physician Type: Progress Notes Filed: 01/29/2023 1:48 PM Note Text: Initial Podiatric Office Visit: Chief Complaint: This 82 year old female who presents with chief complaint:wart of left foot HPI Patient presents to clinic for evaluation of left foot. Apparently has a wart that she treated back in November with over the counter liquid wart removal. She treated the wart with the medication and she states she developed cellulitis as a result of the medication. She went to urgent care and had to be on 3 rounds of keflex to treat the infection to left foot. The infection did improve. She believes the medication did help with the wart to some degree. Patient is here today as she feels there is still some pressure to the left foot and she wants to discuss treatment options. PAIN EVALUATION No data found in the last 1 encounters. 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 calcium carbonate/vitamin D3 (VITAMIN D-3 ORAL) Take by mouth. Ingui-2-LIO-EPA-Fish Oil (FISH OIL) 1,000 mg (120 mg-180 mg) cap Take 2 g by mouth twice daily. acetaminophen (TYLENOL) 325 mg cap Take by mouth. atorvastatin (LIPITOR) 40 mg tablet Take 40 mg by mouth once daily. clopidogrel bisulfate(PLAVIX 75 MG TAB) Take one(1) tablet daily. lisinopril(PRINIVIL 10 MG TAB) Take one(1) tablet daily. ASPIRIN 81 MG TAB Take one(1) tablet daily. metoprolol succinate ER (TOPROL XL) 50 mg 24 hr tablet Take 1 tablet by mouth every afternoon. No current facility-administered medications for this visit. ALLERGIES Allergen Reactions Oxycodone Vomiting PAST SURGICAL HISTORY Procedure Laterality Date ARTHRP KNE CONDYLEANDPLATU MEDIALANDLAT COMPARTMENTS 04/2014 R knee; Dr. Cueva OOPHORECTOMY PARTIAL/TOTAL UNI/BI prior to 2011 Oophorectomy, right PAST SURGICAL HISTORY OF 08/2012 Repair Bladder Prolapse TOTAL ABDOMINAL HYSTERECT W/WO RMVL TUBE OVARY 08/24/2011 Hysterectomy, JONAH, left ovary FAMILY HISTORY Problem Relation Age of Onset Colon Cancer Mother Stroke Mother other (TIA) Mother Ischemic Heart Disease Father Coronary Artery Disease Father Stroke Father other (TIA) Father Cancer Brother other (Brain Aneurysm) Son Social History Tobacco Use Smoking status: Never Smokeless tobacco: Never Substance Use Topics Alcohol use: No Drug use: No REVIEW OF SYSTEMS GENERAL: Negative for Malaise, significant weight loss, fever RESPIRATORY: Negative for cough, wheezing and shortness of breath CARDIOVASCULAR: Negative for chest pain, leg swelling and palpitations GI: Negative for abdominal discomfort, blood in stools or black stools and change in bowel habits : Negative for dysuria, frequency and incontinence MUSCULOSKELETAL: Negative for joint pain or swelling, back pain, and muscle pain. SKIN: Negative for lesions, rash, and itching. HEMATOLOGY/LYMPHOLOGY Negative for prolonged bleeding, bruising easily, and swollen nodes. ENDOCRINE: Negative for cold or heat intolerance, polyuria, polydipsia and goiter. NEURO: negative Physical Exam: Constitutional: Pt is a well developed 82 year old female who is alert, oriented and cooperative Eyes: Following during examination. No redness or drainage. Respiratory: RR normal and nonlabored. Even breathing. No evidence of distress or shortness of breath. Psychology: Patient is engaged during conversation. Normal affect and mood. Does not appear depressed or anxious during encounter. Vascular: Dorsalis pedis and posterior tibial pulses faintly palpable b/l Capillary Fill time < 5 seconds to digits 1-5 b/l Skin temperature warm to cool proximal to distal b/l Hair growth present to digits Neurological: intact light touch/epicritic sensation b/l intact protective sensation no significant neurological deficits Dermatological: Nails 1-5 b/l appear normal. Webspaces clean and dry 1-4 b/l. Skin appears well hydrated and supple. good color, texture, turgor. No open lesions present. Porokeratosis x 2 to lateral midfoot, left lower extremity. Callus present to right 1st metatarsal Musculoskeletal/Orthopaedic: Patient has pain to palpation of porokeratotic lesion left foot Foot type is pronated structurally AJ ROM is decreased with knee extended and flexed 1st MPJ is decreased when lo (more content not included)...[facility]12-05-2023 NoteHNO ID: [id number] Author: Deja Archer LPN Service: ? Author Type: LICENSED NURSE Type: Progress Notes Filed: 01/29/2023 1:48 PM Note Text: AMB ROOMING INTAKE FLOWSHEET DATA Patient presents with: Left Foot - New, Wart Patient present to office with wart to left foot. Patient was placing OTC medication to wart when she got medication on health skin causing cellulitis. Patient was prescribed keflex to treat cellulitis. [facility] History of Present illness Narrative* Robyn Queen RN - 01/29/2023 1:[address] Gaffney, Gabriela was provided with Gel Powerstep Inserts, size 7-8.5 Womens, and instructed/educated in its application, wear, and care. All questions were answered, and patient was able to demonstrate competence with the necessary skills to utilize the above equipment. Robyn Queen RN * Delmy Gaffney - 01/29/2023 1:32 PM EST Initial Podiatric Office Visit: Chief Complaint: This 82 year old female who presents with chief complaint:wart of left foot HPI Patient presents to clinic for evaluation of left foot. Apparently has a wart that she treated backin November with over the counter liquid wart removal. She treated the wart with the medication and she states she developed cellulitis as a result of the medication. She went to urgent care and had to be on 3 rounds of keflex to treat the infection to left foot. The infection did improve. She believes the medication did help with the wart to some degree. Patient is here today as she feels there is still some pressure to the left foot and she wants to discuss treatment options. PAIN EVALUATION No data found in the last 1 encounters. 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 calcium carbonate/vitamin D3 (VITAMIN D-3 ORAL) Take by mouth. Coftz-1-OBO-EPA-Fish Oil (FISH OIL) 1,000 mg (120 mg-180 mg) cap Take 2 g by mouth twice daily. acetaminophen (TYLENOL) 325 mg cap Take by mouth. atorvastatin (LIPITOR) 40 mg tablet Take 40 mg by mouth once daily. clopidogrel bisulfate(PLAVIX 75 MG TAB) Take one(1) tablet daily. lisinopril(PRINIVIL 10 MG TAB) Take one(1) tablet daily. ASPIRIN 81 MG TAB Take one(1) tablet daily. metoprolol succinate ER (TOPROL XL) 50 mg 24 hr tablet Take 1 tablet by mouth every afternoon. No current facility-administered medications for this visit. ALLERGIES Allergen Reactions Oxycodone Vomiting PAST SURGICAL HISTORY Procedure Laterality Date ARTHRP KNE CONDYLE&PLATU MEDIAL&LAT COMPARTMENTS 04/2014 R knee; Dr. Cueva OOPHORECTOMY PARTIAL/TOTAL UNI/BI prior to 2011 Oophorectomy, right PAST SURGICAL HISTORY OF 08/2012 Repair Bladder Prolapse TOTAL ABDOMINAL HYSTERECT W/WO RMVL TUBE OVARY 08/24/2011 Hysterectomy, JONAH, left ovary FAMILY HISTORY Problem Relation Age of Onset Colon Cancer Mother Stroke Mother other (TIA) Mother Ischemic Heart Disease Father Coronary Artery Disease Father Stroke Father other (TIA) Father Cancer Brother other (Brain Aneurysm) Son Social History Tobacco Use Smoking status: Never Smokeless tobacco: Never Substance Use Topics Alcohol use: No Drug use: No REVIEW OF SYSTEMS GENERAL: Negative for Malaise, significant weight loss, fever RESPIRATORY: Negative for cough, wheezing and shortness of breath CARDIOVASCULAR: Negative for chest pain, leg swelling and palpitations GI: Negative for abdominal discomfort, blood in stools or black stools and change in bowel habits : Negative for dysuria, frequency and incontinence MUSCULOSKELETAL: Negative for joint pain or swelling, back pain, and muscle pain. SKIN: Negative for lesions, rash, and itching. HEMATOLOGY/LYMPHOLOGY Negative for prolonged bleeding, bruising easily, and swollen nodes. ENDOCRINE: Negative for cold or heat intolerance, polyuria, polydipsia and goiter. NEURO: negative Physical Exam: Constitutional: Pt is a well developed 82 year old female who is alert, oriented and cooperative Eyes: Following during examination. No redness or drainage. Respiratory: RR normal and nonlabored. Even breathing. No evidence of distress or shortness of breath. Psychology: Patient is engaged during conversation. Normal affect and mood. Does not appear depressed or anxious during encounter. Vascular: Dorsalis pedis and posterior tibial pulses faintly palpable b/l Capillary Fill time < 5 seconds to digits 1-5 b/l Skin temperature warm to cool proximal to distal b/l Hair growth present to digits Neurological: intact light touch/epicritic sensation b/l intact protective sensation no significant neurological deficits Dermatological: Nails 1-5 b/l appear normal. Webspaces clean and dry 1-4 b/l. Skin appears well hydrated and supple. good color, texture, turgor. No open lesions present. Porokeratosis x 2 to lateral midfoot, left lower extremity. Callus present to right 1st metatarsal Musculoskeletal/Orthopaedic: Patient has pain to palpation of porokeratotic lesion left foot Foot type is pronated structurally AJ ROM is decreased with knee extended and flexed 1st MPJ is decreased when loaded and no pain or crepitus are noted with ROM. Hallux valgus is noted b/l MTJ, STJ are full and free of pain and crepitus. +5/5 muscle strength dorsiflexion, plantarflexion, inversion, eversion b/l Radiographs: n/a ASSESSMENT: (Q82.8) Porokeratosis (primary encounter diagnosis) (M21.41, M21.42) Pes planus of both feet PLAN: 1. History and physical examination performed. 2. Discussed patient complaint of wart to left foot. These resemble more porokeratosis. I see no wart on exam. I reduced the minimal size porokeratosis with 15 blade and dremmel. I will defer acid application given her recent blistering and subsequent cellulitis. No celluluitis on exam today. In order to perform a complete physical exam, limited shaving of callus area was performed. This incidental service is integral to the evaluation and management visit in order to appropriately manage and treat the patient (for their complaint or for this visit). 3. Recommend powerstep inserts with offloading pad at site of porokeratosis 4. F/u prn Delmy Gaffney DPM Podiatry [address] [facility] [address] Dept: [phone] Dept * Deja Archer LPN - 01/29/2023 1:21 PM EST AMB ROOMING INTAKE FLOWSHEET DATA Patient presents with: Left Foot - New, Wart Patient present to office with wart to left foot. Patient was placing OTC medication to wart when she got medication on health skin causing cellulitis. Patient was prescribed keflex to treat cellulitis. Deja Archer LPN [facility] Instructions* Patient Instructions* Delmy Gaffney - 01/29/2023 1:41 PM EST Powerstep Original Full length. Can purchase at [facility] [employer] and boots,shoes and more here in [place], [employer] in [place] or [place]. Also can find in [place] in [facility]. Powersteps can also be purchased online, starting around $45.00 If you have a metatarsal or dancer pad for your feet apply the pad directly to the insole so you can interchange between your shoes. Find a shoe with a removable insole and take this out and replace with your powerstep insole. Always bring powersteps with you when shopping for shoes so that you can make sure that everything fits well together Recommend placing pad on insert to help offload area of callus Color area of callus with lipstick vs magic marker Step on insert Place pad on area of transfer documented in this encounterOhio [facility] HospitalEvaluation note* Diagnosis Onset Date Resolution Status Acute bronchitis, unspecified resolved Essential hypertension chron ic Mitral valve annular calcification chronic [facility] Work Phone: Evaluation note* Diagnosis Onset Date Resolution Status Essential hypertension chron ic Mitral valve annular calcification [facility] Work Phone: Evaluation note* Diagnosis Onset Date Resolution Status Essential hypertension chron ic Hyperlipidemia chronic Mitral valve annular calcification chronic [facility] Work Phone: Evaluation note* Diagnosis Onset Date Resolution Status URI (upper respiratory infection) acute [facility] Work Phone: Evaluation note* Diagnosis Porokeratosis- Primary Other specified congenital anomaly of skin Pes planus of both feet documented in this encounter [facility] HospitalReason for referral (narrative)No reason for referral information [facility]WTr[facility] Work Phone: Summary Purpose Family History No Family History Records Found Relationship Condition Age at Onset Recorded Date/T zev father Coronary artery disease Unknown Cerebrovascular accident (CVA) Unknown mother Malignant neoplasm of colon Unknown brother Malignant neoplasm Unknown Advance Directives No Advanced Directives Records Found Advance Directive Response Recorded Date/ Time Name of Medical Power of Octave Board Assembler August 02, 2021 9:36am Advance Directives Yes December 28, 2019 9:06am Living Will Yes August 02, 2021 9 :36am Power of Octave Board Assembler Yes August 02, 2021 9:36am Advance Directive Response Recorded Date/ Time Advance Directives Yes December 28, 2019 8:06am Living Will Yes August 02, 2021 8 :36am Power of Octave Board Assembler Yes August 02, 2021 8:36am Advance Directive Response Recorded Date/ Time Advance Directives Yes December 28, 2019 9:06am Living Will Yes August 02, 2021 9 :36am Power of Octave Board Assembler Yes August 02, 2021 9:36am Advance Directive Response Recorded Date/ Time Living Will Yes August 02, 2021 9 :36am Do you have a Healthcare Power of Octave Board Assembler? Yes August 02, 2021 9:36am Advance Directives Yes December 28, 2019 9:06am Chief Complaint and Reason for Visit Chief Complaint URI 6 M FU mayorga Retinal hemorrhage, right eye Reason for Visit Acute bronchitis, un specified Essential hypertension Mitral valve annular calcification Chief Complaint 6 M FU mayorga Retinal hemorrhage, right eye Retinal hemorrhage, right eye Reason for Visit Essential hypertensi on Mitral valve annular calcification Chief Complaint 6 M FU MURMUR Amb Documentation Reason for Visit Essential hypertensi on Hyperlipidemia Mitral valve annular calcification Chief Complaint 6 M FU MURMUR Amb Documentation OSTEO Reason for Visit Essential hypertensi on Hyperlipidemia Mitral valve annular calcification Chief Complaint SORE THROAT , COUGH Reason for Visit URI (upper respirato ry infection) Chief Complaint 9 M FU/MOVED FROM O Reason for Visit Essential hypertensi on Hyperlipidemia Mitral valve annular calcification Chief Complaint 9 M FU/MOVED FROM O Nonrheumatic mitral (valve) stenosis Amb Documentation Reason for Visit Essential hypertensi on Hyperlipidemia Mitral valve annular calcification Chief Complaint 9 M FU/MOVED FROM CS O Nonrheumatic mitral (valve) stenosis Amb Documentation E-ORDER Reason for Visit Essential hypertensi on Hyperlipidemia Mitral valve annular calcification Chief Complaint 9 M FU/MOVED FROM CS O Nonrheumatic mitral (valve) stenosis Amb Documentation E-ORDER E ORDER Reason for Visit Essential hypertensi on Hyperlipidemia Mitral valve annular calcification Chief Complaint Admit Date 6 m fu May 19, 2024 8:5 5am MURMUR June 15, 2024 1:5 7pm Reason for Visit Admit Date Asymmetric septal hypertrophy April 8:55am Essential hypertension May 19, 2024 8:55am Hyperlipidemia May 19, 2024 8:5 5am Nonrheumatic mitral valve stenosis with insufficiency May 19, 2024 8:55am Additional Source Comments INFORMATION SOURCE (unrecogn ized section and content) DATE CREATED AUTHOR 08/15/2017 [employer] ([place]) DATE CREATED AUTHOR AUTHOR'S ORGANIZ ATION 09/18/2019 [facility] [employer] [facility] DATE CREATED AUTHOR AUTHOR'S ORGANIZ ATION 01/31/2023 [facility] DATE CREATED AUTHOR AUTHOR'S ORGANIZ ATION 06/20/2024 [facility] Goals (unrecognized section and content) Goals may be documented in a n alternate sectionGoals may be documented in an alternate sectionGoals may be documented in an alternate sectionGoals may be documented in an alternate sectionGoals may be documented in an alternate sectionGoals may be documented in an alternate sectionGoals may be documented in an alternate sectionGoals may be documented in an alternate sectionGoals may be documented in an alternate sectionGoals may be documented in an alternate sectionGoals may be documented in an alternate section Care Teams (unrecognized sec tion and content) Team Status: Active Member Role Status Dates Dr. Sarahi Christian , Family Provider Active Dr. Sarahi Christian , DO Primary Care Provider Active Team Status: Inactive Member Role Status Dates Dr. Sarahi Christian , Primary Care Provider, Referrin g Provider Active Dr. Julio Stanford MD Attending Provider Active Team Status: Active Member Role Status Dates Dr. Sarahi Christian DO Primary Care Provider Active Dr. Julio Stanford MD Attending Provider Active Team Status: Active Member Role Status Dates Dr. Sarahi Christian DO Primary Care Provider Active Raghavendra Severino MILL WASHER, MILL WASHER-C Attending Provider Active Team Status: Inactive Member Role Status Dates Dr. Sarahi Christian DO Primary Care Provider Active Dr. Julio Stanford MD Attending Provider, Referring Pro vider Active Team Status: Inactive Member Role Status Dates Dr. Sarahi Christian DO Primary Care Provider, Attendin g Provider Active Team Status: Inactive Member Role Status Dates Dr. Sarahi Christian DO Primary Care Prov ider, Attending Provider, Referring Provider Active Team Status: Inactive Member Role Status Dates Dr. Sarahi Christian DO Primary Care Provider, Referrin g Provider Active Raghavendra Severino MILL WASHER, MILL WASHER-C Attending Provider Active Team Status: Inactive Member Role Status Dates Dr. Sarahi Christian DO Primary Care Provider Active Raghavendra Severino MILL WASHER, MILL WASHER-C Attending Provider Active [place] Carver Relationship Specialty Start Date End Date Sarahi Christian DO PCP - General Family Medicine 04/13/20 Julio Stanford MD [address] [id number] Physician Cardiology 04/13/20 [place] Relationship Specialty Start Date End Date Sarahi Christian DO PCP - General Family Medicine 04/13/20 Julio Stanford MD Arian STE[address]BER[address] [id number] Physician Cardiology 04/13/20 Team Status: Inactive Member Role Status Dates Dr. Sarahi Christian DO Primary Care Provider, Referrin g Provider Active Brianna Yeboah MILL WASHER, MILL WASHER-C Attending Provider Active Team Status: Active Member Role Status Dates Dr. Sarahi Christian DO Primary Care Provider Active Brianna Yeboah MILL WASHER, MILL WASHER-C Attending Provider Active Team Status: Inactive Member Role Status Dates Dr. Sarahi Christian DO Primary Care Provider Active Brianna Yeboah MILL WASHER, MILL WASHER-C Attending Provider, Referring P gordon Active Team Status: Active Member Role Status Dates Dr. Sarahi Christian DO Primary Care Provider Active Team Status: Inactive Member Role Status Dates Dr. Sarahi Christian DO Primary Care Provider Active Start: May 19, 2024 End: May 19, 2024 Dr. Sarahi Christian DO Referring Provider Active Start: May 19, 2024 End: May 19, 2024 Estrella DE LA O PA Attending Provider Active Start: May 19, 2024 End: May 19, 2024 Team Status: Inactive Member Role Status Dates Dr. Sarahi Christian DO Primary Care Provider Active Start: June 15, 2024 End: June 15, 2024 JAYLYN Molina Attending Provider Active Start: June 15, 2024 End: June 15, 2024 JAYLYN Molina Referring Provider Active Start: June 15, 2024 End: June 15, 2024 Team Status: Active Member Role Status Dates Dr. Sarahi Christian DO Primary Care Provider Active Start: June 15, 2024 Dr. Julio Stanford MD Attending Provider Active S tart: June 15, 2024 Source Comments (unrecognize d section and content) In the event this informatio n is protected by the Federal Confidentiality of Alcohol and Drug Abuse Patient Records regulations: The Federal rules restrict any use of the information to criminally investigate or prosecute any alcohol or drug abuse patient.[facility] the event this information is protected by the Federal Confidentiality of Alcohol and Drug Abuse Patient Records regulations: The Federal rules restrict any use of the information to criminally investigate or prosecute any alcohol or drug abuse patient.[facility] Reason for Visit (unrecogniz ed section and content) Reason Comments New Wart FOR RECORDS PERTAINING TO PATIENTS WHO ARE OR HAVE BEEN ENROLLED IN A CHEMICAL DEPENDENCY/SUBSTANCEABUSE PROGRAM, SOME INFORMATION MAY BE OMITTED. This clinical summary was aggregated from multiple sources. Caution should be exercised in using it in the provision of clinical care. This summary normalizes information from multiple sources, and as a consequence, information in this document may materially change the coding, format and clinical context of patient data. In addition, data may be omitted in some cases. CLINICAL DECISIONS SHOULD BE BASED ON THE PRIMARY CLINICAL RECORDS. [facility] [employer] [facility] provides no warranty or guarantee of the accuracy or completeness of information in this document.
== END | disposition home or self-care (01) ==
LOC: MTLAB 10:46
PROVIDERS: PCP Family Medicine; Referring Provider Family Medicine; Visit Provider Family Medicine
DX: I12.9 Hypertensive chronic kidney disease with stage 1 through stage 4 chronic kidney disease, or unspecified chronic kidney disease (principal); N18.32 Chronic kidney disease, stage 3b; N25.81 Secondary hyperparathyroidism of renal origin; E55.9 Vitamin D deficiency, unspecified; Z86.73 Personal history of transient ischemic attack (TIA), and cerebral infarction without residual deficits
CPT/HCPCS: 36415; 80053; 80061; 82306; 83970; 85025